=== PATIENT | female | born 1955 | race Caucasian/White ===

== ENCOUNTER → 2017-03-16 | Outpatient (CLI) | payer MEDICARE, OTHER ==
[2017-03-16 16:56] LABS: Blood Urea Nitrogen 8 mg/dL (7-17); Non-African American GFR(MDRD) >60 (>60 ml/min/1.73 sqM)
--- NOTE | 2017-03-16 17:37 | CT ---
EXAMINATION TYPE: CT chest angio for PE DATE OF EXAM: 03/16/2017 COMPARISON: 04/12/2013 HISTORY: Shortness of breath for 2-[address] DLP: 489.4 mGycm Automated exposure control for dose reduction was used. CONTRAST: CT Chest for pulmonary embolism performed with with IV Contrast, patient injected with 72 mL of Omnip aque 350. There are 3-D post processed images. FINDINGS: There is some mild groundglass type interstitial pulmonary infiltrate. There is some mild reticular n odular infiltrate in the right lower lobe and left lower lobe at the lung bases. There is no pleural effusion. There is mild atelectasis at the posterior lung bases. Heart size is normal. There is no pe ricardial effusion. I see no filling defects in the pulmonary arteries. There is no sign of aortic aneurysm or dissection . There is no sign of mediastinal or bronchial adenopathy. There is spurring in the thoracic spine. IMPRESSION: No evidence of pulmonary embolism. Interstitial pulmonary fibrotic changes. Fibrotic changes and atel ectasis at the lung bases similar to old CT scan.
== END | disposition home or self-care (01) ==
LOC: RADCTMAIN 15:53
PROVIDERS: ATTEND Family Medicine
DX: J84.9 Interstitial pulmonary disease, unspecified (principal); J84.10 Pulmonary fibrosis, unspecified; J98.11 Atelectasis
CPT/HCPCS: 82565; 84520; 71275; 36415; Q9967

== ENCOUNTER → 2018-04-14 | Outpatient (CLI) | payer MEDICARE ==
[2018-04-14 13:35] LABS: Blood Urea Nitrogen 8 mg/dL (7-17)
--- NOTE | 2018-04-14 15:29 | CT ---
EXAMINATION TYPE: CT angio neck DATE OF EXAM: 04/14/2018 COMPARISON: None HISTORY: 62-year-old female right internal carotid artery occlusion on ultrasound. Visual changes in the left eye TECHNIQUE: Contiguous axial scanning of the neck performed with IV Contrast, patient injected with 65 mL of Isovue 370. Coronal/sagittal MIP reconstructions performed. 3-D reconstructions generated on a dedicated independent workstation. CT DLP: 335.1 mGycm Automated exposure control for dose reduction was used. FINDINGS: Conventional arch vessel branching anatomy with mild to moderate atherosclerotic calcifications at th e origin of the left common and subclavian arteries. Mildly enlarged caliber to the right main pulmonary artery at 2.7 cm can be seen in the setting of pu lmonary arterial hypertension. There is moderate underlying emphysema in the visualized upper lungs. Mild atherosclerotic calcifications at the origin of the bilateral vertebral arteries. These vessels are codominant and otherwise patent throughout there are coarse. Mild eccentric atherosclerotic plaque and calcification in the distal right common carotid artery and severe atherosclerotic change at the right carotid bifurcation with severe stenosis and subtotal occ lusion at the level of the right carotid bulb with secondary string sign of the right ICA. The right carotid bifurcation occurs 1.1 cm below the angle of the mandible. Moderate atherosclerotic calcifications in the distal left common carotid artery and carotid bifurcat ion with mild, 25% narrowing within the left carotid bulb. There appears to be prior aneurysm clipping near the level of the supraclinoid left ICA. IMPRESSION: 1. SEVERE, GREATER THAN 90% STENOSIS AT THE RIGHT CAROTID BULB WITH SECONDARY STRING SIGN OF THE RIGH T ICA. 2. MILD, LESS THAN 25% ATHEROSCLEROTIC NARROWING WITHIN THE LEFT CAROTID BULB. 3. COPD WITH MODERATE EMPHYSEMA AND POSSIBLE PULMONARY ARTERIAL HYPERTENSION.
== END ==
LOC: RADCTMAIN 12:49
PROVIDERS: ATTEND Family Medicine
DX: I65.23 Occlusion and stenosis of bilateral carotid arteries (principal); J43.9 Emphysema, unspecified
CPT/HCPCS: 82565; 84520; 70498; 36415; Q9967

== ENCOUNTER → 2018-12-14 | Outpatient (CLI) | payer MEDICARE ==
--- NOTE | 2018-12-15 08:01 | CT ---
EXAMINATION TYPE: CT lumbar spine wo con DATE OF EXAM: 12/14/2018 4:24 PM COMPARISON: None. HISTORY: low back pain, no known injury. CT DLP: 1602.8 mGycm Automated exposure control for dose reduction was used. Unenhanced CT of the lumbar spine was performed. Bone and soft tissue window settings are submitted as well as coronal and sagittal reconstructions. There are 5 lumbar type vertebra identified. There is mild height loss with horizontal sclerosis thro ugh the superior L1 endplate consistent with healing or healed fracture, as there is extension to the anterior and posterior endplates with slight posterior retropulsion of the superior L1 vertebra francine uring 1 to 2 mm. No acute fracture or dislocation is seen. Alignment is otherwise satisfactory. No la rge disc herniations are seen on sagittal images. Review of axial images shows mild to moderate facet arthropathy L3-L4 through the L5-S1 levels. Spina l canal is preserved. Bilateral neural foramina are grossly patent. There is moderate to severe calcified plaque of aorta extending to branch vessels. There are suspecte d 2 small right renal calculi coronal images 30 and 31 measuring up to 3 mm on long axis. IMPRESSION: There is subacute or chronic mild fracture through the superior aspect of the L1 vertebra with minimal retropulsion of the superior aspect of the L1 vertebra into the anterior spinal canal.
== END ==
LOC: RADCTMAIN 15:42
PROVIDERS: ATTEND Family Medicine
DX: S32.019A Unspecified fracture of first lumbar vertebra, initial encounter for closed fracture (principal)
CPT/HCPCS: 72131

== ENCOUNTER 2019-05-23 16:29 | Inpatient (IN) | payer MEDICARE ==
[2019-05-23] MEDS ORDERED: methylPREDNISolone SOD SUCCI 125 MG/2 ML VIAL IV STA (16:59)
[2019-05-23] MEDS ORDERED: IPRATROPIUM-ALBUTEROL 3 ML NEB INHALATION STA (16:59)
--- NOTE | 2019-05-23 17:02 | ED ---
SOB HPI - General Chief Complaint: Shortness of Breath Stated Complaint: SOB Time Seen by Provider: 05/23/19 16:34 Source: patient, RN notes reviewed, old records reviewed Mode of arrival: ambulatory Limitations: no limitations - History of Present Illness Initial Comments: This is a 64-year-old female the ER. She was essay for evaluation severe shortn ess of breath presenting from primary care sent in for evaluation regarding shortness of breath. Otherwise no recent travel or sick contacts no recent hospitalizations within the last 3 years. Patient went to primary care doctor's office and noticed oxygen to very low in the low 80s she was then sent to ER for evaluation. Patient does admit to shortness of breath no chest pain no significant lower extremity swelling no fevers. Occasional diaphoresis. No otherwise recent travel history or sick contacts. MD Complaint: shortness of breath, cough, anxiety -: days(s) Severity: severe Severity scale (1-10): 8 Quality: other (no pain) Consistency: constant Improves With: oxygen, rest Worsens With: exertion Known History Of: COPD Context: recent URI Associated Symptoms: pain with inspiration, cough, sputum production Treatments Prior to Arrival: oxygen, bronchodilator - Related Data Home Medications Medication Instructions Recorded Confirmed Albuterol Inhaler [Ventolin Hfa 2 puff INHALATION RT-Q6H PRN 07/25/14 05/23/19 Inhaler] Atenolol [Tenormin] 25 mg PO HS 07/25/14 05/23/19 Montelukast [Singulair] 10 mg PO DAILY 07/25/14 05/23/19 Phenytoin Sodium Extended 200 mg PO BID 07/25/14 05/23/19 [Dilantin] Ranitidine HCl [Zantac] 300 mg PO HS 07/25/14 05/23/19 diphenhydrAMINE [Benadryl] 50 mg PO HS 07/25/14 05/23/19 Sertraline [Zoloft] 200 mg PO DAILY 07/27/14 05/23/19 Losartan Potassium [Cozaar] 50 mg PO DAILY 01/09/15 05/23/19 Albuterol Nebulized [Ventolin 2.5 mg INHALATION RT-QID PRN 12/17/15 05/23/19 Nebulized] Gabapentin 600 mg PO HS 12/17/15 05/23/19 Ipratropium Nebulized [Atrovent 0.5 mg INHALATION RT-Q4H PRN 12/17/15 05/23/19 Nebulized 0.2 MG/ML] Aspirin EC [Ecotrin Low Dose] 81 mg PO DAILY 05/23/19 05/23/19 Atorvastatin [Lipitor] 80 mg PO HS 05/23/19 05/23/19 Budesonide [Pulmicort] 1 mg INHALATION RT-BID 05/23/19 05/23/19 Bumetanide [BUMEX] 2 mg PO DAILY 05/23/19 05/23/19 Clopidogrel Bisulfate [Plavix] 75 mg PO DAILY 05/23/19 05/23/19 Potassium Chloride 20 meq PO DAILY 05/23/19 05/23/19 Spironolactone 25 mg PO DAILY 05/23/19 05/23/19 metFORMIN HCL [Glucophage] 1,000 mg PO BID 05/23/19 05/23/19 predniSONE 40 mg PO DAILY 05/23/19 05/23/19 traZODone HCL 100 - 200 mg PO HS 05/23/19 05/23/19 Allergies Allergy/AdvReac Type Severity Reaction Status Date / Time No Known Allergies Allergy Verified 05/23/19 17:35 Review of Systems ROS Statement: Those systems with pertinent positive or pertinent negative responses have been documented in the HPI. ROS Other: All systems not noted in ROS Statement are negative. Past Medical History Past Medical History: COPD, Diabetes Mellitus, GERD/Reflux, Hyperlipidemia, Hypertension, Osteoarthritis (OA), Pneumonia History of Any Multi-Drug Resistant Organisms: None Reported Past Surgical History: Section Additional Past Surgical History / Comment(s): brain aneurysm repair Past Psychological History: Anxiety Smoking Status: Former smoker Past Alcohol Use History: None Reported Past Drug Use History: None Reported - Past Family History Mother Family Medical History: Congestive Heart Failure (CHF) Father Family Medical History: Congestive Heart Failure (CHF) General Exam Limitations: no limitations General appearance: alert, anxious, lethargic, in distress Head exam: Present: atraumatic, normocephalic, normal inspection Eye exam: Present: normal appearance, PERRL, EOMI. Absent: scleral icterus, conjunctival injection, periorbital swelling ENT exam: Present: normal exam, mucous membranes moist Neck exam: Present: normal inspection. Absent: tenderness, meningismus, lymphadenopathy Respiratory exam: Present: respiratory distress, wheezes, accessory muscle use, decreased breath sounds, prolonged expiratory. Absent: rales, rhonchi, stridor Cardiovascular Exam: Present: normal rhythm, tachycardia, normal heart sounds. Absent: systolic murmur, diastolic murmur, rubs, gallop, clicks GI/Abdominal exam: Present: soft, normal bowel sounds. Absent: distended, tend erness, guarding, rebound, rigid Extremities exam: Present: normal inspection, full ROM, normal capillary refill. Absent: tenderness, pedal edema, joint swelling, calf tenderness Back exam: Present: normal inspection Neurological exam: Present: alert, oriented X3, CN II-XII intact Psychiatric exam: Present: normal affect, normal mood Skin exam: Present: warm, dry, intact, normal color. Absent: rash Course Vital Signs 05/23/19 05/23/19 05/23/19 16:31 16:32 16:40 Temperature 98.3 F Pulse Rate 110 H Respiratory 26 H Rate Blood Pressure 147/79 O2 Sat by Pulse 96 100 99 Oximetry 05/23/19 05/23/19 05/23/19 16:48 16:50 17:00 Temperature Pulse Rate 112 H 113 H Respiratory 26 H 23 17 Rate Blood Pressure 147/79 147/79 O2 Sat by Pulse 100 91 L Oximetry 05/23/19 05/23/19 05/23/19 17:10 17:11 17:20 Temperature Pulse Rate 110 H 112 H 112 H Respiratory 18 18 Rate Blood Pressure 156/71 156/71 O2 Sat by Pulse 90 L 85 L Oximetry 05/23/19 05/23/19 05/23/19 17:30 17:32 17:40 Temperature Pulse Rate 116 H 104 H 110 H Respiratory 42 H 20 Rate Blood Pressure 156/71 127/72 O2 Sat by Pulse 87 L 92 L Oximetry 05/23/19 05/23/19 05/23/19 17:50 18:00 18:10 Temperature Pulse Rate 109 H 110 H 106 H Respiratory 25 H 18 16 Rate Blood Pressure 127/72 127/72 141/86 O2 Sat by Pulse 92 L 94 L 92 L Oximetry 05/23/19 18:16 Temperature Pulse Rate 106 H Respiratory 16 Rate Blood Pressure 141/86 O2 Sat by Pulse 92 L Oximetry - Reevaluation(s) Reevaluation #1: 05/23/19 18:46 Medical records reviewed Reevaluation #2: 05/23/19 18:46 Have breathing treatment here in the ER she is requiring more oxygen than she normally does at home - Consultations Consultation #1: Spoke with Dr. Henry who is okay for admission Medical Decision Making - Medical Decision Making Deformity female the ER with hypoxic respiratory distress severe COPD exacerbation. X-ray shows no acute changes no CHF, patient is needed increased from baseline O2 here in the ER and will be admitted for continued evaluation and monitoring of cardiac troponin status. - Lab Data Result diagrams: 05/23/19 16:47 05/23/19 16:47 Lab Results 05/23/19 05/23/19 05/23/19 Range/Units 16:47 16:47 16:47 WBC 11.9 H (3.8-10.6) k/uL RBC 3.77 L (3.80-5.40) m/uL Hgb 10.4 L (11.4-16.0) gm/dL Hct 32.7 L (34.0-46.0) % MCV 86.7 (80.0-100.0) fL MCH 27.7 (25.0-35.0) pg MCHC 31.9 (31.0-37.0) g/dL RDW 16.0 H (11.5-15.5) % Plt Count 304 (150-450) k/uL Neutrophils % 90 % Lymphocytes % 4 % Monocytes % 4 % Eosinophils % 0 % Basophils % 0 % Neutrophils # 10.7 H (1.3-7.7) k/uL Lymphocytes # 0.5 L (1.0-4.8) k/uL Monocytes # 0.4 (0-1.0) k/uL Eosinophils # 0.0 (0-0.7) k/uL Basophils # 0.1 (0-0.2) k/uL Hypochromasia Slight Anisocytosis Slight PT 9.5 (9.0-12.0) sec INR 0.9 (<1.2) APTT 24.1 (22.0-30.0) sec Sodium 137 (137-145) mmol/L Potassium 4.0 (3.5-5.1) mmol/L Chloride 88 L (98-107) mmol/L Carbon Dioxide 37 H (22-30) mmol/L Anion Gap 12 mmol/L BUN 10 (7-17) mg/dL Creatinine 0.45 L (0.52-1.04) mg/dL Est GFR (CKD-EPI)AfAm >90 (>60 ml/min/1.73 sqM) Est GFR (CKD-EPI)NonAf >90 (>60 ml/min/1.73 sqM) Glucose 130 H (74-99) mg/dL Calcium 9.2 (8.4-10.2) mg/dL Magnesium 1.8 (1.6-2.3) mg/dL Total Bilirubin 0.3 (0.2-1.3) mg/dL AST 28 (14-36) U/L ALT 22 (9-52) U/L Alkaline Phosphatase 157 H (38-126) U/L Troponin I (0.000-0.034) ng/mL NT-Pro-B Natriuret Pep pg/mL Total Protein 7.5 (6.3-8.2) g/dL Albumin 3.9 (3.5-5.0) g/dL 05/23/19 05/23/19 Range/Units 16:47 16:47 WBC (3.8-10.6) k/uL RBC (3.80-5.40) m/uL Hgb (11.4-16.0) gm/dL Hct (34.0-46.0) % MCV (80.0-100.0) fL MCH (25.0-35.0) pg MCHC (31.0-37.0) g/dL RDW (11.5-15.5) % Plt Count (150-450) k/uL Neutrophils % % Lymphocytes % % Monocytes % % Eosinophils % % Basophils % % Neutrophils # (1.3-7.7) k/uL Lymphocytes # (1.0-4.8) k/uL Monocytes # (0-1.0) k/uL Eosinophils # (0-0.7) k/uL Basophils # (0-0.2) k/uL Hypochromasia Anisocytosis PT (9.0-12.0) sec INR (<1.2) APTT (22.0-30.0) sec Sodium (137-145) mmol/L Potassium (3.5-5.1) mmol/L Chloride (98-107) mmol/L Carbon Dioxide (22-30) mmol/L Anion Gap mmol/L BUN (7-17) mg/dL Creatinine (0.52-1.04) mg/dL Est GFR (CKD-EPI)AfAm (>60 ml/min/1.73 sqM) Est GFR (CKD-EPI)NonAf (>60 ml/min/1.73 sqM) Glucose (74-99) mg/dL Calcium (8.4-10.2) mg/dL Magnesium (1.6-2.3) mg/dL Total Bilirubin (0.2-1.3) mg/dL AST (14-36) U/L ALT (9-52) U/L Alkaline Phosphatase (38-126) U/L Troponin I <0.012 (0.000-0.034) ng/mL NT-Pro-B Natriuret Pep 373 pg/mL Total Protein (6.3-8.2) g/dL Albumin (3.5-5.0) g/dL - EKG Data -: EKG Interpreted by Me (EKG shows sinus tachycardia rate of 113, KS 180, QRS 70, QTc 447) - Radiology Data Radiology results: report reviewed (Chest x-rays negative for change from prior), image reviewed Critical Care Time Critical Care Time: Yes Total Critical Care Time: 31 Disposition Clinical Impression: Acute exacerbation of chronic obstructive pulmonary disease, Congestive heart failure, COPD with acute exacerbation, Hypoxia Disposition: ADMITTED IP TO THIS HOSP Condition: Fair Is patient prescribed a controlled substance at d/c from ED?: No Referrals: Asha Pacheco DO [Primary Care Provider] - 1-2 days
[2019-05-23 17:09] LABS: Anisocytosis Slight; Basophils # (A) 0.1 k/uL (0-0.2); Basophils % (A) 0 %; Eosinophils % (A) 0 %; HCT 32.7 % (34.0-46.0); HGB 10.4 gm/dL (11.4-16.0); Hypochromasia Slight; Lymphocytes # (A) 0.5 k/uL (1.0-4.8); Lymphocytes % (A) 4 %; MCH 27.7 pg (25.0-35.0); MCHC 31.9 g/dL (31.0-37.0); MCV 86.7 fL (80.0-100.0); Mean Platelet Volume 5.6; Monocytes # (A) 0.4 k/uL (0-1.0); Monocytes % (A) 4 %; Neutrophils # (A) 10.7 k/uL (1.3-7.7); Neutrophils % (A) 90 %; Platelet Count 304 k/uL (150-450); RBC 3.77 m/uL (3.80-5.40); WBC 11.9 k/uL (3.8-10.6)
[2019-05-23 17:20] LABS: INR 0.9 (<1.2); Partial Thromboplastin Time 24.1 sec (22.0-30.0); Prothrombin Time 9.5 sec (9.0-12.0)
--- NOTE | 2019-05-23 17:52 | XR ---
EXAMINATION TYPE: XR chest 1V portable DATE OF EXAM: 05/23/2019 COMPARISON: 12/17/2015 HISTORY: Short of breath TECHNIQUE: Single frontal view of the chest is obtained. FINDINGS: Heart is normal. There is some coarse density in the lower lobes and more on the left side . There is no heart failure. There are no hilar masses. IMPRESSION: Chronic infiltrates in the lower lobes consistent with scarring and is not significantly different than old exam. No heart failure.
[2019-05-23 17:59] LABS: ALT 22 U/L (9-52); AST 28 U/L (14-36); African American GFR (CKD) >90 (>60 ml/min/1.73 sqM); Albumin 3.9 g/dL (3.5-5.0); Alkaline Phosphatase 157 U/L (38-126); Blood Urea Nitrogen 10 mg/dL (7-17); Calcium 9.2 mg/dL (8.4-10.2); Chloride 88 mmol/L (98-107); Glucose 130 mg/dL (74-99); Magnesium 1.8 mg/dL (1.6-2.3); Non-African American GFR(CKD) >90 (>60 ml/min/1.73 sqM); Sodium 137 mmol/L (137-145); Total Bilirubin 0.3 mg/dL (0.2-1.3); Total Protein 7.5 g/dL (6.3-8.2)
[2019-05-23 18:03] LABS: Anion Gap 12 mmol/L; Carbon Dioxide 37 mmol/L (22-30)
[2019-05-23] MEDS: IPRATROPIUM-ALBUTEROL 3 ML NEB INHALATION SCH (19:31)
[2019-05-23] MEDS: ALBUTEROL NEBULIZED 2.5 MG/3 ML INHALATION PRN (23:21)
[2019-05-23] MEDS: LORazepam 2 MG/ML INJ IV STA (23:52)
[2019-05-23] MEDS: methylPREDNISolone SOD SUCCI 125 MG/2 ML VIAL IV SCH (23:57)
[2019-05-24] MEDS: LORazepam 2 MG/ML INJ IV STA (02:01)
[2019-05-24] MEDS ORDERED: LORazepam 2 MG/ML INJ IV STA (02:58)
[2019-05-24] MEDS: ALBUTEROL NEBULIZED 2.5 MG/3 ML INHALATION PRN (04:38)
[2019-05-24 06:57] LABS: Anisocytosis Slight; Basophils # (A) 0.4 k/uL (0-0.2); Basophils % (A) 3 %; Eosinophils % (A) 0 %; HCT 35.4 % (34.0-46.0); HGB 11.2 gm/dL (11.4-16.0); Hypochromasia Marked; Lymphocytes # (A) 0.5 k/uL (1.0-4.8); Lymphocytes % (A) 4 %; MCH 28.3 pg (25.0-35.0); MCHC 31.7 g/dL (31.0-37.0); MCV 89.2 fL (80.0-100.0); Mean Platelet Volume 5.8; Monocytes # (A) 0.7 k/uL (0-1.0); Monocytes % (A) 5 %; Neutrophils # (A) 11.3 k/uL (1.3-7.7); Neutrophils % (A) 85 %; Platelet Count 317 k/uL (150-450); RBC 3.97 m/uL (3.80-5.40); WBC 13.2 k/uL (3.8-10.6)
[2019-05-24] MEDS: BUDESONIDE 1 MG/2 ML NEBU INHALATION SCH ×2 (07:14→19:18)
[2019-05-24] MEDS: IPRATROPIUM-ALBUTEROL 3 ML NEB INHALATION SCH ×4 (07:14→19:18)
[2019-05-24] MEDS: methylPREDNISolone SOD SUCCI 125 MG/2 ML VIAL IV SCH ×3 (07:22→17:51)
[2019-05-24 08:36] LABS: ABG Base Excess 18.3 mmol/L; ABG PH 7.23 (7.35-7.45); ABG PO2 75 mmHg (83-108); ABG TCO2 49 mmol/L (19-24); Allen Test Performed? Yes
[2019-05-24 08:38] LABS: ABG HCO3 46 mmol/L (21-25); ABG PCO2 111 mmHg (35-45)
[2019-05-24] MEDS: LEVOFLOXACIN 750MG-D5W PMX 750 MG in DEXTROSE/WATER 1 150ML.BAG IVPB SCH (09:05)
--- NOTE | 2019-05-24 12:25 | P.CNPUL ---
History of Present Illness Consult date: 05/24/19 Reason for consult: dyspnea, cough, COPD, hypoxemia, obstructive sleep apnea Chief complaint: Progressive shortness of breath for last 2 days History of present illness: This is a 63-year-old female with obesity hypoventilation also has significant history of end-stage lung disease secondary to his COPD emphysema she has the obstructive sleep apnea and couldn't tolerate CPAP machine, due to progressive respiratory distress came into the hospital she was very diaphoretic as high CO2 due to that she was very somnolent but however she responded well with the BiPAP slightly more awake now currently she is on BiPAP 15/10 and 40% oxygen her tidal volume of 490 and respiratory rate is in mid 20s arousable does able to say a sentence in 2-3 breaths Review of Systems All systems: negative Past Medical History Past Medical History: COPD, Diabetes Mellitus, GERD/Reflux, Hyperlipidemia, Hypertension, Osteoarthritis (OA), Pneumonia History of Any Multi-Drug Resistant Organisms: None Reported Past Surgical History: Section Additional Past Surgical History / Comment(s): brain aneurysm repair Past Psychological History: Anxiety Smoking Status: Former smoker Past Alcohol Use History: None Reported Past Drug Use History: None Reported - Past Family History Mother Family Medical History: Congestive Heart Failure (CHF) Father Family Medical History: Congestive Heart Failure (CHF) Medications and Allergies Home Medications Medication Instructions Recorded Confirmed Type Albuterol Inhaler [Ventolin Hfa 2 puff INHALATION RT-Q6H PRN 07/25/14 05/23/19 History Inhaler] Atenolol [Tenormin] 25 mg PO HS 07/25/14 05/23/19 History Montelukast [Singulair] 10 mg PO DAILY 07/25/14 05/23/19 History Phenytoin Sodium Extended 200 mg PO BID 07/25/14 05/23/19 History [Dilantin] Ranitidine HCl [Zantac] 300 mg PO HS 07/25/14 05/23/19 History diphenhydrAMINE [Benadryl] 50 mg PO HS 07/25/14 05/23/19 History Sertraline [Zoloft] 200 mg PO DAILY 07/27/14 05/23/19 History Losartan Potassium [Cozaar] 50 mg PO DAILY 01/09/15 05/23/19 History Albuterol Nebulized [Ventolin 2.5 mg INHALATION RT-QID PRN 12/17/15 05/23/19 History Nebulized] Gabapentin 600 mg PO HS 12/17/15 05/23/19 History Ipratropium Nebulized [Atrovent 0.5 mg INHALATION RT-Q4H PRN 12/17/15 05/23/19 History Nebulized 0.2 MG/ML] Aspirin EC [Ecotrin Low Dose] 81 mg PO DAILY 05/23/19 05/23/19 History Atorvastatin [Lipitor] 80 mg PO HS 05/23/19 05/23/19 History Budesonide [Pulmicort] 1 mg INHALATION RT-BID 05/23/19 05/23/19 History Bumetanide [BUMEX] 2 mg PO DAILY 05/23/19 05/23/19 History Clopidogrel Bisulfate [Plavix] 75 mg PO DAILY 05/23/19 05/23/19 History Potassium Chloride 20 meq PO DAILY 05/23/19 05/23/19 History Spironolactone 25 mg PO DAILY 05/23/19 05/23/19 History metFORMIN HCL [Glucophage] 1,000 mg PO BID 05/23/19 05/23/19 History predniSONE 40 mg PO DAILY 05/23/19 05/23/19 History traZODone HCL 100 - 200 mg PO HS 05/23/19 05/23/19 History Allergies Allergy/AdvReac Type Severity Reaction Status Date / Time No Known Allergies Allergy Verified 05/23/19 17:35 Physical Exam Vitals: Vital Signs Temp Pulse Pulse Resp BP BP Pulse Ox 05/24/19 11:17 106 H 05/24/19 11:05 106 H 05/24/19 07:23 106 H 05/24/19 07:14 108 H 05/24/19 07:00 97 F L 102 H 20 164/93 96 05/24/19 04:55 100 05/24/19 04:40 100 05/24/19 04:00 106 H 22 159/87 88 L 05/24/19 02:00 107 H 24 160/79 93 L 05/24/19 00:00 115 H 26 H 175/93 76 L 05/23/19 23:35 110 H 05/23/19 23:28 115 H 42 H 64 L 05/23/19 23:21 100 05/23/19 21:00 104 H 16 127/71 95 05/23/19 20:30 106 H 23 143/75 96 05/23/19 20:00 109 H 20 134/78 94 L 05/23/19 19:44 100 05/23/19 19:32 104 H 05/23/19 19:30 105 H 22 146/88 95 05/23/19 19:00 105 H 22 131/109 95 05/23/19 18:30 106 H 26 H 141/86 93 L 05/23/19 18:16 106 H 16 141/86 92 L 05/23/19 18:10 106 H 16 141/86 92 L 05/23/19 18:00 110 H 18 127/72 94 L 05/23/19 17:50 109 H 25 H 127/72 92 L 05/23/19 17:40 110 H 20 127/72 92 L 05/23/19 17:32 104 H 05/23/19 17:30 116 H 42 H 156/71 87 L 05/23/19 17:20 112 H 18 156/71 85 L 05/23/19 17:11 112 H 05/23/19 17:10 110 H 18 156/71 90 L 05/23/19 17:00 113 H 17 147/79 91 L 05/23/19 16:50 112 H 23 147/79 100 05/23/19 16:48 26 H 05/23/19 16:40 99 05/23/19 16:32 100 05/23/19 16:31 98.3 F 110 H 26 H 147/79 96 Intake and Output 05/23/19 05/24/19 05/24/19 22:59 06:59 14:59 Other: Weight 77.111 kg - Constitutional General appearance: disheveled, morbidly obese, severe distress - EENT Eyes: EOMI, PERRLA, poor dentition, normal appearance ENT: normal oropharynx Ears: bilateral: normal - Neck Neck: normal ROM Carotids: bilateral: upstroke normal Thyroid: bilateral: normal size - Respiratory Respiratory: bilateral: diminished, wheezing (Few scattered bilateral), prolonged expiration, negative: CTA, dullness, rales, rhonchi, prolonged inspiration - Cardiovascular Rhythm: regular Heart sounds: normal: S1, S2 - Gastrointestinal General gastrointestinal: normal bowel sounds - Integumentary Integumentary: normal, normal turgor - Neurologic Neurologic: CNII-XII intact - Musculoskeletal Musculoskeletal: gait normal, generalized weakness, strength equal bilaterally - Psychiatric Psychiatric: A&O x's 3, appropriate affect, intact judgment & insight Results - Laboratory Findings CBC and BMP: 05/24/19 06:38 05/23/19 16:47 ABG ABG pH 7.23 (7.35-7.45) L 05/24/19 08:26 ABG pCO2 111 mmHg (35-45) H* 05/24/19 08:26 ABG pO2 75 mmHg (83-108) L 05/24/19 08:26 ABG O2 Saturation 92.0 % (94-97) L 05/24/19 08:26 PT/INR, D-dimer PT 9.5 sec (9.0-12.0) 05/23/19 16:47 INR 0.9 (<1.2) 05/23/19 16:47 Abnormal lab findings: Abnormal Labs 05/23/19 05/23/19 05/24/19 16:47 16:47 06:38 WBC 11.9 H 13.2 H RBC 3.77 L Hgb 10.4 L 11.2 L Hct 32.7 L RDW 16.0 H 16.0 H Neutrophils # 10.7 H 11.3 H Lymphocytes # 0.5 L 0.5 L Basophils # 0.4 H ABG pH ABG pCO2 ABG pO2 ABG HCO3 ABG Total CO2 ABG O2 Saturation Chloride 88 L Carbon Dioxide 37 H Creatinine 0.45 L Glucose 130 H Alkaline Phosphatase 157 H 05/24/19 08:26 WBC RBC Hgb Hct RDW Neutrophils # Lymphocytes # Basophils # ABG pH 7.23 L ABG pCO2 111 H* ABG pO2 75 L ABG HCO3 46 H* ABG Total CO2 49 H ABG O2 Saturation 92.0 L Chloride Carbon Dioxide Creatinine Glucose Alkaline Phosphatase - Diagnostic Findings Chest x-ray: report reviewed, image reviewed (Bilateral basal infiltrate or pneu monia cannot be excluded) Assessment and Plan Assessment: Altered mental status Acute on chronic hypoxic and hypercapnic respiratory failure Acute COPD exacerbation Bilateral pneumonia Sepsis due to pneumonia Obesity hypoventilation Obstructive sleep apnea Peripheral vascular disease Major depression Potential hypertensive cardiovascular disease Generalized anxiety disorder Plan: Continue BiPAP support Supplemental oxygen DVT prophylaxis IV antibiotics Broad-spectrum IV antibiotics Continue home medications Further recommendations pending plan of care as per clinical response of the patient, we'll be admitted in selective on telemetry bed Time with Patient: Greater than 30
[2019-05-24] MEDS: BUMETANIDE 1 MG TAB PO SCH (12:56)
[2019-05-24] MEDS: SPIRONOLACTONE 25 MG TAB PO SCH (12:56)
[2019-05-24] MEDS: MONTELUKAST 10 MG TAB PO SCH (12:56)
[2019-05-24] MEDS: LOSARTAN 50 MG TAB PO SCH (12:57)
[2019-05-24] MEDS: POTASSIUM CHLORIDE ER 20 MEQ TAB.ER PO SCH (12:57)
[2019-05-24] MEDS: CLOPIDOGREL 75 MG TAB PO SCH (12:57)
[2019-05-24] MEDS: ENOXAPARIN 40 MG/0.4 ML SYRINGE SQ SCH (12:57)
[2019-05-24] MEDS: ALPRAZolam 0.5 MG TAB PO PRN (12:57)
[2019-05-24] MEDS ORDERED: INFLUENZA VACCINE (6 MOS+) 60 MCG/0.5 ML SYRINGE IM ONE (14:04)
[2019-05-24] MEDS: SERTRALINE 100 MG TAB PO SCH (15:08)
[2019-05-24] MEDS: PHENYTOIN SODIUM EXTENDED 100 MG CAP PO SCH ×2 (15:09→20:05)
[2019-05-24] MEDS: GABAPENTIN 300 MG CAP PO SCH (20:05)
[2019-05-24] MEDS: traZODone HCL 100 MG TAB PO SCH (20:05)
[2019-05-24] MEDS: ATORVASTATIN 80 MG TAB PO SCH (20:08)
[2019-05-24] MEDS: FAMOTIDINE 20 MG TAB PO SCH (20:08)
[2019-05-24] MEDS: ATENOLOL 25 MG TAB PO SCH (20:08)
[2019-05-24 21:22] LABS: Glucose,Whole Blood 129 mg/dL (75-99)
[2019-05-24] MEDS: INSULIN ASPART (NovoLOG) 100 UNIT/ML VIAL SQ SCH (21:25)
--- NOTE | 2019-05-24 23:43 | P.HPIM ---
History of Present Illness H&P Date: 05/24/19 Chief Complaint: madeleine Jasso is a 63 yo F with PMH of severe COPD, obesity hypoventillation syndrome, T2DM, HTN who presented to the ED after being sent from PCP office w ith SpO2 in the 80s. She complained of cough, shortness of breath and increased home oxygen requirements for the past 5-7 days. She took some prenisone she had at home but no improvement. She feels things have worsened over the past 3 days. No sick contacts or feverr. In the ED WBC 12k, cr 0.5, trop neg, BNP 300. She did develop decreased alertness and ABG showed pH 7.25, CO2 111, O2 75. Pt is currently on BiPAP and tolerating well. Review of Systems All systems: negative Constitutional: Reports malaise, Reports weakness, Denies chills, Denies fever Eyes: denies blurred vision, denies pain Ears, nose, mouth and throat: Denies headache, Denies sore throat Cardiovascular: Denies chest pain, Denies shortness of breath Respiratory: Reports cough, Reports cough with sputum, Reports dyspnea, Reports home oxygen Gastrointestinal: Denies abdominal pain, Denies diarrhea, Denies nausea, Denies vomiting Genitourinary: Denies dysuria, Denies hematuria Musculoskeletal: Denies myalgias Integumentary: Denies pruritus, Denies rash Neurological: Reports change in mentation, Reports weakness, Denies numbness Psychiatric: Denies anxiety, Denies depression Endocrine: Denies fatigue, Denies weight change Past Medical History Past Medical History: Asthma, COPD, Diabetes Mellitus, GERD/Reflux, Hyperlipidemia, Hypertension, Osteoarthritis (OA), Pneumonia, Respiratory Disorder, Sleep Apnea/CPAP/BIPAP Additional Past Medical History / Comment(s): Severe COPD, chronic respiratory failure, home oxygen at 3L/NC ATC, tracheobronchitis, NIDDM type II, neuropathy bilateral lower extremities/feet, lower extremity edema, denies seizure history, ROQUE without device, sinusitis, seasonal allergies, fall with lower back vertebral fracture. History of Any Multi-Drug Resistant Organisms: None Reported Past Surgical History: Section, Tonsillectomy, Tubal Ligation Additional Past Surgical History / Comment(s): Brain aneurysm with clipping, colonoscopy. Past Anesthesia/Blood Transfusion Reactions: No Reported Reaction Smoking Status: Former smoker - Past Family History Mother Family Medical History: Congestive Heart Failure (CHF) Father Family Medical History: Congestive Heart Failure (CHF) Medications and Allergies Home Medications Medication Instructions Recorded Confirmed Type Albuterol Inhaler [Ventolin Hfa 2 puff INHALATION RT-Q6H PRN 07/25/14 05/23/19 History Inhaler] Atenolol [Tenormin] 25 mg PO HS 07/25/14 05/23/19 History Montelukast [Singulair] 10 mg PO DAILY 07/25/14 05/23/19 History Phenytoin Sodium Extended 200 mg PO BID 07/25/14 05/23/19 History [Dilantin] Ranitidine HCl [Zantac] 300 mg PO HS 07/25/14 05/23/19 History diphenhydrAMINE [Benadryl] 50 mg PO HS 07/25/14 05/23/19 History Sertraline [Zoloft] 200 mg PO DAILY 07/27/14 05/23/19 History Losartan Potassium [Cozaar] 50 mg PO DAILY 01/09/15 05/23/19 History Albuterol Nebulized [Ventolin 2.5 mg INHALATION RT-QID PRN 12/17/15 05/23/19 History Nebulized] Gabapentin 600 mg PO HS 12/17/15 05/23/19 History Ipratropium Nebulized [Atrovent 0.5 mg INHALATION RT-Q4H PRN 12/17/15 05/23/19 History Nebulized 0.2 MG/ML] Aspirin EC [Ecotrin Low Dose] 81 mg PO DAILY 05/23/19 05/23/19 History Atorvastatin [Lipitor] 80 mg PO HS 05/23/19 05/23/19 History Budesonide [Pulmicort] 1 mg INHALATION RT-BID 05/23/19 05/23/19 History Bumetanide [BUMEX] 2 mg PO DAILY 05/23/19 05/23/19 History Clopidogrel Bisulfate [Plavix] 75 mg PO DAILY 05/23/19 05/23/19 History Potassium Chloride 20 meq PO DAILY 05/23/19 05/23/19 History Spironolactone 25 mg PO DAILY 05/23/19 05/23/19 History metFORMIN HCL [Glucophage] 1,000 mg PO BID 05/23/19 05/23/19 History predniSONE 40 mg PO DAILY 05/23/19 05/23/19 History traZODone HCL 100 - 200 mg PO HS 05/23/19 05/23/19 History Allergies Allergy/AdvReac Type Severity Reaction Status Date / Time No Known Allergies Allergy Verified 05/23/19 17:35 Physical Exam Vitals: Vital Signs Temp Pulse Pulse Resp BP BP BP 05/24/19 20:00 98 F 105 H 18 135/78 05/24/19 19:32 106 H 05/24/19 19:21 103 H 05/24/19 18:13 100 20 125/64 05/24/19 16:00 98.1 F 105 H 21 117/68 05/24/19 15:26 102 H 05/24/19 15:18 108 H 05/24/19 11:17 106 H 05/24/19 11:05 106 H 05/24/19 07:23 106 H 05/24/19 07:14 108 H 05/24/19 07:00 97 F L 102 H 20 164/93 05/24/19 04:55 100 05/24/19 04:40 100 05/24/19 04:00 106 H 22 159/87 05/24/19 02:00 107 H 24 160/79 05/24/19 00:00 115 H 26 H 175/93 05/23/19 23:35 110 H Pulse Ox 05/24/19 20:00 88 L 05/24/19 19:32 05/24/19 19:21 05/24/19 18:13 90 L 05/24/19 16:00 89 L 05/24/19 15:26 05/24/19 15:18 05/24/19 11:17 05/24/19 11:05 05/24/19 07:23 05/24/19 07:14 05/24/19 07:00 96 05/24/19 04:55 05/24/19 04:40 05/24/19 04:00 88 L 05/24/19 02:00 93 L 05/24/19 00:00 76 L 05/23/19 23:35 Intake and Output 05/24/19 05/24/19 05/25/19 14:59 22:59 06:59 Other: # Voids 1 Weight 59 kg General: well nourished, well developed. on BIPAP. Vitals reviewed Eyes: PERRL, EOMI, conjunctiva normal HENT: normocephalic, mucus membranes moist Neck: supple, no JVD Lungs: poor air entry. wheezing throughout. rhonchi at R base CV: Regular rate and rhythm, no murmur. Peripheral pulses 1+ Abdomen: soft, nondistended, no organomegaly Lymph: no cervical or axillary LAD Skin: warm and dry. Neuro: decreased alertness, no CN deficit, motor tone normal Results CBC & Chem 7: 05/24/19 06:38 05/23/19 16:47 Labs: Abnormal Lab Results - Last 24 Hours (Table) 05/24/19 05/24/19 05/24/19 Range/Units 06:38 08:26 21:20 WBC 13.2 H (3.8-10.6) k/uL Hgb 11.2 L (11.4-16.0) gm/dL RDW 16.0 H (11.5-15.5) % Neutrophils # 11.3 H (1.3-7.7) k/uL Lymphocytes # 0.5 L (1.0-4.8) k/uL Basophils # 0.4 H (0-0.2) k/uL ABG pH 7.23 L (7.35-7.45) ABG pCO2 111 H* (35-45) mmHg ABG pO2 75 L (83-108) mmHg ABG HCO3 46 H* (21-25) mmol/L ABG Total CO2 49 H (19-24) mmol/L ABG O2 Saturation 92.0 L (94-97) % POC Glucose (mg/dL) 129 H (75-99) mg/dL Thrombosis Risk Factor Assmnt - Choose All That Apply Any of the Below Risk Factors Present?: Yes Each Factor Represents 1 point: Abnormal pulmonary function (COPD), Heart failure (<1month), Obesity (BMI >25), Serious lung disease incl. pneumonia (< 1month) Other Risk Factors: Yes Each Risk Factor Represents 2 Points: Age 61-74 years Other congenital or acquired thrombophilia - If yes, enter type in comment: No Thrombosis Risk Factor Assessment Total Risk Factor Score: 6 Thrombosis Risk Factor Assessment Level: High Risk Assessment and Plan (1) Acute respiratory failure with hypoxia and hypercapnia Current Visit: Yes Status: Acute Code(s): J96.01 - ACUTE RESPIRATORY FAILURE WITH HYPOXIA; J96.02 - ACUTE RESPIRATORY FAILURE WITH HYPERCAPNIA SNOMED Code(s): 251790755 (2) Type 2 diabetes mellitus Current Visit: Yes Status: Acute Code(s): E11.9 - TYPE 2 DIABETES MELLITUS WITHOUT COMPLICATIONS SNOMED Code(s): 83211609 (3) Metabolic encephalopathy Current Visit: Yes Status: Acute Code(s): G93.41 - METABOLIC ENCEPHALOPATHY SNOMED Code(s): 07482807 (4) Hypertension Current Visit: Yes Status: Acute Code(s): I10 - ESSENTIAL (PRIMARY) HYPERTENSION SNOMED Code(s): 47815341 (5) COPD with acute exacerbation Current Visit: Yes Status: Acute Code(s): J44.1 - CHRONIC OBSTRUCTIVE PU LMONARY DISEASE W (ACUTE) EXACERBATION SNOMED Code(s): 523657436 Plan: 1. Acute hypoxic/hypercapneic respiratory failure. Pulmonology consulted. IV levaquin and solumedrol. Continue BiPAP. Duonebs, pulmicort nebs. Mucinex prn 2. Acute encephalopathy. Secondary to hypercapnea. Continue BiPAP 3. T2DM. Sliding scale 4. HTN. Continue cozaar DVT prophylaxis lovenox
[2019-05-25] MEDS: ALBUTEROL NEBULIZED 2.5 MG/3 ML INHALATION PRN ×3 (00:36→23:57)
[2019-05-25] MEDS: methylPREDNISolone SOD SUCCI 125 MG/2 ML VIAL IV SCH ×5 (01:04→22:59)
[2019-05-25] MEDS: ALPRAZolam 0.5 MG TAB PO PRN (03:58)
[2019-05-25 06:06] LABS: Glucose,Whole Blood 122 mg/dL (75-99)
[2019-05-25] MEDS: INSULIN ASPART (NovoLOG) 100 UNIT/ML VIAL SQ SCH ×4 (06:06→20:31)
[2019-05-25 06:53] LABS: Anisocytosis Slight; Basophils # (A) 0.1 k/uL (0-0.2); Basophils % (A) 1 %; Eosinophils % (A) 0 %; HCT 30.7 % (34.0-46.0); HGB 9.8 gm/dL (11.4-16.0); Hypochromasia Slight; Lymphocytes # (A) 0.8 k/uL (1.0-4.8); Lymphocytes % (A) 8 %; MCH 27.8 pg (25.0-35.0); MCV 86.7 fL (80.0-100.0); Mean Platelet Volume 6.4; Monocytes # (A) 0.6 k/uL (0-1.0); Monocytes % (A) 6 %; Neutrophils # (A) 8.5 k/uL (1.3-7.7); Neutrophils % (A) 84 %; Platelet Count 270 k/uL (150-450); RBC 3.55 m/uL (3.80-5.40); RDW 16.6 % (11.5-15.5); WBC 10.1 k/uL (3.8-10.6)
[2019-05-25] MEDS: BUDESONIDE 1 MG/2 ML NEBU INHALATION SCH ×2 (07:53→19:43)
[2019-05-25] MEDS: IPRATROPIUM-ALBUTEROL 3 ML NEB INHALATION SCH ×4 (07:53→19:43)
[2019-05-25] MEDS: BUMETANIDE 1 MG TAB PO SCH (09:11)
[2019-05-25] MEDS: SERTRALINE 100 MG TAB PO SCH (09:12)
[2019-05-25] MEDS: PHENYTOIN SODIUM EXTENDED 100 MG CAP PO SCH ×2 (09:12→20:30)
[2019-05-25] MEDS: CLOPIDOGREL 75 MG TAB PO SCH (09:12)
[2019-05-25] MEDS: LOSARTAN 50 MG TAB PO SCH (09:13)
[2019-05-25] MEDS: MONTELUKAST 10 MG TAB PO SCH (09:13)
[2019-05-25] MEDS: SPIRONOLACTONE 25 MG TAB PO SCH (09:13)
[2019-05-25] MEDS: ENOXAPARIN 40 MG/0.4 ML SYRINGE SQ SCH (09:14)
[2019-05-25] MEDS: POTASSIUM CHLORIDE ER 20 MEQ TAB.ER PO SCH (09:28)
[2019-05-25] MEDS: LEVOFLOXACIN 750MG-D5W PMX 750 MG in DEXTROSE/WATER 1 150ML.BAG IVPB SCH (10:50)
[2019-05-25 11:45] LABS: Glucose,Whole Blood 118 mg/dL (75-99)
--- NOTE | 2019-05-25 15:34 | P.PN ---
Subjective Progress Note Date: 05/25/19 Mitchell Jasso is a 63 yo F with PMH of severe COPD, obesity hypoventillation syndrome, T2DM, HTN who presented to the ED after being sent from PCP office with SpO2 in the 80s. She complained of cough, shortness of breath and increased home oxygen requirements for the past 5-7 days. She took some prenisone she had at home but no improvement. She feels things have worsened over the past 3 days. No sick contacts or feverr. In the ED WBC 12k, cr 0.5, trop neg, BNP 300. She did develop decreased alertness and ABG showed pH 7.25, CO2 111, O2 75. Pt is currently on BiPAP and tolerating well. 05/25/2019 maintained on BiPAP, and nebulized bronchodilators, antibiotics, steroids .Significant improvement. Yesterday obtunded with a CO2 of 111. Today alert and oriented 2, conversing appropriately, on BiPAP. States that she was supposed to. wear BiPAP at home but didn't like the way the mask fit. Afebrile, normal WBC .Hemoglobin 9.8, denies chest pain, palpitations or shortness of breath. Afebrile, normal WBC. Objective - Vital Signs Vital signs: Vital Signs Temp 98.3 F 05/25/19 11:53 Pulse 95 05/25/19 11:53 Resp 18 05/25/19 11:53 BP 132/64 05/25/19 11:53 Pulse Ox 91 L 05/25/19 07:58 Intake & Output 05/24/19 05/25/19 05/25/19 18:59 06:59 18:59 Intake Total 540 Balance 540 Weight 59 kg Intake: Oral 540 Other: Voiding Method Bedside Commode # Voids 1 1 - Exam General: Alert, well nourished, well developed. on BIPAP. Vitals reviewed Eyes: PERRL, EOMI, conjunctiva normal HENT: normocephalic, mucus membranes moist Neck: supple, no JVD Lungs: Improved air entry, diminished. No rhonchi, crackles or wheezing. CV: Regular rate and rhythm, no murmur. Peripheral pulses 1+ Abdomen: soft, nondistended, no organomegaly Lymph: no cervical or axillary LAD Skin: warm and dry. Neuro: Cranial as 2 through 12 grossly intact, alert and oriented 2, no CN deficit, motor tone normal - Labs CBC & Chem 7: 05/25/19 06:05 05/23/19 16:47 Labs: Abnormal Lab Results - Last 24 Hours (Table) 05/24/19 05/25/19 05/25/19 Range/Units 21:20 06:05 06:05 RBC 3.55 L (3.80-5.40) m/uL Hgb 9.8 L (11.4-16.0) gm/dL Hct 30.7 L (34.0-46.0) % RDW 16.6 H (11.5-15.5) % Neutrophils # 8.5 H (1.3-7.7) k/uL Lymphocytes # 0.8 L (1.0-4.8) k/uL POC Glucose (mg/dL) 129 H 122 H (75-99) mg/dL 05/25/19 Range/Units 11:43 RBC (3.80-5.40) m/uL Hgb (11.4-16.0) gm/dL Hct (34.0-46.0) % RDW (11.5-15.5) % Neutrophils # (1.3-7.7) k/uL Lymphocytes # (1.0-4.8) k/uL POC Glucose (mg/dL) 118 H (75-99) mg/dL Assessment and Plan Assessment: (1) Acute respiratory failure with hypoxia and hypercapnia Current Visit: Yes Status: Acute Code(s): J96.01 - ACUTE RESPIRATORY FAILURE WITH HYPOXIA; J96.02 - ACUTE RESPIRATORY FAILURE WITH HYPERCAPNIA SNOMED Code(s): 443156443 (2) Type 2 diabetes mellitus Current Visit: Yes Status: Acute Code(s): E11.9 - TYPE 2 DIABETES MELLITUS WITHOUT COMPLICATIONS SNOMED Code(s): 79019444 (3) Metabolic encephalopathy secondary to #1 Current Visit: Yes Status: Acute Code(s): G93.41 - METABOLIC ENCEPHALOPATHY SNOMED Code(s): 55381177 (4) Hypertension Current Visit: Yes Status: Acute Code(s): I10 - ESSENTIAL (PRIMARY) HYPERTENSION SNOMED Code(s): 75223255 (5) COPD with acute exacerbation Current Visit: Yes Status: Acute Code(s): J44.1 - CHRONIC OBSTRUCTIVE PULMONARY DISEASE W (ACUTE) EXACERBATION SNOMED Code(s): 795582949 (6) Sepsis secondary to bilateral pneumonia (7) obesity hypoventilation (8) obstructive sleep apnea on BiPAP (9) Anxiety Plan: Continue on current medication regime ,monitoring and symptomatic treatment. Maintain nebulized bronchodilators, IV steroids, IV antibiotics of Levaquin. Repeat ABG, weaning of BiPAP- possibly only requiring BiPAP at night. Follow closely with pulmonary. Further recommendations to follow The impression and plan of care has been dictated as directed. : I performed a history and examination of this patient, discussed the same with the dictator. I agree with the dictator's note ,documented as a scribe. Any additional findings or plans will be noted.
[2019-05-25 15:58] LABS: ABG Base Excess 23.7 mmol/L; ABG PCO2 69 mmHg (35-45); ABG PH 7.45 (7.35-7.45); ABG PO2 70 mmHg (83-108); ABG TCO2 50 mmol/L (19-24); Allen Test Performed? Yes
[2019-05-25 16:40] LABS: Glucose,Whole Blood 149 mg/dL (75-99)
--- NOTE | 2019-05-25 18:01 | P.PN ---
Subjective Progress Note Date: 05/25/19 Principal diagnosis: Altered mental status Acute on chronic hypoxic and hypercapnic respiratory failure Acute COPD exacerbation Bilateral pneumonia Sepsis due to pneumonia Obesity hypoventilation Obstructive sleep apnea Peripheral vascular disease Major depression Potential hypertensive cardiovascular disease Generalized anxiety disorder 05/25/2019, patient remains on BiPAP severity or shortness of breath significant improvement arterial blood gases reviewed as well patient will be removed off of BiPAP and started on nasal cannula while she will get her lunch at nighttime we'll put the BiPAP on labs reviewed medications reviewed care plan discussed the patient has been at length This is a 63-year-old female with obesity hypoventilation also has significant h istory of end-stage lung disease secondary to his COPD emphysema she has the obstructive sleep apnea and couldn't tolerate CPAP machine, due to progressive respiratory distress came into the hospital she was very diaphoretic as high CO2 due to that she was very somnolent but however she responded well with the BiPAP slightly more awake now currently she is on BiPAP 15/10 and 40% oxygen her tidal volume of 490 and respiratory rate is in mid 20s arousable does able to say a sentence in 2-3 breaths Objective - Vital Signs Vital signs: Vital Signs Temp 98.3 F 05/25/19 11:53 Pulse 88 05/25/19 16:29 Resp 22 05/25/19 15:28 BP 107/65 05/25/19 15:28 Pulse Ox 91 L 05/25/19 07:58 Intake & Output 05/24/19 05/25/19 05/25/19 18:59 06:59 18:59 Intake Total 540 Balance 540 Weight 59 kg Intake: Oral 540 Other: Voiding Method Bedside Commode # Voids 1 1 - Exam Constitutional General appearance: disheveled, morbidly obese, severe distress - EENT Eyes: EOMI, PERRLA, poor dentition, normal appearance ENT: normal oropharynx Ears: bilateral: normal - Neck Neck: normal ROM Carotids: bilateral: upstroke normal Thyroid: bilateral: normal size - Respiratory Respiratory: bilateral: diminished, wheezing (Few scattered bilateral), prolonged expiration, negative: CTA, dullness, rales, rhonchi, prolonged insp iration - Cardiovascular Rhythm: regular Heart sounds: normal: S1, S2 - Gastrointestinal General gastrointestinal: normal bowel sounds - Integumentary Integumentary: normal, normal turgor - Neurologic Neurologic: CNII-XII intact - Musculoskeletal Musculoskeletal: gait normal, generalized weakness, strength equal bilaterally - Psychiatric Psychiatric: A&O x's 3, appropriate affect, intact judgment & insight - Labs CBC & Chem 7: 05/25/19 06:05 05/23/19 16:47 Labs: Abnormal Lab Results - Last 24 Hours (Table) 05/24/19 05/25/19 05/25/19 Range/Units 21:20 06:05 06:05 RBC 3.55 L (3.80-5.40) m/uL Hgb 9.8 L (11.4-16.0) gm/dL Hct 30.7 L (34.0-46.0) % RDW 16.6 H (11.5-15.5) % Neutrophils # 8.5 H (1.3-7.7) k/uL Lymphocytes # 0.8 L (1.0-4.8) k/uL ABG pCO2 (35-45) mmHg ABG pO2 (83-108) mmHg ABG HCO3 (21-25) mmol/L ABG Total CO2 (19-24) mmol/L POC Glucose (mg/dL) 129 H 122 H (75-99) mg/dL 05/25/19 05/25/19 05/25/19 Range/Units 11:43 15:55 16:37 RBC (3.80-5.40) m/uL Hgb (11.4-16.0) gm/dL Hct (34.0-46.0) % RDW (11.5-15.5) % Neutrophils # (1.3-7.7) k/uL Lymphocytes # (1.0-4.8) k/uL ABG pCO2 69 H (35-45) mmHg ABG pO2 70 L (83-108) mmHg ABG HCO3 48 H* (21-25) mmol/L ABG Total CO2 50 H (19-24) mmol/L POC Glucose (mg/dL) 118 H 149 H (75-99) mg/dL Assessment and Plan Assessment: Altered mental status Acute on chronic hypoxic and hypercapnic respiratory failure Acute COPD exacerbation Bilateral pneumonia Sepsis due to pneumonia Obesity hypoventilation Obstructive sleep apnea Peripheral vascular disease Major depression Potential hypertensive cardiovascular disease Generalized anxiety disorder Plan: Continue BiPAP support , will use when necessary during the day in each night Supplemental oxygen DVT prophylaxis IV antibiotics Broad-spectrum IV antibiotics Continue home medications Further recommendations pending plan of care as per clinical response of the patient, we'll be admitted in selective on telemetry bed Time with Patient: Greater than 30
[2019-05-25 20:20] LABS: Glucose,Whole Blood 155 mg/dL (75-99)
[2019-05-25] MEDS: FAMOTIDINE 20 MG TAB PO SCH (20:30)
[2019-05-25] MEDS: ATENOLOL 25 MG TAB PO SCH (20:30)
[2019-05-25] MEDS: traZODone HCL 100 MG TAB PO SCH (20:30)
[2019-05-25] MEDS: GABAPENTIN 300 MG CAP PO SCH (20:30)
[2019-05-25] MEDS: ATORVASTATIN 80 MG TAB PO SCH (20:30)
[2019-05-26] MEDS: ALBUTEROL NEBULIZED 2.5 MG/3 ML INHALATION PRN (03:34)
[2019-05-26] MEDS: methylPREDNISolone SOD SUCCI 125 MG/2 ML VIAL IV SCH ×4 (05:32→22:21)
[2019-05-26] MEDS: INSULIN ASPART (NovoLOG) 100 UNIT/ML VIAL SQ SCH ×4 (05:39→20:31)
[2019-05-26 05:43] LABS: Glucose,Whole Blood 99 mg/dL (75-99)
[2019-05-26 06:40] LABS: ABG HCO3 48 mmol/L (21-25)
[2019-05-26 07:06] LABS: Anisocytosis Slight; Basophils # (A) 0.1 k/uL (0-0.2); Basophils % (A) 1 %; Eosinophils % (A) 1 %; HCT 30.2 % (34.0-46.0); HGB 9.7 gm/dL (11.4-16.0); Hypochromasia Slight; Lymphocytes # (A) 1.4 k/uL (1.0-4.8); Lymphocytes % (A) 17 %; MCH 27.7 pg (25.0-35.0); MCHC 31.9 g/dL (31.0-37.0); MCV 86.8 fL (80.0-100.0); Mean Platelet Volume 5.8; Monocytes # (A) 0.5 k/uL (0-1.0); Monocytes % (A) 5 %; Neutrophils # (A) 6.3 k/uL (1.3-7.7); Neutrophils % (A) 74 %; Platelet Count 289 k/uL (150-450); RBC 3.48 m/uL (3.80-5.40); RDW 16.1 % (11.5-15.5); WBC 8.6 k/uL (3.8-10.6)
[2019-05-26] MEDS: ALPRAZolam 0.5 MG TAB PO PRN (08:15)
[2019-05-26] MEDS: IPRATROPIUM-ALBUTEROL 3 ML NEB INHALATION SCH ×4 (08:22→19:25)
[2019-05-26] MEDS: BUDESONIDE 1 MG/2 ML NEBU INHALATION SCH ×2 (08:22→19:25)
--- NOTE | 2019-05-26 08:59 | XR ---
EXAMINATION TYPE: XR chest 1V portable DATE OF EXAM: 05/26/2019 CLINICAL HISTORY: Hypoxia progress study. TECHNIQUE: Single AP portable upright view of the chest is obtained. COMPARISON: Chest x-ray from 3 days earlier end older studies. FINDINGS: There is background chronic emphysematous change with stable left basilar opacity favoring scarring. No new focal airspace opacity, pleural effusion, or pneumothorax or axis is evident bilate rally. Cardiac silhouette size is within normal limits. Osseous structures are intact. IMPRESSION: Overall stable findings, chronic emphysematous change with left basilar scarring. No ac marry infiltrate is present.
[2019-05-26] MEDS: LOSARTAN 50 MG TAB PO SCH (09:17)
[2019-05-26] MEDS: BUMETANIDE 1 MG TAB PO SCH (09:44)
[2019-05-26] MEDS: SPIRONOLACTONE 25 MG TAB PO SCH (09:44)
[2019-05-26] MEDS: SERTRALINE 100 MG TAB PO SCH (09:56)
[2019-05-26] MEDS: CLOPIDOGREL 75 MG TAB PO SCH (09:56)
[2019-05-26] MEDS: LEVOFLOXACIN 750 MG TAB PO SCH (09:56)
[2019-05-26] MEDS: PHENYTOIN SODIUM EXTENDED 100 MG CAP PO SCH ×2 (09:56→20:31)
[2019-05-26] MEDS: MONTELUKAST 10 MG TAB PO SCH (09:56)
[2019-05-26] MEDS: POTASSIUM CHLORIDE ER 20 MEQ TAB.ER PO SCH (09:57)
[2019-05-26] MEDS: ENOXAPARIN 40 MG/0.4 ML SYRINGE SQ SCH (09:57)
[2019-05-26 10:51] LABS: African American GFR (CKD) >90 (>60 ml/min/1.73 sqM); Blood Urea Nitrogen 15 mg/dL (7-17); Calcium 8.9 mg/dL (8.4-10.2); Chloride 84 mmol/L (98-107); Glucose 100 mg/dL (74-99); Non-African American GFR(CKD) >90 (>60 ml/min/1.73 sqM); Potassium 3.7 mmol/L (3.5-5.1); Sodium 135 mmol/L (137-145)
[2019-05-26 10:58] LABS: Anion Gap 6 mmol/L
[2019-05-26 11:01] LABS: Carbon Dioxide 45 mmol/L (22-30)
[2019-05-26 11:51] LABS: Glucose,Whole Blood 120 mg/dL (75-99)
--- NOTE | 2019-05-26 12:11 | P.PN ---
Subjective Progress Note Date: 05/26/19 Mitchell Jasso is a 63 yo F with PMH of severe COPD, obesity hypoventillation syndrome, T2DM, HTN who presented to the ED after being sent from PCP office with SpO2 in the 80s. She complained of cough, shortness of breath and increased home oxygen requirements for the past 5-7 days. She took some prenisone she had at home but no improvement. She feels things have worsened over the past 3 days. No sick contacts or feverr. In the ED WBC 12k, cr 0.5, trop neg, BNP 300. She did develop decreased alertness and ABG showed pH 7.25, CO2 111, O2 75. Pt is currently on BiPAP and tolerating well. 05/25/2019 maintained on BiPAP, and nebulized bronchodilators, antibiotics, steroids .Significant improvement. Yesterday obtunded with a CO2 of 111. Today alert and oriented 2, conversing appropriately, on BiPAP. States that she was supposed to. wear BiPAP at home but didn't like the way the mask fit. Afebrile, normal WBC .Hemoglobin 9.8, denies chest pain, palpitations or shortness of breath. Afebrile, normal WBC. 05/26/2019 BiPAP weaned to nasal cannula yesterday afternoon, maintained on BiPAP during the night. This morning maintaining O2 sats of 89% on 3 L nasal cannula( patient wears 3 L nasal cannula at home). Follow-up chest x-ray reporting stable chronic emphysematous change with left basilar scarring, no acute infiltrate. Occasional nonproductive cough. Afebrile, labs pending. Borderline hypotension. Denies chest pain, palpitations or shortness of breath. Objective - Vital Signs Vital signs: Vital Signs Temp 97.8 F 05/26/19 11:40 Pulse 75 05/26/19 11:40 Resp 16 05/26/19 11:40 BP 108/61 05/26/19 11:40 Pulse Ox 93 L 05/26/19 11:40 Intake & Output 05/25/19 05/26/19 05/26/19 18:59 06:59 18:59 Intake Total 540 660 Output Total 400 Balance 140 660 Weight 77.8 kg Intake: Oral 540 660 Output: Urine 400 Other: Voiding Method Bedside Commode # Voids 2 1 - Exam General: Alert and oriented 3, no acute distress, currently on 4 L nasal cannula maintaining O2 sats of 90% Eyes: PERRL, EOMI, conjunctiva normal HENT: normocephalic, mucus membranes moist Neck: supple, no JVD Lungs: Fair air entry, diminished. No rhonchi, crackles or wheezing. CV: Regular rate and rhythm, no murmur. Peripheral pulses 1+, no edema Abdomen: soft, nondistended, no organomegaly Lymph: no cervical or axillary LAD Skin: warm and dry. Neuro: Cranial as 2 through 12 grossly intact, alert and oriented 2, no CN deficit, motor tone normal - Labs CBC & Chem 7: 05/26/19 06:15 05/26/19 06:15 Labs: Abnormal Lab Results - Last 24 Hours (Table) 05/25/19 05/25/19 05/25/19 Range/Units 15:55 16:37 20:19 RBC (3.80-5.40) m/uL Hgb (11.4-16.0) gm/dL Hct (34.0-46.0) % RDW (11.5-15.5) % ABG pCO2 69 H (35-45) mmHg ABG pO2 70 L (83-108) mmHg ABG HCO3 48 H* (21-25) mmol/L ABG Total CO2 50 H (19-24) mmol/L Sodium (137-145) mmol/L Chloride (98-107) mmol/L Carbon Dioxide (22-30) mmol/L Glucose (74-99) mg/dL POC Glucose (mg/dL) 149 H 155 H (75-99) mg/dL 05/26/19 05/26/19 05/26/19 Range/Units 06:15 06:15 11:46 RBC 3.48 L (3.80-5.40) m/uL Hgb 9.7 L (11.4-16.0) gm/dL Hct 30.2 L (34.0-46.0) % RDW 16.1 H (11.5-15.5) % ABG pCO2 (35-45) mmHg ABG pO2 (83-108) mmHg ABG HCO3 (21-25) mmol/L ABG Total CO2 (19-24) mmol/L Sodium 135 L (137-145) mmol/L Chloride 84 L (98-107) mmol/L Carbon Dioxide 45 H* (22-30) mmol/L Glucose 100 H (74-99) mg/dL POC Glucose (mg/dL) 120 H (75-99) mg/dL Assessment and Plan Assessment: (1) Acute respiratory failure with hypoxia and hypercapnia Current Visit: Yes Status: Acute Code(s): J96.01 - ACUTE RESPIRATORY FAILURE WITH HYPOXIA; J96.02 - ACUTE RESPIRATORY FAILURE WITH HYPERCAPNIA SNOMED Cod e(s): 763846405 (2) Type 2 diabetes mellitus Current Visit: Yes Status: Acute Code(s): E11.9 - TYPE 2 DIABETES MELLITUS WITHOUT COMPLICATIONS SNOMED Code(s): 88851822 (3) Metabolic encephalopathy secondary to #1 Current Visit: Yes Status: Acute Code(s): G93.41 - METABOLIC ENCEPHALOPATHY SNOMED Code(s): 02362637 (4) Hypertension Current Visit: Yes Status: Acute Code(s): I10 - ESSENTIAL (PRIMARY) HYPERTENSION SNOMED Code(s): 66251081 (5) COPD with acute exacerbation Current Visit: Yes Status: Acute Code(s): J44.1 - CHRONIC OBSTRUCTIVE PULMONARY DISEASE W (ACUTE) EXACERBATION SNOMED Code(s): 286274328 (6) Sepsis secondary to bilateral pneumonia (7) obesity hypoventilation (8) obstructive sleep apnea on BiPAP (9) Anxiety Plan: Continue on current medication regime ,monitoring and symptomatic treatment. Borderline hypotension, Cozaar discontinued, hold Bumex and Aldactone today. Wean O2 to maintain O2 sat of 88-92%. Patient normally wears 3 L nasal cannula O2 at home. Continue on nebulized bronchodilators, IV steroids, IV antibiotics of Levaquin.BiPAP every night. Follow closely with pulmonary. Labs pending. The impression and plan of care has been dictated as directed. : I performed a history and examination of this patient, discussed the same with the dictator. I agree with the dictator's note ,documented as a scribe. Any additional findings or plans will be noted.
--- NOTE | 2019-05-26 15:40 | P.PN ---
Subjective Progress Note Date: 05/26/19 Principal diagnosis: Altered mental status Acute on chronic hypoxic and hypercapnic respiratory failure Acute COPD exacerbation Bilateral pneumonia Sepsis due to pneumonia Obesity hypoventilation Obstructive sleep apnea Peripheral vascular disease Major depression Potential hypertensive cardiovascular disease Generalized anxiety disorder 05/26/2019, patient seen eval examined during rounds she is more awake and alert breathing relatively more comfortably noted her CO2 is high which is to be consistent with her condition, patient is on supplemental oxygen she will get BiPAP at nighttime I've discussed with patient at length, continue breathing treatments IV steroids 05/25/2019, patient remains on BiPAP severity or shortness of breath significant improvement arterial blood gases reviewed as well patient will be removed off of BiPAP and started on nasal cannula while she will get her lunch at nighttime we'll put the BiPAP on labs reviewed medications reviewed care plan discussed the patient has been at length This is a 63-year-old female with obesity hypoventilation also has significant history of end-stage lung disease secondary to his COPD emphysema she has the obstructive sleep apnea and couldn't tolerate CPAP machine, due to progressive respiratory distress came into the hospital she was very diaphoretic as high CO2 due to that she was very somnolent but however she responded well with the BiPAP slightly more awake now currently she is on BiPAP 15/10 and 40% oxygen her tidal volume of 490 and respiratory rate is in mid 20s arousable does able to say a sentence in 2-3 breaths Objective - Vital Signs Vital signs: Vital Signs Temp 97.8 F 05/26/19 11:40 Pulse 73 05/26/19 15:22 Resp 18 05/26/19 15:07 BP 104/59 05/26/19 15:07 Pulse Ox 90 L 05/26/19 15:22 Intake & Output 05/25/19 05/26/19 05/26/19 18:59 06:59 18:59 Intake Total 540 900 Output Total 400 Balance 140 900 Weight 77.8 kg Intake: Oral 540 900 Output: Urine 400 Other: Voiding Method Bedside Commode # Voids 2 1 - Exam Constitutional General appearance: disheveled, morbidly obese, severe distress - EENT Eyes: EOMI, PERRLA, poor dentition, normal appearance ENT: normal oropharynx Ears: bilateral: normal - Neck Neck: normal ROM Carotids: bilateral: upstroke normal Thyroid: bilateral: normal size - Respiratory Respiratory: bilateral: diminished, wheezing (Few scattered bilateral), prolonged expiration, negative: CTA, dullness, rales, rhonchi, prolonged inspiration - Cardiovascular Rhythm: regular Heart sounds: normal: S1, S2 - Gastrointestinal General gastrointestinal: normal bowel sounds - Integumentary Integumentary: normal, normal turgor - Neurologic Neurologic: CNII-XII intact - Musculoskeletal Musculoskeletal: gait normal, generalized weakness, strength equal bilaterally - Psychiatric Psychiatric: A&O x's 3, appropriate affect, intact judgment & insight - Labs CBC & Chem 7: 05/26/19 06:15 05/26/19 06:15 Labs: Abnormal Lab Results - Last 24 Hours (Table) 05/25/19 05/25/19 05/25/19 Range/Units 15:55 16:37 20:19 RBC (3.80-5.40) m/uL Hgb (11.4-16.0) gm/dL Hct (34.0-46.0) % RDW (11.5-15.5) % ABG pCO2 69 H (35-45) mmHg ABG pO2 70 L (83-108) mmHg ABG HCO3 48 H* (21-25) mmol/L ABG Total CO2 50 H (19-24) mmol/L Sodium (137-145) mmol/L Chloride (98-107) mmol/L Carbon Dioxide (22-30) mmol/L Glucose (74-99) mg/dL POC Glucose (mg/dL) 149 H 155 H (75-99) mg/dL 05/26/19 05/26/19 05/26/19 Range/Units 06:15 06:15 11:46 RBC 3.48 L (3.80-5.40) m/uL Hgb 9.7 L (11.4-16.0) gm/dL Hct 30.2 L (34.0-46.0) % RDW 16.1 H (11.5-15.5) % ABG pCO2 (35-45) mmHg ABG pO2 (83-108) mmHg ABG HCO3 (21-25) mmol/L ABG Total CO2 (19-24) mmol/L Sodium 135 L (137-145) mmol/L Chloride 84 L (98-107) mmol/L Carbon Dioxide 45 H* (22-30) mmol/L Glucose 100 H (74-99) mg/dL POC Glucose (mg/dL) 120 H (75-99) mg/dL Assessment and Plan Assessment: Altered mental status Acute on chronic hypoxic and hypercapnic respiratory failure Acute COPD exacerbation Bilateral pneumonia Sepsis due to pneumonia Obesity hypoventilation Obstructive sleep apnea Peripheral vascular disease Major depression Potential hypertensive cardiovascular disease Generalized anxiety disorder Plan: Continue BiPAP support at nighttime with Supplemental oxygen during day with a nasal cannula DVT prophylaxis IV steroids Broad-spectrum IV antibiotics Continue home medications Further recommendations pending plan of care as per clinical response of the patient, we'll be admitted in selective on telemetry bed Time with Patient: Greater than 30
[2019-05-26 17:05] LABS: Glucose,Whole Blood 144 mg/dL (75-99)
[2019-05-26] MEDS: FAMOTIDINE 20 MG TAB PO SCH (20:31)
[2019-05-26] MEDS: GABAPENTIN 300 MG CAP PO SCH (20:31)
[2019-05-26] MEDS: ATORVASTATIN 80 MG TAB PO SCH (20:31)
[2019-05-26 20:32] LABS: Glucose,Whole Blood 118 mg/dL (75-99)
[2019-05-26] MEDS: traZODone HCL 100 MG TAB PO SCH (20:32)
[2019-05-26] MEDS: ATENOLOL 25 MG TAB PO SCH (20:32)
[2019-05-27 06:08] LABS: Glucose,Whole Blood 101 mg/dL (75-99)
[2019-05-27] MEDS: INSULIN ASPART (NovoLOG) 100 UNIT/ML VIAL SQ SCH ×4 (06:09→20:58)
[2019-05-27] MEDS: methylPREDNISolone SOD SUCCI 125 MG/2 ML VIAL IV SCH (06:12)
[2019-05-27 07:09] LABS: Basophils # (A) 0.1 k/uL (0-0.2); Basophils % (A) 1 %; Eosinophils # (A) 0.1 k/uL (0-0.7); Eosinophils % (A) 1 %; HCT 31.8 % (34.0-46.0); Hypochromasia Slight; Lymphocytes # (A) 1.5 k/uL (1.0-4.8); Lymphocytes % (A) 18 %; MCH 27.5 pg (25.0-35.0); MCHC 31.4 g/dL (31.0-37.0); MCV 87.7 fL (80.0-100.0); Mean Platelet Volume 5.6; Monocytes # (A) 0.5 k/uL (0-1.0); Monocytes % (A) 6 %; Neutrophils # (A) 5.9 k/uL (1.3-7.7); Neutrophils % (A) 71 %; Platelet Count 335 k/uL (150-450); RBC 3.63 m/uL (3.80-5.40); RDW 15.9 % (11.5-15.5); WBC 8.4 k/uL (3.8-10.6)
[2019-05-27 07:26] LABS: African American GFR (CKD) >90 (>60 ml/min/1.73 sqM); Blood Urea Nitrogen 11 mg/dL (7-17); Calcium 8.6 mg/dL (8.4-10.2); Chloride 85 mmol/L (98-107); Glucose 95 mg/dL (74-99); Non-African American GFR(CKD) >90 (>60 ml/min/1.73 sqM); Potassium 3.8 mmol/L (3.5-5.1); Sodium 137 mmol/L (137-145)
[2019-05-27 07:32] LABS: Anion Gap 6 mmol/L
[2019-05-27 07:35] LABS: Carbon Dioxide 46 mmol/L (22-30)
[2019-05-27] MEDS: BUDESONIDE 1 MG/2 ML NEBU INHALATION SCH ×2 (08:14→20:24)
[2019-05-27] MEDS: IPRATROPIUM-ALBUTEROL 3 ML NEB INHALATION SCH ×4 (08:14→20:24)
[2019-05-27] MEDS: MONTELUKAST 10 MG TAB PO SCH (08:35)
[2019-05-27] MEDS: CLOPIDOGREL 75 MG TAB PO SCH (08:35)
[2019-05-27] MEDS: BUMETANIDE 1 MG TAB PO SCH (08:35)
[2019-05-27] MEDS: ENOXAPARIN 40 MG/0.4 ML SYRINGE SQ SCH (08:35)
[2019-05-27] MEDS: PHENYTOIN SODIUM EXTENDED 100 MG CAP PO SCH ×2 (08:35→20:59)
[2019-05-27] MEDS: LEVOFLOXACIN 750 MG TAB PO SCH (08:35)
[2019-05-27] MEDS: SPIRONOLACTONE 25 MG TAB PO SCH (08:35)
[2019-05-27] MEDS: POTASSIUM CHLORIDE ER 20 MEQ TAB.ER PO SCH (08:35)
[2019-05-27] MEDS: SERTRALINE 100 MG TAB PO SCH (08:35)
--- NOTE | 2019-05-27 11:53 | P.PN ---
Subjective 63-year-old female with advanced COPD uses BiPAP at night's admitted for COPD exacerbation patient is on every 6 hourly steroids which will cut down to 40 twice a day of IV steroids. Patient does not feel like she is at her baseline. Patient is still having some shortness of breath. There is no wheezing but there is a very limited air entry into bilateral lung gill on exam. Patient also had CO2 narcosis and tmetabolic encephalopathy from hypercapnia which improved at this time patient is alert oriented 3 at this time. Patient is presently on 3 L of oxygen. We'll obtain physical therapy and occupational therapy consultation. Constitutional: Denied any fatigue denied any fever. Cardio vascular: denied any chest pain, palpitations Gastrointestinal denied any nausea vomiting Pulmonary: as mentioned in HPI Neurologic denied any new focal deficits All inpatient medications were reviewed and appropriate changes in these medications as dictated in the interval history and assessment and plan. Objective - Vital Signs Vital signs: Vital Signs Temp 97.9 F 05/27/19 02:56 Pulse 80 05/27/19 11:37 Resp 18 05/27/19 02:56 BP 123/59 05/27/19 02:56 Pulse Ox 95 05/27/19 02:56 Intake & Output 05/26/19 05/27/19 05/27/19 18:59 06:59 18:59 Intake Total 1140 240 Balance 1140 240 Weight 77.8 kg Intake: Oral 1140 240 Other: # Voids 1 1 - Exam PHYSICAL EXAMINATION: GENERAL: The patient is alert and oriented x3, not in any acute distress. Well developed, well nourished. HEENT: Pupils are round and equally reacting to light. EOMI. No scleral icterus. No conjunctival pallor. Normocephalic, atraumatic. No pharyngeal erythema. No thyromegaly. CARDIOVASCULAR: S1 and S2 present. No murmurs, rubs, or gallops. PULMONARY: no wheezing or crackles were appreciated air entry significantly limited in bilateral lung gill. ABDOMEN: Soft, nontender, nondistended, normoactive bowel sounds. No palpable organomegaly. MUSCULOSKELETAL: No joint swelling or deformity. EXTREMITIES: No cyanosis, clubbing, or pedal edema. NEUROLOGICAL: Gross neurological examination did not reveal any focal deficits. SKIN: No rashes. - Labs CBC & Chem 7: 05/27/19 06:27 05/27/19 06:27 Labs: Abnormal Lab Results - Last 24 Hours (Table) 05/26/19 05/26/19 05/26/19 Range/Units 11:46 17:01 20:26 RBC (3.80-5.40) m/uL Hgb (11.4-16.0) gm/dL Hct (34.0-46.0) % RDW (11.5-15.5) % Chloride (98-107) mmol/L Carbon Dioxide (22-30) mmol/L POC Glucose (mg/dL) 120 H 144 H 118 H (75-99) mg/dL 05/27/19 05/27/19 05/27/19 Range/Units 06:06 06:27 06:27 RBC 3.63 L (3.80-5.40) m/uL Hgb 10.0 L (11.4-16.0) gm/dL Hct 31.8 L (34.0-46.0) % RDW 15.9 H (11.5-15.5) % Chloride 85 L (98-107) mmol/L Carbon Dioxide 46 H* (22-30) mmol/L POC Glucose (mg/dL) 101 H (75-99) mg/dL Assessment and Plan Plan: acute on chronic hypercapnic respiratory failure secondary to COPD exacerbation continue systemic steroids will cut down the stomach steroids as mentioned above. -Peripheral edema for which patient is on Bumex which was held yesterday probably because of hypotension which will be continued now. -Metabolic encephalopathy from hypercapnia which resolved patient was on BiPAP last night patient is BiPAP dependent at nighttime and patient appears to have advanced COPD because of problems and -Hypertension -Type 2 diabetes mellitus -there is no clear evidence of pneumonia at this time. -obesity and obstructive sleep apnea Have anxiety disorder
[2019-05-27 12:02] LABS: Glucose,Whole Blood 146 mg/dL (75-99)
[2019-05-27 16:55] LABS: Glucose,Whole Blood 103 mg/dL (75-99)
[2019-05-27] MEDS ORDERED: ACETAMINOPHEN TAB 500 MG TAB PO PRN (17:31)
[2019-05-27 20:15] LABS: Glucose,Whole Blood 169 mg/dL (75-99)
[2019-05-27] MEDS: ATORVASTATIN 80 MG TAB PO SCH (20:58)
[2019-05-27] MEDS: GABAPENTIN 300 MG CAP PO SCH (20:58)
[2019-05-27] MEDS: ATENOLOL 25 MG TAB PO SCH (20:58)
[2019-05-27] MEDS: FAMOTIDINE 20 MG TAB PO SCH (20:58)
[2019-05-27] MEDS: traZODone HCL 100 MG TAB PO SCH (20:59)
[2019-05-27] MEDS: methylPREDNISolone SOD SUCCI 40 MG/ML 1 ML VIAL IV SCH (20:59)
[2019-05-28] MEDS: ALBUTEROL NEBULIZED 2.5 MG/3 ML INHALATION PRN ×3 (00:23→23:52)
[2019-05-28 06:10] LABS: Glucose,Whole Blood 106 mg/dL (75-99)
[2019-05-28] MEDS: INSULIN ASPART (NovoLOG) 100 UNIT/ML VIAL SQ SCH ×4 (06:10→20:51)
[2019-05-28] MEDS: BUDESONIDE 1 MG/2 ML NEBU INHALATION SCH ×2 (08:29→20:06)
[2019-05-28] MEDS: IPRATROPIUM-ALBUTEROL 3 ML NEB INHALATION SCH ×4 (08:29→20:06)
[2019-05-28] MEDS: MONTELUKAST 10 MG TAB PO SCH (08:40)
[2019-05-28] MEDS: PHENYTOIN SODIUM EXTENDED 100 MG CAP PO SCH ×2 (08:40→20:51)
[2019-05-28] MEDS: LEVOFLOXACIN 750 MG TAB PO SCH (08:40)
[2019-05-28] MEDS: ENOXAPARIN 40 MG/0.4 ML SYRINGE SQ SCH (08:40)
[2019-05-28] MEDS: POTASSIUM CHLORIDE ER 20 MEQ TAB.ER PO SCH (08:40)
[2019-05-28] MEDS: methylPREDNISolone SOD SUCCI 40 MG/ML 1 ML VIAL IV SCH (08:40)
[2019-05-28] MEDS: SPIRONOLACTONE 25 MG TAB PO SCH (08:41)
[2019-05-28] MEDS: BUMETANIDE 1 MG TAB PO SCH (08:41)
[2019-05-28] MEDS: CLOPIDOGREL 75 MG TAB PO SCH (08:41)
[2019-05-28] MEDS: SERTRALINE 100 MG TAB PO SCH (08:41)
--- NOTE | 2019-05-28 10:19 | P.PN ---
Subjective Progress Note Date: 05/27/19 Principal diagnosis: Altered mental status Acute on chronic hypoxic and hypercapnic respiratory failure Acute COPD exacerbation Bilateral pneumonia Sepsis due to pneumonia Obesity hypoventilation Obstructive sleep apnea Peripheral vascular disease Major depression Potential hypertensive cardiovascular disease Generalized anxiety disorder 05/27/2019, patient seen jerrod reexamined during the rounds patient back on 3 Gio nasal cannula during the day and when necessary BiPAP support and each night she has been using the BiPAP now and seems to be tolerating very well 05/26/2019, patient seen eval examined during rounds she is more awake and alert breathing relatively more comfortably noted her CO2 is high which is to be consistent with her condition, patient is on supplemental oxygen she will get BiPAP at nighttime I've discussed with patient at length, continue breathing treatments IV steroids 05/25/2019, patient remains on BiPAP severity or shortness of breath significant improvement arterial blood gases reviewed as well patient will be removed off of BiPAP and started on nasal cannula while she will get her lunch at nighttime we'll put the BiPAP on labs reviewed medications reviewed care plan discussed the patient has been at length This is a 63-year-old female with obesity hypoventilation also has significant history of end-stage lung disease secondary to his COPD emphysema she has the obstructive sleep apnea and couldn't tolerate CPAP machine, due to progressive respiratory distress came into the hospital she was very diaphoretic as high CO2 due to that she was very somnolent but however she responded well with the BiPAP slightly more awake now currently she is on BiPAP 15/10 and 40% oxygen her tidal volume of 490 and respiratory rate is in mid 20s arousable does able to say a sentence in 2-3 breaths Objective - Vital Signs Vital signs: Vital Signs Temp 98.8 F 05/27/19 20:00 Pulse 80 05/27/19 20:41 Resp 16 05/27/19 20:41 BP 104/52 05/27/19 20:00 Pulse Ox 90 L 05/27/19 21:00 Intake & Output 05/27/19 05/27/19 05/28/19 06:59 18:59 06:59 Intake Total 1919 Balance 1919 Weight 77.8 kg Intake: Oral 1919 Other: Voiding Method Toilet Toilet Bedside Commode Bedside Commode # Voids 1 2 - Exam Constitutional General appearance: disheveled, morbidly obese, severe distress - EENT Eyes: EOMI, PERRLA, poor dentition, normal appearance ENT: normal oropharynx Ears: bilateral: normal - Neck Neck: normal ROM Carotids: bilateral: upstroke normal Thyroid: bilateral: normal size - Respiratory Respiratory: bilateral: diminished, wheezing (Few scattered bilateral), prolonged expiration, negative: CTA, dullness, rales, rhonchi, prolonged inspiration - Cardiovascular Rhythm: regular Heart sounds: normal: S1, S2 - Gastrointestinal General gastrointestinal: normal bowel sounds - Integumentary Integumentary: normal, normal turgor - Neurologic Neurologic: CNII-XII intact - Musculoskeletal Musculoskeletal: gait normal, generalized weakness, strength equal bilaterally - Psychiatric Psychiatric: A&O x's 3, appropriate affect, intact judgment & insight - Labs CBC & Chem 7: 05/27/19 06:27 05/27/19 06:27 Labs: Abnormal Lab Results - Last 24 Hours (Table) 05/27/19 05/27/19 05/27/19 Range/Units 06:06 06:27 06:27 RBC 3.63 L (3.80-5.40) m/uL Hgb 10.0 L (11.4-16.0) gm/dL Hct 31.8 L (34.0-46.0) % RDW 15.9 H (11.5-15.5) % Chloride 85 L (98-107) mmol/L Carbon Dioxide 46 H* (22-30) mmol/L POC Glucose (mg/dL) 101 H (75-99) mg/dL 05/27/19 05/27/19 05/27/19 Range/Units 11:53 16:50 20:12 RBC (3.80-5.40) m/uL Hgb (11.4-16.0) gm/dL Hct (34.0-46.0) % RDW (11.5-15.5) % Chloride (98-107) mmol/L Carbon Dioxide (22-30) mmol/L POC Glucose (mg/dL) 146 H 103 H 169 H (75-99) mg/dL Assessment and Plan Assessment: Altered mental status Acute on chronic hypoxic and hypercapnic respiratory failure Acute COPD exacerbation Bilateral pneumonia Sepsis due to pneumonia Obesity hypoventilation Obstructive sleep apnea Peripheral vascular disease Major depression Potential hypertensive cardiovascular disease Generalized anxiety disorder Plan: Continue BiPAP support at nighttime with Supplemental oxygen during day with a nasal cannula DVT prophylaxis IV steroids Broad-spectrum IV antibiotics Continue home medications Further recommendations pending plan of care as per clinical response of the patient, we'll be admitted in selective on telemetry bed Time with Patient: Greater than 30
--- NOTE | 2019-05-28 10:37 | P.PN ---
Subjective Progress Note Date: 05/28/19 Principal diagnosis: Altered mental status Acute on chronic hypoxic and hypercapnic respiratory failure Acute COPD exacerbation Bilateral pneumonia Sepsis due to pneumonia Obesity hypoventilation Obstructive sleep apnea Peripheral vascular disease Major depression Potential hypertensive cardiovascular disease Generalized anxiety disorder 05/28/2019, patient seen jerrod examined during the round lab reviewed medications reviewed cough congestion is better she is ambulating in the room with the assistance of the physical therapist 05/27/2019, patient seen jerrod reexamined during the rounds patient back on 3 Gio nasal cannula during the day and when necessary BiPAP support and each night she has been using the BiPAP now and seems to be tolerating very well 05/26/2019, patient seen jerrod examined during rounds she is more awake and alert breathing relatively more comfortably noted her CO2 is high which is to be consistent with her condition, patient is on supplemental oxygen she will get BiPAP at nighttime I've discussed with patient at length, continue breathing treatments IV steroids 05/25/2019, patient remains on BiPAP severity or shortness of breath significant improvement arterial blood gases reviewed as well patient will be removed off of BiPAP and started on nasal cannula while she will get her lunch at nighttime we'll put the BiPAP on labs reviewed medications reviewed care plan discussed the patient has been at length This is a 63-year-old female with obesity hypoventilation also has significant history of end-stage lung disease secondary to his COPD emphysema she has the obstructive sleep apnea and couldn't tolerate CPAP machine, due to progressive respiratory distress came into the hospital she was very diaphoretic as high CO2 due to that she was very somnolent but however she responded well with the BiPAP slightly more awake now currently she is on BiPAP 15/10 and 40% oxygen her tidal volume of 490 and respiratory rate is in mid 20s arousable does able to say a sentence in 2-3 breaths Objective - Vital Signs Vital signs: Vital Signs Temp 98.0 F 05/28/19 08:00 Pulse 78 05/28/19 08:50 Resp 20 05/28/19 08:00 BP 97/55 05/28/19 08:00 Pulse Ox 92 L 05/28/19 08:00 Intake & Output 05/27/19 05/28/19 05/28/19 18:59 06:59 18:59 Intake Total 1920 240 680 Balance 1920 240 680 Weight 79.2 kg Intake: Oral 1920 240 680 Other: Voiding Method Toilet Toilet Toilet Bedside Commode Bedside Commode Bedside Commode # Voids 2 - Exam Constitutional General appearance: disheveled, morbidly obese, severe distress - EENT Eyes: EOMI, PERRLA, poor dentition, normal appearance ENT: normal oropharynx Ears: bilateral: normal - Neck Neck: normal ROM Carotids: bilateral: upstroke normal Thyroid: bilateral: normal size - Respiratory Respiratory: bilateral: diminished, wheezing (Few scattered bilateral), prolonged expiration, negative: CTA, dullness, rales, rhonchi, prolonged inspiration - Cardiovascular Rhythm: regular Heart sounds: normal: S1, S2 - Gastrointestinal General gastrointestinal: normal bowel sounds - Integumentary Integumentary: normal, normal turgor - Neurologic Neurologic: CNII-XII intact - Musculoskeletal Musculoskeletal: gait normal, generalized weakness, strength equal bilaterally - Psychiatric Psychiatric: A&O x's 3, appropriate affect, intact judgment & insight - Labs CBC & Chem 7: 05/27/19 06:27 05/27/19 06:27 Labs: Abnormal Lab Results - Last 24 Hours (Table) 05/27/19 05/27/19 05/27/19 Range/Units 11:53 16:50 20:12 POC Glucose (mg/dL) 146 H 103 H 169 H (75-99) mg/dL 05/28/19 Range/Units 06:08 POC Glucose (mg/dL) 106 H (75-99) mg/dL Assessment and Plan Assessment: Altered mental status Acute on chronic hypoxic and hypercapnic respiratory failure Acute COPD exacerbation Bilateral pneumonia Sepsis due to pneumonia Obesity hypoventilation Obstructive sleep apnea Peripheral vascular disease Major depression Potential hypertensive cardiovascular disease Generalized anxiety disorder Plan: Continue BiPAP support at nighttime with Supplemental oxygen during day with a nasal cannula DVT prophylaxis IV steroids Broad-spectrum IV antibiotics Continue home medications Further recommendations pending plan of care as per clinical response of the patient, we'll be admitted in selective on telemetry bed Time with Patient: Greater than 30
--- NOTE | 2019-05-28 11:25 | XR ---
EXAMINATION TYPE: XR chest 1V DATE OF EXAM: 05/28/2019 HISTORY: chf. REFERENCE: Previous study dated 05/26/2019. FINDINGS: There is scarring or atelectasis at the left lung base. There is minimal airspace disease i n the right lung base. This has improved. There is blunting of the left CP angle. The heart is not en larged. IMPRESSION: IMPROVED AERATION OF BOTH LUNGS.
[2019-05-28 11:42] LABS: Glucose,Whole Blood 91 mg/dL (75-99)
--- NOTE | 2019-05-28 12:34 | P.PN ---
Subjective 63-year-old female with advanced COPD uses BiPAP at night's admitted for COPD exacerbation patient is on every 6 hourly steroids which will cut down to 40 twice a day of IV steroids. Patient does not feel like she is at her baseline. Patient is still having some shortness of breath. There is no wheezing but there is a very limited air entry into bilateral lung gill on exam. Patient also had CO2 narcosis and tmetabolic encephalopathy from hypercapnia which improved at this time patient is alert oriented 3 at this time. Patient is presently on 3 L of oxygen. We'll obtain physical therapy and occupational therapy consultation. 05/28/2019 Patient is still short of breath today she is wheezing which is better than yesterday where there is any biliary entry into bilateral lung gill. Patient is on Bumex appears to be hypovolemic with the low blood pressure. And a chest x-ray if that doesn't show any pulmonary edema he can hold off on Bumex8 patient is on diuretic therapy for her chronic bilateral leg edema Constitutional: Denied any fatigue denied any fever. Cardio vascular: denied any chest pain, palpitations Gastrointestinal denied any nausea vomiting Pulmonary: as mentioned in HPI Neurologic denied any new focal deficits All inpatient medications were reviewed and appropriate changes in these medications as dictated in the interval history and assessment and plan. Objective - Vital Signs Vital signs: Vital Signs Temp 97.2 F L 05/28/19 11:59 Pulse 80 05/28/19 12:02 Resp 20 05/28/19 11:59 BP 113/57 05/28/19 11:59 Pulse Ox 88 L 05/28/19 11:59 Intake & Output 05/27/19 05/28/19 05/28/19 18:59 06:59 18:59 Intake Total 1920 240 680 Balance 1920 240 680 Weight 79.2 kg Intake: Oral 1920 240 680 Other: Voiding Method Toilet Toilet Toilet Bedside Commode Bedside Commode Bedside Commode # Voids 2 2 - Exam PHYSICAL EXAMINATION: GENERAL: The patient is alert and oriented x3, not in any acute distress. Well developed, well nourished. HEENT: Pupils are round and equally reacting to light. EOMI. No scleral icterus. No conjunctival pallor. Normocephalic, atraumatic. No pharyngeal erythema. No thyromegaly. CARDIOVASCULAR: S1 and S2 present. No murmurs, rubs, or gallops. PULMONARY: patient has a decreased air entry into bilateral lung gill with mild expiratory wheezing ABDOMEN: Soft, nontender, nondistended, normoactive bowel sounds. No palpable organomegaly. MUSCULOSKELETAL: No joint swelling or deformity. EXTREMITIES: No cyanosis, clubbing, or pedal edema. NEUROLOGICAL: Gross neurological examination did not reveal any focal deficits. SKIN: No rashes. - Labs CBC & Chem 7: 05/27/19 06:27 05/27/19 06:27 Labs: Abnormal Lab Results - Last 24 Hours (Table) 05/27/19 05/27/19 05/28/19 Range/Units 16:50 20:12 06:08 POC Glucose (mg/dL) 103 H 169 H 106 H (75-99) mg/dL Assessment and Plan Plan: acute on chronic hypercapnic respiratory failure secondary to COPD exacerbation continue systemic steroids will cut down the systemic steroids . -Peripheral edema for which patient is on Bumex which will be held because of hypotension where she continues to be hypotensive atenolol need to be switched to metoprolol -Metabolic encephalopathy from hypercapnia which resolved patient was on BiPAP last night patient is BiPAP dependent at nighttime and patient appears to have advanced COPD because of problems and -Hypertension -Type 2 diabetes mellitus -there is no clear evidence of pneumonia at this time. -obesity and obstructive sleep apnea Have anxiety disorder
[2019-05-28 17:16] LABS: Glucose,Whole Blood 123 mg/dL (75-99)
[2019-05-28 20:26] LABS: Glucose,Whole Blood 138 mg/dL (75-99)
[2019-05-28] MEDS: ATORVASTATIN 80 MG TAB PO SCH (20:50)
[2019-05-28] MEDS: GABAPENTIN 300 MG CAP PO SCH (20:50)
[2019-05-28] MEDS: ATENOLOL 25 MG TAB PO SCH (20:50)
[2019-05-28] MEDS: FAMOTIDINE 20 MG TAB PO SCH (20:50)
[2019-05-28] MEDS: traZODone HCL 100 MG TAB PO SCH (20:58)
[2019-05-29] MEDS: ALBUTEROL NEBULIZED 2.5 MG/3 ML INHALATION PRN ×2 (03:57→23:18)
[2019-05-29 06:22] LABS: Glucose,Whole Blood 109 mg/dL (75-99)
[2019-05-29] MEDS: INSULIN ASPART (NovoLOG) 100 UNIT/ML VIAL SQ SCH ×4 (06:24→20:59)
[2019-05-29] MEDS: IPRATROPIUM-ALBUTEROL 3 ML NEB INHALATION SCH ×4 (07:56→19:24)
[2019-05-29] MEDS: BUDESONIDE 1 MG/2 ML NEBU INHALATION SCH ×2 (07:56→19:24)
[2019-05-29] MEDS: SERTRALINE 100 MG TAB PO SCH (08:42)
[2019-05-29] MEDS: PHENYTOIN SODIUM EXTENDED 100 MG CAP PO SCH ×2 (08:42→20:22)
[2019-05-29] MEDS: CLOPIDOGREL 75 MG TAB PO SCH (08:42)
[2019-05-29] MEDS: predniSONE 20 MG TAB PO SCH (08:42)
[2019-05-29] MEDS: LEVOFLOXACIN 750 MG TAB PO SCH (08:42)
[2019-05-29] MEDS: SPIRONOLACTONE 25 MG TAB PO SCH (08:42)
[2019-05-29] MEDS: ENOXAPARIN 40 MG/0.4 ML SYRINGE SQ SCH (08:43)
[2019-05-29] MEDS: MONTELUKAST 10 MG TAB PO SCH (08:43)
[2019-05-29] MEDS: POTASSIUM CHLORIDE ER 20 MEQ TAB.ER PO SCH (08:43)
--- NOTE | 2019-05-29 15:06 | P.PN ---
Subjective Progress Note Date: 05/29/19 Mitchell Jasso is a 63 yo F with PMH of severe COPD, obesity hypoventillation syndrome, T2DM, HTN who presented to the ED after being sent from PCP office with SpO2 in the 80s. She complained of cough, shortness of breath and increased home oxygen requirements for the past 5-7 days. She took some prenisone she had at home but no improvement. She feels things have worsened over the past 3 days. No sick contacts or feverr. In the ED WBC 12k, cr 0.5, trop neg, BNP 300. She did develop decreased alertness and ABG showed pH 7.25, CO2 111, O2 75. Pt is currently on BiPAP and tolerating well. 05/25/2019 maintained on BiPAP, and nebulized bronchodilators, antibiotics, steroids .Significant improvement. Yesterday obtunded with a CO2 of 111. Today alert and oriented 2, conversing appropriately, on BiPAP. States that she was supposed to. wear BiPAP at home but didn't like the way the mask fit. Afebrile, normal WBC .Hemoglobin 9.8, denies chest pain, palpitations or shortness of breath. Afebrile, normal WBC. 05/26/2019 BiPAP weaned to nasal cannula yesterday afternoon, maintained on BiPAP during the night. This morning maintaining O2 sats of 89% on 3 L nasal cannula( patient wears 3 L nasal cannula at home). Follow-up chest x-ray reporting stable chronic emphysematous change with left basilar scarring, no acute infiltrate. Occasional nonproductive cough. Afebrile, labs pending. Borderline hypotension. Denies chest pain, palpitations or shortness of breath. 05/29/2019 steroids converted to oral yesterday, maintaining O2 sats in the high 80s to 90s on 2 L nasal cannula. Wearing BiPAP every night. Denies chest pain, palpitations or shortness of breath. Objective - Vital Signs Vital signs: Vital Signs Temp 98.5 F 05/29/19 08:00 Pulse 72 05/29/19 11:51 Resp 20 05/29/19 08:00 BP 114/58 05/29/19 08:00 Pulse Ox 90 L 05/29/19 08:00 Intake & Output 05/28/19 05/29/19 05/29/19 18:59 06:59 18:59 Intake Total 2023 1020 480 Balance 2023 1020 480 Weight 72.3 kg Intake: Oral 2023 1020 480 Other: Voiding Method Toilet Toilet Toilet Bedside Commode Bedside Commode Bedside Commode # Voids 2 1 - Exam General: Sitting up in chair, Alert and oriented 3, no acute distress Eyes: PERRL, EOMI, conjunctiva normal HENT: normocephalic, mucus membranes moist Neck: supple, no JVD Lungs: Improved air entry, diminished bilateral bases. No rhonchi, crackles. Mild expiratory wheezing. CV: Regular rate and rhythm, no murmur. Peripheral pulses 1+, no edema Abdomen: soft, nondistended, no organomegaly Lymph: no cervical or axillary LAD Skin: warm and dry. Neuro: Cranial as 2 through 12 grossly intact, no focal deficits - Labs CBC & Chem 7: 05/27/19 06:27 05/27/19 06:27 Labs: Abnormal Lab Results - Last 24 Hours (Table) 05/28/19 05/28/19 05/29/19 Range/Units 16:44 20:24 06:20 POC Glucose (mg/dL) 123 H 138 H 109 H (75-99) mg/dL Assessment and Plan Assessment: (1) Acute on chronic respiratory failure with hypoxia and hypercapnia secondary to COPD exacerbation Current Visit: Yes Status: Acute Code(s): J96.01 - ACUTE RESPIRATORY FAILURE WITH HYPOXIA; J96.02 - ACUTE RESPIRATORY FAILURE WITH HYPERCAPNIA SNOMED Code(s): 283527421 (2) Type 2 diabetes mellitus Current Visit: Yes Status: Acute Code(s): E11.9 - TYPE 2 DIABETES MELLITUS WITHOUT COMPLICATIONS SNOMED Code(s): 99203685 (3) Metabolic encephalopathy secondary to #1 Current Visit: Yes Status: Acute Code(s): G93.41 - METABOLIC ENCEPHALOPATHY SNOMED Code(s): 23763176 (4) Hypertension Current Visit: Yes Status: Acute Code(s): I10 - ESSENTIAL (PRIMARY) HYPERTENSION SNOMED Code(s): 58284823 (5) COPD with acute exacerbation Current Visit: Yes Status: Acute Code(s): J44.1 - CHRONIC OBSTRUCTIVE PULMONARY DISEASE W (ACUTE) EXACERBATION SNOMED Code(s): 637205287 (6) Sepsis secondary to bilateral pneumonia (7) obesity hypoventilation (8) obstructive sleep apnea on BiPAP (9) Anxiety Plan: Continue on current medication regime ,monitoring and symptomatic treatment. Wean O2 to maintain O2 sat of 88-92%. Patient normally wears 3 L nasal cannula O2 at home. Continue on nebulized bronchodilators, po steroids, antibiotics. Patient complains of ill fitting mask for her BiPAP/CPAP at home therefore does not wear it at night-case management to assist with obtaining mask. Discharge planning in progress for tomorrow with home care. The impression and plan of care has been dictated as directed. : I performed a history and examination of this patient, discussed the same with the dictator. I agree with the dictator's note ,documented as a scribe. Any additional findings or plans will be noted.
--- NOTE | 2019-05-29 15:26 | P.PN ---
Subjective Progress Note Date: 05/29/19 Principal diagnosis: Altered mental status Acute on chronic hypoxic and hypercapnic respiratory failure Acute COPD exacerbation Bilateral pneumonia Sepsis due to pneumonia Obesity hypoventilation Obstructive sleep apnea Peripheral vascular disease Major depression Potential hypertensive cardiovascular disease Generalized anxiety disorder 05/29/2019, patient seen eval examined during the round level reviewed medications reviewed care plan discussed with the patient and at bedside as well as the patient she remains on 3 L oxygen hemodynamics is stable satura tion is stable 88-90%, hemodynamic stable x-ray reviewed performed on May 2017 shows improved infiltrates in both lower lobes 05/28/2019, patient seen eval examined during the round lab reviewed medications reviewed cough congestion is better she is ambulating in the room with the assistance of the physical therapist 05/27/2019, patient seen eval reexamined during the rounds patient back on 3 Gio nasal cannula during the day and when necessary BiPAP support and each night she has been using the BiPAP now and seems to be tolerating very well 05/26/2019, patient seen eval examined during rounds she is more awake and alert breathing relatively more comfortably noted her CO2 is high which is to be consistent with her condition, patient is on supplemental oxygen she will get BiPAP at nighttime I've discussed with patient at length, continue breathing treatments IV steroids 05/25/2019, patient remains on BiPAP severity or shortness of breath significant improvement arterial blood gases reviewed as well patient will be removed off of BiPAP and started on nasal cannula while she will get her lunch at nighttime we'll put the BiPAP on labs reviewed medications reviewed care plan discussed the patient has been at length This is a 63-year-old female with obesity hypoventilation also has significant history of end-stage lung disease secondary to his COPD emphysema she has the ob structive sleep apnea and couldn't tolerate CPAP machine, due to progressive respiratory distress came into the hospital she was very diaphoretic as high CO2 due to that she was very somnolent but however she responded well with the BiPAP slightly more awake now currently she is on BiPAP 15/10 and 40% oxygen her tidal volume of 490 and respiratory rate is in mid 20s arousable does able to say a se ntence in 2-3 breaths Objective - Vital Signs Vital signs: Vital Signs Temp 98.3 F 05/29/19 12:00 Pulse 77 05/29/19 12:00 Resp 14 05/29/19 12:00 BP 119/71 05/29/19 12:00 Pulse Ox 88 L 05/29/19 12:00 Intake & Output 05/28/19 05/29/19 05/29/19 18:59 06:59 18:59 Intake Total 2023 1020 1680 Balance 2023 1020 1680 Weight 72.3 kg Intake: Oral 2023 1020 1680 Other: Voiding Method Toilet Toilet Toilet Bedside Commode Bedside Commode Bedside Commode # Voids 2 1 3 - Exam Constitutional General appearance: disheveled, morbidly obese, severe distress - EENT Eyes: EOMI, PERRLA, poor dentition, normal appearance ENT: normal oropharynx Ears: bilateral: normal - Neck Neck: normal ROM Carotids: bilateral: upstroke normal Thyroid: bilateral: normal size - Respiratory Respiratory: bilateral: diminished, wheezing (Few scattered bilateral), prolonged expiration, negative: CTA, dullness, rales, rhonchi, prolonged inspiration - Cardiovascular Rhythm: regular Heart sounds: normal: S1, S2 - Gastrointestinal General gastrointestinal: normal bowel sounds - Integumentary Integumentary: normal, normal turgor - Neurologic Neurologic: CNII-XII intact - Musculoskeletal Musculoskeletal: gait normal, generalized weakness, strength equal bilaterally - Psychiatric Psychiatric: A&O x's 3, appropriate affect, intact judgment & insight - Labs CBC & Chem 7: 05/27/19 06:27 05/27/19 06:27 Labs: Abnormal Lab Results - Last 24 Hours (Table) 05/28/19 05/28/19 05/29/19 Range/Units 16:44 20:24 06:20 POC Glucose (mg/dL) 123 H 138 H 109 H (75-99) mg/dL Assessment and Plan Assessment: Altered mental status Acute on chronic hypoxic and hypercapnic respiratory failure Acute COPD exacerbation Bilateral pneumonia Sepsis due to pneumonia Obesity hypoventilation Obstructive sleep apnea Peripheral vascular disease Major depression Potential hypertensive cardiovascular disease Generalized anxiety disorder Plan: Continue BiPAP support at nighttime with Supplemental oxygen during day with a nasal cannula DVT prophylaxis IV steroids switched to oral steroids Broad-spectrum IV antibiotics switched to oral antibiotics Continue home medications Further recommendations pending plan of care as per clinical response of the patient, we'll be admitted in selective on telemetry bed Time with Patient: Greater than 30
[2019-05-29 16:45] LABS: Glucose,Whole Blood 134 mg/dL (75-99)
[2019-05-29] MEDS: ATORVASTATIN 80 MG TAB PO SCH (20:22)
[2019-05-29] MEDS: ATENOLOL 25 MG TAB PO SCH ×2 (20:22→20:24)
[2019-05-29] MEDS: traZODone HCL 100 MG TAB PO SCH ×2 (20:22→20:26)
[2019-05-29] MEDS: FAMOTIDINE 20 MG TAB PO SCH (20:22)
[2019-05-29] MEDS: GABAPENTIN 300 MG CAP PO SCH (20:22)
[2019-05-29 20:53] LABS: Glucose,Whole Blood 111 mg/dL (75-99)
[2019-05-29 21:14] VITALS: RESP 18
[2019-05-30] MEDS: ALBUTEROL NEBULIZED 2.5 MG/3 ML INHALATION PRN (03:54)
[2019-05-30 06:25] LABS: Anisocytosis Slight; Basophils % (A) 1 %; Eosinophils # (A) 0.1 k/uL (0-0.7); Eosinophils % (A) 1 %; HCT 31.8 % (34.0-46.0); Hypochromasia Moderate; Lymphocytes # (A) 1.6 k/uL (1.0-4.8); Lymphocytes % (A) 20 %; MCH 27.5 pg (25.0-35.0); MCHC 31.3 g/dL (31.0-37.0); Mean Platelet Volume 5.3; Monocytes # (A) 0.4 k/uL (0-1.0); Monocytes % (A) 5 %; Neutrophils # (A) 5.5 k/uL (1.3-7.7); Neutrophils % (A) 71 %; Platelet Count 310 k/uL (150-450); RBC 3.62 m/uL (3.80-5.40); RDW 16.1 % (11.5-15.5); WBC 7.7 k/uL (3.8-10.6)
[2019-05-30 06:32] LABS: Glucose,Whole Blood 146 mg/dL (75-99)
[2019-05-30 06:40] LABS: African American GFR (CKD) >90 (>60 ml/min/1.73 sqM); Blood Urea Nitrogen 10 mg/dL (7-17); Calcium 8.3 mg/dL (8.4-10.2); Chloride 90 mmol/L (98-107); Glucose 117 mg/dL (74-99); Non-African American GFR(CKD) >90 (>60 ml/min/1.73 sqM); Sodium 137 mmol/L (137-145)
[2019-05-30] MEDS: INSULIN ASPART (NovoLOG) 100 UNIT/ML VIAL SQ SCH ×2 (06:40→12:05)
[2019-05-30 06:47] LABS: Anion Gap 5 mmol/L; Carbon Dioxide 42 mmol/L (22-30)
[2019-05-30] MEDS: BUDESONIDE 1 MG/2 ML NEBU INHALATION SCH (08:34)
[2019-05-30] MEDS: IPRATROPIUM-ALBUTEROL 3 ML NEB INHALATION SCH ×2 (08:34→11:10)
[2019-05-30] MEDS: POTASSIUM CHLORIDE ER 20 MEQ TAB.ER PO SCH (09:18)
[2019-05-30] MEDS: SERTRALINE 100 MG TAB PO SCH (09:18)
[2019-05-30] MEDS: LEVOFLOXACIN 750 MG TAB PO SCH (09:18)
[2019-05-30] MEDS: SPIRONOLACTONE 25 MG TAB PO SCH (09:18)
[2019-05-30] MEDS: CLOPIDOGREL 75 MG TAB PO SCH (09:19)
[2019-05-30] MEDS: MONTELUKAST 10 MG TAB PO SCH (09:19)
[2019-05-30] MEDS: predniSONE 20 MG TAB PO SCH (09:19)
[2019-05-30] MEDS: PHENYTOIN SODIUM EXTENDED 100 MG CAP PO SCH (09:19)
[2019-05-30] MEDS: ENOXAPARIN 40 MG/0.4 ML SYRINGE SQ SCH (09:19)
[2019-05-30 10:20] VITALS: BMI 31.2
[2019-05-30 10:28] VITALS: BP 102/54; TEMP 98.4
--- NOTE | 2019-05-30 11:24 | P.DS ---
Providers Date of admission: 05/23/19 18:24 Expected date of discharge: 05/30/19 Attending physician: Gio Long MD Consults: 05/23/19 18:22 Consult Physician Routine Consulting Provider: Tani Chamberlain Consult Reason/Comments: copd Do you want consulting provider notified?: Yes Primary care physician: Asha Pacheco [facility] Course: Final Diagnoses: (1) Acute on chronic respiratory failure with hypoxia and hypercapnia secondary to COPD exacerbation Current Visit: Yes Status: Acute Code(s): J96.01 - ACUTE RESPIRATORY FAILURE WITH HYPOXIA; J96.02 - ACUTE RESPIRATORY FAILURE WITH HYPERCAPNIA SNOMED Code(s): 149226400 (2) Type 2 diabetes mellitus Current Visit: Yes Status: Acute Code(s): E11.9 - TYPE 2 DIABETES MELLITUS WITHOUT COMPLICATIONS SNOMED Code(s): 62133470 (3) Metabolic encephalopathy secondary to #1 Current Visit: Yes Status: Acute Code(s): G93.41 - METABOLIC ENCEPHALOPATHY SNOMED Code(s): 59562967 (4) Hypertension Current Visit: Yes Status: Acute Code(s): I10 - ESSENTIAL (PRIMARY) HYPERTENSION SNOMED Code(s): 08903462 (5) COPD with acute exacerbation Current Visit: Yes Status: Acute Code(s): J44.1 - CHRONIC OBSTRUCTIVE PULMONARY DISEASE W (ACUTE) EXACERBATION SNOMED Code(s): 999622214 (6) Sepsis secondary to bilateral pneumonia, possibly gram-negative (7) obesity hypoventilation (8) obstructive sleep apnea on BiPAP (9) Anxiety (10) anemia, possibly secondary to sepsis Hospital course:Mitchell Jasso is a 63 yo F with PMH of severe COPD, obesity hypoventillation syndrome, T2DM, HTN who presented to the ED after being sent f rom PCP office with SpO2 in the 80s. She complained of cough, shortness of breath and increased home oxygen requirements for the past 5-7 days. She took some prenisone she had at home but no improvement. She feels things have worsened over the past 3 days. No sick contacts or feverr. In the ED WBC 12k, cr 0.5, trop neg, BNP 300. She did develop decreased alertness and ABG showed pH 7.25, CO2 111, O2 75. Pt is currently on BiPAP and tolerating well. 05/25/2019 maintained on BiPAP, and nebulized bronchodilators, antibiotics, steroids .Significant improvement. Yesterday obtunded with a CO2 of 111. Today alert and oriented 2, conversing appropriately, on BiPAP. States that she was supposed to. wear BiPAP at home but didn't like the way the mask fit. Afebrile, normal WBC .Hemoglobin 9.8, denies chest pain, palpitations or shortness of breath. Afebrile, normal WBC. 05/26/2019 BiPAP weaned to nasal cannula yesterday afternoon, maintained on BiPAP during the night. This morning maintaining O2 sats of 89% on 3 L nasal cannula( patient wears 3 L nasal cannula at home). Follow-up chest x-ray reporting stable chronic emphysematous change with left basilar scarring, no acute infiltrate. Occasional nonproductive cough. Afebrile, labs pending. Borderline hypotension. Denies chest pain, palpitations or shortness of breath. 05/29/2019 steroids converted to oral yesterday, maintaining O2 sats in the high 80s to 90s on 2 L nasal cannula. Wearing BiPAP every night. Denies chest pain, palpitations or shortness of breath. Significant clinical improvement. Patient has completed antibiotic therapy with no further antibiotics recommended at discharge. Patient is being discharged home in a stable condition with guarded prognosis. Patient will need a new sleep study to obtain new CPAP machine/mask-currently being arranged. Exam General: Sitting up in chair, Alert and oriented 3, no acute distress Lungs: Improved air entry, diminished bilateral bases. No rhonchi, crackles. Mild expiratory wheezing. CV: Regular rate and rhythm, no murmur. Peripheral pulses 1+, no edema Abdomen: soft, nondistended, no organomegaly Neuro:no focal deficits The impression and plan of care has been dictated as directed. : I performed a history and examination of this patient, discussed the same with the dictator. I agree with the dictator's note ,documented as a scribe. Any additional findings or plans will be noted. Patient Condition at Discharge: Stable Plan - Discharge Summary Discharge Rx Participant: No New Discharge Prescriptions: Continue Atenolol [Tenormin] 25 mg PO HS diphenhydrAMINE [Benadryl] 50 mg PO HS Ranitidine HCl [Zantac] 300 mg PO HS Phenytoin Sodium Extended [Dilantin] 200 mg PO BID Montelukast [Singulair] 10 mg PO DAILY Albuterol Inhaler [Ventolin Hfa Inhaler] 2 puff INHALATION RT-Q6H PRN PRN Reason: Bronchodilation Sertraline [Zoloft] 200 mg PO DAILY Losartan Potassium [Cozaar] 50 mg PO DAILY Albuterol Nebulized [Ventolin Nebulized] 2.5 mg INHALATION RT-QID PRN PRN Reason: Shortness Of Breath Gabapentin 600 mg PO HS Ipratropium Nebulized [Atrovent Nebulized 0.2 MG/ML] 0.5 mg INHALATION RT-Q4H PRN PRN Reason: Shortness Of Breath Bumetanide [BUMEX] 2 mg PO DAILY Atorvastatin [Lipitor] 80 mg PO HS traZODone HCL 100 - 200 mg PO HS metFORMIN HCL [Glucophage] 1,000 mg PO BID Budesonide [Pulmicort] 1 mg INHALATION RT-BID Clopidogrel Bisulfate [Plavix] 75 mg PO DAILY Spironolactone 25 mg PO DAILY Potassium Chloride 20 meq PO DAILY predniSONE 40 mg PO DAILY Aspirin EC [Ecotrin Low Dose] 81 mg PO DAILY Discharge Medication List Albuterol Inhaler [Ventolin Hfa Inhaler] 2 puff INHALATION RT-Q6H PRN 07/25/14 [History] Atenolol [Tenormin] 25 mg PO HS 07/25/14 [History] Montelukast [Singulair] 10 mg PO DAILY 07/25/14 [History] Phenytoin Sodium Extended [Dilantin] 200 mg PO BID 07/25/14 [History] Ranitidine HCl [Zantac] 300 mg PO HS 07/25/14 [History] diphenhydrAMINE [Benadryl] 50 mg PO HS 07/25/14 [History] Sertraline [Zoloft] 200 mg PO DAILY 07/27/14 [History] Losartan Potassium [Cozaar] 50 mg PO DAILY 01/09/15 [History] Albuterol Nebulized [Ventolin Nebulized] 2.5 mg INHALATION RT-QID PRN 12/17/15 [History] Gabapentin 600 mg PO HS 12/17/15 [History] Ipratropium Nebulized [Atrovent Nebulized 0.2 MG/ML] 0.5 mg INHALATION RT-Q4H PRN 12/17/15 [History] Aspirin EC [Ecotrin Low Dose] 81 mg PO DAILY 05/23/19 [History] Atorvastatin [Lipitor] 80 mg PO HS 05/23/19 [History] Budesonide [Pulmicort] 1 mg INHALATION RT-BID 05/23/19 [History] Bumetanide [BUMEX] 2 mg PO DAILY 05/23/19 [History] Clopidogrel Bisulfate [Plavix] 75 mg PO DAILY 05/23/19 [History] Potassium Chloride 20 meq PO DAILY 05/23/19 [History] Spironolactone 25 mg PO DAILY 05/23/19 [History] metFORMIN HCL [Glucophage] 1,000 mg PO BID 05/23/19 [History] predniSONE 40 mg PO DAILY 05/23/19 [History] traZODone HCL 100 - 200 mg PO HS 05/23/19 [History] Follow up Appointment(s)/Referral(s): Tani Chamberlain MD [STAFF PHYSICIAN] - 06/09/19 9:30 am (Wednesday) Asha Pacheco DO [Primary Care Provider] - 06/08/19 10:30 am ( -earliest available appointment) [facility] Visiting Nurse, [NON-STAFF] - Ambulatory/Diagnostic Orders: Complete Blood Count w/diff [LAB.AMB] Time Frame: 3 Days, Location: None Selected Patient Instructions/Handouts: COPD (Chronic Obstructive Pulmonary Disease) (DC) Activity/Diet/Wound Care/Special Instructions: Follow up with Dr. Chamberlain re: new sleep study for new CPAP . Completed antibiotic therapy. Patient wears 3 L nasal cannula O2 at home
[2019-05-30 11:25] VITALS: PULSE 80
[2019-05-30 11:38] LABS: Glucose,Whole Blood 104 mg/dL (75-99)
== END 2019-05-30 13:31 | disposition home health service (06) | DRG 871 ==
LOC: EC 16:29 → 3NMEDONC 18:24 → 3SCARD 05-24 09:11
PROVIDERS: ADMIT Family Medicine; ATTEND Family Medicine
PROC: 5A09557 Assistance with Respiratory Ventilation, Greater than 96 Consecutive Hours, Continuous Positive Airway Pressure (ICD-10-PCS; principal; 2019-05-24)
DX: A41.50 Gram-negative sepsis, unspecified (principal); J96.21 Acute and chronic respiratory failure with hypoxia; G93.41 Metabolic encephalopathy; J15.6 Pneumonia due to other Gram-negative bacteria; J96.22 Acute and chronic respiratory failure with hypercapnia; E66.2 Morbid (severe) obesity with alveolar hypoventilation; K21.9 Gastro-esophageal reflux disease without esophagitis; M19.90 Unspecified osteoarthritis, unspecified site; E78.5 Hyperlipidemia, unspecified; F32.9 Major depressive disorder, single episode, unspecified; F41.1 Generalized anxiety disorder; E11.41 Type 2 diabetes mellitus with diabetic mononeuropathy; E11.51 Type 2 diabetes mellitus with diabetic peripheral angiopathy without gangrene; D64.9 Anemia, unspecified; I11.0 Hypertensive heart disease with heart failure; J43.9 Emphysema, unspecified; I50.9 Heart failure, unspecified; Z87.01 Personal history of pneumonia (recurrent); Z98.891 History of uterine scar from previous surgery; Z98.890 Other specified postprocedural states; Z87.891 Personal history of nicotine dependence; Z82.49 Family history of ischemic heart disease and other diseases of the circulatory system; Z79.52 Long term (current) use of systemic steroids; Z99.89 Dependence on other enabling machines and devices; Z90.89 Acquired absence of other organs; Z98.51 Tubal ligation status; Z99.81 Dependence on supplemental oxygen; Z68.31 Body mass index [BMI] 31.0-31.9, adult; Z79.899 Other long term (current) drug therapy; Z79.82 Long term (current) use of aspirin; Z79.02 Long term (current) use of antithrombotics/antiplatelets; Z79.84 Long term (current) use of oral hypoglycemic drugs; Z91.19 Patient's noncompliance with other medical treatment and regimen
CPT/HCPCS: 36415; 36600; 71045; 80048; 80053; 82805; 83735; 83880; 84484; 85025; 85610; 85730; 90686; 93005; 94640; 94660; 94760; 96365; 96366; 96372; 96375; 96376; 99291

== ENCOUNTER → 2019-08-10 | Outpatient (CLI) | payer MEDICARE ==
[2019-08-10 13:24] LABS: ABG HCO3 38 mmol/L (21-25); ABG Oxygen Saturation 91.4 % (94-97); ABG PCO2 66 mmHg (35-45); ABG PH 7.37 (7.35-7.45); ABG PO2 64 mmHg (83-108); ABG TCO2 40 mmol/L (19-24); Allen Test Performed? Yes
== END | disposition home or self-care (01) ==
LOC: LABWHC1 13:07
PROVIDERS: ATTEND Internal Medicine Sleep Medicine
DX: J96.02 Acute respiratory failure with hypercapnia (principal)
CPT/HCPCS: 36600; 82805

== ENCOUNTER 2020-04-24 11:44 | Inpatient (IN) | payer MEDICARE ==
[2020-04-24] MEDS ORDERED: FUROSEMIDE 10 MG/ML 10 ML VIAL IV STA (12:15)
[2020-04-24] MEDS ORDERED: IPRATROPIUM-ALBUTEROL 3 ML NEB INHALATION STA (12:15)
--- NOTE | 2020-04-24 12:34 | ED ---
General Adult HPI - General Chief complaint: Shortness of Breath Stated complaint: wt gain Time Seen by Provider: 04/24/20 11:45 Source: patient, RN notes reviewed, old records reviewed Mode of arrival: wheelchair Limitations: no limitations - History of Present Illness Initial comments: This is a 64-year-old female who presents emergency Department complaining of difficulty breathing and leg swelling. Patient states started over the last week. It is getting progressively worse. Patient states there is some redness on the distal left leg and this is new since the swelling began. Patient also states she has COPD history as well as congestive heart failure history. Patient denies any fever or chills. Patient denies any palpitations chest pain. Patient denies headache patient denies numbness weakness. Patient denies lightheadedness or dizziness. - Related Data Home Medications Medication Instructions Recorded Confirmed Albuterol Inhaler (Mhu) [Ventolin 2 puff INHALATION RT-Q6H PRN 07/25/14 05/23/19 Hfa Inhaler (Mhu)] Atenolol [Tenormin] 25 mg PO HS 07/25/14 05/23/19 Montelukast [Singulair] 10 mg PO DAILY 07/25/14 05/23/19 Phenytoin Sodium Extended 200 mg PO BID 07/25/14 05/23/19 [Dilantin] Ranitidine HCl [Zantac] 300 mg PO HS 07/25/14 05/23/19 diphenhydrAMINE [Benadryl] 50 mg PO HS 07/25/14 05/23/19 Sertraline [Zoloft] 200 mg PO DAILY 07/27/14 05/23/19 Losartan Potassium [Cozaar] 50 mg PO DAILY 01/09/15 05/23/19 Albuterol Nebulized [Ventolin 2.5 mg INHALATION RT-QID PRN 12/17/15 05/23/19 Nebulized] Gabapentin 600 mg PO HS 12/17/15 05/23/19 Ipratropium Nebulized [Atrovent 0.5 mg INHALATION RT-Q4H PRN 12/17/15 05/23/19 Nebulized 0.2 MG/ML] Aspirin EC [Ecotrin Low Dose] 81 mg PO DAILY 05/23/19 05/23/19 Atorvastatin [Lipitor] 80 mg PO HS 05/23/19 05/23/19 Budesonide [Pulmicort] 1 mg INHALATION RT-BID 05/23/19 05/23/19 Bumetanide [BUMEX] 2 mg PO DAILY 05/23/19 05/23/19 Clopidogrel Bisulfate [Plavix] 75 mg PO DAILY 05/23/19 05/23/19 Potassium Chloride 20 meq PO DAILY 05/23/19 05/23/19 Spironolactone 25 mg PO DAILY 05/23/19 05/23/19 metFORMIN HCL [Glucophage] 1,000 mg PO BID 05/23/19 05/23/19 traZODone HCL 100 - 200 mg PO HS 05/23/19 05/23/19 Previous Rx's Medication Instructions Recorded predniSONE 10 mg PO DIRECTED #30 tab 05/30/19 Allergies Allergy/AdvReac Type Severity Reaction Status Date / Time No Known Allergies Allergy Verified 04/24/20 11:50 Review of Systems ROS Statement: Those systems with pertinent positive or pertinent negative responses have been documented in the HPI. ROS Other: All systems not noted in ROS Statement are negative. Past Medical History Past Medical History: Asthma, COPD, Diabetes Mellitus, GERD/Reflux, Hyperlipidemia, Hypertension, Osteoarthritis (OA), Pneumonia, Respiratory Disorder, Sleep Apnea/CPAP/BIPAP Additional Past Medical History / Comment(s): Severe COPD, chronic respiratory failure, home oxygen at 3L/NC ATC, tracheobronchitis, NIDDM type II, neuropathy bilateral lower extremities/feet, lower extremity edema, denies seizure history, ROQUE without device, sinusitis, seasonal allergies, fall with lower back vertebral fracture. History of Any Multi-Drug Resistant Organisms: None Reported Past Surgical History: Section, Tonsillectomy, Tubal Ligation Additional Past Surgical History / Comment(s): Brain aneurysm with clipping, colonoscopy. Past Anesthesia/Blood Transfusion Reactions: No Reported Reaction Past Psychological History: Anxiety Past Alcohol Use History: None Reported Past Drug Use History: None Reported - Past Family History Mother Family Medical History: Congestive Heart Failure (CHF) Father Family Medical History: Congestive Heart Failure (CHF) General Exam - General Exam Comments Initial Comments: GENERAL: Patient is well-developed and well-nourished. Patient is nontoxic and well- hydrated and is in mild distress. ENT: Neck is soft and supple. No significant lymphadenopathy is noted. Oropharynx is clear. Moist mucous membranes. Neck has full range of motion without eliciting any pain. There is no thyroid enlargement and no masses were felt. EYES: The sclera were anicteric and conjunctiva were pink and moist. Extraocular movements were intact and pupils were equal round and reactive to light. Eyelids were unremarkable. PULMONARY: Diminished breath sounds. Patient has crackles in both bases. CARDIOVASCULAR: There is a regular rate and rhythm without any murmurs gallops or rubs. ABDOMEN: Soft and nontender with normal bowel sounds. 6640 SKIN: Skin is clear with no lesions or rashes and otherwise unremarkable. NEUROLOGIC: Patient is alert and oriented x3. Cranial nerves II through XII are grossly intact. Motor and sensory are also intact. Normal speech, volume and content. Symmetrical smile. MUSCULOSKELETAL: Normal extremities with adequate strength and full range of motion. 2+ edema bilaterally. Distal left leg shows an area of redness and warmth. LYMPHATICS: No significant lymphadenopathy is noted PSYCHIATRIC: Normal psychiatric evaluation. Limitations: no limitations Course Vital Signs 04/24/20 04/24/20 04/24/20 11:45 11:59 13:10 Temperature 98.0 F Pulse Rate 83 80 77 Respiratory 18 20 Rate Blood Pressure 136/68 O2 Sat by Pulse 85 L 97 Oximetry 04/24/20 04/24/20 04/24/20 13:22 14:00 14:01 Temperature Pulse Rate 78 78 125 H Respiratory 18 18 Rate Blood Pressure 127/63 130/95 O2 Sat by Pulse 97 96 Oximetry Medical Decision Making - Medical Decision Making EKG shows sinus rhythm at 79 bpm with multifocal P waves CT interval is 160 QRS is 90 QT interval 392 QTC is 449. Patient's EKG shows no ST segment elevation or depression. This EKG was compared to an old EKG and there are no significant changes. Chest x-ray shows COPD. I went back into the room the patient was not comfortable going home and she still was diminished with wheezing bilaterally. I spoke with Dr. Mcgarry agreed to admit the patient admitted the patient returning orders. - Lab Data Result diagrams: 04/24/20 12:31 04/24/20 12:31 Lab Results 04/24/20 04/24/20 04/24/20 Range/Units 12:31 12:31 12:31 WBC 5.9 (3.8-10.6) k/uL RBC 3.75 L (3.80-5.40) m/uL Hgb 10.8 L (11.4-16.0) gm/dL Hct 34.3 (34.0-46.0) % MCV 91.5 (80.0-100.0) fL MCH 28.8 (25.0-35.0) pg MCHC 31.5 (31.0-37.0) g/dL RDW 17.1 H (11.5-15.5) % Plt Count 209 (150-450) k/uL Neutrophils % 72 % Lymphocytes % 16 % Monocytes % 7 % Eosinophils % 2 % Basophils % 0 % Neutrophils # 4.3 (1.3-7.7) k/uL Lymphocytes # 0.9 L (1.0-4.8) k/uL Monocytes # 0.4 (0-1.0) k/uL Eosinophils # 0.1 (0-0.7) k/uL Basophils # 0.0 (0-0.2) k/uL Hypochromasia Slight Anisocytosis Slight PT 9.4 (9.0-12.0) sec INR 0.9 (<1.2) APTT 23.3 (22.0-30.0) sec Sodium 129 L (137-145) mmol/L Potassium 4.3 (3.5-5.1) mmol/L Chloride 85 L (98-107) mmol/L Carbon Dioxide 39 H (22-30) mmol/L Anion Gap 5 mmol/L BUN 7 (7-17) mg/dL Creatinine 0.46 L (0.52-1.04) mg/dL Est GFR (CKD-EPI)AfAm >90 (>60 ml/min/1.73 sqM) Est GFR (CKD-EPI)NonAf >90 (>60 ml/min/1.73 sqM) Glucose 92 (74-99) mg/dL Plasma Lactic Acid Robbin (0.7-2.0) mmol/L Calcium 8.3 L (8.4-10.2) mg/dL Total Bilirubin 0.4 (0.2-1.3) mg/dL AST 30 (14-36) U/L ALT 15 (4-34) U/L Alkaline Phosphatase 170 H (38-126) U/L Troponin I (0.000-0.034) ng/mL NT-Pro-B Natriuret Pep pg/mL Total Protein 7.0 (6.3-8.2) g/dL Albumin 3.7 (3.5-5.0) g/dL 04/24/20 04/24/20 04/24/20 Range/Units 12:31 12:31 12:31 WBC (3.8-10.6) k/uL RBC (3.80-5.40) m/uL Hgb (11.4-16.0) gm/dL Hct (34.0-46.0) % MCV (80.0-100.0) fL MCH (25.0-35.0) pg MCHC (31.0-37.0) g/dL RDW (11.5-15.5) % Plt Count (150-450) k/uL Neutrophils % % Lymphocytes % % Monocytes % % Eosinophils % % Basophils % % Neutrophils # (1.3-7.7) k/uL Lymphocytes # (1.0-4.8) k/uL Monocytes # (0-1.0) k/uL Eosinophils # (0-0.7) k/uL Basophils # (0-0.2) k/uL Hypochromasia Anisocytosis PT (9.0-12.0) sec INR (<1.2) APTT (22.0-30.0) sec Sodium (137-145) mmol/L Potassium (3.5-5.1) mmol/L Chloride (98-107) mmol/L Carbon Dioxide (22-30) mmol/L Anion Gap mmol/L BUN (7-17) mg/dL Creatinine (0.52-1.04) mg/dL Est GFR (CKD-EPI)AfAm (>60 ml/min/1.73 sqM) Est GFR (CKD-EPI)NonAf (>60 ml/min/1.73 sqM) Glucose (74-99) mg/dL Plasma Lactic Acid Robbin 1.3 (0.7-2.0) mmol/L Calcium (8.4-10.2) mg/dL Total Bilirubin (0.2-1.3) mg/dL AST (14-36) U/L ALT (4-34) U/L Alkaline Phosphatase (38-126) U/L Troponin I <0.012 (0.000-0.034) ng/mL NT-Pro-B Natriuret Pep 333 pg/mL Total Protein (6.3-8.2) g/dL Albumin (3.5-5.0) g/dL Disposition Clinical Impression: Acute exacerbation of chronic obstructive pulmonary disease Disposition: ADMITTED IP TO THIS HOSP Referrals: Asha Pacheco DO [Primary Care Provider] - 1-2 days Time of Disposition: 15:25
[2020-04-24 12:53] LABS: Anisocytosis Slight; Basophils % (A) 0 %; Eosinophils # (A) 0.1 k/uL (0-0.7); Eosinophils % (A) 2 %; HCT 34.3 % (34.0-46.0); HGB 10.8 gm/dL (11.4-16.0); Hypochromasia Slight; Lymphocytes # (A) 0.9 k/uL (1.0-4.8); Lymphocytes % (A) 16 %; MCH 28.8 pg (25.0-35.0); MCHC 31.5 g/dL (31.0-37.0); MCV 91.5 fL (80.0-100.0); Mean Platelet Volume 6.6; Monocytes # (A) 0.4 k/uL (0-1.0); Monocytes % (A) 7 %; Neutrophils # (A) 4.3 k/uL (1.3-7.7); Neutrophils % (A) 72 %; Platelet Count 209 k/uL (150-450); RBC 3.75 m/uL (3.80-5.40); RDW 17.1 % (11.5-15.5); WBC 5.9 k/uL (3.8-10.6)
[2020-04-24 13:07] LABS: INR 0.9 (<1.2); Partial Thromboplastin Time 23.3 sec (22.0-30.0); Prothrombin Time 9.4 sec (9.0-12.0)
[2020-04-24 13:25] LABS: ALT 15 U/L (4-34); AST 30 U/L (14-36); African American GFR (CKD) >90 (>60 ml/min/1.73 sqM); Albumin 3.7 g/dL (3.5-5.0); Alkaline Phosphatase 170 U/L (38-126); Anion Gap 5 mmol/L; Blood Urea Nitrogen 7 mg/dL (7-17); Calcium 8.3 mg/dL (8.4-10.2); Carbon Dioxide 39 mmol/L (22-30); Chloride 85 mmol/L (98-107); Glucose 92 mg/dL (74-99); Non-African American GFR(CKD) >90 (>60 ml/min/1.73 sqM); Potassium 4.3 mmol/L (3.5-5.1); Sodium 129 mmol/L (137-145); Total Bilirubin 0.4 mg/dL (0.2-1.3)
--- NOTE | 2020-04-24 13:41 | US ---
EXAMINATION TYPE: US venous doppler duplex LE LT DATE OF EXAM: 04/24/2020 1:32 PM COMPARISON: NONE CLINICAL HISTORY: Swollen red hot leg . Redness SIDE PERFORMED: Left TECHNIQUE: The lower extremity deep venous system is examined utilizing real time linear array sonog marek with graded compression, doppler sonography and color-flow sonography. VESSELS IMAGED: External Iliac Vein (EIV) Common Femoral Vein Deep Femoral Vein Greater Saphenous Vein * Femoral Vein Popliteal Vein Small Saphenous Vein * Left Leg: Negative for DVT IMPRESSION: No evidence for DVT at this time.
--- NOTE | 2020-04-24 14:28 | XR ---
EXAMINATION TYPE: XR chest 2V DATE OF EXAM: 04/24/2020 COMPARISON: 05/28/2019 TECHNIQUE: PA and lateral views submitted. HISTORY: Difficulty breathing FINDINGS: Hyperinflation with mild diffuse increased interstitial pattern. Very mild blunting of the costophren ic angles. Hypertrophic and degenerative change of the spine. No pneumothorax. Subsegmental changes s een at both lung bases which are similar to the prior exam and most typical of chronic atelectasis or scar. IMPRESSION: 1. COPD with basilar atelectasis favored over pneumonia. There is a diffuse interstitial pattern whic h is not present in 2016 therefore this suggests an acute interstitial process such as pneumonitis or early venous congestion. Chronic underlying interstitial lung disease less likely given the absence of these findings on the exam of 2016.
[2020-04-24] MEDS ORDERED: methylPREDNISolone SOD SUCCI 125 MG/2 ML VIAL IV STA (15:23)
[2020-04-24 16:33] LABS: Glucose,Whole Blood 88 mg/dL (75-99)
[2020-04-24] MEDS: IPRATROPIUM-ALBUTEROL 3 ML NEB INHALATION PRN ×2 (18:06→21:11)
[2020-04-24 20:09] LABS: Glucose,Whole Blood 169 mg/dL (75-99)
[2020-04-24] MEDS: ATORVASTATIN 80 MG TAB PO SCH (20:13)
[2020-04-24] MEDS: GABAPENTIN 400 MG CAP PO SCH (20:13)
[2020-04-24] MEDS: FUROSEMIDE 10 MG/ML 10 ML VIAL IV SCH (20:14)
[2020-04-24] MEDS: ENOXAPARIN 40 MG/0.4 ML SYRINGE SQ SCH (20:14)
[2020-04-24] MEDS: BUDESONIDE 1 MG/2 ML NEBU INHALATION SCH (21:12)
[2020-04-24] MEDS: metFORMIN 500 MG TAB PO SCH (21:16)
[2020-04-24] MEDS: PHENYTOIN SODIUM EXTENDED 100 MG CAP PO SCH (21:16)
[2020-04-24] MEDS: methylPREDNISolone SOD SUCCI 125 MG/2 ML VIAL IV SCH (21:17)
[2020-04-25] MEDS: IPRATROPIUM-ALBUTEROL 3 ML NEB INHALATION PRN ×3 (00:39→08:04)
[2020-04-25] MEDS: FUROSEMIDE 10 MG/ML 10 ML VIAL IV SCH ×3 (06:10→21:22)
[2020-04-25] MEDS: methylPREDNISolone SOD SUCCI 125 MG/2 ML VIAL IV SCH ×3 (06:11→17:14)
[2020-04-25 07:23] LABS: Glucose,Whole Blood 113 mg/dL (75-99)
[2020-04-25] MEDS: PANTOPRAZOLE 40 MG TABLET PO SCH (07:53)
[2020-04-25] MEDS: BUDESONIDE 1 MG/2 ML NEBU INHALATION SCH ×3 (08:04→20:59)
[2020-04-25] MEDS: atenoloL 25 MG TAB PO SCH (09:09)
[2020-04-25] MEDS: ASPIRIN 81 MG PO SCH (09:09)
[2020-04-25] MEDS: metFORMIN 500 MG TAB PO SCH ×2 (09:10→21:23)
[2020-04-25] MEDS: CLOPIDOGREL 75 MG TAB PO SCH (09:11)
[2020-04-25] MEDS: PHENYTOIN SODIUM EXTENDED 100 MG CAP PO SCH ×2 (09:11→21:23)
[2020-04-25] MEDS: LOSARTAN 50 MG TAB PO SCH (09:12)
[2020-04-25 09:37] LABS: Anisocytosis Slight; HCT 38.2 % (34.0-46.0); HGB 11.7 gm/dL (11.4-16.0); Hypochromasia Slight; MCHC 30.5 g/dL (31.0-37.0); MCV 91.7 fL (80.0-100.0); Mean Platelet Volume 6.5; Platelet Count 243 k/uL (150-450); RBC 4.17 m/uL (3.80-5.40); RDW 17.2 % (11.5-15.5); WBC 5.7 k/uL (3.8-10.6)
[2020-04-25] MEDS: MONTELUKAST 10 MG TAB PO SCH (09:38)
[2020-04-25 09:49] LABS: African American GFR (CKD) >90 (>60 ml/min/1.73 sqM); Blood Urea Nitrogen 17 mg/dL (7-17); Calcium 8.5 mg/dL (8.4-10.2); Chloride 82 mmol/L (98-107); Glucose 154 mg/dL (74-99); Non-African American GFR(CKD) >90 (>60 ml/min/1.73 sqM); Potassium 3.4 mmol/L (3.5-5.1); Sodium 135 mmol/L (137-145)
[2020-04-25 09:55] LABS: Anion Gap 12 mmol/L
[2020-04-25 10:17] LABS: Carbon Dioxide 41 mmol/L (22-30)
[2020-04-25] MEDS: IPRATROPIUM-ALBUTEROL 3 ML NEB INHALATION SCH ×3 (11:19→20:59)
[2020-04-25 11:43] LABS: Glucose,Whole Blood 99 mg/dL (75-99)
[2020-04-25] MEDS: INSULIN ASPART (NovoLOG) 100 UNIT/ML VIAL SQ SCH ×3 (12:51→21:23)
--- NOTE | 2020-04-25 15:33 | P.CNPUL ---
History of Present Illness Consult date: 04/25/20 Reason for consult: dyspnea, COPD, hypoxemia, pulmonary hypertension, ob structive sleep apnea Chief complaint: Increased swelling of the lower extremity along with shortness of breath History of present illness: This is a 64-year-old with end-stage lung disease secondary severe COPD emphysema, patient has a history of cor pulmonale, patient is on 24 7 home oxygen 3 L nasal cannula also on the Trilogy vent at nighttime and when necessary during the day, with prior history of the hypercapnic hypoxic respiratory failure on multiple occasions came into the hospital with increased swelling of the lower extremity which was asymmetric associated with slight redness more so on the left side compared to right side patient was having some shortness of breath and dry cough however respiratory status appears to be stable now, patient see Dr. Asha Pacheco for primary care activity, she had characteristics stenosis and consider poor surgical candidate and high risk for surgery, left lower extremity Doppler is negative for DVT, chest x-ray consistent with COPD-like changes bilateral basal diffuse interstitial Petrin were seen cystoscopy pneumonia versus congestive heart failure, white cell count has been normal, electrolytes are significant for elevated CO2 consistent with chronic CO2 retention, stable renal function and normal WBC count, currently patient is being treated with bronchodilator continuation home medicine she is also on IV Rocephinm and being diuresed with the Lasix currently 80 mg every 8 hourly, she is also on IV steroids, blood cultures have been negative, BNP is 333, troponin normal Review of Systems All systems: negative Past Medical History Past Medical History: Asthma, COPD, Diabetes Mellitus, GERD/Reflux, Hyperlipidemia, Hypertension, Osteoarthritis (OA), Pneumonia, Respiratory Disorder, Sleep Apnea/CPAP/BIPAP Additional Past Medical History / Comment(s): Severe COPD, chronic respiratory failure, home oxygen at 3L/NC ATC, tracheobronchitis, NIDDM type II, neuropathy bilateral lower extremities/feet, lower extremity edema, denies seizure history, ROQUE without device, sinusitis, seasonal allergies, fall with lower back vertebral fracture. History of Any Multi-Drug Resistant Organisms: None Reported Past Surgical History: Section, Tonsillectomy, Tubal Ligation Additional Past Surgical History / Comment(s): Brain aneurysm with clipping, colonoscopy. Past Anesthesia/Blood Transfusion Reactions: No Reported Reaction Past Psychological History: Anxiety Additional Psychological History / Comment(s): Pt resides with her spouse. She ambulates with a walker. She has home oxygen ATC at 3L/NC. She has a nebulizer. Smoking Status: Former smoker Past Alcohol Use History: None Reported Additional Past Alcohol Use History / Comment(s): Pt started smoking in 1968 and quit in 2008. Past Drug Use History: None Reported - Past Family History Mother Family Medical History: Congestive Heart Failure (CHF) Father Family Medical History: Congestive Heart Failure (CHF) Medications and Allergies Home Medications Medication Instructions Recorded Confirmed Type Atenolol [Tenormin] 25 mg PO DAILY 07/25/14 04/24/20 History Montelukast [Singulair] 10 mg PO DAILY 07/25/14 04/24/20 History Phenytoin Sodium Extended 200 mg PO BID 07/25/14 04/24/20 History [Dilantin] Sertraline [Zoloft] 200 mg PO DAILY 07/27/14 04/24/20 History Ipratropium Nebulized [Atrovent 0.5 mg INHALATION RT-Q4H PRN 12/17/15 04/24/20 History Nebulized 0.2 MG/ML] Aspirin EC [Ecotrin Low Dose] 81 mg PO DAILY 05/23/19 04/24/20 History Atorvastatin [Lipitor] 80 mg PO DAILY 05/23/19 04/24/20 History Budesonide [Pulmicort] 1 mg INHALATION RT-QID 05/23/19 04/24/20 History Bumetanide [BUMEX] 2 mg PO DAILY 05/23/19 04/24/20 History Clopidogrel Bisulfate [Plavix] 75 mg PO DAILY 05/23/19 04/24/20 History Potassium Chloride 20 meq PO DAILY 05/23/19 04/24/20 History traZODone HCL 100 - 200 mg PO HS 05/23/19 04/24/20 History Albuterol Nebulized [Ventolin 2.5 mg INHALATION RT-Q4H PRN 04/24/20 04/24/20 History Nebulized] Famotidine 40 mg PO DAILY 04/24/20 04/24/20 History Furosemide [Lasix] 40 mg PO DAILY 04/24/20 04/24/20 History Gabapentin [Neurontin] 400 mg PO HS 04/24/20 04/24/20 History Ibandronate Sodium [Boniva] 150 mg PO Q30D 04/24/20 04/24/20 History Losartan Potassium 100 mg PO DAILY 04/24/20 04/24/20 History Spironolactone 100 mg PO DAILY 04/24/20 04/24/20 History Vitamin D3 50,000iu 50,000 unit PO Q7D 04/24/20 04/24/20 History diphenhydrAMINE HCL [Benadryl] 50 mg PO HS 04/24/20 04/24/20 History metFORMIN HCL [Glucophage] 500 mg PO BID 04/24/20 04/24/20 History metOLazone 2.5 mg PO MOWE 04/24/20 04/24/20 History Allergies Allergy/AdvReac Type Severity Reaction Status Date / Time No Known Allergies Allergy Verified 04/24/20 17:17 Physical Exam Vitals: Vital Signs Temp Pulse Pulse Resp BP BP BP 04/25/20 14:42 98.3 F 75 16 106/64 04/25/20 13:29 84 18 117/61 04/25/20 12:55 97.5 F L 84 18 100/51 04/25/20 11:30 72 04/25/20 11:19 72 04/25/20 10:55 04/25/20 08:25 76 04/25/20 08:04 76 04/25/20 07:35 16 04/25/20 07:27 97.3 F L 65 20 112/63 04/25/20 07:00 16 04/25/20 04:45 75 04/25/20 04:35 74 04/25/20 04:10 19 04/25/20 02:14 83 19 119/73 04/25/20 01:45 04/25/20 00:51 92 04/25/20 00:40 84 04/25/20 00:00 19 04/24/20 21:29 92 04/24/20 21:12 92 04/24/20 19:04 98.3 F 91 18 107/66 04/24/20 19:00 19 04/24/20 18:14 94 04/24/20 18:06 92 04/24/20 17:22 18 04/24/20 16:04 97.9 F 80 18 127/62 Pulse Ox 04/25/20 14:42 90 L 04/25/20 13:29 94 L 04/25/20 12:55 91 L 04/25/20 11:30 04/25/20 11:19 04/25/20 10:55 92 L 04/25/20 08:25 04/25/20 08:04 04/25/20 07:35 92 L 04/25/20 07:27 96 04/25/20 07:00 04/25/20 04:45 04/25/20 04:35 04/25/20 04:10 04/25/20 02:14 92 L 04/25/20 01:45 63 L 04/25/20 00:51 04/25/20 00:40 04/25/20 00:00 04/24/20 21:29 04/24/20 21:12 04/24/20 19:04 91 L 04/24/20 19:00 04/24/20 18:14 04/24/20 18:06 04/24/20 17:22 04/24/20 16:04 96 Intake and Output 04/25/20 04/25/20 04/25/20 06:59 14:59 22:59 Intake Total 400 Output Total 875 2000 Balance -875 -1600 Intake: Oral 400 Output: Urine 875 1999 - Constitutional General appearance: average body habitus, disheveled, obese - EENT Eyes: EOMI, PERRLA Ears: bilateral: normal - Neck Neck: normal ROM Carotids: bilateral: upstroke normal Thyroid: bilateral: normal size - Respiratory Respiratory: bilateral: diminished, rales - Cardiovascular Rhythm: regular Heart sounds: normal: S1, S2 - Gastrointestinal General gastrointestinal: decreased bowel sounds, normal bowel sounds, soft - Integumentary Bilateral lower extremity swelling slightly more on the left side compared right side along with diffuse superficial right erythema and skin is intact suggestive of ongoing cellulitis Integumentary: normal, normal turgor - Neurologic Neurologic: CNII-XII intact - Musculoskeletal Musculoskeletal: generalized weakness, strength equal bilaterally - Psychiatric Psychiatric: A&O x's 3, appropriate affect, intact judgment & insight Results - Laboratory Findings CBC and BMP: 04/25/20 09:12 04/25/20 09:12 PT/INR, D-dimer PT 9.4 sec (9.0-12.0) 04/24/20 12:31 INR 0.9 (<1.2) 04/24/20 12:31 D-Dimer 0.57 mg/L FEU (<0.60) 04/24/20 19:14 Abnormal lab findings: Abnormal Labs 04/24/20 04/24/20 04/24/20 12:31 12:31 20:07 RBC 3.75 L Hgb 10.8 L MCHC RDW 17.1 H Lymphocytes # 0.9 L Sodium 129 L Potassium Chloride 85 L Carbon Dioxide 39 H Creatinine 0.46 L Glucose POC Glucose (mg/dL) 169 H Calcium 8.3 L Alkaline Phosphatase 170 H 04/25/20 04/25/20 04/25/20 07:20 09:12 09:12 RBC Hgb MCHC 30.5 L RDW 17.2 H Lymphocytes # Sodium 135 L Potassium 3.4 L Chloride 82 L Carbon Dioxide 41 H* Creatinine Glucose 154 H POC Glucose (mg/dL) 113 H Calcium Alkaline Phosphatase Assessment and Plan Assessment: Bilateral basal pneumonia Acute on chronic hypoxic and hypercapnic respiratory failure End-stage COPD ventilator dependent and oxygen dependent Left lower extremity cellulitis Cor pulmonale Hypertension hypertensive cardiovascular disease Bilateral carotid artery stenosis Extensive smoking history in the past Plan: Continue bronchodilator along with IV antibiotics and steroids next 24-48 hours steroids can be tapered down to oral, continue gentle diuresis monitor renal functions closely continueTrilogy ventilator each night and when necessary during the day, will follow clinical course closely further recommendations pending plan of care as per clinical response of the patient Time with Patient: Greater than 30
[2020-04-25 16:28] LABS: Glucose,Whole Blood 119 mg/dL (75-99)
[2020-04-25] MEDS: ENOXAPARIN 40 MG/0.4 ML SYRINGE SQ SCH (17:14)
[2020-04-25 20:26] LABS: Glucose,Whole Blood 144 mg/dL (75-99)
--- NOTE | 2020-04-25 21:18 | P.HPIM ---
History of Present Illness H&P Date: 04/25/20 Chief Complaint: shortness of breath Mitchell Jasso is a 64 yo F with PMH of severe COPD on home O2, obesity hypoventilation syndrome, cor pulmonale, T2DM who presented to the ED complaining of worsening shortness of breath. She states that over the past 1-2 weeks she has noticed first L leg swelling and now dyspnea with exertion. She did follow up with her PCP and was recommended to increase her diuretics but no improvement. She does note cough productive for clear sputum. Denies sore throat, fever, chills, chest tightness, palpitations. On presentation SpO2 83% on 3 L O2, WBC normal, CXR with possible basilar pneumonia. Review of Systems All systems: negative Constitutional: Reports malaise, Denies chills, Denies fever Eyes: denies blurred vision, denies pain Ears, nose, mouth and throat: Denies headache, Denies sore throat Cardiovascular: Denies chest pain, Denies shortness of breath Respiratory: Reports cough, Reports dyspnea, Reports home oxygen, Reports sleep apnea Gastrointestinal: Denies abdominal pain, Denies diarrhea, Denies nausea, Denies vomiting Genitourinary: Denies dysuria, Denies hematuria Musculoskeletal: Denies myalgias Integumentary: Denies pruritus, Denies rash Neurological: Denies numbness, Denies weakness Psychiatric: Denies anxiety, Denies depression Endocrine: Denies fatigue, Denies weight change Past Medical History Past Medical History: Asthma, COPD, Diabetes Mellitus, GERD/Reflux, Hyperlipidemia, Hypertension, Osteoarthritis (OA), Pneumonia, Respiratory Disorder, Sleep Apnea/CPAP/BIPAP Additional Past Medical History / Comment(s): Severe COPD, chronic respiratory failure, home oxygen at 3L/NC ATC, tracheobronchitis, NIDDM type II, neuropathy bilateral lower extremities/feet, lower extremity edema, denies seizure history, ROQUE without device, sinusitis, seasonal allergies, fall with lower back vertebral fracture. History of Any Multi-Drug Resistant Organisms: None Reported Past Surgical History: Section, Tonsillectomy, Tubal Ligation Additional Past Surgical History / Comment(s): Brain aneurysm with clipping, colonoscopy. Past Anesthesia/Blood Transfusion Reactions: No Reported Reaction Past Psychological History: Anxiety Additional Psychological History / Comment(s): Pt resides with her spouse. She ambulates with a walker. She has home oxygen ATC at 3L/NC. She has a nebulizer. Smoking Status: Former smoker Past Alcohol Use History: None Reported Additional Past Alcohol Use History / Comment(s): Pt started smoking in 1968 and quit in 2008. Past Drug Use History: None Reported - Past Family History Mother Family Medical History: Congestive Heart Failure (CHF) Father Family Medical History: Congestive Heart Failure (CHF) Medications and Allergies Home Medications Medication Instructions Recorded Confirmed Type Atenolol [Tenormin] 25 mg PO DAILY 07/25/14 04/24/20 History Montelukast [Singulair] 10 mg PO DAILY 07/25/14 04/24/20 History Phenytoin Sodium Extended 200 mg PO BID 07/25/14 04/24/20 History [Dilantin] Sertraline [Zoloft] 200 mg PO DAILY 07/27/14 04/24/20 History Ipratropium Nebulized [Atrovent 0.5 mg INHALATION RT-Q4H PRN 12/17/15 04/24/20 History Nebulized 0.2 MG/ML] Aspirin EC [Ecotrin Low Dose] 81 mg PO DAILY 05/23/19 04/24/20 History Atorvastatin [Lipitor] 80 mg PO DAILY 05/23/19 04/24/20 History Budesonide [Pulmicort] 1 mg INHALATION RT-QID 05/23/19 04/24/20 History Bumetanide [BUMEX] 2 mg PO DAILY 05/23/19 04/24/20 History Clopidogrel Bisulfate [Plavix] 75 mg PO DAILY 05/23/19 04/24/20 History Potassium Chloride 20 meq PO DAILY 05/23/19 04/24/20 History traZODone HCL 100 - 200 mg PO HS 05/23/19 04/24/20 History Albuterol Nebulized [Ventolin 2.5 mg INHALATION RT-Q4H PRN 04/24/20 04/24/20 History Nebulized] Famotidine 40 mg PO DAILY 04/24/20 04/24/20 History Furosemide [Lasix] 40 mg PO DAILY 04/24/20 04/24/20 History Gabapentin [Neurontin] 400 mg PO HS 04/24/20 04/24/20 History Ibandronate Sodium [Boniva] 150 mg PO Q30D 04/24/20 04/24/20 History Losartan Potassium 100 mg PO DAILY 04/24/20 04/24/20 History Spironolactone 100 mg PO DAILY 04/24/20 04/24/20 History Vitamin D3 50,000iu 50,000 unit PO Q7D 04/24/20 04/24/20 History diphenhydrAMINE HCL [Benadryl] 50 mg PO HS 04/24/20 04/24/20 History metFORMIN HCL [Glucophage] 500 mg PO BID 04/24/20 04/24/20 History metOLazone 2.5 mg PO MOWE 04/24/20 04/24/20 History Allergies Allergy/AdvReac Type Severity Reaction Status Date / Time No Known Allergies Allergy Verified 04/24/20 17:17 Physical Exam Vitals: Vital Signs Temp Pulse Pulse Resp BP BP Pulse Ox 04/25/20 20:59 72 86 L 04/25/20 15:59 72 04/25/20 14:42 98.3 F 75 16 106/64 90 L 04/25/20 13:29 84 18 117/61 94 L 04/25/20 12:55 97.5 F L 84 18 100/51 91 L 04/25/20 11:30 72 04/25/20 11:19 72 04/25/20 10:55 92 L 04/25/20 08:25 76 04/25/20 08:04 76 04/25/20 07:35 16 92 L 04/25/20 07:27 97.3 F L 65 20 112/63 96 04/25/20 07:00 16 04/25/20 04:45 75 04/25/20 04:35 74 04/25/20 04:10 19 04/25/20 02:14 83 19 119/73 92 L 04/25/20 01:45 63 L 04/25/20 00:51 92 04/25/20 00:40 84 04/25/20 00:00 19 04/24/20 21:29 92 04/24/20 21:12 92 Intake and Output 04/25/20 04/25/20 04/25/20 06:59 14:59 22:59 Intake Total 400 Output Total 875 1999 1100 Balance -875 -1600 1100 Intake: Oral 400 Output: Urine [id number] General: well nourished, well developed, NAD. Vitals reviewed Eyes: PERRL, EOMI, conjunctiva normal HENT: normocephalic, mucus membranes moist Neck: supple, no JVD Lungs: Diminished air entry throughout. Rhonchi at bases CV: Regular rate and rhythm, no murmur. Peripheral pulses 2+ Abdomen: soft, nondistended, no organomegaly Lymph: no cervical or axillary LAD Skin: warm and dry. Neuro: A&Ox3, normal mood and affect Results CBC & Chem 7: 04/25/20 09:12 04/25/20 09:12 Labs: Abnormal Lab Results - Last 24 Hours (Table) 04/25/20 04/25/20 04/25/20 Range/Units 07:20 09:12 09:12 MCHC 30.5 L (31.0-37.0) g/dL RDW 17.2 H (11.5-15.5) % Sodium 135 L (137-145) mmol/L Potassium 3.4 L (3.5-5.1) mmol/L Chloride 82 L (98-107) mmol/L Carbon Dioxide 41 H* (22-30) mmol/L Glucose 154 H (74-99) mg/dL POC Glucose (mg/dL) 113 H (75-99) mg/dL 04/25/20 04/25/20 Range/Units 16:27 20:22 MCHC (31.0-37.0) g/dL RDW (11.5-15.5) % Sodium (137-145) mmol/L Potassium (3.5-5.1) mmol/L Chloride (98-107) mmol/L Carbon Dioxide (22-30) mmol/L Glucose (74-99) mg/dL POC Glucose (mg/dL) 119 H 144 H (75-99) mg/dL Microbiology - Last 24 Hours (Table) 04/24/20 12:31 Blood Culture - Preliminary Blood No Growth after 24 hours Thrombosis Risk Factor Assmnt - Choose All That Apply Each Factor Represents 1 point: Abnormal pulmonary function (COPD) Each Risk Factor Represents 2 Points: Age 61-74 years Thrombosis Risk Factor Assessment Total Risk Factor Score: 3 Thrombosis Risk Factor Assessment Level: Moderate Risk Assessment and Plan (1) Acute exacerbation of chronic obstructive pulmonary disease Current Visit: Yes Status: Acute Code(s): J44.1 - CHRONIC OBSTRUCTIVE PULMONARY DISEASE W (ACUTE) EXACERBATION SNOMED Code(s): 261947745 (2) Acute respiratory failure with hypoxia and hypercapnia Current Visit: No Status: Acute Code(s): J96.01 - ACUTE RESPIRATORY FAILURE WITH HYPOXIA; J96.02 - ACUTE RESPIRATORY FAILURE WITH HYPERCAPNIA SNOMED Code(s): 681890417 (3) Congestive heart failure Current Visit: No Status: Acute Code(s): I50.9 - HEART FAILURE, UNSPECIFIED SNOMED Code(s): 24137074 (4) Type 2 diabetes mellitus Current Visit: No Status: Acute Code(s): E11.9 - TYPE 2 DIABETES MELLITUS WITHOUT COMPLICATIONS SNOMED Code(s): 59848991 Plan: 1. Acute hypoxic respiratory failure due to basilar pneumonia. Start IV rocephin . Pulmonary consult. IV and inhaled steroids. Duonebs 2. Acute on chronic CHF. IV lasix 80 mg tid, hold metolazone 3. T2DM. Continue metformin, accuchecks, sliding scale. Contineu gabapentin 4. Seizure disorder. Continue dilantin DVT prophylaxis lovenox
[2020-04-25] MEDS: GABAPENTIN 400 MG CAP PO SCH (21:23)
[2020-04-25] MEDS: ATORVASTATIN 80 MG TAB PO SCH (21:23)
[2020-04-26] MEDS: methylPREDNISolone SOD SUCCI 125 MG/2 ML VIAL IV SCH ×4 (00:30→17:49)
[2020-04-26] MEDS: IPRATROPIUM-ALBUTEROL 3 ML NEB INHALATION PRN ×3 (00:42→23:16)
[2020-04-26] MEDS: FUROSEMIDE 10 MG/ML 10 ML VIAL IV SCH ×3 (05:59→21:53)
[2020-04-26 07:15] LABS: Glucose,Whole Blood 138 mg/dL (75-99)
[2020-04-26 07:29] LABS: Anisocytosis Slight; Basophils % (A) 0 %; Eosinophils % (A) 0 %; HCT 37.4 % (34.0-46.0); HGB 11.3 gm/dL (11.4-16.0); Lymphocytes # (A) 0.6 k/uL (1.0-4.8); Lymphocytes % (A) 10 %; MCH 27.7 pg (25.0-35.0); MCHC 30.3 g/dL (31.0-37.0); MCV 91.4 fL (80.0-100.0); Mean Platelet Volume 6.6; Monocytes # (A) 0.3 k/uL (0-1.0); Monocytes % (A) 5 %; Neutrophils # (A) 5.1 k/uL (1.3-7.7); Neutrophils % (A) 83 %; Platelet Count 252 k/uL (150-450); RBC 4.09 m/uL (3.80-5.40); RDW 17.5 % (11.5-15.5); WBC 6.1 k/uL (3.8-10.6)
[2020-04-26] MEDS: INSULIN ASPART (NovoLOG) 100 UNIT/ML VIAL SQ SCH ×4 (07:51→21:54)
[2020-04-26] MEDS: LOSARTAN 50 MG TAB PO SCH (07:52)
[2020-04-26] MEDS: ASPIRIN 81 MG PO SCH (07:52)
[2020-04-26] MEDS: PHENYTOIN SODIUM EXTENDED 100 MG CAP PO SCH ×2 (07:52→22:00)
[2020-04-26] MEDS: PANTOPRAZOLE 40 MG TABLET PO SCH (07:53)
[2020-04-26] MEDS: MONTELUKAST 10 MG TAB PO SCH (07:53)
[2020-04-26] MEDS: metFORMIN 500 MG TAB PO SCH ×2 (07:54→21:53)
[2020-04-26] MEDS: atenoloL 25 MG TAB PO SCH (07:54)
[2020-04-26] MEDS: CLOPIDOGREL 75 MG TAB PO SCH (07:54)
[2020-04-26] MEDS: IPRATROPIUM-ALBUTEROL 3 ML NEB INHALATION SCH ×4 (08:11→18:59)
[2020-04-26] MEDS: BUDESONIDE 1 MG/2 ML NEBU INHALATION SCH ×3 (08:11→18:58)
[2020-04-26 11:49] LABS: Glucose,Whole Blood 124 mg/dL (75-99)
[2020-04-26 12:07] LABS: African American GFR (CKD) 105.4 (60.0-200.0); BUN/Creat Ratio 35.71 Ratio (12.00-20.00); Calcium 8.4 mg/dL (8.7-10.3); Non-African American GFR(CKD) 90.9 (60.0-200.0); Potassium 3.6 mmol/L (3.5-5.5)
--- NOTE | 2020-04-26 12:36 | P.PN ---
Subjective Progress Note Date: 04/26/20 Mitchell Jasso is a 64 yo F with PMH of severe COPD on home O2, obesity hypoventilation syndrome, cor pulmonale, T2DM who presented to the ED complaining of worsening shortness of breath. She states that over the past 1-2 weeks she has noticed first L leg swelling and now dyspnea with exertion. She did follow up with her PCP and was recommended to increase her diuretics but no improvement. She does note cough productive for clear sputum. Denies sore throat, fever, chills, chest tightness, palpitations. On presentation SpO2 83% on 3 L O2, WBC normal, CXR with possible basilar pneumonia. 04/26/2020 maintained on nebulized bronchodilators, Rocephin, IV push Lasix, steroids with better air entry today. Patient reports persistent shortness of breath at rest and with exertion.afebrile, normal WBC .blood sugars controlled. BUN 25, creatinine 0.7. Objective - Vital Signs Vital signs: Vital Signs Temp 97.5 F L 04/26/20 07:00 Pulse 76 04/26/20 11:06 Resp 17 04/26/20 07:00 BP 125/80 04/26/20 07:00 Pulse Ox 92 L 04/26/20 07:00 Intake & Output 04/25/20 04/26/20 04/26/20 18:59 06:59 18:59 Intake Total 400 Output Total 3100 800 Balance -2700 -800 Intake: Oral 400 Output: Urine 3100 800 Other: # Bowel Movements 1 - Exam General: Sitting up in bed, NAD. Vitals reviewed Eyes: PERRL, EOMI, conjunctiva normal HENT: normocephalic, oral mucosa moist Neck: supple, no JVD Lungs: Better air entry throughout. Rhonchi, fine crackles at bases CV: Regular rate and rhythm, no murmur. Peripheral pulses 2+ Abdomen: soft, nondistended, no organomegaly. Positive bowel sounds Skin: warm and dry. Decreased redness and edema of LLL. Neuro: A&Ox3, normal mood and affect - Labs CBC & Chem 7: 04/26/20 06:55 04/26/20 07:03 Labs: Abnormal Lab Results - Last 24 Hours (Table) 04/25/20 04/25/20 04/26/20 Range/Units 16:27 20:22 06:55 Hgb 11.3 L (11.4-16.0) gm/dL MCHC 30.3 L (31.0-37.0) g/dL RDW 17.5 H (11.5-15.5) % Lymphocytes # 0.6 L (1.0-4.8) k/uL POC Glucose (mg/dL) 119 H 144 H (75-99) mg/dL 04/26/20 Range/Units 07:14 Hgb (11.4-16.0) gm/dL MCHC (31.0-37.0) g/dL RDW (11.5-15.5) % Lymphocytes # (1.0-4.8) k/uL POC Glucose (mg/dL) 138 H (75-99) mg/dL Microbiology - Last 24 Hours (Table) 04/24/20 12:31 Blood Culture - Preliminary Blood No Growth after 24 hours Assessment and Plan Assessment: (1) Acute exacerbation of chronic obstructive pulmonary disease Current Visit: Yes Status: Acute Code(s): J44.1 - CHRONIC OBSTRUCTIVE PULMONARY DISEASE W (ACUTE) EXACERBATION SNOMED Code(s): 481883173 (2) Acute respiratory failure with hypoxia and hypercapnia Current Visit: No Status: Acute Code(s): J96.01 - ACUTE RESPIRATORY FAILURE WITH HYPOXIA; J96.02 - ACUTE RESPIRATORY FAILURE WITH HYPERCAPNIA SNOMED Code(s): 519983220 (3) Congestive heart failure Current Visit: No Status: Acute Code(s): I50.9 - HEART FAILURE, UNSPECIFIED SNOMED Code(s): 54698928 (4) Type 2 diabetes mellitus Current Visit: No Status: Acute Code(s): E11.9 - TYPE 2 DIABETES MELLITUS WITHOUT COMPLICATIONS SNOMED Code(s): 77590917 (5) left lower extremity cellulitis Plan: Continue on current medication regime ,monitoring and symptomatic treatment. Maintain nebulized bronchodilators, steroids, antibiotics and diuretics. Close monitoring of renal function and electrolytes with repeat labs ordered for a.m. Increase ambulation as tolerated. Maintain supportive care. The impression and plan of care has been dictated as directed. : I performed a history and examination of this patient, discussed the same with the dictator. I agree with the dictator's note ,documented as a scribe. Any additional findings or plans will be noted.
--- NOTE | 2020-04-26 13:59 | P.PN ---
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 Left lower extremity cellulitis Cor pulmonale Hypertension hypertensive cardiovascular disease Bilateral carotid artery stenosis Extensive smoking history in the past 04/26/2020, patient seen eval examined during the rounds labs reviewed medications reviewed, white cell count continue to be stable, CO2 is down to 30 for now, still short of breath congested complaining congestion in the chest, This is a 64-year-old with end-stage lung disease secondary severe COPD emphysema, patient has a history of cor pulmonale, patient is on 24 7 home oxygen 3 L nasal cannula also on the Trilogy vent at nighttime and when necessary during the day, with prior history of the hypercapnic hypoxic respiratory failure on multiple occasions came into the hospital with increased swelling of the lower extremity which was asymmetric associated with slight redness more so on the left side compared to right side patient was having some shortness of breath and dry cough however respiratory status appears to be stable now, patient see Dr. Asha Pacheco for primary care activity, she had characteristics stenosis and consider poor surgical candidate and high risk for surgery, left lower extremity Doppler is negative for DVT, chest x-ray consistent with COPD-like changes bilateral basal diffuse interstitial Petrin were seen cystoscopy pneumonia versus congestive heart failure, white cell count has been normal, electrolytes are significant for elevated CO2 consistent with chronic CO2 retention, stable renal function and normal WBC count, currently patient is being treated with bronchodilator continuation home medicine she is also on IV Rocephinm and being diuresed with the Lasix currently 80 mg every 8 hourly, she is also on IV steroids, blood cultures have been negative, BNP is 333, troponin normal Objective - Vital Signs Vital signs: Vital Signs Temp 97.5 F L 04/26/20 07:00 Pulse 76 04/26/20 11:17 Resp 17 04/26/20 07:25 BP 125/80 04/26/20 07:00 Pulse Ox 92 L 04/26/20 07:00 Intake & Output 04/25/20 04/26/20 04/26/20 18:59 06:59 18:59 Intake Total 400 Output Total 3100 800 Balance -2700 -800 Intake: Oral 400 Output: Urine 3100 800 Other: # Bowel Movements 1 - Exam - Constitutional General appearance: average body habitus, disheveled, obese - EENT Eyes: EOMI, PERRLA Ears: bilateral: normal - Neck Neck: normal ROM Carotids: bilateral: upstroke normal Thyroid: bilateral: normal size - Respiratory Respiratory: bilateral: diminished, rales - Cardiovascular Rhythm: regular Heart sounds: normal: S1, S2 - Gastrointestinal General gastrointestinal: decreased bowel sounds, normal bowel sounds, soft - Integumentary Bilateral lower extremity swelling slightly more on the left side compared right side along with diffuse superficial right erythema and skin is intact suggestive of ongoing cellulitis Integumentary: normal, normal turgor - Neurologic Neurologic: CNII-XII intact - Musculoskeletal Musculoskeletal: generalized weakness, strength equal bilaterally - Psychiatric Psychiatric: A&O x's 3, appropriate affect, intact judgment & insight - Labs CBC & Chem 7: 04/26/20 06:55 04/26/20 07:03 Labs: Abnormal Lab Results - Last 24 Hours (Table) 04/25/20 04/25/20 04/26/20 Range/Units 16:27 20:22 06:55 Hgb 11.3 L (11.4-16.0) gm/dL MCHC 30.3 L (31.0-37.0) g/dL RDW 17.5 H (11.5-15.5) % Lymphocytes # 0.6 L (1.0-4.8) k/uL Chloride (96-109) mmol/L Carbon Dioxide (21.6-31.8) mmol/L Anion Gap (4.00-12.00) mmol/L BUN/Creatinine Ratio (12.00-20.00) Ratio Glucose (70-110) mg/dL POC Glucose (mg/dL) 119 H 144 H (75-99) mg/dL Calcium (8.7-10.3) mg/dL 04/26/20 04/26/20 04/26/20 Range/Units 07:03 07:14 11:46 Hgb (11.4-16.0) gm/dL MCHC (31.0-37.0) g/dL RDW (11.5-15.5) % Lymphocytes # (1.0-4.8) k/uL Chloride 85 L (96-109) mmol/L Carbon Dioxide 34.0 H (21.6-31.8) mmol/L Anion Gap 18.00 H (4.00-12.00) mmol/L BUN/Creatinine Ratio 35.71 H (12.00-20.00) Ratio Glucose 145 H (70-110) mg/dL POC Glucose (mg/dL) 138 H 124 H (75-99) mg/dL Calcium 8.4 L (8.7-10.3) mg/dL Microbiology - Last 24 Hours (Table) 04/24/20 12:31 Blood Culture - Preliminary Blood No Growth after 24 hours Assessment and Plan Assessment: Bilateral basal pneumonia Acute on chronic hypoxic and hypercapnic respiratory failure End-stage COPD ventilator dependent and oxygen dependent Left lower extremity cellulitis Cor pulmonale Hypertension hypertensive cardiovascular disease Bilateral carotid artery stenosis Extensive smoking history in the past Plan: Continue bronchodilator along with IV antibiotics and steroids next 24-48 hours steroids can be tapered down to oral, continue gentle diuresis monitor renal functions closely continueTrilogy ventilator each night and when necessary during the day, will follow clinical course closely further recommendations pending plan of care as per clinical response of the patient Time with Patient: Greater than 30
[2020-04-26 16:49] LABS: Glucose,Whole Blood 122 mg/dL (75-99)
[2020-04-26 20:44] LABS: Glucose,Whole Blood 163 mg/dL (75-99)
[2020-04-26] MEDS: GABAPENTIN 400 MG CAP PO SCH (21:53)
[2020-04-26] MEDS: ATORVASTATIN 80 MG TAB PO SCH (21:53)
[2020-04-26] MEDS: ENOXAPARIN 40 MG/0.4 ML SYRINGE SQ SCH (22:01)
[2020-04-27] MEDS: methylPREDNISolone SOD SUCCI 125 MG/2 ML VIAL IV SCH ×5 (01:14→23:35)
[2020-04-27] MEDS: IPRATROPIUM-ALBUTEROL 3 ML NEB INHALATION PRN ×2 (02:54→23:29)
[2020-04-27] MEDS: FUROSEMIDE 10 MG/ML 10 ML VIAL IV SCH ×3 (05:49→21:08)
[2020-04-27 06:54] LABS: Glucose,Whole Blood 127 mg/dL (75-99)
[2020-04-27] MEDS: BUDESONIDE 1 MG/2 ML NEBU INHALATION SCH ×3 (07:20→20:11)
[2020-04-27] MEDS: IPRATROPIUM-ALBUTEROL 3 ML NEB INHALATION SCH ×4 (07:20→20:11)
[2020-04-27] MEDS: INSULIN ASPART (NovoLOG) 100 UNIT/ML VIAL SQ SCH ×4 (08:20→20:35)
[2020-04-27] MEDS: ASPIRIN 81 MG PO SCH (08:22)
[2020-04-27] MEDS: MONTELUKAST 10 MG TAB PO SCH (08:23)
[2020-04-27] MEDS: LOSARTAN 50 MG TAB PO SCH (08:23)
[2020-04-27] MEDS: atenoloL 25 MG TAB PO SCH (08:23)
[2020-04-27] MEDS: PANTOPRAZOLE 40 MG TABLET PO SCH (08:23)
[2020-04-27] MEDS: metFORMIN 500 MG TAB PO SCH ×2 (08:23→21:08)
[2020-04-27] MEDS: PHENYTOIN SODIUM EXTENDED 100 MG CAP PO SCH ×2 (08:24→21:08)
[2020-04-27] MEDS: CLOPIDOGREL 75 MG TAB PO SCH (08:24)
[2020-04-27 11:36] LABS: Glucose,Whole Blood 121 mg/dL (75-99)
--- NOTE | 2020-04-27 16:17 | PN ---
PROGRESS NOTE DATE OF SERVICE: 04/27/2020 I am covering for Dr. Long. This 64-year-old woman was admitted with COPD, is being closely monitored. Dr. Chamberlain is also following the patient closely. The patient is still complaining of shortness of breath. The patient is currently on IV steroids 60 mg IV q.6. Blood sugars have been monitored. PHYSICAL EXAMINATION: Alert and oriented x3. Pulse is 88, blood pressure 103/64. Respirations 18. Temperature 98.2, pulse ox 93% on 3 L. HEENT is conjunctivae normal. NECK: No JVD. CARDIOVASCULAR: S1, S2 muffled. RESPIRATIONS: Breath sounds diminished in the bases. A few scattered rhonchi and crackles. ABDOMEN: Soft, nontender. LEGS are no edema. No swelling. NERVOUS SYSTEM: No focal deficits. LABORATORY DATA: Accu-Cheks 127, 121. WBC 6.9, hemoglobin 11.3, CO2 is 34. ASSESSMENT: 1. Chronic obstructive pulmonary disease, acute exacerbation with acute purulent tracheobronchitis with acute hypoxic hypercarbic respiratory failure. 2. Hyponatremia, present on admission. 3. Anemia, normocytic, present on admission. 4. History of asthma. 5. History of chronic obstructive pulmonary disease. 6. Diabetes mellitus type 2. 7. Gastroesophageal reflux disease. 8. Hypertension. 9. Hyperlipidemia. 10.Degenerative joint disease. 11.History of pneumonia. 12.History of sleep apnea. 13.Chronic hypoxic respiratory failure on 3 L nasal cannula. 14.Sinusitis. 15.History of anxiety. 16.Remote history of nicotine dependence. RECOMMENDATIONS AND DISCUSSION: This 64-year-old woman who presented with multiple complex medical issues, we will monitor the patient closely, continue the current medications, continue symptomatic treatment. Continue the antibiotics. Continue with the bronchodilators. Continue with IV steroids. Monitor closely. Follow with Pulmonary. Otherwise, resume some of the home medications. Further recommendations to follow. MMODL / IJN: [id number] /
[2020-04-27 16:44] LABS: Glucose,Whole Blood 124 mg/dL (75-99)
[2020-04-27 20:26] LABS: Glucose,Whole Blood 124 mg/dL (75-99)
[2020-04-27] MEDS: ENOXAPARIN 40 MG/0.4 ML SYRINGE SQ SCH (21:08)
[2020-04-27] MEDS: GABAPENTIN 400 MG CAP PO SCH (21:08)
[2020-04-27] MEDS: ATORVASTATIN 80 MG TAB PO SCH (21:08)
[2020-04-28] MEDS: IPRATROPIUM-ALBUTEROL 3 ML NEB INHALATION PRN ×2 (03:47→23:59)
[2020-04-28] MEDS: FUROSEMIDE 10 MG/ML 10 ML VIAL IV SCH (05:14)
[2020-04-28] MEDS: methylPREDNISolone SOD SUCCI 125 MG/2 ML VIAL IV SCH ×4 (05:15→23:19)
[2020-04-28 06:49] LABS: Glucose,Whole Blood 118 mg/dL (75-99)
[2020-04-28] MEDS: INSULIN ASPART (NovoLOG) 100 UNIT/ML VIAL SQ SCH ×4 (07:15→21:01)
[2020-04-28] MEDS: IPRATROPIUM-ALBUTEROL 3 ML NEB INHALATION SCH ×4 (07:42→19:41)
[2020-04-28] MEDS: BUDESONIDE 1 MG/2 ML NEBU INHALATION SCH ×3 (07:42→19:41)
[2020-04-28 07:43] LABS: Anisocytosis Slight; Basophils % (A) 0 %; Eosinophils # (A) 0.1 k/uL (0-0.7); Eosinophils % (A) 1 %; HCT 38.4 % (34.0-46.0); HGB 12.3 gm/dL (11.4-16.0); Lymphocytes # (A) 0.8 k/uL (1.0-4.8); Lymphocytes % (A) 8 %; MCH 29.2 pg (25.0-35.0); MCHC 32.1 g/dL (31.0-37.0); MCV 90.9 fL (80.0-100.0); Mean Platelet Volume 6.6; Monocytes # (A) 0.6 k/uL (0-1.0); Monocytes % (A) 6 %; Neutrophils # (A) 8.3 k/uL (1.3-7.7); Neutrophils % (A) 84 %; Platelet Count 289 k/uL (150-450); RBC 4.23 m/uL (3.80-5.40); RDW 17.2 % (11.5-15.5); WBC 9.9 k/uL (3.8-10.6)
[2020-04-28] MEDS: PHENYTOIN SODIUM EXTENDED 100 MG CAP PO SCH ×2 (08:16→21:24)
[2020-04-28] MEDS: MONTELUKAST 10 MG TAB PO SCH (08:16)
[2020-04-28] MEDS: ASPIRIN 81 MG PO SCH (08:16)
[2020-04-28] MEDS: PANTOPRAZOLE 40 MG TABLET PO SCH (08:16)
[2020-04-28] MEDS: LOSARTAN 50 MG TAB PO SCH (08:16)
[2020-04-28 08:17] LABS: African American GFR (CKD) >90 (>60 ml/min/1.73 sqM); Blood Urea Nitrogen 31 mg/dL (7-17); Calcium 7.9 mg/dL (8.4-10.2); Chloride 83 mmol/L (98-107); Glucose 108 mg/dL (74-99); Non-African American GFR(CKD) >90 (>60 ml/min/1.73 sqM); Potassium 3.4 mmol/L (3.5-5.1); Sodium 135 mmol/L (137-145)
[2020-04-28] MEDS: SERTRALINE 100 MG TAB PO SCH (08:17)
[2020-04-28] MEDS: atenoloL 25 MG TAB PO SCH (08:17)
[2020-04-28] MEDS: metFORMIN 500 MG TAB PO SCH ×2 (08:17→21:24)
[2020-04-28] MEDS: BUMETANIDE 1 MG TAB PO SCH (08:17)
[2020-04-28] MEDS: CLOPIDOGREL 75 MG TAB PO SCH (08:17)
[2020-04-28 08:23] LABS: Anion Gap 7 mmol/L
[2020-04-28 08:47] LABS: Carbon Dioxide 45 mmol/L (22-30)
[2020-04-28 11:42] LABS: Glucose,Whole Blood 116 mg/dL (75-99)
[2020-04-28 16:47] LABS: Glucose,Whole Blood 103 mg/dL (75-99)
[2020-04-28] MEDS: ENOXAPARIN 40 MG/0.4 ML SYRINGE SQ SCH (17:48)
--- NOTE | 2020-04-28 18:23 | PN ---
PROGRESS NOTE DATE OF SERVICE: 04/28/2020 HISTORY: This 64-year-old woman who was admitted with COPD acute exacerbation with acute purulent tracheobronchitis and acute hypoxic respiratory failure with persistent wheezing also. CO2 was also increased at this time. The patient is on IV steroids. Monitor blood pressure. Blood sugars being monitored at this time. The patient also hypokalemia 3.4. Past medical history reviewed. REVIEW OF SYSTEMS: Cardiovascular system: No angina or palpitations. RESPIRATORY: As mentioned earlier. GI: As mentioned earlier. : No dysuria. NERVOUS SYSTEM: No numbness or weakness. CURRENT MEDICATIONS: Reviewed and include: 1. DuoNeb. 2. Aspirin. 3. Tenormin. 4. Lipitor. 5. Pulmicort. 6. Bumex. 7. Rocephin. 8. Plavix. 9. Lovenox. 10.Perforomist. 11.Neurontin. 12.NovoLog. 13.Cozaar. 14.Glucophage. 15.Solu-Medrol. 16.Singulair. 17.Protonix. 18.Dilantin. 19.Zoloft. PHYSICAL EXAM: Patient is alert, oriented x3. Pulse 72. Blood pressure 114/69. Respirations 18. Temperature 98.2, pulse ox 92% on 3 L. HEENT: Conjunctivae normal. NECK is no jugular venous distention. CARDIOVASCULAR: S1, S2 muffled. RESPIRATORY: Breath sounds diminished in the bases. Bilateral scattered rhonchi and crackles. Expiratory wheezing. ABDOMEN: Soft. Nontender. LEGS are no edema. No swelling. NERVOUS SYSTEM: No focal deficits. LABS: Reviewed. Sodium 130. Potassium 3.4, CO2 is 45. ASSESSMENT: 1. Chronic obstructive pulmonary disease acute exacerbation with acute purulent tracheobronchitis with acute hypoxic hypercarbic respiratory failure. 2. Hyponatremia, present on admission. 3. Anemia, normocytic, present on admission. 4. History of asthma. 5. History of chronic obstructive pulmonary disease. 6. Diabetes type 2. 7. Gastroesophageal reflux disease. 8. Hypertension. 9. Hyperlipidemia. 10.History of degenerative joint disease. 11.History of pneumonia. 12.History of sleep apnea. 13.Chronic hypoxic respiratory failure on 3 L nasal cannula. 14.History of sinusitis. 15.History of anxiety. 16.Remote history of nicotine dependence. RECOMMENDATIONS AND DISCUSSION: This 64-year-old woman who presented with multiple complex medical issues, we will monitor the patient closely, continue the current medications, management and symptomatic treatment treatment. Otherwise at this time I recommend potassium supplementation. Repeat electrolytes. Continue with IV steroids. Monitor blood sugars closely. Add Perforomist to the current regimen and Dr. Long will follow tomorrow. MMODL / IJN: [id number] /
[2020-04-28] MEDS: FORMOTEROL FUMARATE 20 MCG/2 ML NEBU INHALATION SCH (19:41)
[2020-04-28 20:00] LABS: Hemoglobin A1C 5.7 % (4.0-6.0)
[2020-04-28 20:36] LABS: Glucose,Whole Blood 107 mg/dL (75-99)
[2020-04-28] MEDS: GABAPENTIN 400 MG CAP PO SCH (21:24)
[2020-04-28] MEDS: ATORVASTATIN 80 MG TAB PO SCH (21:24)
[2020-04-29] MEDS: IPRATROPIUM-ALBUTEROL 3 ML NEB INHALATION PRN ×2 (04:29→23:20)
[2020-04-29] MEDS: methylPREDNISolone SOD SUCCI 125 MG/2 ML VIAL IV SCH ×2 (05:34→13:20)
[2020-04-29 06:51] LABS: Glucose,Whole Blood 122 mg/dL (75-99)
[2020-04-29] MEDS: INSULIN ASPART (NovoLOG) 100 UNIT/ML VIAL SQ SCH ×4 (06:59→20:47)
[2020-04-29 07:17] LABS: Anisocytosis Slight; Basophils % (A) 0 %; Eosinophils # (A) 0.1 k/uL (0-0.7); Eosinophils % (A) 1 %; HCT 35.9 % (34.0-46.0); HGB 11.3 gm/dL (11.4-16.0); Lymphocytes # (A) 0.9 k/uL (1.0-4.8); Lymphocytes % (A) 10 %; MCH 28.2 pg (25.0-35.0); MCHC 31.4 g/dL (31.0-37.0); MCV 89.8 fL (80.0-100.0); Mean Platelet Volume 6.3; Monocytes # (A) 0.4 k/uL (0-1.0); Monocytes % (A) 5 %; Neutrophils # (A) 7.5 k/uL (1.3-7.7); Neutrophils % (A) 82 %; Platelet Count 229 k/uL (150-450); RDW 16.8 % (11.5-15.5); WBC 9.1 k/uL (3.8-10.6)
[2020-04-29] MEDS: MONTELUKAST 10 MG TAB PO SCH (08:17)
[2020-04-29] MEDS: ASPIRIN 81 MG PO SCH (08:17)
[2020-04-29] MEDS: LOSARTAN 50 MG TAB PO SCH (08:17)
[2020-04-29] MEDS: CLOPIDOGREL 75 MG TAB PO SCH (08:18)
[2020-04-29] MEDS: PANTOPRAZOLE 40 MG TABLET PO SCH (08:18)
[2020-04-29] MEDS: metFORMIN 500 MG TAB PO SCH ×2 (08:18→21:02)
[2020-04-29] MEDS: atenoloL 25 MG TAB PO SCH (08:19)
[2020-04-29] MEDS: BUMETANIDE 1 MG TAB PO SCH (08:19)
[2020-04-29] MEDS: PHENYTOIN SODIUM EXTENDED 100 MG CAP PO SCH ×2 (08:20→21:02)
[2020-04-29] MEDS: IPRATROPIUM-ALBUTEROL 3 ML NEB INHALATION SCH ×4 (08:33→20:00)
[2020-04-29] MEDS: FORMOTEROL FUMARATE 20 MCG/2 ML NEBU INHALATION SCH ×2 (08:33→20:17)
[2020-04-29] MEDS: BUDESONIDE 1 MG/2 ML NEBU INHALATION SCH ×3 (08:33→20:00)
[2020-04-29] MEDS: SERTRALINE 100 MG TAB PO SCH (08:35)
--- NOTE | 2020-04-29 10:13 | P.PN ---
Subjective Progress Note Date: 04/29/20 Mitchell Jasso is a 64 yo F with PMH of severe COPD on home O2, obesity hypoventilation syndrome, cor pulmonale, T2DM who presented to the ED complaining of worsening shortness of breath. She states that over the past 1-2 weeks she has noticed first L leg swelling and now dyspnea with exertion. She did follow up with her PCP and was recommended to increase her diuretics but no improvement. She does note cough productive for clear sputum. Denies sore throat, fever, chills, chest tightness, palpitations. On presentation SpO2 83% on 3 L O2, WBC normal, CXR with possible basilar pneumonia. 04/26/2020 maintained on nebulized bronchodilators, Rocephin, IV push Lasix, steroids with better air entry today. Patient reports persistent shortness of breath at rest and with exertion.afebrile, normal WBC .blood sugars controlled. BUN 25, creatinine 0.7. 04/29/2020 continues on nebulized bronchodilators, IV steroids, antibiotics, Pulmicort, Performist. Reports persistent weakness in addition to significant exertional shortness of breath. Reports minimal reserve going to and from bathroom. Received potassium supplementation yesterday, labs pending. Afebrile, maintaining O2 sats in the 90s on 3 L nasal cannula. Denies chest pain, palpitations. Objective - Vital Signs Vital signs: Vital Signs Temp 98.3 F 04/29/20 07:00 Pulse 84 04/29/20 08:59 Resp 18 04/29/20 07:00 BP 105/64 04/29/20 07:00 Pulse Ox 94 L 04/29/20 07:00 Intake & Output 04/28/20 04/29/20 04/29/20 18:59 06:59 18:59 Output Total 1000 600 Balance -1000 -600 Output: Urine 1000 600 Other: # Voids 1 - Exam General: Sitting up in bed, NAD. Vitals reviewed Eyes: PERRL, EOMI, conjunctiva normal HENT: normocephalic, oral mucosa moist Neck: supple, no JVD Lungs: Air entry tight. Scattered expiratory wheezing. CV: Regular rate and rhythm, no murmur. Peripheral pulses 2+ Abdomen: soft, nondistended, no organomegaly. Positive bowel sounds Skin: warm and dry. No edema. Neuro: A&Ox3, normal mood and affect - Labs CBC & Chem 7: 04/29/20 06:51 04/28/20 07:22 Labs: Abnormal Lab Results - Last 24 Hours (Table) 04/28/20 04/28/20 04/28/20 Range/Units 11:41 16:46 20:35 Hgb (11.4-16.0) gm/dL RDW (11.5-15.5) % Lymphocytes # (1.0-4.8) k/uL POC Glucose (mg/dL) 116 H 103 H 107 H (75-99) mg/dL 04/29/20 04/29/20 Range/Units 06:49 06:51 Hgb 11.3 L (11.4-16.0) gm/dL RDW 16.8 H (11.5-15.5) % Lymphocytes # 0.9 L (1.0-4.8) k/uL POC Glucose (mg/dL) 122 H (75-99) mg/dL Microbiology - Last 24 Hours (Table) 04/24/20 12:31 Blood Culture - Preliminary Blood No Growth after 96 hours Assessment and Plan Assessment: (1) Acute exacerbation of chronic obstructive pulmonary disease with acute purulent tracheobronchitis Current Visit: Yes Status: Acute Code(s): J44.1 - CHRONIC OBSTRUCTIVE PULMONARY DISEASE W (ACUTE) EXACERBATION SNOMED Code(s): 868438997 (2) Acute respiratory failure with hypoxia and hypercapnia Current Visit: No Status: Acute Code(s): J96.01 - ACUTE RESPIRATORY FAILURE WITH HYPOXIA; J96.02 - ACUTE RESPIRATORY FAILURE WITH HYPERCAPNIA SNOMED Code(s): 126684189 (3) Congestive heart failure Current Visit: No Status: Acute Code(s): I50.9 - HEART FAILURE, UNSPECIFIED SNOMED Code(s): 32707412 (4) Type 2 diabetes mellitus Current Visit: No Status: Acute Code(s): E11.9 - TYPE 2 DIABETES MELLITUS WITHOUT COMPLICATIONS SNOMED Code(s): 38875533 (5) left lower extremity cellulitis Plan: Continue on current medication regime ,monitoring and symptomatic treat ment. Continue on nebulized bronchodilators, steroids, antibiotics and diuretics. Follow-up chest x-ray ordered. PT/OT consulted. Slow improvement, discussed subacute rehab. with patient. Social work consulted to assist with discharge planning. Coronavirus testing ordered. BMP/potassium level pending . Follow closely with pulmonary. The impression and plan of care has been dictated as directed. : I performed a history and examination of this patient, discussed the same with the dictator. I agree with the dictator's note ,documented as a scribe. Any additional findings or plans will be noted.
[2020-04-29 11:39] LABS: African American GFR (CKD) 117.7 (60.0-200.0); Anion Gap 11.4 mmol/L (4.00-12.00); Calcium 8.4 mg/dL (8.7-10.3); Carbon Dioxide 36.6 mmol/L (21.6-31.8); Non-African American GFR(CKD) 101.6 (60.0-200.0); Potassium 4.2 mmol/L (3.5-5.5)
[2020-04-29 11:41] LABS: Glucose,Whole Blood 121 mg/dL (75-99)
--- NOTE | 2020-04-29 12:27 | XR ---
EXAMINATION TYPE: XR chest 2V DATE OF EXAM: 04/29/2020 COMPARISON: 04/24/2020 INDICATION: Follow-up previous abnormal TECHNIQUE: Frontal and lateral views of the chest are obtained. FINDINGS: The heart size is normal. The pulmonary vasculature is normal. Mild infiltrate is at the right base. This is slightly improved over the interval. Left base infiltra te is largely resolved. IMPRESSION: 1. Mild right lower lobe infiltrate. Correlate for atelectasis and pneumonia. Findings are improved.
--- NOTE | 2020-04-29 15:49 | P.PN ---
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 Left lower extremity cellulitis Cor pulmonale Hypertension hypertensive cardiovascular disease Bilateral carotid artery stenosis Extensive smoking history in the past 04/29/2020, patient seen eval examined during the rounds labs reviewed medications reviewed, remains on supplemental oxygen, cough congestion slightly better, patient on antibiotics breathing treatments and steroids, can start titrating down the Solu-Medrol, last chest x-ray performed earlier this morning shows right lower lobe infiltrate overall finding appears to have improved compared to admitted chest x-ray, Blood cultures have been negative 04/26/2020, patient seen eval examined during the rounds labs reviewed medications reviewed, white cell count continue to be stable, CO2 is down to 30 for now, still short of breath congested complaining congestion in the chest, This is a 64-year-old with end-stage lung disease secondary severe COPD emphysema, patient has a history of cor pulmonale, patient is on 24 7 home oxygen 3 L nasal cannula also on the Trilogy vent at nighttime and when necessary during the day, with prior history of the hypercapnic hypoxic respiratory failure on multiple occasions came into the hospital with increased swelling of the lower extremity which was asymmetric associated with slight redness more so on the left side compared to right side patient was having some shortness of breath and dry cough however respiratory status appears to be stable now, patient see Dr. Asha Pacheco for primary care activity, she had characteristics stenosis and consider poor surgical candidate and high risk for surgery, left lower extremity Doppler is negative for DVT, chest x-ray consistent with COPD-like changes bilateral basal diffuse interstitial Petrin were seen cystoscopy pneumonia versus congestive heart failure, white cell count has been normal, electrolytes are significant for elevated CO2 consistent with chronic CO2 retention, stable renal function and normal WBC count, currently patient is being treated with bronchodilator continuation home medicine she is also on IV Rocephinm and being diuresed with the Lasix currently 80 mg every 8 hourly, she is also on IV steroids, blood cultures have been negative, BNP is 333, troponin normal Objective - Vital Signs Vital signs: Vital Signs Temp 97.6 F 04/29/20 14:54 Pulse 73 04/29/20 14:54 Resp 18 04/29/20 14:54 BP 104/57 09/28/20 14:54 Pulse Ox 92 L 04/29/20 14:54 Intake & Output 04/28/20 04/29/20 04/29/20 18:59 06:59 18:59 Output Total 1000 600 Balance -1000 -600 Output: Urine 1000 600 Other: # Voids 1 - Exam - Constitutional General appearance: average body habitus, disheveled, obese - EENT Eyes: EOMI, PERRLA Ears: bilateral: normal - Neck Neck: normal ROM Carotids: bilateral: upstroke normal Thyroid: bilateral: normal size - Respiratory Respiratory: bilateral: diminished, rales - Cardiovascular Rhythm: regular Heart sounds: normal: S1, S2 - Gastrointestinal General gastrointestinal: decreased bowel sounds, normal bowel sounds, soft - Integumentary Bilateral lower extremity swelling slightly more on the left side compared right side along with diffuse superficial right erythema and skin is intact suggestive of ongoing cellulitis Integumentary: normal, normal turgor - Neurologic Neurologic: CNII-XII intact - Musculoskeletal Musculoskeletal: generalized weakness, strength equal bilaterally - Psychiatric Psychiatric: A&O x's 3, appropriate affect, intact judgment & insight - Labs CBC & Chem 7: 04/29/20 06:51 04/29/20 06:51 Labs: Abnormal Lab Results - Last 24 Hours (Table) 04/28/20 04/28/20 04/29/20 Range/Units 16:46 20:35 06:49 Hgb (11.4-16.0) gm/dL RDW (11.5-15.5) % Lymphocytes # (1.0-4.8) k/uL Sodium (135-145) mmol/L Chloride (96-109) mmol/L Carbon Dioxide (21.6-31.8) mmol/L Creatinine (0.6-1.5) mg/dL BUN/Creatinine Ratio (12.00-20.00) Ratio Glucose (70-110) mg/dL POC Glucose (mg/dL) 103 H 107 H 122 H (75-99) mg/dL Calcium (8.7-10.3) mg/dL 04/29/20 04/29/20 04/29/20 Range/Units 06:51 06:51 11:39 Hgb 11.3 L (11.4-16.0) gm/dL RDW 16.8 H (11.5-15.5) % Lymphocytes # 0.9 L (1.0-4.8) k/uL Sodium 134 L (135-145) mmol/L Chloride 86 L (96-109) mmol/L Carbon Dioxide 36.6 H (21.6-31.8) mmol/L Creatinine 0.5 L (0.6-1.5) mg/dL BUN/Creatinine Ratio 48.00 H (12.00-20.00) Ratio Glucose 111 H (70-110) mg/dL POC Glucose (mg/dL) 121 H (75-99) mg/dL Calcium 8.4 L (8.7-10.3) mg/dL Microbiology - Last 24 Hours (Table) 04/24/20 12:31 Blood Culture - Preliminary Blood No Growth after 120 hours Assessment and Plan Assessment: Bilateral basal pneumonia, slowly improving Acute on chronic hypoxic and hypercapnic respiratory failure 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
[2020-04-29 17:13] LABS: Glucose,Whole Blood 112 mg/dL (75-99)
[2020-04-29] MEDS: ENOXAPARIN 40 MG/0.4 ML SYRINGE SQ SCH (19:54)
[2020-04-29 20:32] LABS: Glucose,Whole Blood 95 mg/dL (75-99)
[2020-04-29] MEDS: GABAPENTIN 400 MG CAP PO SCH (21:02)
[2020-04-29] MEDS: ATORVASTATIN 80 MG TAB PO SCH (21:02)
[2020-04-29] MEDS: methylPREDNISolone SOD SUCCI 40 MG/ML 1 ML VIAL IV SCH (21:03)
[2020-04-29] MEDS ORDERED: CALCIUM CARBONATE 500 MG CHEWABLE PO PRN (22:12)
[2020-04-30] MEDS: IPRATROPIUM-ALBUTEROL 3 ML NEB INHALATION PRN (03:47)
[2020-04-30 06:46] LABS: Glucose,Whole Blood 92 mg/dL (75-99)
[2020-04-30 07:28] VITALS: BP 116/68; RESP 16; TEMP 98.3
[2020-04-30] MEDS: BUDESONIDE 1 MG/2 ML NEBU INHALATION SCH ×2 (07:29)
[2020-04-30] MEDS: FORMOTEROL FUMARATE 20 MCG/2 ML NEBU INHALATION SCH (07:29)
[2020-04-30] MEDS: IPRATROPIUM-ALBUTEROL 3 ML NEB INHALATION SCH ×2 (07:29→10:56)
[2020-04-30 08:43] LABS: Anisocytosis Slight; Basophils % (A) 0 %; Eosinophils # (A) 0.1 k/uL (0-0.7); Eosinophils % (A) 1 %; HCT 36.7 % (34.0-46.0); HGB 11.6 gm/dL (11.4-16.0); Hypochromasia Slight; Lymphocytes % (A) 17 %; MCH 28.7 pg (25.0-35.0); MCHC 31.7 g/dL (31.0-37.0); MCV 90.6 fL (80.0-100.0); Mean Platelet Volume 6.9; Monocytes # (A) 0.8 k/uL (0-1.0); Monocytes % (A) 6 %; Neutrophils # (A) 8.8 k/uL (1.3-7.7); Neutrophils % (A) 74 %; Platelet Count 181 k/uL (150-450); RBC 4.05 m/uL (3.80-5.40); RDW 16.8 % (11.5-15.5); WBC 11.8 k/uL (3.8-10.6)
[2020-04-30] MEDS: INSULIN ASPART (NovoLOG) 100 UNIT/ML VIAL SQ SCH ×2 (09:31→12:45)
[2020-04-30] MEDS: SERTRALINE 100 MG TAB PO SCH (09:34)
[2020-04-30] MEDS: ASPIRIN 81 MG PO SCH (09:35)
[2020-04-30] MEDS: PHENYTOIN SODIUM EXTENDED 100 MG CAP PO SCH (09:35)
[2020-04-30] MEDS: methylPREDNISolone SOD SUCCI 40 MG/ML 1 ML VIAL IV SCH (09:36)
[2020-04-30] MEDS: MONTELUKAST 10 MG TAB PO SCH (09:36)
[2020-04-30] MEDS: LOSARTAN 50 MG TAB PO SCH (09:36)
[2020-04-30] MEDS: metFORMIN 500 MG TAB PO SCH (09:37)
[2020-04-30] MEDS: PANTOPRAZOLE 40 MG TABLET PO SCH (09:37)
[2020-04-30] MEDS: CLOPIDOGREL 75 MG TAB PO SCH (09:37)
[2020-04-30] MEDS: atenoloL 25 MG TAB PO SCH (09:37)
[2020-04-30] MEDS: BUMETANIDE 1 MG TAB PO SCH (09:37)
[2020-04-30 10:59] VITALS: PULSE 68
--- NOTE | 2020-04-30 11:18 | P.DS ---
Providers Date of admission: 04/24/20 15:25 Expected date of discharge: 04/30/20 Attending physician: Gio Long MD Consults: 04/25/20 08:31 Consult Physician Urgent Consulting Provider: Tani Chamberlain Consult Reason/Comments: COPD, SOB Do you want consulting provider notified?: Yes Primary care physician: Asha Pacheco [facility] Course: Final Diagnoses: (1) Acute exacerbation of chronic obstructive pulmonary disease with acute purulent tracheobronchitis, atelectasis, possible bibasilar pneumonia, community-acquired Current Visit: Yes Status: Acute Code(s): J44.1 - CHRONIC OBSTRUCTIVE PULMONARY DISEASE W (ACUTE) EXACERBATION SNOMED Code(s): 659036438 (2) Acute respiratory failure with hypoxia and hypercapnia Current Visit: No Status: Acute Code(s): J96.01 - ACUTE RESPIRATORY FAILURE WITH HYPOXIA; J96.02 - ACUTE RESPIRATORY FAILURE WITH HYPERCAPNIA SNOMED Code(s): 077370035 (3) Congestive heart failure Current Visit: No Status: Acute Code(s): I50.9 - HEART FAILURE, UNSPECIFIED SNOMED Code(s): 12944760 (4) Type 2 diabetes mellitus Current Visit: No Status: Acute Code(s): E11.9 - TYPE 2 DIABETES MELLITUS WITHOUT COMPLICATIONS SNOMED Code(s): 08692910 (5) left lower extremity cellulitis Hospital course:Mitchell Jasso is a 64 yo F with PMH of severe COPD on home O2, o besity hypoventilation syndrome, cor pulmonale, T2DM who presented to the ED complaining of worsening shortness of breath. She states that over the past 1-2 weeks she has noticed first L leg swelling and now dyspnea with exertion. She did follow up with her PCP and was recommended to increase her diuretics but no improvement. She does note cough productive for clear sputum. Denies sore throat, fever, chills, chest tightness, palpitations. On presentation SpO2 83% on 3 L O2, WBC normal, CXR with possible basilar pneumonia. 04/26/2020 maintained on nebulized bronchodilators, Rocephin, IV push Lasix, steroids with better air entry today. Patient reports persistent shortness of breath at rest and with exertion.afebrile, normal WBC .blood sugars controlled. BUN 25, creatinine 0.7. 04/29/2020 continues on nebulized bronchodilators, IV steroids, antibiotics, Pulmicort, Performist. Reports persistent weakness in addition to significant exertional shortness of breath. Reports minimal reserve going to and from bathroom. Received potassium supplementation yesterday, labs pending. Afebrile, maintaining O2 sats in the 90s on 3 L nasal cannula. Denies chest pain, palpitations. Follow-up chest x-ray completed yesterday reporting mild right lower lobe infiltrate , improved over the interval , left basilar infiltrate largely resolved .Evaluated by PT and home with home care recommended at discharge. Significant clinical improvement. Patient will be discharged home today in a stable condition with fair prognosis, pending final DC recommendations and clearance from pulmonary. The impression and plan of care has been dictated as directed. : I performed a history and examination of this patient, discussed the same with the dictator. I agree with the dictator's note ,documented as a scribe. Any additional findings or plans will be noted. Patient Condition at Discharge: Stable Plan - Discharge Summary Discharge Rx Participant: Yes New Discharge Prescriptions: New Formoterol Fumarate [Perforomist] 20 mcg INHALATION RT-BID #60 nebu predniSONE 10 mg PO DIRECTED #30 tab Continue Atenolol [Tenormin] 25 mg PO DAILY Phenytoin Sodium Extended [Dilantin] 200 mg PO BID Montelukast [Singulair] 10 mg PO DAILY Sertraline [Zoloft] 200 mg PO DAILY Bumetanide [BUMEX] 2 mg PO DAILY Atorvastatin [Lipitor] 80 mg PO DAILY traZODone HCL 100 - 200 mg PO HS Budesonide [Pulmicort] 1 mg INHALATION RT-QID Clopidogrel Bisulfate [Plavix] 75 mg PO DAILY Potassium Chloride 20 meq PO DAILY Aspirin EC [Ecotrin Low Dose] 81 mg PO DAILY Spironolactone 100 mg PO DAILY diphenhydrAMINE HCL [Benadryl] 50 mg PO HS metOLazone 2.5 mg PO MOWE metFORMIN HCL [Glucophage] 500 mg PO BID Losartan Potassium 100 mg PO DAILY Ibandronate Sodium [Boniva] 150 mg PO Q30D Gabapentin [Neurontin] 400 mg PO HS Furosemide [Lasix] 40 mg PO DAILY Famotidine 40 mg PO DAILY Vitamin D3 50,000iu 50,000 unit PO Q7D Changed Ipratropium Nebulized [Atrovent Nebulized 0.2 MG/ML] 0.5 mg INHALATION QID #0 Albuterol Nebulized [Ventolin Nebulized] 2.5 mg INHALATION QID #0 Discharge Medication List Atenolol [Tenormin] 25 mg PO DAILY 07/25/14 [History] Montelukast [Singulair] 10 mg PO DAILY 07/25/14 [History] Phenytoin Sodium Extended [Dilantin] 200 mg PO BID 07/25/14 [History] Sertraline [Zoloft] 200 mg PO DAILY 07/27/14 [History] Aspirin EC [Ecotrin Low Dose] 81 mg PO DAILY 05/23/19 [History] Atorvastatin [Lipitor] 80 mg PO DAILY 05/23/19 [History] Budesonide [Pulmicort] 1 mg INHALATION RT-QID 05/23/19 [History] Bumetanide [BUMEX] 2 mg PO DAILY 05/23/19 [History] Clopidogrel Bisulfate [Plavix] 75 mg PO DAILY 05/23/19 [History] Potassium Chloride 20 meq PO DAILY 05/23/19 [History] traZODone HCL 100 - 200 mg PO HS 05/23/19 [History] Famotidine 40 mg PO DAILY 04/24/20 [History] Furosemide [Lasix] 40 mg PO DAILY 04/24/20 [History] Gabapentin [Neurontin] 400 mg PO HS 04/24/20 [History] Ibandronate Sodium [Boniva] 150 mg PO Q30D 04/24/20 [History] Losartan Potassium 100 mg PO DAILY 04/24/20 [History] Spironolactone 100 mg PO DAILY 04/24/20 [History] Vitamin D3 50,000iu 50,000 unit PO Q7D 04/24/20 [History] diphenhydrAMINE HCL [Benadryl] 50 mg PO HS 04/24/20 [History] metFORMIN HCL [Glucophage] 500 mg PO BID 04/24/20 [History] metOLazone 2.5 mg PO MOWE 04/24/20 [History] Albuterol Nebulized [Ventolin Nebulized] 2.5 mg INHALATION QID #0 04/30/20 [Rx] Formoterol Fumarate [Perforomist] 20 mcg INHALATION RT-BID #60 nebu 09/29/20 [Rx] Ipratropium Nebulized [Atrovent Nebulized 0.2 MG/ML] 0.5 mg INHALATION QID #0 04/30/20 [Rx] predniSONE 10 mg PO DIRECTED #30 tab 04/30/20 [Rx] Follow up Appointment(s)/Referral(s): Gio Long MD [STAFF PHYSICIAN] - 05/07/20 11:30 am Tani Chamberlain MD [STAFF PHYSICIAN] - 05/14/20 1:15 pm [facility] Visiting Nurse, [NON-STAFF] - As Needed Activity/Diet/Wound Care/Special Instructions: Pending final DC recommendations, clearance from pulmonary. Discharge Disposition: HOME WITH HOME HEALTH SERVICES
[2020-04-30 11:46] LABS: Glucose,Whole Blood 106 mg/dL (75-99)
[2020-04-30 12:34] LABS: African American GFR (CKD) 110.9 (60.0-200.0); Anion Gap 16.7 mmol/L (4.00-12.00); Carbon Dioxide 29.3 mmol/L (21.6-31.8); Non-African American GFR(CKD) 95.7 (60.0-200.0); Potassium 4.2 mmol/L (3.5-5.5)
--- NOTE | 2020-04-30 17:41 | P.PN ---
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 Left lower extremity cellulitis Cor pulmonale Hypertension hypertensive cardiovascular disease Bilateral carotid artery stenosis Extensive smoking history in the past 04/30/2020, patient seen eval examined this morning, cough congestion shortness was true improved patient is back to baseline, respiratory status is improved, patient is being planned for discharge with follow-up in outpatient basis 04/29/2020, patient seen eval examined during the rounds labs reviewed medications reviewed, remains on supplemental oxygen, cough congestion slightly better, patient on antibiotics breathing treatments and steroids, can start titrating down the Solu-Medrol, last chest x-ray performed earlier this morning shows right lower lobe infiltrate overall finding appears to have improved compared to admitted chest x-ray, Blood cultures have been negative 04/26/2020, patient seen eval examined during the rounds labs reviewed medications reviewed, white cell count continue to be stable, CO2 is down to 30 for now, still short of breath congested complaining congestion in the chest, This is a 64-year-old with end-stage lung disease secondary severe COPD emphysema, patient has a history of cor pulmonale, patient is on 24 7 home oxygen 3 L nasal cannula also on the Trilogy vent at nighttime and when necess gm during the day, with prior history of the hypercapnic hypoxic respiratory failure on multiple occasions came into the hospital with increased swelling of the lower extremity which was asymmetric associated with slight redness more so on the left side compared to right side patient was having some shortness of breath and dry cough however respiratory status appears to be stable now, patient see Dr. Asha Pacheco for primary care activity, she had characteristics stenosis and consider poor surgical candidate and high risk for surgery, left lower extremity Doppler is negative for DVT, chest x-ray consistent with COPD-like changes bilateral basal diffuse interstitial Petrin were seen cystoscopy pneumonia versus congestive heart failure, white cell count has been normal, electrolytes are significant for elevated CO2 consistent with chronic CO2 retention, stable renal function and normal WBC count, currently patient is being treated with bronchodilator continuation home medicine she is also on IV Rocephinm and being diuresed with the Lasix currently 80 mg every 8 hourly, she is also on IV steroids, blood cultures have been negative, BNP is 333, troponin normal Objective - Vital Signs Vital signs: Vital Signs Temp 98.3 F 04/30/20 07:00 Pulse 68 04/30/20 11:09 Resp 16 04/30/20 07:00 BP 116/68 04/30/20 07:00 Pulse Ox 97 04/30/20 07:00 Intake & Output 04/29/20 04/30/20 04/30/20 18:59 06:59 18:59 Other: Voiding Method Toilet # Voids 1 1 - Exam - Constitutional General appearance: average body habitus, disheveled, obese - EENT Eyes: EOMI, PERRLA Ears: bilateral: normal - Neck Neck: normal ROM Carotids: bilateral: upstroke normal Thyroid: bilateral: normal size - Respiratory Respiratory: bilateral: diminished, rales - Cardiovascular Rhythm: regular Heart sounds: normal: S1, S2 - Gastrointestinal General gastrointestinal: decreased bowel sounds, normal bowel sounds, soft - Integumentary Bilateral lower extremity swelling slightly more on the left side compared right side along with diffuse superficial right erythema and skin is intact suggestive of ongoing cellulitis Integumentary: normal, normal turgor - Neurologic Neurologic: CNII-XII intact - Musculoskeletal Musculoskeletal: generalized weakness, strength equal bilaterally - Psychiatric Psychiatric: A&O x's 3, appropriate affect, intact judgment & insight - Labs CBC & Chem 7: 04/30/20 07:40 04/30/20 07:40 Labs: Abnormal Lab Results - Last 24 Hours (Table) 04/30/20 04/30/20 04/30/20 Range/Units 07:40 07:40 11:44 WBC 11.8 H (3.8-10.6) k/uL RDW 16.8 H (11.5-15.5) % Neutrophils # 8.8 H (1.3-7.7) k/uL Sodium 132 L (135-145) mmol/L Chloride 86 L (96-109) mmol/L Anion Gap 16.70 H (4.00-12.00) mmol/L BUN/Creatinine Ratio 45.00 H (12.00-20.00) Ratio POC Glucose (mg/dL) 106 H (75-99) mg/dL Calcium 8.0 L (8.7-10.3) mg/dL Microbiology - Last 24 Hours (Table) 04/24/20 12:31 Blood Culture - Final Blood No Growth after 144 hours Assessment and Plan Assessment: Bilateral basal pneumonia, slowly improving Acute on chronic hypoxic and hypercapnic respiratory failure 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
--- NOTE | 2020-05-02 02:40 | CDI ---
Documentation Clarification Form Date: 05/02/2020 From: Herminio Espinosa Phone: If you have a question about this query, please contact Angela Dickens, Software Installer at [phone] between 8am and 5pm. Admit Date: 04/24/2020 Discharge Date: 04/30/2020 Patient Name: Mitchell Jasso Visit Number: [id number] ATTENTION: The Clinical Documentation Specialists (CDI) and [facility] Coding Staff appreciate your assistance in clarifying documentation. Please respond to the clarification below the line at the bottom and electronically sign. The CDI & [facility] Coding staff will review the response and follow-up if needed. Please note: Queries are made part of the Legal Health Record. If you have any questions, please contact the author of this message via ITS. Dear Mercedes Serrano MD., CHF is documented in DS as "Congestive heart failure". History/Risk Factors: COPD, Pneumonia, HTN, cellulitis Clinical Indicators: SOB VS/Pulse OX: 04/25/20 14:42 98.3 F 75 16 106/64 90 L BNP: 333 Chest X Ray:COPD with basilar atelectasis favored over pneumonia.There is a diffuse interstitial pattern which is not present in 2016 therefore this suggests anacute interstitial process such as pneumonitis or early venous congestion.Chronic underlying interstitial lung disease less likely given the absence ofthese findings on the exam of 2016. Treatment: IV lasix Per H&P Acute on chronic CHF.IV lasix 80 mg tid, hold metolazone In your professional opinion, can you please clarify the acuity and type of CHF if known? Systolic Heart Failure: Acute Chronic Acute on Chronic Diastolic Heart Failure: Acute Chronic Acute on Chronic Unable to Determine Other, please specify acute on chronic diastolic CHF MTDD
== END 2020-04-30 13:56 | disposition home health service (06) | DRG 190 ==
LOC: EC 11:44 → 4SSUR 15:25
PROVIDERS: ADMIT Family Medicine; ATTEND Family Medicine
PROC: 5A09557 Assistance with Respiratory Ventilation, Greater than 96 Consecutive Hours, Continuous Positive Airway Pressure (ICD-10-PCS; principal; 2020-04-24)
DX: J43.9 Emphysema, unspecified (principal); J96.21 Acute and chronic respiratory failure with hypoxia; J18.9 Pneumonia, unspecified organism; J96.22 Acute and chronic respiratory failure with hypercapnia; I50.33 Acute on chronic diastolic (congestive) heart failure; J44.0 Chronic obstructive pulmonary disease with (acute) lower respiratory infection; L03.116 Cellulitis of left lower limb; E87.1 Hypo-osmolality and hyponatremia; J98.11 Atelectasis; K21.9 Gastro-esophageal reflux disease without esophagitis; Z20.828 Contact with and (suspected) exposure to other viral communicable diseases; M19.90 Unspecified osteoarthritis, unspecified site; G47.33 Obstructive sleep apnea (adult) (pediatric); F41.9 Anxiety disorder, unspecified; E78.5 Hyperlipidemia, unspecified; I27.81 Cor pulmonale (chronic); I27.29 Other secondary pulmonary hypertension; I11.0 Hypertensive heart disease with heart failure; I65.23 Occlusion and stenosis of bilateral carotid arteries; E11.41 Type 2 diabetes mellitus with diabetic mononeuropathy; D64.9 Anemia, unspecified; E87.6 Hypokalemia; G40.909 Epilepsy, unspecified, not intractable, without status epilepticus; Z79.52 Long term (current) use of systemic steroids; Z79.02 Long term (current) use of antithrombotics/antiplatelets; Z79.82 Long term (current) use of aspirin; Z79.84 Long term (current) use of oral hypoglycemic drugs; Z79.899 Other long term (current) drug therapy; Z87.01 Personal history of pneumonia (recurrent); Z99.81 Dependence on supplemental oxygen; Z90.89 Acquired absence of other organs; Z98.890 Other specified postprocedural states; Z98.891 History of uterine scar from previous surgery; Z98.51 Tubal ligation status; Z82.49 Family history of ischemic heart disease and other diseases of the circulatory system; Z87.891 Personal history of nicotine dependence
CPT/HCPCS: 36415; 71046; 80048; 80053; 83036; 83605; 83880; 84145; 84484; 85025; 85027; 85379; 85610; 85730; 87040; 93005; 94640; 94660; 94760; 96374; 96375; 99285

== ENCOUNTER 2020-05-13 14:20 | Emergency (ER) | payer MEDICARE ==
[2020-05-13 14:28] VITALS: TEMP 98
[2020-05-13] MEDS ORDERED: KETOROLAC 15 MG/ML 1 ML VIAL IM STA (14:50)
[2020-05-13] MEDS ORDERED: LIDOCAINE 1% INJ 10MG/ML (20 ML MDV) SQ ONE (14:50)
[2020-05-13] MEDS ORDERED: BACITRACIN OINT 1 EACH PACKET TOPICAL ONE (14:50)
--- NOTE | 2020-05-13 14:58 | ED ---
Fall HPI - General Chief Complaint: Fall Stated Complaint: Fall this morning,Head Lac Time Seen by Provider: 05/13/20 14:44 Source: patient Mode of arrival: wheelchair - History of Present Illness Initial Comments: Patient is a 64-year-old female, history of COPD, currently on 3 L, diabetes, presenting to the emergency department after she fell at 5 AM this morning, about 10 hours prior to arrival. Patient states she went to get out of bed to start her coffee when she got tangled in her oxygen cord and fell forward hitting her forehead on a metal box that she was going through the night before. Patient denies any loss of consciousness. She states she is on Plavix. Patient states she did not come in before now because she "didn't feel like it." Patient is having a significant headache, rates 05/11. She states the laceration on her forehead keeps opening up and bleeding periodically. She denies feeling lightheaded, dizzy, nauseous or vomiting. She denies any other injuries from falling, she states she has a bruise on her right elbow however this is not her and she has full range of motion. She states her tetanus vaccine is up-to-date. She has no further complaints at this time. - Related Data Home Medications Medication Instructions Recorded Confirmed Atenolol [Tenormin] 25 mg PO DAILY 07/25/14 04/24/20 Montelukast [Singulair] 10 mg PO DAILY 07/25/14 04/24/20 Phenytoin Sodium Extended 200 mg PO BID 07/25/14 04/24/20 [Dilantin] Sertraline [Zoloft] 200 mg PO DAILY 07/27/14 04/24/20 Aspirin EC [Ecotrin Low Dose] 81 mg PO DAILY 05/23/19 04/24/20 Atorvastatin [Lipitor] 80 mg PO DAILY 05/23/19 04/24/20 Budesonide [Pulmicort] 1 mg INHALATION RT-QID 05/23/19 04/24/20 Bumetanide [BUMEX] 2 mg PO DAILY 05/23/19 04/24/20 Clopidogrel Bisulfate [Plavix] 75 mg PO DAILY 05/23/19 04/24/20 Potassium Chloride 20 meq PO DAILY 05/23/19 04/24/20 traZODone HCL 100 - 200 mg PO HS 05/23/19 04/24/20 Famotidine 40 mg PO DAILY 04/24/20 04/24/20 Furosemide [Lasix] 40 mg PO DAILY 04/24/20 04/24/20 Gabapentin [Neurontin] 400 mg PO HS 04/24/20 04/24/20 Ibandronate Sodium [Boniva] 150 mg PO Q30D 04/24/20 04/24/20 Losartan Potassium 100 mg PO DAILY 04/24/20 04/24/20 Spironolactone 100 mg PO DAILY 04/24/20 04/24/20 Vitamin D3 50,000iu 50,000 unit PO Q7D 04/24/20 04/24/20 diphenhydrAMINE HCL [Benadryl] 50 mg PO HS 04/24/20 04/24/20 metFORMIN HCL [Glucophage] 500 mg PO BID 04/24/20 04/24/20 metOLazone 2.5 mg PO MOWE 04/24/20 04/24/20 Previous Rx's Medication Instructions Recorded Albuterol Nebulized [Ventolin 2.5 mg INHALATION QID #0 04/30/20 Nebulized] Formoterol Fumarate [Perforomist] 20 mcg INHALATION RT-BID #60 nebu 04/30/20 Ipratropium Nebulized [Atrovent 0.5 mg INHALATION QID #0 04/30/20 Nebulized 0.2 MG/ML] predniSONE 10 mg PO DIRECTED #30 tab 04/30/20 Allergies Allergy/AdvReac Type Severity Reaction Status Date / Time No Known Allergies Allergy Verified 05/13/20 14:28 Review of Systems ROS Statement: Those systems with pertinent positive or pertinent negative responses have been documented in the HPI. ROS Other: All systems not noted in ROS Statement are negative. Past Medical History Past Medical History: Asthma, COPD, Diabetes Mellitus, GERD/Reflux, Hyperlipidemia, Hypertension, Osteoarthritis (OA), Pneumonia, Respiratory Disorder, Sleep Apnea/CPAP/BIPAP Additional Past Medical History / Comment(s): Severe COPD, chronic respiratory failure, home oxygen at 3L/NC ATC, tracheobronchitis, NIDDM type II, neuropathy bilateral lower extremities/feet, lower extremity edema, denies seizure history, ROQUE without device, sinusitis, seasonal allergies, fall with lower back vertebral fracture. History of Any Multi-Drug Resistant Organisms: None Reported Past Surgical History: Section, Tonsillectomy, Tubal Ligation Additional Past Surgical History / Comment(s): Brain aneurysm with clipping, colonoscopy. Past Anesthesia/Blood Transfusion Reactions: No Reported Reaction Past Psychological History: Anxiety Smoking Status: Former smoker Past Alcohol Use History: None Reported Past Drug Use History: None Reported - Past Family History Mother Family Medical History: Congestive Heart Failure (CHF) Father Family Medical History: Congestive Heart Failure (CHF) General Exam - General Exam Comments Initial Comments: GENERAL: Patient is well-developed and well-nourished. Patient is nontoxic and in no acute distress. HEAD: Patient has a laceration to the right side of her forehead, mild hematoma present as well. EYES: Pupils equal round and reactive to light, extraocular movements intact, sclera anicteric, conjunctiva are normal. Eyelids were unremarkable. ENT: TMs normal, nares patent, oropharynx clear without exudates. Moist mucous membranes. Patient has mild pain with palpation of the nasal bone as well as some bruising around the right eye extending into the nasal area NECK: Normal range of motion, supple without lymphadenopathy or JVD. Mild right sided cervical paraspinal discomfort. LUNGS: Unlabored respirations. Breath sounds clear to auscultation bilaterally and equal. No wheezes rales or rhonchi. HEART: Regular rate and rhythm without murmurs, rubs or gallops. ABDOMEN: Soft, nontender, normoactive bowel sounds. No guarding, no rebound. No masses appreciated. : Deferred MUSCULOSKELETAL: Normal extremities with adequate strength and normal range of motion, no pitting or edema. No clubbing or cyanosis. NEUROLOGICAL: Patient is alert and oriented x 3. Motor and sensory are also intact. Cranial nerves II through XII grossly intact. Symmetrical smile. Normal speech, normal gait. PSYCH: Normal mood, normal affect. SKIN: Warm, Dry, normal turgor, no rashes. Patient has a 2 cm laceration to the right side of her forehead, no active bleeding. Limitations: no limitations Course Vital Signs 05/13/20 05/13/20 14:26 17:35 Temperature 98 F Pulse Rate 78 62 Respiratory 18 19 Rate Blood Pressure 140/54 106/65 O2 Sat by Pulse 100 98 Oximetry Procedures - Laceration Laceration #1 Consent Obtained: verbal consent Indication: laceration Site: face (right forehead) Size (cm): 2 Description: linear Depth: simple, single layer Anesthetic Used: lidocaine 1% Anesthesia Technique: local infiltration Amount (mls): 5 Pre-repair: irrigated extensively Type of Sutures: nylon Size of Sutures: 5-0 Number of Sutures: 7 Technique: simple, interrupted Patient Tolerated Procedure: well Medical Decision Making - Medical Decision Making Patient is a 64-year-old female here after falling about 10 hours prior to arrival. She is currently on Plavix. There was no LOC. She has a 2 cm laceration right side of her forehead, 10/10 headache. Her neuro exam is normal, no deficits. CT of brain, C-spine, facial bones revealed no acute fractures, bleeding, abnormality. There are some chronic changes present. I discussed this with the patient. Patient did receive Toradol for her headache which has improved. I did clean, suture patient's 2 cm wound with 7, 5-0 sutures. Her tetanus vaccine is up-to-date. Patient tolerated procedure well. She is stable for discharge. Return parameters were discussed with the patient she verbalized understanding. Case discussed with Dr. Mendez. Disposition Clinical Impression: Fall, Laceration of forehead, right, complicated Disposition: HOME SELF-CARE Condition: Stable Instructions (If sedation given, give patient instructions): Care For Your Stitches (ED) Additional Instructions: Please return to the Emergency Department if symptoms worsen or any other concerns. Your workup today was normal. Stitches need to be removed in 7-10 days as discussed. Keep wound clean and dry. Follow-up with PCP. Is patient prescribed a controlled substance at d/c from ED?: No Referrals: Asha Pacheco DO [Primary Care Provider] - 1-2 days
--- NOTE | 2020-05-13 15:42 | CT ---
EXAMINATION TYPE: CT facial bones wo con DATE OF EXAM: 05/13/2020 COMPARISON: 05/13/2020, 06/16/2010 HISTORY: fall, forehead laceration CT DLP: 718.2 mGycm Automated exposure control for dose reduction was used. TECHNIQUE: CT scan of the sinuses is performed without contrast, axial images are obtained, coronal r eformatted images are also reviewed. FINDINGS: Subcutaneous edema overlying the frontal bone with a tiny single air bubble correlate for s oft tissue hematoma with laceration. Visualized calvarium intact. Mucous retention cyst within the ri ght maxillary sinus. Nasal septal deviation noted. Correlate for previous surgery involving the cydney rium. Atherosclerotic change aorta. Degenerative change of the cervical spine. The globes appear intact. IMPRESSION: 1. No acute fracture. Soft tissue edema overlying the right frontal bone with an area of subcutaneous emphysema correlate for hematoma with laceration.
--- NOTE | 2020-05-13 15:54 | CT ---
EXAMINATION TYPE: CT brain virginiaine wo con DATE OF EXAM: 05/13/2020 COMPARISON: Pain HISTORY: fall, forehead laceration CT DLP: 1109.1 mGycm Automated exposure control for dose reduction was used. TECHNIQUE: CT scan of the head and cervical spine are performed without contrast. FINDINGS: Soft tissue edema overlying the frontal bone is seen with subcutaneous emphysema correlat e for splenic hematoma with laceration. Calvarium intact. There is evidence of previous surgery with metallic aneurysm clipping noted. Mild to moderate degenerative change. No acute hemorrhage or mass e ffect or midline shift. Surgical clip is also artifact limiting assessment of the temporal lobe for h emorrhage. Assessment spinal canal is limited due to noncontrast technique and artifact. Multilevel facet arthro tan and degenerative disc disease. Multilevel foraminal encroachment. No acute fracture. Prevertebr al soft tissue structures within normal limits. Posterior spur formation seen at the thoracolumbar ju nction indenting the thecal sac. Resolution of the spinal canal is nondiagnostic. Atherosclerotic jessica nge of the carotid arteries bilaterally. Correlate clinically. There is a slight anterolisthesis of C 2 on 3. There is degenerative disc disease at all levels with spurring. Slight anterolisthesis of C3 on C4. There is fusion of the facet joint on the left at C2-C3. Emphysematous changes involving the l ruth apices are incidentally noted. At C7-T1 there is a spur or ossification of a previous disc protru julissa. IMPRESSION: 1. Degenerative change with postsurgical changes. Clip distorts portions of the left upper lobe. Ellen ining visualized areas demonstrate no acute hemorrhage or mass effect. 2. Soft tissue hematoma with subcutaneous emphysema along the frontal bone correlate for soft tissue laceration. 3. Degenerative change of the spine with multilevel facet arthropathy as discussed above. Posterior o ssification of the longitudinal ligament or calcified disc at C7-T1.
[2020-05-13 17:36] VITALS: BP 106/65; PULSE 62; RESP 19
== END 2020-05-13 17:40 | disposition home or self-care (01) ==
LOC: EC 14:20
DX: S01.81XA Laceration without foreign body of other part of head, initial encounter (principal); F41.9 Anxiety disorder, unspecified; J44.9 Chronic obstructive pulmonary disease, unspecified; K21.9 Gastro-esophageal reflux disease without esophagitis; E78.5 Hyperlipidemia, unspecified; I10 Essential (primary) hypertension; M19.90 Unspecified osteoarthritis, unspecified site; G47.33 Obstructive sleep apnea (adult) (pediatric); E11.40 Type 2 diabetes mellitus with diabetic neuropathy, unspecified; Z79.84 Long term (current) use of oral hypoglycemic drugs; Z79.51 Long term (current) use of inhaled steroids; Z87.891 Personal history of nicotine dependence; Z79.899 Other long term (current) drug therapy; W01.198A Fall on same level from slipping, tripping and stumbling with subsequent striking against other object, initial encounter; Y92.009 Unspecified place in unspecified non-institutional (private) residence as the place of occurrence of the external cause; Z79.02 Long term (current) use of antithrombotics/antiplatelets; R51.9 Headache, unspecified
CPT/HCPCS: 99283 ×2; 96372 ×2; 12011 ×2; 72125; 70486; 70450; J2001; J1885

== ENCOUNTER 2020-06-04 12:30 | Inpatient (IN) | payer MEDICARE ==
[2020-06-04] MEDS ORDERED: FUROSEMIDE 10 MG/ML 4 ML VIAL IV STA (13:15)
[2020-06-04] MEDS ORDERED: IPRATROPIUM-ALBUTEROL 3 ML NEB INHALATION STA (13:15)
--- NOTE | 2020-06-04 13:22 | ED ---
SOB HPI - General Chief Complaint: Shortness of Breath Stated Complaint: Fall Time Seen by Provider: 06/04/20 12:48 Source: patient, RN notes reviewed Mode of arrival: wheelchair Limitations: no limitations - History of Present Illness Initial Comments: This is a 64-year-old female history of COPD CHF who is on home oxygen who states she's had several days of worsening shortness of breath exertional dyspnea even with talking. She also some peripheral edema she denies any overt fevers chills nausea vomiting sweats no chest pain. MD Complaint: shortness of breath - Related Data Home Medications Medication Instructions Recorded Confirmed Atenolol [Tenormin] 25 mg PO DAILY 07/25/14 04/24/20 Montelukast [Singulair] 10 mg PO DAILY 07/25/14 04/24/20 Phenytoin Sodium Extended 200 mg PO BID 07/25/14 04/24/20 [Dilantin] Sertraline [Zoloft] 200 mg PO DAILY 07/27/14 04/24/20 Aspirin EC [Ecotrin Low Dose] 81 mg PO DAILY 05/23/19 04/24/20 Atorvastatin [Lipitor] 80 mg PO DAILY 05/23/19 04/24/20 Budesonide [Pulmicort] 1 mg INHALATION RT-QID 05/23/19 04/24/20 Bumetanide [BUMEX] 2 mg PO DAILY 05/23/19 04/24/20 Clopidogrel Bisulfate [Plavix] 75 mg PO DAILY 05/23/19 04/24/20 Potassium Chloride 20 meq PO DAILY 05/23/19 04/24/20 traZODone HCL 100 - 200 mg PO HS 05/23/19 04/24/20 Famotidine 40 mg PO DAILY 04/24/20 04/24/20 Furosemide [Lasix] 40 mg PO DAILY 04/24/20 04/24/20 Gabapentin [Neurontin] 400 mg PO HS 04/24/20 04/24/20 Ibandronate Sodium [Boniva] 150 mg PO Q30D 04/24/20 04/24/20 Losartan Potassium 100 mg PO DAILY 04/24/20 04/24/20 Spironolactone 100 mg PO DAILY 04/24/20 04/24/20 Vitamin D3 50,000iu 50,000 unit PO Q7D 04/24/20 04/24/20 diphenhydrAMINE HCL [Benadryl] 50 mg PO HS 04/24/20 04/24/20 metFORMIN HCL [Glucophage] 500 mg PO BID 04/24/20 04/24/20 metOLazone 2.5 mg PO MOWE 04/24/20 04/24/20 Previous Rx's Medication Instructions Recorded Albuterol Nebulized [Ventolin 2.5 mg INHALATION QID #0 04/30/20 Nebulized] Formoterol Fumarate [Perforomist] 20 mcg INHALATION RT-BID #60 nebu 04/30/20 Ipratropium Nebulized [Atrovent 0.5 mg INHALATION QID #0 04/30/20 Nebulized 0.2 MG/ML] predniSONE 10 mg PO DIRECTED #30 tab 04/30/20 Allergies Allergy/AdvReac Type Severity Reaction Status Date / Time No Known Allergies Allergy Verified 06/04/20 12:37 Review of Systems ROS Statement: Those systems with pertinent positive or pertinent negative responses have been documented in the HPI. ROS Other: All systems not noted in ROS Statement are negative. Past Medical History Past Medical History: Asthma, COPD, Diabetes Mellitus, GERD/Reflux, Hyperlipidemia, Hypertension, Osteoarthritis (OA), Pneumonia, Respiratory Disorder, Sleep Apnea/CPAP/BIPAP Additional Past Medical History / Comment(s): Severe COPD, chronic respiratory failure, home oxygen at 3L/NC ATC, tracheobronchitis, NIDDM type II, neuropathy bilateral lower extremities/feet, lower extremity edema, denies seizure history, ROQUE without device, sinusitis, seasonal allergies, fall with lower back vertebral fracture. History of Any Multi-Drug Resistant Organisms: None Reported Past Surgical History: Section, Tonsillectomy, Tubal Ligation Additional Past Surgical History / Comment(s): Brain aneurysm with clipping, colonoscopy. Past Anesthesia/Blood Transfusion Reactions: No Reported Reaction Past Psychological History: Anxiety Smoking Status: Former smoker Past Alcohol Use History: None Reported Past Drug Use History: None Reported - Past Family History Mother Family Medical History: Congestive Heart Failure (CHF) Father Family Medical History: Congestive Heart Failure (CHF) General Exam - General Exam Comments Initial Comments: this a well-developed well-nourished awake alert oriented times female Limitations: no limitations General appearance: alert, in no apparent distress, other (Healing laceration of the forehead sutures had been removed abrasions to the frontal scalp appears be in a state of) Head exam: Present: atraumatic, normocephalic, normal inspection Eye exam: Present: normal appearance, PERRL, EOMI. Absent: scleral icterus, conjunctival injection, periorbital swelling ENT exam: Present: normal exam, mucous membranes moist Neck exam: Present: normal inspection. Absent: tenderness, meningismus, lymphadenopathy Respiratory exam: Present: respiratory distress, rales, decreased breath sounds. Absent: wheezes, rhonchi, stridor Cardiovascular Exam: Present: regular rate, normal rhythm, normal heart sounds. Absent: systolic murmur, diastolic murmur, rubs, gallop, clicks GI/Abdominal exam: Present: soft, normal bowel sounds. Absent: distended, tenderness, guarding, rebound, rigid Extremities exam: Present: full ROM, normal capillary refill, pedal edema. Absent: tenderness, joint swelling, calf tenderness Back exam: Present: normal inspection Neurological exam: Present: alert, oriented X3, CN II-XII intact Psychiatric exam: Present: normal affect, normal mood Skin exam: Present: warm, dry, intact, normal color. Absent: rash Course Vital Signs 06/04/20 06/04/20 06/04/20 12:31 12:52 14:37 Temperature 97.3 F L Pulse Rate 68 79 Respiratory 20 18 18 Rate Blood Pressure 128/75 115/65 O2 Sat by Pulse 88 L 95 Oximetry 06/04/20 06/04/20 06/04/20 15:00 15:05 15:12 Temperature Pulse Rate 85 68 72 Respiratory 18 Rate Blood Pressure 103/54 O2 Sat by Pulse 95 Oximetry Medical Decision Making - Medical Decision Making patient is breathing somewhat better the presentation appears be consistent with a COPD exacerbation also patient is hyponatremic hypochloremicshe does maintain her mentation however with the current sodium level he sits discussed with Dr. Long. Patient will be admitted - Lab Data Result diagrams: 06/04/20 14:57 06/04/20 14:57 Lab Results 06/04/20 06/04/20 06/04/20 Range/Units 14:57 14:57 14:57 WBC 7.8 (3.8-10.6) k/uL RBC 3.50 L (3.80-5.40) m/uL Hgb 10.9 L (11.4-16.0) gm/dL Hct 32.1 L (34.0-46.0) % MCV 91.8 (80.0-100.0) fL MCH 31.1 (25.0-35.0) pg MCHC 33.8 (31.0-37.0) g/dL RDW 14.6 (11.5-15.5) % Plt Count 246 (150-450) k/uL Neutrophils % 78 % Lymphocytes % 12 % Monocytes % 6 % Eosinophils % 1 % Basophils % 1 % Neutrophils # 6.1 (1.3-7.7) k/uL Lymphocytes # 0.9 L (1.0-4.8) k/uL Monocytes # 0.5 (0-1.0) k/uL Eosinophils # 0.0 (0-0.7) k/uL Basophils # 0.1 (0-0.2) k/uL PT 9.7 (9.0-12.0) sec INR 0.9 (<1.2) Sodium 113 L* (137-145) mmol/L Potassium 2.6 L* (3.5-5.1) mmol/L Chloride 54 L* (98-107) mmol/L Carbon Dioxide 53 H* (22-30) mmol/L Anion Gap 6 mmol/L BUN 26 H (7-17) mg/dL Creatinine 0.55 (0.52-1.04) mg/dL Est GFR (CKD-EPI)AfAm >90 (>60 ml/min/1.73 sqM) Est GFR (CKD-EPI)NonAf >90 (>60 ml/min/1.73 sqM) Glucose 100 H (74-99) mg/dL Plasma Lactic Acid Robbin (0.7-2.0) mmol/L Calcium 8.3 L (8.4-10.2) mg/dL Magnesium 1.9 (1.6-2.3) mg/dL Total Bilirubin 0.5 (0.2-1.3) mg/dL AST 44 H (14-36) U/L ALT 20 (4-34) U/L Alkaline Phosphatase 180 H (38-126) U/L Creatine Kinase 65 (30-135) U/L Troponin I (0.000-0.034) ng/mL NT-Pro-B Natriuret Pep pg/mL Total Protein 7.0 (6.3-8.2) g/dL Albumin 3.7 (3.5-5.0) g/dL 06/04/20 06/04/20 06/04/20 Range/Units 14:57 14:57 14:59 WBC (3.8-10.6) k/uL RBC (3.80-5.40) m/uL Hgb (11.4-16.0) gm/dL Hct (34.0-46.0) % MCV (80.0-100.0) fL MCH (25.0-35.0) pg MCHC (31.0-37.0) g/dL RDW (11.5-15.5) % Plt Count (150-450) k/uL Neutrophils % % Lymphocytes % % Monocytes % % Eosinophils % % Basophils % % Neutrophils # (1.3-7.7) k/uL Lymphocytes # (1.0-4.8) k/uL Monocytes # (0-1.0) k/uL Eosinophils # (0-0.7) k/uL Basophils # (0-0.2) k/uL PT (9.0-12.0) sec INR (<1.2) Sodium (137-145) mmol/L Potassium (3.5-5.1) mmol/L Chloride (98-107) mmol/L Carbon Dioxide (22-30) mmol/L Anion Gap mmol/L BUN (7-17) mg/dL Creatinine (0.52-1.04) mg/dL Est GFR (CKD-EPI)AfAm (>60 ml/min/1.73 sqM) Est GFR (CKD-EPI)NonAf (>60 ml/min/1.73 sqM) Glucose (74-99) mg/dL Plasma Lactic Acid Robbin 1.3 (0.7-2.0) mmol/L Calcium (8.4-10.2) mg/dL Magnesium (1.6-2.3) mg/dL Total Bilirubin (0.2-1.3) mg/dL AST (14-36) U/L ALT (4-34) U/L Alkaline Phosphatase (38-126) U/L Creatine Kinase (30-135) U/L Troponin I <0.012 (0.000-0.034) ng/mL NT-Pro-B Natriuret Pep 302 pg/mL Total Protein (6.3-8.2) g/dL Albumin (3.5-5.0) g/dL - EKG Data -: EKG Interpreted by Me EKG shows normal: sinus rhythm EKG Comments: sinus rhythm with marked sinus arrhythmia occasional PVCs rate 81 appear interval 184 QRS is 12 QT since QTC 444/5:[address]-T wave configuration also prolonged QT noted - Radiology Data Radiology results: report reviewed (imaging reviewed no acute findings), image reviewed Critical Care Time Critical Care Time: Yes Total Critical Care Time: 31 Critical Care Time: 31 minutes of critical care which includes initial presentation with history physical labs x-rays multiple reevaluation patient response to therapy review of old charting discussed with the admitting physician admission orders neck mentation the above this also included discussion with the patient's family was present Disposition Clinical Impression: COPD with acute exacerbation, Hyponatremia syndrome, Hypokalemia Disposition: ADMITTED IP TO THIS [facility] Condition: Fair Referrals: Asha Pacheco DO [Primary Care Provider] - 1-2 days
--- NOTE | 2020-06-04 13:57 | XR ---
EXAMINATION TYPE: XR chest 2V DATE OF EXAM: 06/04/2020 COMPARISON: Prior chest x-ray 04/29/2020 HISTORY: Difficulty breathing. TECHNIQUE: Frontal and lateral views of the chest are obtained. FINDINGS: Prominent lung volumes suggest underlying COPD. There is no focal air space opacity, pleura l effusion, or pneumothorax seen. Some linear areas of scarring suspected, there are overlying cardia c leads. The aorta is dense. The cardiac silhouette size is within normal limits, heart size likely a ccentuated by rotation.. The osseous structures are intact, there is thoracic spondylosis.. IMPRESSION: No acute cardiopulmonary process.
--- NOTE | 2020-06-04 14:41 | CT ---
EXAMINATION TYPE: CT brain wo con DATE OF EXAM: 06/04/2020 HISTORY: Weakness, fall. CT DLP: 1090.4 mGycm. Automated Exposure Control for Dose Reduction was Utilized. TECHNIQUE: CT scan of the head is performed without contrast. COMPARISON: 05/13/2020 CT brain FINDINGS: There is no acute intracranial hemorrhage, midline shift, or mass effect identified. Redemonstrated l eft-sided aneurysm clip with metallic streak artifact of the adjacent frontal and temporal lobes on t he left. Redemonstrated postsurgical change and encephalomalacia of the left temporal and frontal lob es. The ventricles, sulci, and cisterns are normal in size and configuration. No extra-axial fluid collection. Left-sided craniotomy postsurgical changes redemonstrated. No eviden ce of depressed calvarial fracture Extracranial soft tissues are intact. The globes are grossly symme tric. Visualized sinuses and mastoid air cells are clear. IMPRESSION: No acute intracranial hemorrhage, midline shift, or mass effect.
[2020-06-04 15:20] LABS: Basophils # (A) 0.1 k/uL (0-0.2); Basophils % (A) 1 %; Eosinophils % (A) 1 %; HCT 32.1 % (34.0-46.0); HGB 10.9 gm/dL (11.4-16.0); Lymphocytes # (A) 0.9 k/uL (1.0-4.8); Lymphocytes % (A) 12 %; MCH 31.1 pg (25.0-35.0); MCHC 33.8 g/dL (31.0-37.0); MCV 91.8 fL (80.0-100.0); Mean Platelet Volume 6.3; Monocytes # (A) 0.5 k/uL (0-1.0); Monocytes % (A) 6 %; Neutrophils # (A) 6.1 k/uL (1.3-7.7); Neutrophils % (A) 78 %; Platelet Count 246 k/uL (150-450); RDW 14.6 % (11.5-15.5); WBC 7.8 k/uL (3.8-10.6)
[2020-06-04 15:31] LABS: ALT 20 U/L (4-34); AST 44 U/L (14-36); African American GFR (CKD) >90 (>60 ml/min/1.73 sqM); Albumin 3.7 g/dL (3.5-5.0); Alkaline Phosphatase 180 U/L (38-126); Blood Urea Nitrogen 26 mg/dL (7-17); Calcium 8.3 mg/dL (8.4-10.2); Creatine Kinase 65 U/L (30-135); Glucose 100 mg/dL (74-99); Magnesium 1.9 mg/dL (1.6-2.3); Non-African American GFR(CKD) >90 (>60 ml/min/1.73 sqM); Total Bilirubin 0.5 mg/dL (0.2-1.3)
[2020-06-04 15:33] LABS: INR 0.9 (<1.2); Prothrombin Time 9.7 sec (9.0-12.0)
[2020-06-04 15:38] LABS: Anion Gap 6 mmol/L
[2020-06-04 15:45] LABS: Chloride 54 mmol/L (98-107); Potassium 2.6 mmol/L (3.5-5.1)
[2020-06-04 15:46] LABS: Carbon Dioxide 53 mmol/L (22-30); Sodium 113 mmol/L (137-145)
[2020-06-04] MEDS ORDERED: POTASSIUM CHLORIDE ER 20 MEQ TAB.ER PO STA (16:25)
[2020-06-04] MEDS ORDERED: SODIUM CHLORIDE 0.9% 1,000 ML IV STA (17:04)
[2020-06-04] MEDS: methylPREDNISolone SOD SUCCI 125 MG/2 ML VIAL IV SCH (18:17)
--- NOTE | 2020-06-04 18:20 | CT ---
EXAMINATION TYPE: CT chest wo con DATE OF EXAM: 06/04/2020 COMPARISON: HISTORY: Hyponatremia, COPD history. CT DLP: 399.4 mGycm Automated exposure control for dose reduction was used. Images were obtained from the thoracic inlet to the diaphragm without contrast. There is minimal subsegmental atelectasis at the lung bases. There is no evidence of a pulmonary mass . There is no pleural effusion. There is no pericardial effusion. Heart size is normal. There is brandon nary artery calcification. There is no mediastinal adenopathy. There are no hilar masses. There is ascending aorta measuring 3.2 cm. There is degenerative spurring in the thoracic spine. There is no compression fracture. Sternum is in tact. Thoracic aorta is atheromatous. IMPRESSION: There is mild subsegmental atelectasis and scarring at the lung bases that appears improved compared to old exam. No suspicious pulmonary mass. Atherosclerotic vascular disease.
[2020-06-04] MEDS: BUDESONIDE 1 MG/2 ML NEBU INHALATION SCH (19:23)
[2020-06-04] MEDS: FORMOTEROL FUMARATE 20 MCG/2 ML NEBU INHALATION SCH (19:23)
[2020-06-04] MEDS: IPRATROPIUM-ALBUTEROL 3 ML NEB INHALATION PRN (19:23)
[2020-06-04] MEDS: diphenhydrAMINE 25 MG CAP PO SCH (21:40)
[2020-06-04] MEDS: GABAPENTIN 400 MG CAP PO SCH (21:41)
[2020-06-04] MEDS: metFORMIN 500 MG TAB PO SCH (21:41)
[2020-06-04] MEDS: POTASSIUM CHLORIDE ER 20 MEQ TAB.ER PO SCH (21:42)
[2020-06-04] MEDS: traZODone HCL 100 MG TAB PO SCH (21:42)
[2020-06-04 22:11] LABS: ALT 19 U/L (4-34); AST 39 U/L (14-36); African American GFR (CKD) >90 (>60 ml/min/1.73 sqM); Albumin 3.5 g/dL (3.5-5.0); Alkaline Phosphatase 163 U/L (38-126); Blood Urea Nitrogen 23 mg/dL (7-17); Calcium 8.1 mg/dL (8.4-10.2); Glucose 121 mg/dL (74-99); Magnesium 1.9 mg/dL (1.6-2.3); Non-African American GFR(CKD) >90 (>60 ml/min/1.73 sqM); Total Bilirubin 0.4 mg/dL (0.2-1.3); Total Protein 6.7 g/dL (6.3-8.2)
[2020-06-04 22:17] LABS: Anion Gap 5 mmol/L
[2020-06-04 22:22] LABS: Carbon Dioxide 54 mmol/L (22-30); Chloride 56 mmol/L (98-107); Potassium 2.5 mmol/L (3.5-5.1); Sodium 115 mmol/L (137-145)
[2020-06-05 03:14] LABS: ALT 18 U/L (4-34); AST 36 U/L (14-36); African American GFR (CKD) >90 (>60 ml/min/1.73 sqM); Albumin 3.2 g/dL (3.5-5.0); Alkaline Phosphatase 141 U/L (38-126); Blood Urea Nitrogen 23 mg/dL (7-17); Calcium 7.8 mg/dL (8.4-10.2); Glucose 123 mg/dL (74-99); Non-African American GFR(CKD) >90 (>60 ml/min/1.73 sqM); Total Bilirubin 0.3 mg/dL (0.2-1.3); Total Protein 6.2 g/dL (6.3-8.2)
[2020-06-05 03:20] LABS: Anion Gap 4 mmol/L
[2020-06-05 03:24] LABS: Basophils % (A) 0 %; Eosinophils % (A) 0 %; HGB 9.9 gm/dL (11.4-16.0); Lymphocytes # (A) 0.6 k/uL (1.0-4.8); Lymphocytes % (A) 11 %; MCHC 31.9 g/dL (31.0-37.0); MCV 94.2 fL (80.0-100.0); Mean Platelet Volume 6.3; Monocytes # (A) 0.4 k/uL (0-1.0); Monocytes % (A) 6 %; Neutrophils # (A) 4.8 k/uL (1.3-7.7); Neutrophils % (A) 81 %; Platelet Count 267 k/uL (150-450); RBC 3.29 m/uL (3.80-5.40); RDW 15.7 % (11.5-15.5)
[2020-06-05 03:32] LABS: Chloride 60 mmol/L (98-107); Sodium 116 mmol/L (137-145)
[2020-06-05 03:33] LABS: Carbon Dioxide 52 mmol/L (22-30)
[2020-06-05] MEDS: methylPREDNISolone SOD SUCCI 125 MG/2 ML VIAL IV SCH ×5 (04:14→23:37)
[2020-06-05] MEDS: PHENYTOIN SODIUM EXTENDED 100 MG CAP PO SCH ×3 (04:14→20:52)
[2020-06-05] MEDS ORDERED: POTASSIUM CHLORIDE ER 20 MEQ TAB.ER PO STA (04:39)
[2020-06-05 04:42] LABS: T4, Free (Free Thyroxine) 1.34 ng/dL (0.78-2.19)
[2020-06-05 04:50] LABS: Glucose,Whole Blood 144 mg/dL (75-99)
[2020-06-05] MEDS ORDERED: IBANDRONATE SODIUM 150 MG PO SCH (07:00)
[2020-06-05] MEDS: IPRATROPIUM-ALBUTEROL 3 ML NEB INHALATION PRN ×5 (07:28→23:35)
[2020-06-05] MEDS: BUDESONIDE 1 MG/2 ML NEBU INHALATION SCH ×4 (07:28→19:39)
[2020-06-05] MEDS: FORMOTEROL FUMARATE 20 MCG/2 ML NEBU INHALATION SCH ×2 (07:28→19:46)
[2020-06-05] MEDS ORDERED: POTASSIUM CHLORIDE 10 MEQ PO SCH (09:00)
[2020-06-05] MEDS ORDERED: BUMETANIDE 1 MG TAB PO SCH (09:00)
[2020-06-05] MEDS ORDERED: SPIRONOLACTONE 25 MG TAB PO SCH (09:00)
[2020-06-05] MEDS ORDERED: metOLazone 2.5 MG TAB PO SCH (09:00)
[2020-06-05] MEDS: MONTELUKAST 10 MG TAB PO SCH (09:11)
[2020-06-05] MEDS: ASPIRIN 81 MG PO SCH (09:11)
[2020-06-05] MEDS: ATORVASTATIN 80 MG TAB PO SCH (09:12)
[2020-06-05] MEDS: metFORMIN 500 MG TAB PO SCH ×2 (09:12→20:52)
[2020-06-05] MEDS: CLOPIDOGREL 75 MG TAB PO SCH (09:12)
[2020-06-05] MEDS: FAMOTIDINE 20 MG TAB PO SCH (09:12)
[2020-06-05] MEDS: LOSARTAN 50 MG TAB PO SCH ×2 (09:12→11:40)
[2020-06-05] MEDS: POTASSIUM CHLORIDE ER 20 MEQ TAB.ER PO SCH ×2 (09:12→20:52)
[2020-06-05] MEDS: atenoloL 25 MG TAB PO SCH ×2 (09:12→11:40)
--- NOTE | 2020-06-05 10:47 | P.CNPUL ---
History of Present Illness Consult date: 06/05/20 Reason for consult: dyspnea, cough, COPD, hypoxemia Chief complaint: Generalized weakness shortness of breath History of present illness: This is a 64-year-old female with end-stage lung disease secondary due to severe COPD emphysema has been oxygen dependent 3 L prednisone-dependent and home vent dependent, patient had a fall about 3 weeks ago developed bilateral facial ecchymosis periorbitally via an laceration on the Foradil require repair and visit to the ER, CT had at that time was negative, and subsequently A patient was seen in the hospital his respiratory status remains stable mild shortness of breath is present over the last 2 or 3 years patient has been feeling very weak and exhausted and has been more short of breath than usual, patient noted to have a normal CBC with chronic anemia however sodium was 113, potassium 2.6, CO2 53, BUN/creatinine is 26 and 0.55, calcium is slightly low with normal lactic acid serum osmolality is 253, patient also went a computed tomography scan of the brain no acute changes identified also computed tomography scan of the chest with IV contrast , negative for pulmonary embolism consistent with COPD-like changes with bilateral subsegmental atelectasis, Review of Systems All systems: negative Past Medical History Past Medical History: Asthma, COPD, Diabetes Mellitus, GERD/Reflux, Hyperlipidemia, Hypertension, Osteoarthritis (OA), Pneumonia, Respiratory Disorder, Sleep Apnea/CPAP/BIPAP Additional Past Medical History / Comment(s): Severe COPD, chronic respiratory failure, home oxygen at 3L/NC ATC, tracheobronchitis, NIDDM type II, neuropathy bilateral lower extremities/feet, lower extremity edema, denies seizure history, ROQUE without device, sinusitis, seasonal allergies, fall with lower back vertebral fracture. History of Any Multi-Drug Resistant Organisms: None Reported Past Surgical History: Section, Tonsillectomy, Tubal Ligation Additional Past Surgical History / Comment(s): Brain aneurysm with clipping, colonoscopy. Past Anesthesia/Blood Transfusion Reactions: No Reported Reaction Past Psychological History: Anxiety Smoking Status: Former smoker Past Alcohol Use History: None Reported Past Drug Use History: None Reported - Past Family History Mother Family Medical History: Congestive Heart Failure (CHF) Father Family Medical History: Congestive Heart Failure (CHF) Medications and Allergies Home Medications Medication Instructions Recorded Confirmed Type Atenolol [Tenormin] 25 mg PO DAILY 07/25/14 06/04/20 History Montelukast [Singulair] 10 mg PO DAILY 07/25/14 06/04/20 History Phenytoin Sodium Extended 200 mg PO BID 07/25/14 06/04/20 History [Dilantin] Sertraline [Zoloft] 200 mg PO DAILY 07/27/14 06/04/20 History Aspirin EC [Ecotrin Low Dose] 81 mg PO DAILY 05/23/19 06/04/20 History Atorvastatin [Lipitor] 80 mg PO HS 05/23/19 06/04/20 History Budesonide [Pulmicort] 1 mg INHALATION RT-QID 05/23/19 06/04/20 History Bumetanide [BUMEX] 2 mg PO DAILY 05/23/19 06/04/20 History Clopidogrel Bisulfate [Plavix] 75 mg PO DAILY 05/23/19 06/04/20 History Potassium Chloride 20 meq PO DAILY 05/23/19 06/04/20 History traZODone HCL 100 - 200 mg PO HS 05/23/19 06/04/20 History Famotidine 40 mg PO DAILY 04/24/20 06/04/20 History Furosemide [Lasix] 80 mg PO BID@0900,1200 04/24/20 06/04/20 History Gabapentin [Neurontin] 400 mg PO HS 04/24/20 06/04/20 History Ibandronate Sodium [Boniva] 150 mg PO Q30D 04/24/20 06/04/20 History Losartan Potassium 100 mg PO DAILY 04/24/20 06/04/20 History Spironolactone 100 mg PO DAILY 04/24/20 06/04/20 History metFORMIN HCL [Glucophage] 500 mg PO BID 04/24/20 06/04/20 History metOLazone 2.5 mg PO DAILY 04/24/20 06/04/20 History Formoterol Fumarate [Perforomist] 20 mcg INHALATION RT-BID #60 nebu 04/30/20 1 08/04/19 Rx Albuterol Nebulized [Ventolin 2.5 mg INHALATION RT-QID PRN 06/04/20 06/04/20 History Nebulized] Ergocalciferol (Vitamin D2) 50,000 unit PO THOMPSON 06/04/20 06/04/20 History [Drisdol] Ferrous Sulfate [Iron] 325 mg PO DAILY 06/04/20 06/04/20 History Ipratropium Nebulized [Atrovent 0.5 mg INHALATION RT-QID PRN 06/04/20 06/04/20 History Nebulized 0.2 MG/ML] Nitroglycerin 0.1MG/Hr Patch 1 patch TRANSDERM DAILY 06/04/20 06/04/20 History [Nitro-Dur 0.1MG/Hr Patch] diphenhydrAMINE [Benadryl] 50 mg PO HS 06/04/20 06/04/20 History Allergies Allergy/AdvReac Type Severity Reaction Status Date / Time No Known Allergies Allergy Verified 06/04/20 17:56 Physical Exam Vitals: Vital Signs Temp Pulse Resp BP Pulse Ox 06/04/20 21:02 82 16 96/48 98 06/04/20 19:44 80 18 06/04/20 19:35 72 18 06/04/20 19:23 74 18 06/04/20 18:00 78 18 105/65 95 06/04/20 17:00 72 18 97/57 95 06/04/20 16:00 72 06/04/20 15:12 72 06/04/20 15:05 68 06/04/20 15:00 85 18 103/54 95 06/04/20 14:37 79 18 115/65 95 06/04/20 12:52 18 06/04/20 12:31 97.3 F L 68 20 128/75 88 L Intake and Output 06/04/20 06/04/20 06/05/20 14:59 22:59 06:59 Output Total 1900 Balance -1900 Output: Urine 1900 Uretheral (Chand) 1000 Other: Weight 83.461 kg - Constitutional General appearance: average body habitus, cooperative, disheveled - EENT Eyes: PERRLA ENT: normal oropharynx Ears: bilateral: normal - Neck Neck: normal ROM Carotids: bilateral: upstroke normal - Respiratory Respiratory: bilateral: diminished - Cardiovascular Rhythm: regular Heart sounds: normal: S1, S2 - Gastrointestinal General gastrointestinal: normal bowel sounds - Neurologic Neurologic: CNII-XII intact - Musculoskeletal Musculoskeletal: gait normal, generalized weakness, strength equal bilaterally - Psychiatric Psychiatric: A&O x's 3, appropriate affect, intact judgment & insight Results - Laboratory Findings CBC and BMP: 06/05/20 02:53 06/05/20 02:53 PT/INR, D-dimer PT 9.7 sec (9.0-12.0) 06/04/20 14:57 INR 0.9 (<1.2) 06/04/20 14:57 Abnormal lab findings: Abnormal Labs 06/04/20 06/04/20 06/04/20 14:57 14:57 20:49 RBC 3.50 L Hgb 10.9 L Hct 32.1 L Lymphocytes # 0.9 L Sodium 113 L* 115 L* Potassium 2.6 L* 2.5 L* Chloride 54 L* 56 L* Carbon Dioxide 53 H* 54 H* BUN 26 H 23 H Glucose 100 H 121 H Osmolality 253 L Calcium 8.3 L 8.1 L AST 44 H 39 H Alkaline Phosphatase 180 H 163 H - Diagnostic Findings Chest x-ray: report reviewed, image reviewed CT scan - chest: report reviewed, image reviewed (Finding as noted above) Assessment and Plan Assessment: Generalized weakness tiredness likely related to severe hyponatremia and hypokalemia Hypoosmolar state Severe hyponatremia Severe hypokalemia Chronic hypoxic and hypercapnic respiratory failure 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 COPD Bilateral carotid stenosis Hypertension hypertensive cardiovascular disease Dyslipidemia Mood disorder History of aneurysm Hypertension hypertensive cardiovascular disease Chronic diastolic heart failure Plan: Gentle rehydration with the aim to increase sodium not more than 12 milliequivalents in next 24 hours Agree with nephrology consultation Fall precautions Continue bronchodilator IV steroids Noninvasive ventilation support each night and when necessary during the day Supplemental oxygen Replace potassium Time with Patient: Greater than 30
--- NOTE | 2020-06-05 10:50 | P.PN ---
Subjective Progress Note Date: 06/05/20 Principal diagnosis: Generalized weakness tiredness likely related to severe hyponatremia and hypokalemia Hypoosmolar state Severe hyponatremia Severe hypokalemia Chronic hypoxic and hypercapnic respiratory failure 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 COPD Bilateral carotid stenosis Hypertension hypertensive cardiovascular disease Dyslipidemia Mood disorder History of aneurysm Hypertension hypertensive cardiovascular disease Chronic diastolic heart failure 06/05/2020, patient seen eval examined during the rounds in the emergency department, labs reviewed medications reviewed radiographic studies reviewed as well care plan discussed with the staff as well as the patient at length, respiratory status remains stable patient however has been more oxygen than usual baseline at home she uses 3-4 L oxygen currently she is on 6 L, patient is awake and well oriented, gently being hydrated, sodium level slightly up today she was being replaced as well, we'll make arrangements for a noninvasive ventilation as well he should night and when necessary during the day, This is a 64-year-old female with end-stage lung disease secondary due to severe COPD emphysema has been oxygen dependent 3 L prednisone-dependent and home vent dependent, patient had a fall about 3 weeks ago developed bilateral facial ecchymosis periorbitally via an laceration on the Foradil require repair and visit to the ER, CT had at that time was negative, and subsequently A patient was seen in the hospital his respiratory status remains stable mild shortness of breath is present over the last 2 or 3 years patient has been feeling very weak and exhausted and has been more short of breath than usual, patient noted to have a normal CBC with chronic anemia however sodium was 113, potassium 2.6, CO2 53, BUN/creatinine is 26 and 0.55, calcium is slightly low with normal lactic acid serum osmolality is 253, patient also went a computed tomography scan of the brain no acute changes identified also computed tomography scan of the chest with IV contrast , negative for pulmonary embolism consistent with COPD-like changes with bilateral subsegmental atelectasis, Objective - Vital Signs Vital signs: Vital Signs Temp 97.3 F L 06/04/20 12:31 Pulse 73 06/05/20 08:00 Resp 16 06/05/20 08:00 BP 106/73 06/05/20 08:00 Pulse Ox 94 L 06/05/20 08:00 Intake & Output 06/04/20 06/05/20 06/05/20 18:59 06:59 18:59 Output Total 1000 900 900 Balance -1000 -900 -900 Weight 83.461 kg Output: Urine 1000 900 900 Uretheral (Chand) 1000 Other: Voiding Method Indwelling Catheter - Exam - Constitutional General appearance: average body habitus, cooperative, disheveled - EENT Eyes: PERRLA ENT: normal oropharynx Ears: bilateral: normal - Neck Neck: normal ROM Carotids: bilateral: upstroke normal - Respiratory Respiratory: bilateral: diminished - Cardiovascular Rhythm: regular Heart sounds: normal: S1, S2 - Gastrointestinal General gastrointestinal: normal bowel sounds - Neurologic Neurologic: CNII-XII intact - Musculoskeletal Musculoskeletal: gait normal, generalized weakness, strength equal bilaterally - Psychiatric Psychiatric: A&O x's 3, appropriate affect, intact judgment & insight - Labs CBC & Chem 7: 06/05/20 02:53 06/05/20 02:53 Labs: Abnormal Lab Results - Last 24 Hours (Table) 06/04/20 06/04/20 06/04/20 Range/Units 14:57 14:57 20:49 RBC 3.50 L (3.80-5.40) m/uL Hgb 10.9 L (11.4-16.0) gm/dL Hct 32.1 L (34.0-46.0) % RDW (11.5-15.5) % Lymphocytes # 0.9 L (1.0-4.8) k/uL Sodium 113 L* 115 L* (137-145) mmol/L Potassium 2.6 L* 2.5 L* (3.5-5.1) mmol/L Chloride 54 L* 56 L* (98-107) mmol/L Carbon Dioxide 53 H* 54 H* (22-30) mmol/L BUN 26 H 23 H (7-17) mg/dL Glucose 100 H 121 H (74-99) mg/dL POC Glucose (mg/dL) (75-99) mg/dL Osmolality 253 L (280-301) mosm/kg Calcium 8.3 L 8.1 L (8.4-10.2) mg/dL AST 44 H 39 H (14-36) U/L Alkaline Phosphatase 180 H 163 H (38-126) U/L Total Protein (6.3-8.2) g/dL Albumin (3.5-5.0) g/dL TSH (0.465-4.680) mIU/L 06/05/20 06/05/20 06/05/20 Range/Units 02:53 02:53 04:48 RBC 3.29 L (3.80-5.40) m/uL Hgb 9.9 L (11.4-16.0) gm/dL Hct 31.0 L (34.0-46.0) % RDW 15.7 H (11.5-15.5) % Lymphocytes # 0.6 L (1.0-4.8) k/uL Sodium 116 L* (137-145) mmol/L Potassium 3.0 L (3.5-5.1) mmol/L Chloride 60 L* (98-107) mmol/L Carbon Dioxide 52 H* (22-30) mmol/L BUN 23 H (7-17) mg/dL Glucose 123 H (74-99) mg/dL POC Glucose (mg/dL) 144 H (75-99) mg/dL Osmolality (280-301) mosm/kg Calcium 7.8 L (8.4-10.2) mg/dL AST (14-36) U/L Alkaline Phosphatase 141 H (38-126) U/L Total Protein 6.2 L (6.3-8.2) g/dL Albumin 3.2 L (3.5-5.0) g/dL TSH 0.377 L (0.465-4.680) mIU/L Assessment and Plan Assessment: Generalized weakness tiredness likely related to severe hyponatremia and hypokalemia Hypoosmolar state Severe hyponatremia Severe hypokalemia Chronic hypoxic and hypercapnic respiratory failure 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 COPD Bilateral carotid stenosis Hypertension hypertensive cardiovascular disease Dyslipidemia Mood disorder History of aneurysm Hypertension hypertensive cardiovascular disease Chronic diastolic heart failure Plan: Gentle rehydration with the aim to increase sodium not more than 12 milliequivalents in next 24 hours Agree with nephrology consultation Fall precautions Continue bronchodilator IV steroids Noninvasive ventilation support each night and when necessary during the day Supplemental oxygen Replace potassium Time with Patient: Greater than 30
[2020-06-05 12:20] LABS: Glucose,Whole Blood 177 mg/dL (75-99)
--- NOTE | 2020-06-05 13:02 | CONS ---
CONSULTATION REASON FOR CONSULT: Hyponatremia HISTORY OF PRESENT ILLNESS: Patient is a 64-year-old female who has a history of COPD, CHF, who was admitted to the hospital with complaints of shortness of breath. Patient denies any prior history of hyponatremia. She was found to have a serum sodium of 113 on admission and potassium of 2.6. She is maintained on normal saline and her sodium has improved to 116. Patient has not been confused. Random urine sodium was 29. At home, patient was maintained on Bumex and it looks like she was also on Lasix, I am not sure if she was taking the two together. I do see zaroxolyn on her home med list. Patient did admit to decreased oral intake and some nausea and vomiting prior to admission. She denies any chest pains or shortness of breath. REVIEW OF LABS: Shows previous serum sodium of 132 on 04/30/2020. PAST MEDICAL HISTORY: Significant for hypertension, type 2 diabetes, COPD, asthma, hyperlipidemia, gastroesophageal reflux disease, obstructive sleep apnea, osteoarthritis, chronic respiratory failure, tracheobronchitis, history of neuropathy both feet, sinusitis, chronic back pain with history of vertebral fracture. PAST SURGICAL HISTORY: , tonsillectomy, tubal ligation, brain aneurysm with clipping, colonoscopy. MEDICATIONS: Prior to admission included Tenormin, Singulair, Dilantin, Zoloft, aspirin, Lipitor, Bumex, Pulmicort, Plavix, potassium, Lasix, Neurontin, Boniva, losartan, spironolactone, Glucophage, metolazone, Drisdol, iron, and Benadryl. ALLERGIES: None. REVIEW OF SYSTEMS: As per HPI. Other systems negative. PHYSICAL EXAMINATION: Patient is comfortable, awake, she is not in any acute distress. Blood pressure is 106/73, heart rate 73 per minute, she is afebrile. Examination of the heart S1, S2. Examination of the lungs, bilateral breath sounds are heard. Abdomen is soft, nontender. Examination of the lower extremities shows trace edema bilaterally. CHIROPRACTIC ASSISTANT exam grossly intact. Chronic skin changes noted. LABS: Show sodium of 116, potassium 3.0, chloride 60, CO2 is 52, BUN 23, creatinine 0.6, hemoglobin 9.9 g/dL. UA is not available. Urine osmolality 184, serum urine sodium was 29. ASSESSMENT: 1. Hypovolemic hyponatremia associated with diuresis. Patient was also on metolazone along with the Bumex which are currently on hold. She is improving with normal saline. I will continue with the saline for now. 2. Hypokalemia secondary to diuretics. 3. Metabolic alkalosis secondary to diuresis. Add Diamox. 4. Hypertension. Blood pressure is currently on the lower side. 5. Chronic obstructive pulmonary disease. 6. Type 2 diabetes, maintained on Glucophage. PLAN: Continue with saline, repeat sodium in 3-4 hours. Add Diamox low-dose p.o. Continue to hold off on Bumex and Zaroxolyn for now. Hold the Cozaar as blood pressure is actually low. Thank you for this consultation. Will continue to follow the patient with you during her hospitalization. MMODL / IJN: [id number] / RAMILA
[2020-06-05] MEDS: SODIUM CHLORIDE 0.9% 1,000 ML IV SCH (13:43)
[2020-06-05] MEDS ORDERED: FUROSEMIDE 40 MG TAB PO SCH (16:00)
[2020-06-05] MEDS: SERTRALINE 100 MG TAB PO SCH (18:22)
[2020-06-05 20:01] LABS: Glucose,Whole Blood 164 mg/dL (75-99)
[2020-06-05] MEDS: GABAPENTIN 400 MG CAP PO SCH (20:52)
[2020-06-05] MEDS: acetaZOLAMIDE 250 MG TAB PO SCH (20:52)
[2020-06-05] MEDS: diphenhydrAMINE 25 MG CAP PO SCH (20:52)
[2020-06-05] MEDS: traZODone HCL 100 MG TAB PO SCH (20:52)
[2020-06-05 22:05] LABS: African American GFR (CKD) >90 (>60 ml/min/1.73 sqM); Blood Urea Nitrogen 16 mg/dL (7-17); Calcium 8.1 mg/dL (8.4-10.2); Glucose 130 mg/dL (74-99); Non-African American GFR(CKD) >90 (>60 ml/min/1.73 sqM); Potassium 3.6 mmol/L (3.5-5.1); Sodium 121 mmol/L (137-145)
[2020-06-05 22:12] LABS: Anion Gap 5 mmol/L
[2020-06-05 22:14] LABS: Chloride 70 mmol/L (98-107)
[2020-06-05 22:15] LABS: Carbon Dioxide 46 mmol/L (22-30)
[2020-06-05] MEDS ORDERED: SODIUM CHLORIDE 0.9% 1,000 ML IV SCH (22:30)
--- NOTE | 2020-06-05 22:36 | P.HPIM ---
History of Present Illness H&P Date: 06/05/20 Chief Complaint: shortness of breath Mitchell Jasso is a 64 yo F with PMH of severe COPD on home O2, prednisone dependent, diastolic CHF, morbid obesity, HTN who presented to the ED complaining of worsening shortness of breath. Pt did sustain a fall and forehead laceration a few weeks ago and states that since then she has not been moving nealry as much and spending a lot of time in bed. In the past week or so she became increasingly short of breath. Pt also reports poor appetite over this time. She denies any fever, chills or cough. On presentation BP stable, SpO2 86% on 3L O2, WBC 7.8, Hgb stable. Sodium 113, potassium 2.6 and chloride 56. Procalcitonin negative. CT chest performed and no acute process. Review of Systems All systems: negative Constitutional: Reports fatigue, Reports weakness, Denies chills, Denies fever Eyes: denies blurred vision, denies pain Ears, nose, mouth and throat: Denies headache, Denies sore throat Cardiovascular: Denies chest pain, Denies shortness of breath Respiratory: Reports dyspnea, Reports wheezing, Denies cough Gastrointestinal: Denies abdominal pain, Denies diarrhea, Denies nausea, Denies vomiting Genitourinary: Denies dysuria, Denies hematuria Musculoskeletal: Denies myalgias Integumentary: Denies pruritus, Denies rash Neurological: Denies numbness, Denies weakness Psychiatric: Denies anxiety, Denies depression Endocrine: Denies fatigue, Denies weight change Past Medical History Past Medical History: Asthma, Heart Failure, COPD, Diabetes Mellitus, GERD/Reflux, Hyperlipidemia, Hypertension, Osteoarthritis (OA), Pneumonia, Respiratory Disorder, Sleep Apnea/CPAP/BIPAP, Vascular Disorder Additional Past Medical History / Comment(s): Severe COPD, chronic respiratory failure, home oxygen at 3L/NC ATC, tracheobronchitis, pt thinks she had heart failure once, NIDDM type II, neuropathy bilateral lower feet, lower extremity edema, denies seizure history-states on dilantin since brain aneurysm clipping as a precaution, ROQUE without device, sinusitis, seasonal allergies, falls, fall with lower back vertebral fracture. History of Any Multi-Drug Resistant Organisms: None Reported Past Surgical History: Section, Tonsillectomy, Tubal Ligation Additional Past Surgical History / Comment(s): Brain aneurysm with clipping, colonoscopy. Past Anesthesia/Blood Transfusion Reactions: No Reported Reaction Smoking Status: Former smoker - Past Family History Mother Family Medical History: Congestive Heart Failure (CHF) Father Family Medical History: Congestive Heart Failure (CHF) Medications and Allergies Home Medications Medication Instructions Recorded Confirmed Type Atenolol [Tenormin] 25 mg PO DAILY 07/25/14 06/04/20 History Montelukast [Singulair] 10 mg PO DAILY 07/25/14 06/04/20 History Phenytoin Sodium Extended 200 mg PO BID 07/25/14 06/04/20 History [Dilantin] Sertraline [Zoloft] 200 mg PO DAILY 07/27/14 06/04/20 History Aspirin EC [Ecotrin Low Dose] 81 mg PO DAILY 05/23/19 06/04/20 History Atorvastatin [Lipitor] 80 mg PO HS 05/23/19 06/04/20 History Budesonide [Pulmicort] 1 mg INHALATION RT-QID 05/23/19 06/04/20 History Bumetanide [BUMEX] 2 mg PO DAILY 05/23/19 06/04/20 History Clopidogrel Bisulfate [Plavix] 75 mg PO DAILY 05/23/19 06/04/20 History Potassium Chloride 20 meq PO DAILY 05/23/19 06/04/20 History traZODone HCL 100 - 200 mg PO HS 05/23/19 06/04/20 History Famotidine 40 mg PO DAILY 04/24/20 06/04/20 History Furosemide [Lasix] 80 mg PO BID@0900,1200 04/24/20 06/04/20 History Gabapentin [Neurontin] 400 mg PO HS 04/24/20 06/04/20 History Ibandronate Sodium [Boniva] 150 mg PO Q30D 04/24/20 06/04/20 History Losartan Potassium 100 mg PO DAILY 04/24/20 06/04/20 History Spironolactone 100 mg PO DAILY 04/24/20 06/04/20 History metFORMIN HCL [Glucophage] 500 mg PO BID 04/24/20 06/04/20 History metOLazone 2.5 mg PO DAILY 04/24/20 06/04/20 History Formoterol Fumarate [Perforomist] 20 mcg INHALATION RT-BID #60 nebu 04/30/20 06/04/20 Rx Albuterol Nebulized [Ventolin 2.5 mg INHALATION RT-QID PRN 06/04/20 06/04/20 History Nebulized] Ergocalciferol (Vitamin D2) 50,000 unit PO THOMPSON 06/04/20 06/04/20 History [Drisdol] Ferrous Sulfate [Iron] 325 mg PO DAILY 06/04/20 06/04/20 History Ipratropium Nebulized [Atrovent 0.5 mg INHALATION RT-QID PRN 06/04/20 06/04/20 History Nebulized 0.2 MG/ML] Nitroglycerin 0.1MG/Hr Patch 1 patch TRANSDERM DAILY 06/04/20 06/04/20 History [Nitro-Dur 0.1MG/Hr Patch] diphenhydrAMINE [Benadryl] 50 mg PO HS 06/04/20 06/04/20 History Allergies Allergy/AdvReac Type Severity Reaction Status Date / Time No Known Allergies Allergy Verified 06/04/20 17:56 Physical Exam Vitals: Vital Signs Temp Pulse Pulse Resp BP BP Pulse Ox 06/05/20 21:00 97.9 F 71 18 76/39 96 06/05/20 19:53 76 06/05/20 19:47 76 06/05/20 19:41 75 06/05/20 16:57 75 06/05/20 16:49 75 06/05/20 16:00 97.5 F L 73 16 99/51 98 06/05/20 13:30 74 06/05/20 13:06 70 06/05/20 12:00 97.5 F L 69 16 90/52 97 06/05/20 08:00 73 16 106/73 94 L 06/05/20 07:53 75 06/05/20 07:44 70 06/05/20 07:31 73 06/05/20 04:55 80 16 127/62 99 06/05/20 01:03 76 20 102/43 97 Intake and Output 06/05/20 06/05/20 06/05/20 06:59 14:59 22:59 Intake Total 1600 Output Total 900 1200 Balance -900 400 Intake: Intake, IV Titration 800 Amount Sodium Chloride 0.9% 1, 800 000 ml @ 100 mls/hr IV . Q10H [facility] Rx#:[id number] Oral 800 Output: Urine 900 1200 Other: Voiding Method Indwelling Catheter Indwelling Catheter Weight 83.461 kg General: well nourished, well developed, NAD. Obese. Vitals reviewed Eyes: PERRL, EOMI, conjunctiva normal HENT: normocephalic, mucus membranes moist Neck: supple, no JVD Lungs: Diminished air entry throughout. No rales or wheezing CV: Regular rate and rhythm, no murmur. Peripheral pulses 2+ Abdomen: soft, nondistended, no organomegaly Lymph: no cervical or axillary LAD Skin: warm and dry. Neuro: A&Ox3, normal mood and affect Results CBC & Chem 7: 06/05/20 02:53 06/05/20 21:33 Labs: Abnormal Lab Results - Last 24 Hours (Table) 06/04/20 06/05/20 06/05/20 Range/Units 20:49 02:53 02:53 RBC 3.29 L (3.80-5.40) m/uL Hgb 9.9 L (11.4-16.0) gm/dL Hct 31.0 L (34.0-46.0) % RDW 15.7 H (11.5-15.5) % Lymphocytes # 0.6 L (1.0-4.8) k/uL Sodium 115 L* 116 L* (137-145) mmol/L Potassium 2.5 L* 3.0 L (3.5-5.1) mmol/L Chloride 56 L* 60 L* (98-107) mmol/L Carbon Dioxide 54 H* 52 H* (22-30) mmol/L BUN 23 H 23 H (7-17) mg/dL Glucose 121 H 123 H (74-99) mg/dL POC Glucose (mg/dL) (75-99) mg/dL Osmolality 253 L (280-301) mosm/kg Calcium 8.1 L 7.8 L (8.4-10.2) mg/dL AST 39 H (14-36) U/L Alkaline Phosphatase 163 H 141 H (38-126) U/L Total Protein 6.2 L (6.3-8.2) g/dL Albumin 3.2 L (3.5-5.0) g/dL TSH 0.377 L (0.465-4.680) mIU/L 06/05/20 06/05/20 06/05/20 Range/Units 04:48 12:18 13:44 RBC (3.80-5.40) m/uL Hgb (11.4-16.0) gm/dL Hct (34.0-46.0) % RDW (11.5-15.5) % Lymphocytes # (1.0-4.8) k/uL Sodium 118 L* (137-145) mmol/L Potassium (3.5-5.1) mmol/L Chloride (98-107) mmol/L Carbon Dioxide (22-30) mmol/L BUN (7-17) mg/dL Glucose (74-99) mg/dL POC Glucose (mg/dL) 144 H 177 H (75-99) mg/dL Osmolality (280-301) mosm/kg Calcium (8.4-10.2) mg/dL AST (14-36) U/L Alkaline Phosphatase (38-126) U/L Total Protein (6.3-8.2) g/dL Albumin (3.5-5.0) g/dL TSH (0.465-4.680) mIU/L 06/05/20 06/05/20 Range/Units 19:59 21:33 RBC (3.80-5.40) m/uL Hgb (11.4-16.0) gm/dL Hct (34.0-46.0) % RDW (11.5-15.5) % Lymphocytes # (1.0-4.8) k/uL Sodium 121 L (137-145) mmol/L Potassium (3.5-5.1) mmol/L Chloride 70 L* (98-107) mmol/L Carbon Dioxide 46 H* (22-30) mmol/L BUN (7-17) mg/dL Glucose 130 H (74-99) mg/dL POC Glucose (mg/dL) 164 H (75-99) mg/dL Osmolality (280-301) mosm/kg Calcium 8.1 L (8.4-10.2) mg/dL AST (14-36) U/L Alkaline Phosphatase (38-126) U/L Total Protein (6.3-8.2) g/dL Albumin (3.5-5.0) g/dL TSH (0.465-4.680) mIU/L Microbiology - Last 24 Hours (Table) 06/04/20 13:38 Blood Culture - Preliminary Blood No Growth after 24 hours Thrombosis Risk Factor Assmnt - Choose All That Apply Any of the Below Risk Factors Present?: Yes Each Factor Represents 1 point: Abnormal pulmonary function (COPD), Obesity (BMI >25), Swollen legs (current) Other Risk Factors: Yes Each Risk Factor Represents 2 Points: Age 61-74 years Other congenital or acquired thrombophilia - If yes, enter type in comment: No Thrombosis Risk Factor Assessment Total Risk Factor Score: 5 Thrombosis Risk Factor Assessment Level: High Risk Assessment and Plan (1) COPD with acute exacerbation Current Visit: Yes Status: Acute Code(s): J44.1 - CHRONIC OBSTRUCTIVE PULMONARY DISEASE W (ACUTE) EXACERBATION SNOMED Code(s): 305973599 (2) Hyponatremia syndrome Current Visit: Yes Status: Acute Code(s): E87.1 - HYPO-OSMOLALITY AND HYPONATREMIA SNOMED Code(s): 9612846 (3) Congestive heart failure Current Visit: No Status: Acute Code(s): I50.9 - HEART FAILURE, UNSPECIFIED SNOMED Code(s): 37624473 (4) Type 2 diabetes mellitus Current Visit: No Status: Acute Code(s): E11.9 - TYPE 2 DIABETES MELLITUS WITHOUT COMPLICATIONS SNOMED Code(s): 62890358 Plan: 1. Acute and chronic hypoxic respiratory failure due to COPD exacerbation. Pulmonary consulted. Start IV and inhaled steroids. Duonebs prn. Continue singulair 2. Hyponatremia. Likely secondary to diuretic use. Hold diuretics. Start gentle IV fluids. Nephrology consult 3. Chronic diastolic CHF. no evidence of acute heart failure. Continue to monitor 4. Hypertension. Pt currently hypotensive, hold losartan 5. SUHA. Continue zoloft
[2020-06-06 05:32] LABS: ALT 16 U/L (4-34); AST 31 U/L (14-36); African American GFR (CKD) >90 (>60 ml/min/1.73 sqM); Albumin 2.9 g/dL (3.5-5.0); Alkaline Phosphatase 116 U/L (38-126); Blood Urea Nitrogen 13 mg/dL (7-17); Calcium 7.9 mg/dL (8.4-10.2); Chloride 76 mmol/L (98-107); Glucose 127 mg/dL (74-99); Non-African American GFR(CKD) >90 (>60 ml/min/1.73 sqM); Sodium 123 mmol/L (137-145); Total Bilirubin 0.3 mg/dL (0.2-1.3); Total Protein 5.7 g/dL (6.3-8.2)
[2020-06-06 05:39] LABS: Anion Gap 5 mmol/L
[2020-06-06 05:50] LABS: Carbon Dioxide 42 mmol/L (22-30)
[2020-06-06 06:11] LABS: Glucose,Whole Blood 126 mg/dL (75-99)
[2020-06-06] MEDS: methylPREDNISolone SOD SUCCI 125 MG/2 ML VIAL IV SCH ×3 (06:30→18:58)
[2020-06-06] MEDS: SODIUM CHLORIDE 0.9% 1,000 ML IV SCH ×4 (06:31→16:07)
[2020-06-06] MEDS: BUDESONIDE 1 MG/2 ML NEBU INHALATION SCH ×4 (08:57→19:43)
[2020-06-06] MEDS: FORMOTEROL FUMARATE 20 MCG/2 ML NEBU INHALATION SCH ×2 (08:57→19:43)
[2020-06-06] MEDS: IPRATROPIUM-ALBUTEROL 3 ML NEB INHALATION PRN ×5 (08:57→23:03)
[2020-06-06] MEDS: ASPIRIN 81 MG PO SCH (09:09)
[2020-06-06] MEDS: PHENYTOIN SODIUM EXTENDED 100 MG CAP PO SCH ×2 (09:09→20:42)
[2020-06-06] MEDS: MONTELUKAST 10 MG TAB PO SCH (09:09)
[2020-06-06] MEDS: FAMOTIDINE 20 MG TAB PO SCH (09:09)
[2020-06-06] MEDS: atenoloL 25 MG TAB PO SCH (09:09)
[2020-06-06] MEDS: metFORMIN 500 MG TAB PO SCH ×2 (09:10→20:42)
[2020-06-06] MEDS: SERTRALINE 100 MG TAB PO SCH (09:10)
[2020-06-06] MEDS: ATORVASTATIN 80 MG TAB PO SCH (09:10)
[2020-06-06] MEDS: acetaZOLAMIDE 250 MG TAB PO SCH ×2 (09:10→20:42)
[2020-06-06] MEDS: CLOPIDOGREL 75 MG TAB PO SCH (09:10)
[2020-06-06] MEDS: POTASSIUM CHLORIDE ER 20 MEQ TAB.ER PO SCH (09:12)
[2020-06-06 11:10] LABS: ALT 18 U/L (4-34); AST 35 U/L (14-36); African American GFR (CKD) >90 (>60 ml/min/1.73 sqM); Albumin 3.1 g/dL (3.5-5.0); Alkaline Phosphatase 113 U/L (38-126); Blood Urea Nitrogen 14 mg/dL (7-17); Calcium 8.2 mg/dL (8.4-10.2); Chloride 80 mmol/L (98-107); Glucose 123 mg/dL (74-99); Non-African American GFR(CKD) >90 (>60 ml/min/1.73 sqM); Potassium 3.9 mmol/L (3.5-5.1); Sodium 124 mmol/L (137-145); Total Bilirubin 0.3 mg/dL (0.2-1.3)
[2020-06-06 11:15] LABS: Basophils % (A) 0 %; Eosinophils % (A) 0 %; HCT 29.2 % (34.0-46.0); Lymphocytes # (A) 0.6 k/uL (1.0-4.8); Lymphocytes % (A) 9 %; MCH 29.7 pg (25.0-35.0); MCHC 30.6 g/dL (31.0-37.0); MCV 96.9 fL (80.0-100.0); Mean Platelet Volume 6.6; Monocytes # (A) 0.3 k/uL (0-1.0); Monocytes % (A) 4 %; Neutrophils # (A) 5.3 k/uL (1.3-7.7); Neutrophils % (A) 85 %; Platelet Count 234 k/uL (150-450); RBC 3.02 m/uL (3.80-5.40); RDW 15.2 % (11.5-15.5); WBC 6.2 k/uL (3.8-10.6)
[2020-06-06 11:17] LABS: Anion Gap 5 mmol/L; Carbon Dioxide 39 mmol/L (22-30)
[2020-06-06 12:04] LABS: Glucose,Whole Blood 136 mg/dL (75-99)
[2020-06-06] MEDS: INSULIN ASPART (NovoLOG) 100 UNIT/ML VIAL SQ SCH ×3 (12:15→20:42)
--- NOTE | 2020-06-06 14:32 | P.PN ---
Subjective Patient is seen in follow for electrolyte imbalance. Sodium level up to 124 this morning. Potassium level 3.9. Bicarb 39. She denies chest pain or shortness of breath. Nonoliguric. Maintain on normal saline. Appetite fair. No vomiting or diarrhea. Vital signs are stable. General: The patient appeared well nourished and normally developed. HEENT: Head exam is unremarkable. Neck is without jugular venous distension. LUNGS: Breath sounds decreased. HEART: Rate and Rhythm are regular. ABDOMEN: Soft, nontender. EXTREMITITES: No edema. Objective - Vital Signs Vital signs: Vital Signs Temp 98.0 F 06/06/20 11:40 Pulse 80 06/06/20 12:54 Resp 18 06/06/20 11:40 BP 97/56 06/06/20 11:40 Pulse Ox 95 06/06/20 11:40 Intake & Output 06/05/20 06/06/20 06/06/20 18:59 06:59 18:59 Intake Total 1600 1000 360 Output Total 2099 2024 550 Balance -500 -1025 -190 Weight 83.461 kg 81.5 kg Intake: Intake, IV Titration 800 1000 Amount Sodium Chloride 0.9% 1, 800 000 ml @ 100 mls/hr IV . Q10H [facility] Rx#:[id number] Sodium Chloride 0.9% 1, 1000 000 ml @ 150 mls/hr IV . Q6H40M [facility] Rx#:[id number] Oral 800 0 360 Output: Urine 2099 2024 550 Other: Voiding Method Indwelling Catheter Indwelling Catheter - Labs CBC & Chem 7: 06/06/20 10:34 06/06/20 10:31 Labs: Abnormal Lab Results - Last 24 Hours (Table) 06/05/20 06/05/20 06/05/20 Range/Units 13:44 19:59 21:33 RBC (3.80-5.40) m/uL Hgb (11.4-16.0) gm/dL Hct (34.0-46.0) % MCHC (31.0-37.0) g/dL Lymphocytes # (1.0-4.8) k/uL Sodium 118 L* 121 L (137-145) mmol/L Chloride 70 L* (98-107) mmol/L Carbon Dioxide 46 H* (22-30) mmol/L Glucose 130 H (74-99) mg/dL POC Glucose (mg/dL) 164 H (75-99) mg/dL Calcium 8.1 L (8.4-10.2) mg/dL Total Protein (6.3-8.2) g/dL Albumin (3.5-5.0) g/dL 06/06/20 06/06/20 06/06/20 Range/Units 04:37 06:09 10:31 RBC (3.80-5.40) m/uL Hgb (11.4-16.0) gm/dL Hct (34.0-46.0) % MCHC (31.0-37.0) g/dL Lymphocytes # (1.0-4.8) k/uL Sodium 123 L 124 L (137-145) mmol/L Chloride 76 L 80 L (98-107) mmol/L Carbon Dioxide 42 H* 39 H (22-30) mmol/L Glucose 127 H 123 H (74-99) mg/dL POC Glucose (mg/dL) 126 H (75-99) mg/dL Calcium 7.9 L 8.2 L (8.4-10.2) mg/dL Total Protein 5.7 L 6.0 L (6.3-8.2) g/dL Albumin 2.9 L 3.1 L (3.5-5.0) g/dL 06/06/20 06/06/20 Range/Units 10:34 11:46 RBC 3.02 L (3.80-5.40) m/uL Hgb 9.0 L (11.4-16.0) gm/dL Hct 29.2 L (34.0-46.0) % MCHC 30.6 L (31.0-37.0) g/dL Lymphocytes # 0.6 L (1.0-4.8) k/uL Sodium (137-145) mmol/L Chloride (98-107) mmol/L Carbon Dioxide (22-30) mmol/L Glucose (74-99) mg/dL POC Glucose (mg/dL) 136 H (75-99) mg/dL Calcium (8.4-10.2) mg/dL Total Protein (6.3-8.2) g/dL Albumin (3.5-5.0) g/dL Microbiology - Last 24 Hours (Table) 06/04/20 13:38 Blood Culture - Preliminary Blood No Growth after 24 hours Assessment and Plan Plan: Assessment: 1. Hypovolemic hyponatremia secondary to overdiuresis. She was on metolazone as well as Bumex which are currently held. Improving with normal saline. Urine sodium 29 and urine osmolality 184. TSH slightly low. 2. Hypokalemia secondary to diuretics. Better post placement. 3. Metabolic alkalosis secondary to volume contraction from diuresis. Improving with Diamox. 4. Benign hypertension. 5. Diabetes mellitus. Plan: Decrease rate of normal saline to 75 mL an hour. Potassium being replaced. Maintain Diamox for now. Check a.m. cortisol level. Continue to hold diuretics. Repeat electrolytes in the morning.
[2020-06-06 16:41] LABS: Glucose,Whole Blood 116 mg/dL (75-99)
[2020-06-06 19:46] LABS: Glucose,Whole Blood 149 mg/dL (75-99)
--- NOTE | 2020-06-06 19:48 | P.PN ---
Subjective Progress Note Date: 06/06/20 Principal diagnosis: hyponatremia She is feeling better today, sodium up to 126, 13 meq in last 24 hours. Her breathing is improved today. Good urine output. She was quite sleepy this morning although roused to voice Objective - Vital Signs Vital signs: Vital Signs Temp 97.9 F 06/06/20 17:10 Pulse 81 06/06/20 17:10 Resp 12 06/06/20 17:10 BP 89/49 06/06/20 17:10 Pulse Ox 98 06/06/20 17:10 Intake & Output 06/06/20 06/06/20 06/07/20 06:59 18:59 06:59 Intake Total 1000 720 Output Total 2024 550 Balance -1025 170 Weight 81.5 kg Intake: Intake, IV Titration 1000 Amount Sodium Chloride 0.9% 1, 1000 000 ml @ 75 mls/hr IV . [id number] [facility] Rx#:[id number] Oral 0 720 Output: Urine 2024 Other: Voiding Method Indwelling Catheter # Bowel Movements 1 - Exam General: well nourished, well developed, NAD. Vitals reviewed Lungs: normal respiratory effort, no wheezes or rales CV: Regular rate and rhythm, no murmur. Peripheral pulses 2+. No edema Abdomen: soft, nondistended, no organomegaly Skin: warm and dry. - Labs CBC & Chem 7: 06/06/20 10:34 06/06/20 10:31 Labs: Abnormal Lab Results - Last 24 Hours (Table) 06/05/20 06/05/20 06/06/20 Range/Units 19:59 21:33 04:37 RBC (3.80-5.40) m/uL Hgb (11.4-16.0) gm/dL Hct (34.0-46.0) % MCHC (31.0-37.0) g/dL Lymphocytes # (1.0-4.8) k/uL Sodium 121 L 123 L (137-145) mmol/L Chloride 70 L* 76 L (98-107) mmol/L Carbon Dioxide 46 H* 42 H* (22-30) mmol/L Glucose 130 H 127 H (74-99) mg/dL POC Glucose (mg/dL) 164 H (75-99) mg/dL Calcium 8.1 L 7.9 L (8.4-10.2) mg/dL Total Protein 5.7 L (6.3-8.2) g/dL Albumin 2.9 L (3.5-5.0) g/dL 06/06/20 06/06/20 06/06/20 Range/Units 06:09 10:31 10:34 RBC 3.02 L (3.80-5.40) m/uL Hgb 9.0 L (11.4-16.0) gm/dL Hct 29.2 L (34.0-46.0) % MCHC 30.6 L (31.0-37.0) g/dL Lymphocytes # 0.6 L (1.0-4.8) k/uL Sodium 124 L (137-145) mmol/L Chloride 80 L (98-107) mmol/L Carbon Dioxide 39 H (22-30) mmol/L Glucose 123 H (74-99) mg/dL POC Glucose (mg/dL) 126 H (75-99) mg/dL Calcium 8.2 L (8.4-10.2) mg/dL Total Protein 6.0 L (6.3-8.2) g/dL Albumin 3.1 L (3.5-5.0) g/dL 06/06/20 06/06/20 Range/Units 11:46 16:38 RBC (3.80-5.40) m/uL Hgb (11.4-16.0) gm/dL Hct (34.0-46.0) % MCHC (31.0-37.0) g/dL Lymphocytes # (1.0-4.8) k/uL Sodium (137-145) mmol/L Chloride (98-107) mmol/L Carbon Dioxide (22-30) mmol/L Glucose (74-99) mg/dL POC Glucose (mg/dL) 136 H 116 H (75-99) mg/dL Calcium (8.4-10.2) mg/dL Total Protein (6.3-8.2) g/dL Albumin (3.5-5.0) g/dL Microbiology - Last 24 Hours (Table) 06/04/20 13:38 Blood Culture - Preliminary Blood No Growth after 48 hours Assessment and Plan (1) COPD with acute exacerbation Current Visit: Yes Status: Acute Code(s): J44.1 - CHRONIC OBSTRUCTIVE PULMONARY DISEASE W (ACUTE) EXACERBATION SNOMED Code(s): 733535931 (2) Hyponatremia syndrome Current Visit: Yes Status: Acute Code(s): E87.1 - HYPO-OSMOLALITY AND HYPONATREMIA SNOMED Code(s): 7032684 (3) Congestive heart failure Current Visit: No Status: Acute Code(s): I50.9 - HEART FAILURE, UNSPECIFIED SNOMED Code(s): 86917081 (4) Type 2 diabetes mellitus Current Visit: No Status: Acute Code(s): E11.9 - TYPE 2 DIABETES MELLITUS WITHOUT COMPLICATIONS SNOMED Code(s): 88581425 Plan: COPD exacerbation improving, stop IV steroids and switch to PO prednisone. Decrease rate on normal saline. Stop benadryl qhs. Continue remainder of medications and treatments
[2020-06-06] MEDS: traZODone HCL 100 MG TAB PO SCH (20:42)
[2020-06-06] MEDS: GABAPENTIN 400 MG CAP PO SCH (20:42)
--- NOTE | 2020-06-06 22:33 | P.PN ---
Subjective Progress Note Date: 06/06/20 Principal diagnosis: Generalized weakness tiredness likely related to severe hyponatremia and hypokalemia Hypoosmolar state Severe hyponatremia Severe hypokalemia Chronic hypoxic and hypercapnic respiratory failure 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 COPD Bilateral carotid stenosis Hypertension hypertensive cardiovascular disease Dyslipidemia Mood disorder History of aneurysm Hypertension hypertensive cardiovascular disease Chronic diastolic heart failure 06/06/2020, patient seen and evaluated examined, respiratory status remains stable, sodium continued to improve up to 120 for now, respiratory status remai ns stable on supplemental oxygen patient has been using BiPAP machine, she is remains afebrile last saturation is 95% on supplemental oxygen, labs from today reviewed, 06/05/2020, patient seen eval examined during the rounds in the emergency department, labs reviewed medications reviewed radiographic studies reviewed as well care plan discussed with the staff as well as the patient at length, res piratory status remains stable patient however has been more oxygen than usual baseline at home she uses 3-4 L oxygen currently she is on 6 L, patient is awake and well oriented, gently being hydrated, sodium level slightly up today she was being replaced as well, we'll make arrangements for a noninvasive ventilation as well he should night and when necessary during the day, This is a 64-year-old female with end-stage lung disease secondary due to severe COPD emphysema has been oxygen dependent 3 L prednisone-dependent and home vent dependent, patient had a fall about 3 weeks ago developed bilateral facial ecchymosis periorbitally via an laceration on the Foradil require repair and visit to the ER, CT had at that time was negative, and subsequently A patient was seen in the hospital his respiratory status remains stable mild shortness of breath is present over the last 2 or 3 years patient has been feeling very weak and exhausted and has been more short of breath than usual, patient noted to have a normal CBC with chronic anemia however sodium was 113, potassium 2.6, CO2 53, BUN/creatinine is 26 and 0.55, calcium is slightly low with normal lactic acid serum osmolality is 253, patient also went a computed tomography scan of the brain no acute changes identified also computed tomography scan of the chest with IV contrast , negative for pulmonary embolism consistent with COPD-like changes with bilateral subsegmental atelectasis, Objective - Vital Signs Vital signs: Vital Signs Temp 99.4 F 11/05/20 19:45 Pulse 100 06/06/20 20:04 Resp 16 06/06/20 19:45 BP 91/55 06/06/20 19:45 Pulse Ox 98 06/06/20 19:45 Intake & Output 06/06/20 06/06/20 06/07/20 06:59 18:59 06:59 Intake Total 1000 720 Output Total 2024 550 625 Balance -1025 170 -625 Weight 81.5 kg Intake: Intake, IV Titration 1000 Amount Sodium Chloride 0.9% 1, 1000 000 ml @ 75 mls/hr IV . [id number] [facility] Rx#:[id number] Oral 0 720 Output: Urine 2024 550 625 Other: Voiding Method Indwelling Catheter # Bowel Movements 1 - Exam - Constitutional General appearance: average body habitus, cooperative, disheveled - EENT Eyes: PERRLA, ecchymosis periorbital improving ENT: normal oropharynx Ears: bilateral: normal - Neck Neck: normal ROM Carotids: bilateral: upstroke normal - Respiratory Respiratory: bilateral: diminished - Cardiovascular Rhythm: regular Heart sounds: normal: S1, S2 - Gastrointestinal General gastrointestinal: normal bowel sounds - Neurologic Neurologic: CNII-XII intact - Musculoskeletal Musculoskeletal: gait normal, generalized weakness, strength equal bilaterally - Psychiatric Psychiatric: A&O x's 3, appropriate affect, intact judgment & insight - Labs CBC & Chem 7: 06/06/20 10:34 06/06/20 10:31 Labs: Abnormal Lab Results - Last 24 Hours (Table) 06/06/20 06/06/20 06/06/20 Range/Units 04:37 06:09 10:31 RBC (3.80-5.40) m/uL Hgb (11.4-16.0) gm/dL Hct (34.0-46.0) % MCHC (31.0-37.0) g/dL Lymphocytes # (1.0-4.8) k/uL Sodium 123 L 124 L (137-145) mmol/L Chloride 76 L 80 L (98-107) mmol/L Carbon Dioxide 42 H* 39 H (22-30) mmol/L Glucose 127 H 123 H (74-99) mg/dL POC Glucose (mg/dL) 126 H (75-99) mg/dL Calcium 7.9 L 8.2 L (8.4-10.2) mg/dL Total Protein 5.7 L 6.0 L (6.3-8.2) g/dL Albumin 2.9 L 3.1 L (3.5-5.0) g/dL 06/06/20 06/06/20 06/06/20 Range/Units 10:34 11:46 16:38 RBC 3.02 L (3.80-5.40) m/uL Hgb 9.0 L (11.4-16.0) gm/dL Hct 29.2 L (34.0-46.0) % MCHC 30.6 L (31.0-37.0) g/dL Lymphocytes # 0.6 L (1.0-4.8) k/uL Sodium (137-145) mmol/L Chloride (98-107) mmol/L Carbon Dioxide (22-30) mmol/L Glucose (74-99) mg/dL POC Glucose (mg/dL) 136 H 116 H (75-99) mg/dL Calcium (8.4-10.2) mg/dL Total Protein (6.3-8.2) g/dL Albumin (3.5-5.0) g/dL 06/06/20 Range/Units 19:41 RBC (3.80-5.40) m/uL Hgb (11.4-16.0) gm/dL Hct (34.0-46.0) % MCHC (31.0-37.0) g/dL Lymphocytes # (1.0-4.8) k/uL Sodium (137-145) mmol/L Chloride (98-107) mmol/L Carbon Dioxide (22-30) mmol/L Glucose (74-99) mg/dL POC Glucose (mg/dL) 149 H (75-99) mg/dL Calcium (8.4-10.2) mg/dL Total Protein (6.3-8.2) g/dL Albumin (3.5-5.0) g/dL Microbiology - Last 24 Hours (Table) 06/04/20 13:38 Blood Culture - Preliminary Blood No Growth after 48 hours Assessment and Plan Assessment: Generalized weakness tiredness likely related to severe hyponatremia and hypokalemia Hypoosmolar state Severe hyponatremia Severe hypokalemia Chronic hypoxic and hypercapnic respiratory failure 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 COPD Bilateral carotid stenosis Hypertension hypertensive cardiovascular disease Dyslipidemia Mood disorder History of aneurysm Hypertension hypertensive cardiovascular disease Chronic diastolic heart failure Plan: Gentle rehydration with the aim to increase sodium not more than 12 milliequivalents in next 24 hours Agree with nephrology consultation Fall precautions Continue bronchodilator IV steroids Noninvasive ventilation support each night and when necessary during the day Supplemental oxygen Replace potassium Time with Patient: Greater than 30
[2020-06-07] MEDS: IPRATROPIUM-ALBUTEROL 3 ML NEB INHALATION PRN ×6 (03:09→23:59)
[2020-06-07] MEDS: SODIUM CHLORIDE 0.9% 1,000 ML IV SCH ×2 (06:04→21:10)
[2020-06-07 06:10] LABS: Glucose,Whole Blood 112 mg/dL (75-99)
[2020-06-07] MEDS: INSULIN ASPART (NovoLOG) 100 UNIT/ML VIAL SQ SCH ×4 (06:11→20:36)
[2020-06-07] MEDS: BUDESONIDE 1 MG/2 ML NEBU INHALATION SCH ×4 (08:40→20:28)
[2020-06-07] MEDS: FORMOTEROL FUMARATE 20 MCG/2 ML NEBU INHALATION SCH ×2 (08:40→20:28)
[2020-06-07 08:49] LABS: Basophils % (A) 0 %; Eosinophils # (A) 0.1 k/uL (0-0.7); Eosinophils % (A) 1 %; HGB 8.9 gm/dL (11.4-16.0); Hypochromasia Slight; Lymphocytes # (A) 1.6 k/uL (1.0-4.8); Lymphocytes % (A) 25 %; MCH 31.2 pg (25.0-35.0); MCHC 31.8 g/dL (31.0-37.0); MCV 98.2 fL (80.0-100.0); Mean Platelet Volume 6.9; Monocytes # (A) 0.5 k/uL (0-1.0); Monocytes % (A) 7 %; Neutrophils # (A) 4.2 k/uL (1.3-7.7); Neutrophils % (A) 64 %; Platelet Count 232 k/uL (150-450); RBC 2.85 m/uL (3.80-5.40); RDW 15.3 % (11.5-15.5); WBC 6.5 k/uL (3.8-10.6)
[2020-06-07 08:58] LABS: ALT 20 U/L (4-34); AST 34 U/L (14-36); African American GFR (CKD) >90 (>60 ml/min/1.73 sqM); Albumin 2.9 g/dL (3.5-5.0); Alkaline Phosphatase 108 U/L (38-126); Anion Gap 1 mmol/L; Blood Urea Nitrogen 13 mg/dL (7-17); Carbon Dioxide 39 mmol/L (22-30); Chloride 87 mmol/L (98-107); Glucose 79 mg/dL (74-99); Magnesium 1.8 mg/dL (1.6-2.3); Non-African American GFR(CKD) >90 (>60 ml/min/1.73 sqM); Potassium 3.7 mmol/L (3.5-5.1); Sodium 127 mmol/L (137-145); Total Bilirubin 0.3 mg/dL (0.2-1.3); Total Protein 5.6 g/dL (6.3-8.2)
[2020-06-07] MEDS: FAMOTIDINE 20 MG TAB PO SCH (09:09)
[2020-06-07] MEDS: CLOPIDOGREL 75 MG TAB PO SCH (09:09)
[2020-06-07] MEDS: metFORMIN 500 MG TAB PO SCH ×2 (09:09→20:55)
[2020-06-07] MEDS: MONTELUKAST 10 MG TAB PO SCH (09:09)
[2020-06-07] MEDS: ATORVASTATIN 80 MG TAB PO SCH (09:09)
[2020-06-07] MEDS: ASPIRIN 81 MG PO SCH (09:09)
[2020-06-07] MEDS: acetaZOLAMIDE 250 MG TAB PO SCH (09:10)
[2020-06-07] MEDS: SERTRALINE 100 MG TAB PO SCH (09:10)
[2020-06-07] MEDS: predniSONE 20 MG TAB PO SCH (09:10)
[2020-06-07] MEDS: PHENYTOIN SODIUM EXTENDED 100 MG CAP PO SCH ×2 (09:10→20:54)
[2020-06-07] MEDS: atenoloL 25 MG TAB PO SCH (09:10)
--- NOTE | 2020-06-07 09:29 | P.PN ---
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 COPD Bilateral carotid stenosis Hypertension hypertensive cardiovascular disease Dyslipidemia Mood disorder History of aneurysm Hypertension hypertensive cardiovascular disease Chronic diastolic heart failure 06/07/2020, patient seen eval examined during the rounds labs reviewed medications reviewed care plan discussed, denies any chest pain breathing is stable on supplemental oxygen is still feeling very weak though, labs from this morning reviewed hemoglobin remained stable 8.9, sodium up to 127 now, computed tomography scan of the chest reviewed bilateral basilar scarring along with COPD changes identified no evidence of masses noted, patient didn't use the CPAP machine last night 06/06/2020, patient seen and evaluated examined, respiratory status remains stable, sodium continued to improve up to 120 for now, respiratory status remains stable on supplemental oxygen patient has been using BiPAP machine, she is remains afebrile last saturation is 95% on supplemental oxygen, labs from today reviewed, 06/05/2020, patient seen eval examined during the rounds in the emergency department, labs reviewed medications reviewed radiographic studies reviewed as well care plan discussed with the staff as well as the patient at length, respiratory status remains stable patient however has been more oxygen than usual baseline at home she uses 3-4 L oxygen currently she is on 6 L, patient is awake and well oriented, gently being hydrated, sodium level slightly up today she was being replaced as well, we'll make arrangements for a noninvasive ventilation as well he should night and when necessary during the day, This is a 64-year-old female with end-stage lung disease secondary due to severe COPD emphysema has been oxygen dependent 3 L prednisone-dependent and home vent dependent, patient had a fall about 3 weeks ago developed bilateral facial ecchymosis periorbitally via an laceration on the Foradil require repair and visit to the ER, CT had at that time was negative, and subsequently A patient was seen in the hospital his respiratory status remains stable mild shortness of breath is present over the last 2 or 3 years patient has been feeling very weak and exhausted and has been more short of breath than usual, patient noted to have a normal CBC with chronic anemia however sodium was 113, potassium 2.6, CO2 53, BUN/creatinine is 26 and 0.55, calcium is slightly low with normal lactic acid serum osmolality is 253, patient also went a computed tomography scan of the brain no acute changes identified also computed tomography scan of the chest with IV contrast , negative for pulmonary embolism consistent with COPD-like changes with bilateral subsegmental atelectasis, Objective - Vital Signs Vital signs: Vital Signs Temp 97.9 F 06/07/20 04:00 Pulse 76 06/07/20 09:06 Resp 20 06/07/20 04:00 BP 92/51 06/07/20 04:00 Pulse Ox 96 06/07/20 04:00 Intake & Output 06/06/20 06/07/20 06/07/20 18:59 06:59 18:59 Intake Total 720 222 Output Total 550 1775 Balance 170 -1553 Weight 81.5 kg Intake: Oral 720 222 Output: Urine 550 1775 Other: Voiding Method Indwelling Catheter # Bowel Movements 1 - Exam - Constitutional General appearance: average body habitus, cooperative, disheveled - EENT Eyes: PERRLA, ecchymosis periorbital improving ENT: normal oropharynx Ears: bilateral: normal - Neck Neck: normal ROM Carotids: bilateral: upstroke normal - Respiratory Respiratory: bilateral: diminished - Cardiovascular Rhythm: regular Heart sounds: normal: S1, S2 - Gastrointestinal General gastrointestinal: normal bowel sounds - Neurologic Neurologic: CNII-XII intact - Musculoskeletal Musculoskeletal: gait normal, generalized weakness, strength equal bilaterally - Psychiatric Psychiatric: A&O x's 3, appropriate affect, intact judgment & insight - Labs CBC & Chem 7: 06/07/20 07:28 06/07/20 07:28 Labs: Abnormal Lab Results - Last 24 Hours (Table) 06/06/20 06/06/20 06/06/20 Range/Units 10:31 10:34 11:46 RBC 3.02 L (3.80-5.40) m/uL Hgb 9.0 L (11.4-16.0) gm/dL Hct 29.2 L (34.0-46.0) % MCHC 30.6 L (31.0-37.0) g/dL Lymphocytes # 0.6 L (1.0-4.8) k/uL Sodium 124 L (137-145) mmol/L Chloride 80 L (98-107) mmol/L Carbon Dioxide 39 H (22-30) mmol/L Glucose 123 H (74-99) mg/dL POC Glucose (mg/dL) 136 H (75-99) mg/dL Calcium 8.2 L (8.4-10.2) mg/dL Total Protein 6.0 L (6.3-8.2) g/dL Albumin 3.1 L (3.5-5.0) g/dL 06/06/20 06/06/20 06/07/20 Range/Units 16:38 19:41 06:07 RBC (3.80-5.40) m/uL Hgb (11.4-16.0) gm/dL Hct (34.0-46.0) % MCHC (31.0-37.0) g/dL Lymphocytes # (1.0-4.8) k/uL Sodium (137-145) mmol/L Chloride (98-107) mmol/L Carbon Dioxide (22-30) mmol/L Glucose (74-99) mg/dL POC Glucose (mg/dL) 116 H 149 H 112 H (75-99) mg/dL Calcium (8.4-10.2) mg/dL Total Protein (6.3-8.2) g/dL Albumin (3.5-5.0) g/dL 06/07/20 06/07/20 Range/Units 07:28 07:28 RBC 2.85 L (3.80-5.40) m/uL Hgb 8.9 L (11.4-16.0) gm/dL Hct 28.0 L (34.0-46.0) % MCHC (31.0-37.0) g/dL Lymphocytes # (1.0-4.8) k/uL Sodium 127 L (137-145) mmol/L Chloride 87 L (98-107) mmol/L Carbon Dioxide 39 H (22-30) mmol/L Glucose (74-99) mg/dL POC Glucose (mg/dL) (75-99) mg/dL Calcium 8.0 L (8.4-10.2) mg/dL Total Protein 5.6 L (6.3-8.2) g/dL Albumin 2.9 L (3.5-5.0) g/dL Microbiology - Last 24 Hours (Table) 06/04/20 13:38 Blood Culture - Preliminary Blood No Growth after 48 hours Assessment and Plan Assessment: Generalized weakness tiredness likely related to severe hyponatremia and hypokalemia Hypoosmolar state Severe hyponatremia Severe hypokalemia Chronic hypoxic and hypercapnic respiratory failure 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
[2020-06-07 09:40] LABS: ALT 21 U/L (4-34); AST 35 U/L (14-36); African American GFR (CKD) >90 (>60 ml/min/1.73 sqM); Albumin 2.9 g/dL (3.5-5.0); Alkaline Phosphatase 110 U/L (38-126); Anion Gap 2 mmol/L; Blood Urea Nitrogen 12 mg/dL (7-17); Calcium 8.1 mg/dL (8.4-10.2); Carbon Dioxide 35 mmol/L (22-30); Chloride 89 mmol/L (98-107); Glucose 81 mg/dL (74-99); Non-African American GFR(CKD) >90 (>60 ml/min/1.73 sqM); Potassium 3.5 mmol/L (3.5-5.1); Sodium 126 mmol/L (137-145); Total Bilirubin 0.3 mg/dL (0.2-1.3); Total Protein 5.8 g/dL (6.3-8.2)
[2020-06-07 12:05] LABS: Glucose,Whole Blood 107 mg/dL (75-99)
--- NOTE | 2020-06-07 12:10 | P.PN ---
Subjective Progress Note Date: 06/07/20 This is a 64-year-old admitted with multiple medical issues including COPD exacerbation, hypokalemia, hyponatremia. Maintain IV fluid hydration. Sodium improving, 127. Significant generalized weakness, requires 2 person assist bedside commode. PT evaluation pending. Reports fatigue. Maintaining O2 sats on 3 L nasal cannula ( baseline). Hemoglobin 8.9. Objective - Vital Signs Vital signs: Vital Signs Temp 97.6 F 06/07/20 08:00 Pulse 76 06/07/20 09:06 Resp 20 06/07/20 08:00 BP 82/47 06/07/20 08:00 Pulse Ox 100 06/07/20 08:00 Intake & Output 06/06/20 06/07/20 06/07/20 18:59 06:59 18:59 Intake Total 720 222 240 Output Total 550 1775 Balance 170 -1553 240 Weight 81.5 kg Intake: Oral 720 222 240 Output: Urine 550 1775 Other: Voiding Method Indwelling Catheter Indwelling Catheter # Bowel Movements 1 - Exam - Exam General: Sitting up in bed, NAD. Vitals reviewed Lungs: normal respiratory effort, no wheezes or rales CV: Regular rate and rhythm, no murmur. Peripheral pulses 2+. No edema Abdomen: soft, nondistended, nontender no organomegaly. Positive bowel sounds Skin: warm and dry. Forehead bruising, scratch, small abrasion, right-sided torso bruising secondary to reported fall 2 weeks ago. - Labs CBC & Chem 7: 06/07/20 07:28 06/07/20 08:55 Labs: Abnormal Lab Results - Last 24 Hours (Table) 06/06/20 06/06/20 06/06/20 Range/Units 10:31 10:34 11:46 RBC 3.02 L (3.80-5.40) m/uL Hgb 9.0 L (11.4-16.0) gm/dL Hct 29.2 L (34.0-46.0) % MCHC 30.6 L (31.0-37.0) g/dL Lymphocytes # 0.6 L (1.0-4.8) k/uL Sodium 124 L (137-145) mmol/L Chloride 80 L (98-107) mmol/L Carbon Dioxide 39 H (22-30) mmol/L Glucose 123 H (74-99) mg/dL POC Glucose (mg/dL) 136 H (75-99) mg/dL Calcium 8.2 L (8.4-10.2) mg/dL Total Protein 6.0 L (6.3-8.2) g/dL Albumin 3.1 L (3.5-5.0) g/dL 06/06/20 06/06/20 06/07/20 Range/Units 16:38 19:41 06:07 RBC (3.80-5.40) m/uL Hgb (11.4-16.0) gm/dL Hct (34.0-46.0) % MCHC (31.0-37.0) g/dL Lymphocytes # (1.0-4.8) k/uL Sodium (137-145) mmol/L Chloride (98-107) mmol/L Carbon Dioxide (22-30) mmol/L Glucose (74-99) mg/dL POC Glucose (mg/dL) 116 H 149 H 112 H (75-99) mg/dL Calcium (8.4-10.2) mg/dL Total Protein (6.3-8.2) g/dL Albumin (3.5-5.0) g/dL 06/07/20 06/07/20 06/07/20 Range/Units 07:28 07:28 08:55 RBC 2.85 L (3.80-5.40) m/uL Hgb 8.9 L (11.4-16.0) gm/dL Hct 28.0 L (34.0-46.0) % MCHC (31.0-37.0) g/dL Lymphocytes # (1.0-4.8) k/uL Sodium 127 L 126 L (137-145) mmol/L Chloride 87 L 89 L (98-107) mmol/L Carbon Dioxide 39 H 35 H (22-30) mmol/L Glucose (74-99) mg/dL POC Glucose (mg/dL) (75-99) mg/dL Calcium 8.0 L 8.1 L (8.4-10.2) mg/dL Total Protein 5.6 L 5.8 L (6.3-8.2) g/dL Albumin 2.9 L 2.9 L (3.5-5.0) g/dL Microbiology - Last 24 Hours (Table) 06/04/20 13:38 Blood Culture - Preliminary Blood No Growth after 48 hours Assessment and Plan Assessment: 1) COPD with acute exacerbation. Current Visit: Yes Status: Acute Code(s): J44.1 - CHRONIC OBSTRUCTIVE PULMONARY DISEASE W (ACUTE) EXACERBATION SNOMED Code(s): 012590287 -Acute on chronic hypoxic and hypercapnic respiratory failure (2) Hyponatremia syndrome Current Visit: Yes Status: Acute Code(s): E87.1 - HYPO-OSMOLALITY AND HYPONATREMIA SNOMED Code(s): 5691356 (3) Congestive heart failure, chronic diastolic Current Visit: No Status: Acute Code(s): I50.9 - HEART FAILURE, UNSPECIFIED SNOMED Code(s): 26445819 (4) Type 2 diabetes mellitus Current Visit: No Status: Acute Code(s): E11.9 - TYPE 2 DIABETES MELLITUS WITHOUT COMPLICATIONS SNOMED Code(s): 03449179 Plan: Continue on current medication regime ,monitoring and symptomatic treatment. Aggressive pulmonary toileting, maintaining nebulized bronchodilators, oral steroids. PT/OT consult in place, recommendations pe nding. Social work consulted for potential subacute rehab. The impression and plan of care has been dictated as directed. : I performed a history and examination of this patient, discussed the same with the dictator. I agree with the dictator's note ,documented as a scribe. Any additional findings or plans will be noted.
[2020-06-07] MEDS ORDERED: POTASSIUM CHLORIDE ER 20 MEQ TAB.ER PO STA (12:23)
--- NOTE | 2020-06-07 12:25 | P.PN ---
Subjective Patient is seen in follow for electrolyte imbalance. Sodium level up to 126 this morning. Potassium level 3.5. Bicarb 35. She denies chest pain or shortness of breath. Nonoliguric. Maintained on normal saline. Appetite fair. No vomiting or diarrhea. Blood pressure on the lower side. Vital signs are stable. General: The patient appeared well nourished and normally developed. HEENT: Head exam is unremarkable. Neck is without jugular venous distension. LUNGS: Breath sounds decreased. HEART: Rate and Rhythm are regular. ABDOMEN: Soft, nontender. EXTREMITITES: No edema. Objective - Vital Signs Vital signs: Vital Signs Temp 97.8 F 06/07/20 11:50 Pulse 70 06/07/20 11:54 Resp 20 06/07/20 11:54 BP 102/65 06/07/20 11:50 Pulse Ox 94 L 06/07/20 11:50 Intake & Output 06/06/20 06/07/20 06/07/20 18:59 06:59 18:59 Intake Total 720 222 240 Output Total 550 1775 Balance 170 -1553 240 Weight 81.5 kg Intake: Oral 720 222 240 Output: Urine 550 1775 Other: Voiding Method Indwelling Catheter Indwelling Catheter # Bowel Movements 1 - Labs CBC & Chem 7: 06/07/20 07:28 06/07/20 08:55 Labs: Abnormal Lab Results - Last 24 Hours (Table) 06/06/20 06/06/20 06/07/20 Range/Units 16:38 19:41 06:07 RBC (3.80-5.40) m/uL Hgb (11.4-16.0) gm/dL Hct (34.0-46.0) % Sodium (137-145) mmol/L Chloride (98-107) mmol/L Carbon Dioxide (22-30) mmol/L POC Glucose (mg/dL) 116 H 149 H 112 H (75-99) mg/dL Calcium (8.4-10.2) mg/dL Total Protein (6.3-8.2) g/dL Albumin (3.5-5.0) g/dL 06/07/20 06/07/20 06/07/20 Range/Units 07:28 07:28 08:55 RBC 2.85 L (3.80-5.40) m/uL Hgb 8.9 L (11.4-16.0) gm/dL Hct 28.0 L (34.0-46.0) % Sodium 127 L 126 L (137-145) mmol/L Chloride 87 L 89 L (98-107) mmol/L Carbon Dioxide 39 H 35 H (22-30) mmol/L POC Glucose (mg/dL) (75-99) mg/dL Calcium 8.0 L 8.1 L (8.4-10.2) mg/dL Total Protein 5.6 L 5.8 L (6.3-8.2) g/dL Albumin 2.9 L 2.9 L (3.5-5.0) g/dL 06/07/20 Range/Units 11:47 RBC (3.80-5.40) m/uL Hgb (11.4-16.0) gm/dL Hct (34.0-46.0) % Sodium (137-145) mmol/L Chloride (98-107) mmol/L Carbon Dioxide (22-30) mmol/L POC Glucose (mg/dL) 107 H (75-99) mg/dL Calcium (8.4-10.2) mg/dL Total Protein (6.3-8.2) g/dL Albumin (3.5-5.0) g/dL Microbiology - Last 24 Hours (Table) 06/04/20 13:38 Blood Culture - Preliminary Blood No Growth after 48 hours Assessment and Plan Plan: Assessment: 1. Hypovolemic hyponatremia secondary to overdiuresis. She was on metolazone as well as Bumex which are currently held. Improved initially with normal saline. Urine sodium 29 and urine osmolality 184. TSH slightly low. Cortisol level low at 1. 2. Hypokalemia secondary to diuretics. 3. Metabolic alkalosis secondary to volume contraction from diuresis. Improving with Diamox. 4. Benign hypertension. Blood pressure currently low. 5. Diabetes mellitus. Plan: Decrease rate of normal saline to 50 mL an hour. Replace potassium. 40 mEq today. Discontinue Diamox. Perform cosyntropin stimulation test. If positive, will start Cortef. Add midodrine for now. Encouraged oral intake, particularly protein. 1200 mL fluid restriction
[2020-06-07] MEDS: MIDODRINE 5 MG TAB PO SCH ×2 (13:02→17:23)
[2020-06-07] MEDS ORDERED: COSYNTROPIN 0.25 MG VIAL IVP ONE (13:30)
[2020-06-07] MEDS: busPIRone HCl 10 MG TAB PO SCH ×2 (13:37→20:55)
[2020-06-07 13:55] LABS: Hemoglobin A1C 5.5 % (4.0-6.0)
[2020-06-07 17:05] LABS: Glucose,Whole Blood 133 mg/dL (75-99)
[2020-06-07 20:37] LABS: Glucose,Whole Blood 125 mg/dL (75-99)
[2020-06-07] MEDS: GABAPENTIN 400 MG CAP PO SCH (20:54)
[2020-06-07] MEDS: traZODone HCL 100 MG TAB PO SCH (20:55)
[2020-06-08] MEDS: IPRATROPIUM-ALBUTEROL 3 ML NEB INHALATION PRN ×5 (04:05→20:10)
[2020-06-08 04:36] LABS: Basophils % (A) 0 %; Eosinophils # (A) 0.1 k/uL (0-0.7); Eosinophils % (A) 1 %; HCT 29.1 % (34.0-46.0); HGB 9.2 gm/dL (11.4-16.0); Hypochromasia Slight; Lymphocytes # (A) 1.3 k/uL (1.0-4.8); Lymphocytes % (A) 18 %; MCH 31.1 pg (25.0-35.0); MCHC 31.4 g/dL (31.0-37.0); Macrocytosis Slight; Monocytes # (A) 0.4 k/uL (0-1.0); Monocytes % (A) 6 %; Neutrophils # (A) 5.3 k/uL (1.3-7.7); Neutrophils % (A) 72 %; Platelet Count 238 k/uL (150-450); RBC 2.94 m/uL (3.80-5.40); RDW 15.3 % (11.5-15.5); WBC 7.4 k/uL (3.8-10.6)
[2020-06-08 04:45] LABS: African American GFR (CKD) >90 (>60 ml/min/1.73 sqM); Anion Gap 1 mmol/L; Blood Urea Nitrogen 12 mg/dL (7-17); Calcium 8.3 mg/dL (8.4-10.2); Carbon Dioxide 38 mmol/L (22-30); Chloride 88 mmol/L (98-107); Glucose 95 mg/dL (74-99); Magnesium 1.9 mg/dL (1.6-2.3); Non-African American GFR(CKD) >90 (>60 ml/min/1.73 sqM); Potassium 4.1 mmol/L (3.5-5.1); Sodium 127 mmol/L (137-145)
[2020-06-08] MEDS: FORMOTEROL FUMARATE 20 MCG/2 ML NEBU INHALATION SCH ×2 (07:18→20:10)
[2020-06-08] MEDS: BUDESONIDE 1 MG/2 ML NEBU INHALATION SCH ×2 (07:18→20:10)
[2020-06-08 07:20] LABS: Glucose,Whole Blood 91 mg/dL (75-99)
[2020-06-08] MEDS: INSULIN ASPART (NovoLOG) 100 UNIT/ML VIAL SQ SCH ×4 (07:38→21:42)
[2020-06-08] MEDS: CLOPIDOGREL 75 MG TAB PO SCH (07:54)
[2020-06-08] MEDS: MIDODRINE 5 MG TAB PO SCH ×3 (07:54→17:19)
[2020-06-08] MEDS: ASPIRIN 81 MG PO SCH (07:54)
[2020-06-08] MEDS: ATORVASTATIN 80 MG TAB PO SCH (07:55)
[2020-06-08] MEDS: SERTRALINE 100 MG TAB PO SCH (07:55)
[2020-06-08] MEDS: busPIRone HCl 10 MG TAB PO SCH ×2 (07:55→21:45)
[2020-06-08] MEDS: FAMOTIDINE 20 MG TAB PO SCH (07:55)
[2020-06-08] MEDS: MONTELUKAST 10 MG TAB PO SCH (07:55)
[2020-06-08] MEDS: atenoloL 25 MG TAB PO SCH (09:37)
[2020-06-08] MEDS: predniSONE 20 MG TAB PO SCH (09:37)
[2020-06-08] MEDS: metFORMIN 500 MG TAB PO SCH ×2 (09:37→21:45)
[2020-06-08] MEDS: PHENYTOIN SODIUM EXTENDED 100 MG CAP PO SCH ×2 (10:18→21:58)
--- NOTE | 2020-06-08 11:04 | P.PN ---
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 COPD Bilateral carotid stenosis Hypertension hypertensive cardiovascular disease Dyslipidemia Mood disorder History of aneurysm Hypertension hypertensive cardiovascular disease Chronic diastolic heart failure June 08 2020, patient seen eval examined care plan discussed and reviewed medications reviewed, continue to have generalized weakness is slightly better respiratory status remains stable, does have ongoing shortness of breath, patient has been on positive pressure ventilation at night and when necessary during the day otherwise on supplemental oxygen, has improved significantly, labs from this morning has been reviewed hemoglobin remained stable, sodium is up to 127, renal functions stable, calcium is 8.3, random cortisol level is 29, CO2 is improved now 38 continue to go down, patient remains afebrile with stable hemodynamics except slight low blood pressure has been noted, on 3 L nasal cannula oxygen saturation is 96-99% 06/07/2020, patient seen eval examined during the rounds labs reviewed medications reviewed care plan discussed, denies any chest pain breathing is stable on supplemental oxygen is still feeling very weak though, labs from this morning reviewed hemoglobin remained stable 8.9, sodium up to 127 now, computed tomography scan of the chest reviewed bilateral basilar scarring along with COPD changes identified no evidence of masses noted, patient didn't use the CPAP machine last night 06/06/2020, patient seen and evaluated examined, respiratory status remains stable, sodium continued to improve up to 120 for now, respiratory status remains stable on supplemental oxygen patient has been using BiPAP machine, she is remains afebrile last saturation is 95% on supplemental oxygen, labs from today reviewed, 06/05/2020, patient seen eval examined during the rounds in the emergency department, labs reviewed medications reviewed radiographic studies reviewed as well care plan discussed with the staff as well as the patient at length, respiratory status remains stable patient however has been more oxygen than usua l baseline at home she uses 3-4 L oxygen currently she is on 6 L, patient is awake and well oriented, gently being hydrated, sodium level slightly up today she was being replaced as well, we'll make arrangements for a noninvasive ventilation as well he should night and when necessary during the day, This is a 64-year-old female with end-stage lung disease secondary due to severe COPD emphysema has been oxygen dependent 3 L prednisone-dependent and home vent dependent, patient had a fall about 3 weeks ago developed bilateral facial ecchymosis periorbitally via an laceration on the Foradil require repair and visit to the ER, CT had at that time was negative, and subsequently A patient was seen in the hospital his respiratory status remains stable mild shortness of breath is present over the last 2 or 3 years patient has been feeling very weak and exhausted and has been more short of breath than usual, patient noted to have a normal CBC with chronic anemia however sodium was 113, potassium 2.6, CO2 53, BUN/creatinine is 26 and 0.55, calcium is slightly low with normal lactic acid serum osmolality is 253, patient also went a computed tomography scan of the brain no acute changes identified also computed tomography scan of the chest with IV contrast , negative for pulmonary embolism consistent with COPD-like changes with bilateral subsegmental atelectasis, Objective - Vital Signs Vital signs: Vital Signs Temp 97.5 F L 06/08/20 08:56 Pulse 85 06/08/20 08:56 Resp 17 06/08/20 08:56 BP 95/62 06/08/20 08:56 Pulse Ox 97 06/08/20 08:56 Intake & Output 06/07/20 06/08/20 06/08/20 18:59 06:59 18:59 Intake Total 720 450 Output Total 600 1200 Balance 120 -750 Intake: Oral 720 450 Output: Urine 600 1200 Uretheral (Chand) 600 Other: Voiding Method Indwelling Catheter Indwelling Catheter Indwelling Catheter - Exam - Constitutional General appearance: average body habitus, cooperative, disheveled - EENT Eyes: PERRLA, ecchymosis periorbital improving ENT: normal oropharynx Ears: bilateral: normal - Neck Neck: normal ROM Carotids: bilateral: upstroke normal - Respiratory Respiratory: bilateral: diminished - Cardiovascular Rhythm: regular Heart sounds: normal: S1, S2 - Gastrointestinal General gastrointestinal: normal bowel sounds - Neurologic Neurologic: CNII-XII intact - Musculoskeletal Musculoskeletal: gait normal, generalized weakness, strength equal bilaterally - Psychiatric Psychiatric: A&O x's 3, appropriate affect, intact judgment & insight - Labs CBC & Chem 7: 06/08/20 03:33 06/08/20 03:33 Labs: Abnormal Lab Results - Last 24 Hours (Table) 06/07/20 06/07/20 06/07/20 Range/Units 11:47 16:45 20:35 RBC (3.80-5.40) m/uL Hgb (11.4-16.0) gm/dL Hct (34.0-46.0) % Sodium (137-145) mmol/L Chloride (98-107) mmol/L Carbon Dioxide (22-30) mmol/L POC Glucose (mg/dL) 107 H 133 H 125 H (75-99) mg/dL Calcium (8.4-10.2) mg/dL 06/08/20 06/08/20 Range/Units 03:33 03:33 RBC 2.94 L (3.80-5.40) m/uL Hgb 9.2 L (11.4-16.0) gm/dL Hct 29.1 L (34.0-46.0) % Sodium 127 L (137-145) mmol/L Chloride 88 L (98-107) mmol/L Carbon Dioxide 38 H (22-30) mmol/L POC Glucose (mg/dL) (75-99) mg/dL Calcium 8.3 L (8.4-10.2) mg/dL Microbiology - Last 24 Hours (Table) 06/04/20 13:38 Blood Culture - Preliminary Blood No Growth after 72 hours Assessment and Plan Assessment: Generalized weakness tiredness likely related to severe hyponatremia and hypokalemia Hypoosmolar state Severe hyponatremia Severe hypokalemia Chronic hypoxic and hypercapnic respiratory failure 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
[2020-06-08 11:14] LABS: Glucose,Whole Blood 114 mg/dL (75-99)
--- NOTE | 2020-06-08 15:32 | PN ---
PROGRESS NOTE Patient is seen for followup for hyponatremia. Serum sodium has improved, however, staying at about 126-127 mEq/ L. The patient currently denies any significant complaints. She was sleeping but easily arousable. Blood pressure has been on the lower side with systolic around 95-106 mmHg. This morning blood pressure 106/56, heart rate 82 per minute, she is afebrile. Examination of the heart S1, S2. Examination of the lungs, bilateral breath sounds are heard. Abdomen is soft, nontender. Examination of lower extremities shows no edema. POSTDOCTORAL SCIENTIST exam grossly intact. LABS: Show sodium 127, potassium 4.1, chloride 88, CO2 is 38, BUN 12, creatinine 0.6, hemoglobin 9.2 g/dL. ASSESSMENT: 1. Hyponatremia, initially hypovolemic, currently improved. Diuretics are on hold. Blood pressure remains on the lower side. Serum sodium staying at about 127 mEq/L. I will add a couple of doses of sodium chloride tablets. 2. Hypokalemia secondary to diuretics, status post replacement. 3. Benign hypertension. 4. Type 2 diabetes. 5. Adrenal insufficiency, maintained on Cortef. PLAN: Continue with the Cortef. Add a couple of doses of sodium chloride tabs today and repeat sodium in a.m. Continue to encourage increased oral intake. MMODL / IJN: [id number] /
[2020-06-08 17:05] LABS: Glucose,Whole Blood 128 mg/dL (75-99)
[2020-06-08] MEDS: SODIUM CHLORIDE 0.9% 1,000 ML IV SCH (17:19)
[2020-06-08] MEDS: SODIUM CHLORIDE TAB 1 GM TAB PO SCH (17:20)
[2020-06-08 20:23] LABS: Glucose,Whole Blood 114 mg/dL (75-99)
--- NOTE | 2020-06-08 20:28 | PN ---
PROGRESS NOTE DATE OF SERVICE: 06/08/2020 I am covering for Dr. Long. This 64-year-old woman who was admitted with COPD acute exacerbation also has hyponatremia. The patient being closely monitored at this time. Nephrology following the patient closely. Sodium is 127 at this time. Hemoglobin 9.2. Dr. Chamberlain is following the patient closely also. Past medical history reviewed. REVIEW OF SYSTEMS: Cardiovascular as mentioned earlier. Respiratory as mentioned earlier. GI: As mentioned earlier. : No dysuria. NERVOUS SYSTEM: No numbness or weakness. CURRENT MEDICATIONS: Reviewed and include: DuoNeb, aspirin, Tenormin, Lipitor, Pulmicort, Plavix, Pepcid. NovoLog. Glucophage. ProAmatine, Singulair, Dilantin, prednisone, Restoril. PHYSICAL EXAM: Patient is alert, oriented x3. Pulse is 82. Blood pressure 106/53, respiration 17, temperature 97.9, pulse ox 96% on 3 L. HEENT: Conjunctivae normal. NECK: No JVD. CARDIOVASCULAR: S1, S2 muffled. RESPIRATORY: Breath sounds diminished in the bases. Bilateral scattered rhonchi and crackles. ABDOMEN: Soft, nontender. LEGS: No edema. No swelling. NERVOUS SYSTEM: No focal deficits. LABS: WBC 7.3, hemoglobin 9.2, sodium 127, and chloride is 88. ASSESSMENT: 1. Chronic obstructive pulmonary disease acute exacerbation with acute purulent tracheobronchitis. 2. Hyponatremia. Possibly hypovolemic and also secondary to diuretics. 3. Congestive heart failure with chronic diastolic dysfunction. 4. Diabetes mellitus type 2. 5. Anemia, normocytic anemia of chronic disease. 6. Hypertension. 7. Chronic obstructive pulmonary disease. 8. History of pneumonia. 9. History of sleep apnea. 10.History of chronic hypoxic respiratory failure. 11.History of anxiety. RECOMMENDATIONS AND DISCUSSION: This 64-year-old woman who presented with multiple complex medical issues, we will monitor the patient closely. Continue the current medications, management and symptomatic treatment. Otherwise, at this time, I recommend repeat labs. Monitor closely. PT/OT evaluation. Guarded prognosis. Further recommendations to follow. MMODL / IJN: [id number] / MTDD
[2020-06-08] MEDS: traZODone HCL 100 MG TAB PO SCH (21:45)
[2020-06-08] MEDS: GABAPENTIN 400 MG CAP PO SCH (21:45)
[2020-06-09] MEDS: SODIUM CHLORIDE TAB 1 GM TAB PO SCH ×2 (00:46→08:07)
[2020-06-09] MEDS: IPRATROPIUM-ALBUTEROL 3 ML NEB INHALATION PRN ×7 (00:51→23:45)
[2020-06-09 02:16] LABS: Appearance,Urine Clear (Clear); Bilirubin,Urine Negative (Negative); Blood,Urine Moderate (Negative); Color,Urine Yellow; Glucose,Urine (UA) Negative (Negative); Ketones,Urine Negative (Negative); Leukocyte Esterase,Urine Negative (Negative); Mucus,Urine Occasional /hpf; Nitrite,Urine Negative (Negative); PH, Urine 5.5 (5.0-8.0); Protein,Urine Trace (Negative); RBC,Urine 57 /hpf (0-5); Specific Gravity,Urine 1.013 (1.001-1.035); Squamous Epithelial Cell,Urine <1 /hpf (0-4); Urobilinogen,Urine <2.0 mg/dL (<2.0); WBC,Urine 1 /hpf (0-5)
[2020-06-09 07:09] LABS: Basophils % (A) 0 %; Eosinophils # (A) 0.1 k/uL (0-0.7); Eosinophils % (A) 1 %; HCT 28.5 % (34.0-46.0); HGB 8.9 gm/dL (11.4-16.0); Hypochromasia Slight; Lymphocytes # (A) 0.8 k/uL (1.0-4.8); Lymphocytes % (A) 10 %; MCH 30.8 pg (25.0-35.0); MCHC 31.2 g/dL (31.0-37.0); MCV 98.9 fL (80.0-100.0); Mean Platelet Volume 6.6; Monocytes # (A) 0.5 k/uL (0-1.0); Monocytes % (A) 6 %; Neutrophils # (A) 6.7 k/uL (1.3-7.7); Neutrophils % (A) 81 %; Platelet Count 235 k/uL (150-450); RBC 2.88 m/uL (3.80-5.40); RDW 15.3 % (11.5-15.5); WBC 8.2 k/uL (3.8-10.6)
[2020-06-09 07:11] LABS: Glucose,Whole Blood 100 mg/dL (75-99)
[2020-06-09] MEDS: INSULIN ASPART (NovoLOG) 100 UNIT/ML VIAL SQ SCH ×4 (07:13→21:07)
[2020-06-09] MEDS: BUDESONIDE 1 MG/2 ML NEBU INHALATION SCH ×2 (07:33→20:11)
[2020-06-09] MEDS: FORMOTEROL FUMARATE 20 MCG/2 ML NEBU INHALATION SCH ×2 (07:33→20:11)
[2020-06-09] MEDS: CLOPIDOGREL 75 MG TAB PO SCH (08:04)
[2020-06-09] MEDS: ASPIRIN 81 MG PO SCH (08:04)
[2020-06-09] MEDS: busPIRone HCl 10 MG TAB PO SCH ×2 (08:04→21:11)
[2020-06-09] MEDS: atenoloL 25 MG TAB PO SCH (08:04)
[2020-06-09] MEDS: MIDODRINE 5 MG TAB PO SCH ×3 (08:04→17:35)
[2020-06-09] MEDS: ATORVASTATIN 80 MG TAB PO SCH (08:04)
[2020-06-09] MEDS: metFORMIN 500 MG TAB PO SCH ×2 (08:05→21:11)
[2020-06-09] MEDS: FAMOTIDINE 20 MG TAB PO SCH (08:05)
[2020-06-09] MEDS: FERROUS SULFATE 325 MG TAB PO SCH (08:05)
[2020-06-09] MEDS: MONTELUKAST 10 MG TAB PO SCH (08:05)
[2020-06-09] MEDS: SERTRALINE 100 MG TAB PO SCH (08:06)
[2020-06-09] MEDS: PHENYTOIN SODIUM EXTENDED 100 MG CAP PO SCH ×2 (08:06→21:11)
[2020-06-09] MEDS: predniSONE 20 MG TAB PO SCH (08:06)
[2020-06-09] MEDS ORDERED: ERGOCALCIFEROL 50,000 UNIT CAP PO SCH (09:00)
[2020-06-09 09:27] LABS: African American GFR (CKD) 126.7 (60.0-200.0); Anion Gap 2.9 mmol/L (4.00-12.00); Calcium 8.2 mg/dL (8.7-10.3); Carbon Dioxide 37.1 mmol/L (21.6-31.8); Non-African American GFR(CKD) 109.3 (60.0-200.0); Potassium 4.2 mmol/L (3.5-5.5)
[2020-06-09 11:21] LABS: Glucose,Whole Blood 109 mg/dL (75-99)
--- NOTE | 2020-06-09 13:31 | PN ---
PROGRESS NOTE Patient is seen for followup for hyponatremia her serum sodium has improved to 136 today. The patient is maintained on sodium chloride tabs. She has some lower extremity edema noted. The patient is maintained on normal saline at 50 mL an hour as well. She denies any significant complaints today. PHYSICAL EXAMINATION: Blood pressure was 107/58, heart rate 90 per minute, she is afebrile. Examination of the heart S1, S2. Examination of the lungs, bilateral breath sounds are heard. Abdomen is soft, nontender. Examination of lower extremities shows edema 1+ bilaterally. SUMATRA OPENER exam grossly intact. LAB: Show sodium of 136, potassium 4.2, chloride 96, serum creatinine 0.4. ASSESSMENT: 1. Hyponatremia, initially euvolemic, currently mildly hypervolemic. The patient received a couple of doses of sodium chloride tabs. Her sodium is up to 136. I will discontinue the sodium chloride tabs, DC the normal saline and check labs again. We will likely give her a dose of Lasix depending on her volume status tomorrow. 2. Hypokalemia secondary to diuretics status post replacement. 3. Hypertension, benign, currently stable. 4. Adrenal insufficiency maintained on Cortef. PLAN: Discontinue normal saline, DC sodium chloride tabs and check labs in a.m. Continue to maintain adequate oral intake particularly protein. MMODL / IJN: [id number] /
[2020-06-09 16:59] LABS: Glucose,Whole Blood 115 mg/dL (75-99)
[2020-06-09] MEDS: SODIUM CHLORIDE 0.9% 1,000 ML IV SCH (17:33)
--- NOTE | 2020-06-09 18:40 | P.PN ---
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 COPD Bilateral carotid stenosis Hypertension hypertensive cardiovascular disease Dyslipidemia Mood disorder History of aneurysm Hypertension hypertensive cardiovascular disease Chronic diastolic heart failure June 09 2020, patient seen eval examined during the rounds labs reviewed medications reviewed, respiratory status remains stable still have significant generalized weakness, denies any chest pain, patient remains afebrile with stable hemodynamics, CO2 continued to come down, saturation is 97% on 3 L, sugars stable 115, blood cultures no growth, June 08 2020, patient seen eval examined care plan discussed and reviewed medications reviewed, continue to have generalized weakness is slightly better respiratory status remains stable, does have ongoing shortness of breath, patient has been on positive pressure ventilation at night and when necessary during the day otherwise on supplemental oxygen, has improved significantly, labs from this morning has been reviewed hemoglobin remained stable, sodium is up to 127, renal functions stable, calcium is 8.3, random cortisol level is 29, CO2 is improved now 38 continue to go down, patient remains afebrile with stable hemodynamics except slight low blood pressure has been noted, on 3 L nasal can nula oxygen saturation is 96-99% 06/07/2020, patient seen eval examined during the rounds labs reviewed medications reviewed care plan discussed, denies any chest pain breathing is stable on supplemental oxygen is still feeling very weak though, labs from this morning reviewed hemoglobin remained stable 8.9, sodium up to 127 now, computed tomography scan of the chest reviewed bilateral basilar scarring along with COPD changes identified no evidence of masses noted, patient didn't use the CPAP machine last night 06/06/2020, patient seen and evaluated examined, respiratory status remains stab le, sodium continued to improve up to 120 for now, respiratory status remains stable on supplemental oxygen patient has been using BiPAP machine, she is remains afebrile last saturation is 95% on supplemental oxygen, labs from today reviewed, 06/05/2020, patient seen eval examined during the rounds in the emergency department, labs reviewed medications reviewed radiographic studies reviewed as well care plan discussed with the staff as well as the patient at length, respiratory status remains stable patient however has been more oxygen than usual baseline at home she uses 3-4 L oxygen currently she is on 6 L, patient is awake and well oriented, gently being hydrated, sodium level slightly up today she was being replaced as well, we'll make arrangements for a noninvasive ventilation as well he should night and when necessary during the day, This is a 64-year-old female with end-stage lung disease secondary due to severe COPD emphysema has been oxygen dependent 3 L prednisone-dependent and home vent dependent, patient had a fall about 3 weeks ago developed bilateral facial ecchymosis periorbitally via an laceration on the Foradil require repair and visit to the ER, CT had at that time was negative, and subsequently A patient was seen in the hospital his respiratory status remains stable mild shortness of breath is present over the last 2 or 3 years patient has been feeling very weak and exhausted and has been more short of breath than usual, patient noted to have a normal CBC with chronic anemia however sodium was 113, potassium 2.6, CO2 53, BUN/creatinine is 26 and 0.55, calcium is slightly low with normal lactic acid serum osmolality is 253, patient also went a computed tomography scan of the brain no acute changes identified also computed tomography scan of the chest with IV contrast , negative for pulmonary embolism consistent with COPD-like changes with bilateral subsegmental atelectasis, Objective - Vital Signs Vital signs: Vital Signs Temp 98 F 06/09/20 11:51 Pulse 76 06/09/20 16:22 Resp 17 06/09/20 11:51 BP 107/58 06/09/20 11:51 Pulse Ox 97 06/09/20 11:51 Intake & Output 06/08/20 06/09/20 06/09/20 18:59 06:59 18:59 Intake Total 844 687 Output Total 179 459 0111 Balance 294 -767 -984 Intake: Intake, IV Titration 400 Amount Sodium Chloride 0.9% 1, 400 000 ml @ 50 mls/hr IV . Q20H [facility] Rx#:[id number] Oral [id number] [id number] Output: Urine 015 [id number] Other: Voiding Method Indwelling Catheter Indwelling Catheter Indwelling Catheter - Exam - Constitutional General appearance: average body habitus, cooperative, disheveled - EENT Eyes: PERRLA, ecchymosis periorbital improving ENT: normal oropharynx Ears: bilateral: normal - Neck Neck: normal ROM Carotids: bilateral: upstroke normal - Respiratory Respiratory: bilateral: diminished - Cardiovascular Rhythm: regular Heart sounds: normal: S1, S2 - Gastrointestinal General gastrointestinal: normal bowel sounds - Neurologic Neurologic: CNII-XII intact - Musculoskeletal Musculoskeletal: gait normal, generalized weakness, strength equal bilaterally - Psychiatric Psychiatric: A&O x's 3, appropriate affect, intact judgment & insight - Labs CBC & Chem 7: 06/09/20 06:33 06/09/20 06:33 Labs: Abnormal Lab Results - Last 24 Hours (Table) 06/08/20 06/09/20 06/09/20 Range/Units 20:22 02:05 06:33 RBC 2.88 L (3.80-5.40) m/uL Hgb 8.9 L (11.4-16.0) gm/dL Hct 28.5 L (34.0-46.0) % Lymphocytes # 0.8 L (1.0-4.8) k/uL Carbon Dioxide (21.6-31.8) mmol/L Anion Gap (4.00-12.00) mmol/L Creatinine (0.6-1.5) mg/dL BUN/Creatinine Ratio (12.00-20.00) Ratio POC Glucose (mg/dL) 114 H (75-99) mg/dL Calcium (8.7-10.3) mg/dL Urine Protein Trace H (Negative) Urine Blood Moderate H (Negative) Urine RBC 57 H (0-5) /hpf Urine Mucus Occasional H (None) /hpf 06/09/20 06/09/20 06/09/20 Range/Units 06:33 07:09 11:20 RBC (3.80-5.40) m/uL Hgb (11.4-16.0) gm/dL Hct (34.0-46.0) % Lymphocytes # (1.0-4.8) k/uL Carbon Dioxide 37.1 H (21.6-31.8) mmol/L Anion Gap 2.90 L (4.00-12.00) mmol/L Creatinine 0.4 L (0.6-1.5) mg/dL BUN/Creatinine Ratio 25.00 H (12.00-20.00) Ratio POC Glucose (mg/dL) 100 H 109 H (75-99) mg/dL Calcium 8.2 L (8.7-10.3) mg/dL Urine Protein (Negative) Urine Blood (Negative) Urine RBC (0-5) /hpf Urine Mucus (None) /hpf 06/09/20 Range/Units 16:59 RBC (3.80-5.40) m/uL Hgb (11.4-16.0) gm/dL Hct (34.0-46.0) % Lymphocytes # (1.0-4.8) k/uL Carbon Dioxide (21.6-31.8) mmol/L Anion Gap (4.00-12.00) mmol/L Creatinine (0.6-1.5) mg/dL BUN/Creatinine Ratio (12.00-20.00) Ratio POC Glucose (mg/dL) 115 H (75-99) mg/dL Calcium (8.7-10.3) mg/dL Urine Protein (Negative) Urine Blood (Negative) Urine RBC (0-5) /hpf Urine Mucus (None) /hpf Microbiology - Last 24 Hours (Table) 06/04/20 13:38 Blood Culture - Preliminary Blood No Growth after 120 hours Assessment and Plan Assessment: Generalized weakness tiredness likely related to severe hyponatremia and hypokalemia Hypoosmolar state Severe hyponatremia, almost normalized Severe hypokalemia, improved significantly Chronic hypoxic and hypercapnic respiratory failure 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 COPD Bilateral carotid stenosis Hypertension hypertensive cardiovascular disease Dyslipidemia Mood disorder History of aneurysm Hypertension hypertensive cardiovascular disease Chronic diastolic heart failure Plan: Gentle rehydration, encouraged patient to take by mouth Continue bronchodilator along with nebulizer and positive pressure ventilation as needed each night and when necessary during the day Fall precautions Oral steroids, continue to taper slowly Noninvasive ventilation support each night and when necessary during the day Supplemental oxygen PT OT evaluation/rehab evaluation Time with Patient: Greater than 30
[2020-06-09 20:45] LABS: Glucose,Whole Blood 115 mg/dL (75-99)
[2020-06-09] MEDS: GABAPENTIN 400 MG CAP PO SCH (21:10)
[2020-06-09] MEDS: traZODone HCL 100 MG TAB PO SCH (21:11)
--- NOTE | 2020-06-10 02:26 | PN ---
PROGRESS NOTE DATE OF SERVICE: 06/09/2020. I am covering for Dr. Long. This 64-year-old woman who was admitted with COPD acute exacerbation also had some hyponatremia. Patient complains of weakness. No chest pain. No palpitations. PT, OT is evaluating the patient. PAST MEDICAL HISTORY: Reviewed. REVIEW OF SYSTEMS: CARDIOVASCULAR SYSTEM: No angina. RESPIRATORY SYSTEM: As mentioned earlier. GI: No nausea. : No dysuria. NERVOUS SYSTEM: No numbness or weakness. MEDICATIONS: Current medications are reviewed and include: DuoNeb, aspirin, Tenormin, Lipitor, Pulmicort, BuSpar, Plavix, Vitamin D2, Pepcid, iron sulfate, Neurontin, NovoLog, Glucophage, Singulair, Dilantin, prednisone, Zoloft, Desyrel. Doses are reviewed. PHYSICAL EXAMINATION: Patient is alert, oriented x3. Pulse is 90. Blood pressure 107/58, respiration 17, temperature 98 degrees, pulse ox 97% on 3L. HEENT: Conjunctivae normal. NECK: No jugular venous distention. CARDIOVASCULAR: S1, S2 muffled. RESPIRATORY: Breath sounds diminished at the bases. A few scattered rhonchi and crackles. ABDOMEN: Soft, nontender. LEGS: No edema. NERVOUS SYSTEM: Diffusely weak. LABS: WBC 8.2, hemoglobin is 8.9, and creatinine is 2.90. ASSESSMENT: 1. Chronic obstructive pulmonary disease acute exacerbation with acute purulent tracheobronchitis. 2. Hyponatremia, possibly hypovolemic, also secondary to diuretics. 3. Gait dysfunction. 4. Congestive heart failure with chronic diastolic dysfunction. 5. Diabetes mellitus type 2. 6. Anemia, normocytic anemia of chronic disease. 7. Hypertension. 8. History of chronic obstructive pulmonary disease. 9. History of pneumonia. 10.History of sleep apnea. 11.History of chronic hypoxic respiratory failure. 12.History of anxiety. RECOMMENDATIONS AND DISCUSSION: This 64-year-old woman who presented with multiple complex medical issues, we will monitor the patient closely, continue the current medications, continue symptomatic treatment. Continue the bronchodilators, continue steroids. Continue the rest of medications. Otherwise, closely follow with Dr. Chamberlain and Dr. Long will follow tomorrow. MMODL / IJN: [id number] /
[2020-06-10] MEDS: IPRATROPIUM-ALBUTEROL 3 ML NEB INHALATION PRN ×4 (04:29→15:54)
[2020-06-10 05:36] VITALS: TEMP 97.9
[2020-06-10 06:45] LABS: Basophils % (A) 0 %; Eosinophils # (A) 0.1 k/uL (0-0.7); Eosinophils % (A) 1 %; HCT 28.8 % (34.0-46.0); HGB 9.2 gm/dL (11.4-16.0); Hypochromasia Slight; Lymphocytes # (A) 0.8 k/uL (1.0-4.8); Lymphocytes % (A) 10 %; MCH 30.8 pg (25.0-35.0); MCV 96.2 fL (80.0-100.0); Mean Platelet Volume 7.3; Monocytes # (A) 0.5 k/uL (0-1.0); Monocytes % (A) 6 %; Neutrophils # (A) 6.7 k/uL (1.3-7.7); Neutrophils % (A) 82 %; Platelet Count 229 k/uL (150-450); RBC 2.99 m/uL (3.80-5.40); RDW 15.4 % (11.5-15.5); WBC 8.1 k/uL (3.8-10.6)
[2020-06-10 07:20] LABS: Glucose,Whole Blood 116 mg/dL (75-99)
[2020-06-10] MEDS: INSULIN ASPART (NovoLOG) 100 UNIT/ML VIAL SQ SCH ×2 (07:49→12:29)
[2020-06-10] MEDS: ASPIRIN 81 MG PO SCH (08:08)
[2020-06-10] MEDS: atenoloL 25 MG TAB PO SCH (08:08)
[2020-06-10] MEDS: busPIRone HCl 10 MG TAB PO SCH (08:08)
[2020-06-10] MEDS: MIDODRINE 5 MG TAB PO SCH ×2 (08:08→12:10)
[2020-06-10] MEDS: ATORVASTATIN 80 MG TAB PO SCH (08:08)
[2020-06-10] MEDS: CLOPIDOGREL 75 MG TAB PO SCH (08:16)
[2020-06-10] MEDS: FAMOTIDINE 20 MG TAB PO SCH (08:16)
[2020-06-10] MEDS: FERROUS SULFATE 325 MG TAB PO SCH (08:17)
[2020-06-10] MEDS: MONTELUKAST 10 MG TAB PO SCH (08:17)
[2020-06-10] MEDS: predniSONE 20 MG TAB PO SCH (08:17)
[2020-06-10] MEDS: PHENYTOIN SODIUM EXTENDED 100 MG CAP PO SCH (08:17)
[2020-06-10] MEDS: metFORMIN 500 MG TAB PO SCH (08:17)
[2020-06-10] MEDS: SERTRALINE 100 MG TAB PO SCH (08:18)
[2020-06-10 11:01] LABS: African American GFR (CKD) 117.7 (60.0-200.0); Anion Gap 4.7 mmol/L (4.00-12.00); Calcium 8.4 mg/dL (8.7-10.3); Carbon Dioxide 38.3 mmol/L (21.6-31.8); Non-African American GFR(CKD) 101.6 (60.0-200.0); Potassium 3.8 mmol/L (3.5-5.5)
[2020-06-10] MEDS: FORMOTEROL FUMARATE 20 MCG/2 ML NEBU INHALATION SCH (11:15)
[2020-06-10] MEDS: BUDESONIDE 1 MG/2 ML NEBU INHALATION SCH (11:15)
--- NOTE | 2020-06-10 11:16 | P.DS ---
Providers Date of admission: 06/04/20 16:54 Expected date of discharge: 06/10/20 Attending physician: Gio Long MD Consults: 06/04/20 16:54 Consult Physician Routine Consulting Provider: Tani Chamberlain Consult Reason/Comments: COPD exacerbation, hyponatremia Do you want consulting provider notified?: Already Contacted 06/04/20 18:24 Consult Physician Routine Consulting Provider: Gustabo Stiles Consult Reason/Comments: hyponatremia Do you want consulting provider notified?: Yes Primary care physician: Asha Pacheco [facility] Course: Final Diagnoses: 1) COPD with acute exacerbation. Current Visit: Yes Status: Acute Code(s): J44.1 - CHRONIC OBSTRUCTIVE PULMONARY DISEASE W (ACUTE) EXACERBATION SNOMED Code(s): 894956130 -Acute on chronic hypoxic and hypercapnic respiratory failure, improved (2) Hyponatremia syndrome secondary to hypovolemic with accompanying generalized weakness. Bumex and metolazone discontinued. Current Visit: Yes Status: Acute Code(s): E87.1 - HYPO-OSMOLALITY AND HYPONATREMIA SNOMED Code(s): 9637534 (3) Congestive heart failure, chronic diastolic Current Visit: No Status: Acute Code(s): I50.9 - HEART FAILURE, UNSPECIFIED SNOMED Code(s): 16447843 (4) Type 2 diabetes mellitus Current Visit: No Status: Acute Code(s): E11.9 - TYPE 2 DIABETES MELLITUS WITHOUT COMPLICATIONS SNOMED Code(s): 59853925 Hospital course:This is a 64-year-old admitted with multiple medical issues including COPD exacerbation, hypokalemia, hyponatremia. Maintain IV fluid hydration. Sodium improving, 127. Significant generalized weakness, requires 2 person assist bedside commode. PT evaluation pending. Reports fatigue. Maintaining O2 sats on 3 L nasal cannula ( baseline). Hemoglobin 8.9. Evaluated by pulmonary and nephrology. Maintained on fluid restrictions. Cortisol level low,3.1. Denies shortness of breath at rest, positive exertional shortness of breath -Respiratory status at baseline, on 3 L nasal cannula. Significant clinical improvement. Patient will be discharged to subacute rehab. Today in a stable condition with guarded prognosis. - Exam: General: Sitting up in chair, NAD. Vitals reviewed Lungs: normal respiratory effort, essentially clear. CV: Regular rate and rhythm, no murmur. Peripheral pulses 2+. Decreasing edema Abdomen: soft, nondistended, nontender no organomegaly. Positive bowel sounds NEURO: Cranial nerves II through XII grossly intact, no focal deficits. The impression and plan of care has been dictated as directed. : I performed a history and examination of this patient, discussed the same with the dictator. I agree with the dictator's note ,documented as a scribe. Any additional findings or plans will be noted. Patient Condition at Discharge: Stable Plan - Discharge Summary Discharge Rx Participant: No New Discharge Prescriptions: New busPIRone HCl [Buspar] 10 mg PO BID tab predniSONE 10 mg PO DIRECTED #30 tab Midodrine [ProAmatine] 5 mg PO AC-TID #30 tab Continue Atenolol [Tenormin] 25 mg PO DAILY Phenytoin Sodium Extended [Dilantin] 200 mg PO BID Montelukast [Singulair] 10 mg PO DAILY Sertraline [Zoloft] 200 mg PO DAILY Atorvastatin [Lipitor] 80 mg PO HS traZODone HCL 100 - 200 mg PO HS Budesonide [Pulmicort] 1 mg INHALATION RT-QID Clopidogrel Bisulfate [Plavix] 75 mg PO DAILY Aspirin EC [Ecotrin Low Dose] 81 mg PO DAILY metFORMIN HCL [Glucophage] 500 mg PO BID Ibandronate Sodium [Boniva] 150 mg PO Q30D Famotidine 40 mg PO DAILY Formoterol Fumarate [Perforomist] 20 mcg INHALATION RT-BID #60 nebu Ferrous Sulfate [Iron] 325 mg PO DAILY Ergocalciferol (Vitamin D2) [Drisdol] 50,000 unit PO THOMPSON Ipratropium Nebulized [Atrovent Nebulized 0.2 MG/ML] 0.5 mg INHALATION RT-QID PRN PRN Reason: Shortness Of Breath Albuterol Nebulized [Ventolin Nebulized] 2.5 mg INHALATION RT-QID PRN PRN Reason: Shortness Of Breath diphenhydrAMINE [Benadryl] 50 mg PO HS Gabapentin [Neurontin] 400 mg PO HS #3 cap Changed Furosemide [Lasix] 20 mg PO DAILY #1 tab Discontinued Bumetanide [BUMEX] 2 mg PO DAILY Potassium Chloride 20 meq PO DAILY Spironolactone 100 mg PO DAILY metOLazone 2.5 mg PO DAILY Losartan Potassium 100 mg PO DAILY Discharge Medication List Atenolol [Tenormin] 25 mg PO DAILY 07/25/14 [History] Montelukast [Singulair] 10 mg PO DAILY 07/25/14 [History] Phenytoin Sodium Extended [Dilantin] 200 mg PO BID 07/25/14 [History] Sertraline [Zoloft] 200 mg PO DAILY 07/27/14 [History] Aspirin EC [Ecotrin Low Dose] 81 mg PO DAILY 05/23/19 [History] Atorvastatin [Lipitor] 80 mg PO HS 05/23/19 [History] Budesonide [Pulmicort] 1 mg INHALATION RT-QID 05/23/19 [History] Clopidogrel Bisulfate [Plavix] 75 mg PO DAILY 05/23/19 [History] traZODone HCL 100 - 200 mg PO HS 05/23/19 [History] Famotidine 40 mg PO DAILY 04/24/20 [History] Ibandronate Sodium [Boniva] 150 mg PO Q30D 04/24/20 [History] metFORMIN HCL [Glucophage] 500 mg PO BID 04/24/20 [History] Formoterol Fumarate [Perforomist] 20 mcg INHALATION RT-BID #60 nebu 04/30/20 [Rx] Albuterol Nebulized [Ventolin Nebulized] 2.5 mg INHALATION RT-QID PRN 06/04/20 [History] Ergocalciferol (Vitamin D2) [Drisdol] 50,000 unit PO THOMPSON 06/04/20 [History] Ferrous Sulfate [Iron] 325 mg PO DAILY 06/04/20 [History] Ipratropium Nebulized [Atrovent Nebulized 0.2 MG/ML] 0.5 mg INHALATION RT-QID PRN 06/04/20 [History] diphenhydrAMINE [Benadryl] 50 mg PO HS 06/04/20 [History] Furosemide [Lasix] 20 mg PO DAILY #1 tab 06/10/20 [Rx] Gabapentin [Neurontin] 400 mg PO HS #3 cap 06/10/20 [Rx] Midodrine [ProAmatine] 5 mg PO AC-TID #30 tab 06/10/20 [Rx] busPIRone HCl [Buspar] 10 mg PO BID tab 06/10/20 [Rx] predniSONE 10 mg PO DIRECTED #30 tab 06/10/20 [Rx] Follow up Appointment(s)/Referral(s): Tani Chamberlain MD [STAFF PHYSICIAN] - 1 Week Asha Pacheco DO [Primary Care Provider] - 3 Days (After DC from subacute rehab) [facility] Visiting Nurse, [NON-STAFF] - Activity/Diet/Wound Care/Special Instructions: Medical Kila Javi Reed CBC, BMP in 3 days Discharge Disposition: TRANSFER TO SNF/ECF
--- NOTE | 2020-06-10 11:20 | P.PN ---
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 COPD Bilateral carotid stenosis Hypertension hypertensive cardiovascular disease Dyslipidemia Mood disorder History of aneurysm Hypertension hypertensive cardiovascular disease Chronic diastolic heart failure No lumbar 9 2019, patient seen eval examined during the rounds labs reviewed medications reviewed care plan discussed, patient is still feeling very weak s till short of breath, however cuff congestion is stable, sodium is normalized almost, urine output is good patient continued to have weakness problem, likely being placed in ECF for short-term rehab, would recommend to continue noninvasive ventilation over there as well June 09 2020, patient seen eval examined during the rounds labs reviewed medications reviewed, respiratory status remains stable still have significant generalized weakness, denies any chest pain, patient remains afebrile with stable hemodynamics, CO2 continued to come down, saturation is 97% on 3 L, sugars stable 115, blood cultures no growth, June 08 2020, patient seen eval examined care plan discussed and reviewed medications reviewed, continue to have generalized weakness is slightly better respiratory status remains stable, does have ongoing shortness of breath, patient has been on positive pressure ventilation at night and when necessary during the day otherwise on supplemental oxygen, has improved significantly, labs from this morning has been reviewed hemoglobin remained stable, sodium is up to 127, renal functions stable, calcium is 8.3, random cortisol level is 29, CO2 is improved now 38 continue to go down, patient remains afebrile with stable hemodynamics except slight low blood pressure has been noted, on 3 L nasal cannula oxygen saturation is 96-99% 06/07/2020, patient seen eval examined during the rounds labs reviewed medications reviewed care plan discussed, denies any chest pain breathing is stable on supplemental oxygen is still feeling very weak though, labs from this morning reviewed hemoglobin remained stable 8.9, sodium up to 127 now, computed tomography scan of the chest reviewed bilateral basilar scarring along with COPD changes identified no evidence of masses noted, patient didn't use the CPAP machine last night 06/06/2020, patient seen and evaluated examined, respiratory status remains stable, sodium continued to improve up to 120 for now, respiratory status ayesha ins stable on supplemental oxygen patient has been using BiPAP machine, she is remains afebrile last saturation is 95% on supplemental oxygen, labs from today reviewed, 06/05/2020, patient seen eval examined during the rounds in the emergency department, labs reviewed medications reviewed radiographic studies reviewed as well care plan discussed with the staff as well as the patient at length, re spiratory status remains stable patient however has been more oxygen than usual baseline at home she uses 3-4 L oxygen currently she is on 6 L, patient is awake and well oriented, gently being hydrated, sodium level slightly up today she was being replaced as well, we'll make arrangements for a noninvasive ventilation as well he should night and when necessary during the day, This is a 64-year-old female with end-stage lung disease secondary due to severe COPD emphysema has been oxygen dependent 3 L prednisone-dependent and home vent dependent, patient had a fall about 3 weeks ago developed bilateral facial ecchymosis periorbitally via an laceration on the Foradil require repair and visit to the ER, CT had at that time was negative, and subsequently A patient was seen in the hospital his respiratory status remains stable mild shortness of breath is present over the last 2 or 3 years patient has been feeling very weak and exhausted and has been more short of breath than usual, patient noted to have a normal CBC with chronic anemia however sodium was 113, potassium 2.6, CO2 53, BUN/creatinine is 26 and 0.55, calcium is slightly low with normal lactic acid serum osmolality is 253, patient also went a computed tomography scan of the brain no acute changes identified also computed tomography scan of the chest with IV contrast , negative for pulmonary embolism consistent with COPD-like changes with bilateral subsegmental atelectasis, Objective - Vital Signs Vital signs: Vital Signs Temp 97.9 F 06/10/20 04:40 Pulse 72 06/10/20 11:16 Resp 18 06/10/20 04:40 BP 106/53 06/10/20 04:40 Pulse Ox 100 06/10/20 04:40 Intake & Output 06/09/20 06/10/20 06/10/20 18:59 06:59 18:59 Intake Total 687 Output Total 1000 Balance -313 Intake: Oral 687 Output: Urine 1000 Other: Voiding Method Indwelling Catheter Toilet Toilet # Voids 1 # Bowel Movements 1 - Exam - Constitutional General appearance: average body habitus, cooperative, disheveled - EENT Eyes: PERRLA, ecchymosis periorbital improving ENT: normal oropharynx Ears: bilateral: normal - Neck Neck: normal ROM Carotids: bilateral: upstroke normal - Respiratory Respiratory: bilateral: diminished - Cardiovascular Rhythm: regular Heart sounds: normal: S1, S2 - Gastrointestinal General gastrointestinal: normal bowel sounds - Neurologic Neurologic: CNII-XII intact - Musculoskeletal Musculoskeletal: gait normal, generalized weakness, strength equal bilaterally - Psychiatric Psychiatric: A&O x's 3, appropriate affect, intact judgment & insight - Labs CBC & Chem 7: 06/10/20 06:31 06/10/20 06:31 Labs: Abnormal Lab Results - Last 24 Hours (Table) 06/09/20 06/09/20 06/09/20 Range/Units 11: 16:59 20:43 RBC (3.80-5.40) m/uL Hgb (11.4-16.0) gm/dL Hct (34.0-46.0) % Lymphocytes # (1.0-4.8) k/uL Chloride (96-109) mmol/L Carbon Dioxide (21.6-31.8) mmol/L Creatinine (0.6-1.5) mg/dL POC Glucose (mg/dL) 109 H 115 H 115 H (75-99) mg/dL Calcium (8.7-10.3) mg/dL 06/10/20 06/10/20 06/10/20 Range/Units 06:31 06:31 07:04 RBC 2.99 L (3.80-5.40) m/uL Hgb 9.2 L (11.4-16.0) gm/dL Hct 28.8 L (34.0-46.0) % Lymphocytes # 0.8 L (1.0-4.8) k/uL Chloride 94 L (96-109) mmol/L Carbon Dioxide 38.3 H (21.6-31.8) mmol/L Creatinine 0.5 L (0.6-1.5) mg/dL POC Glucose (mg/dL) 116 H (75-99) mg/dL Calcium 8.4 L (8.7-10.3) mg/dL Microbiology - Last 24 Hours (Table) 06/04/20 13:38 Blood Culture - Preliminary Blood No Growth after 120 hours Assessment and Plan Assessment: Generalized weakness tiredness likely related to severe hyponatremia and hypokalemia Hypoosmolar state Severe hyponatremia, almost normalized Severe hypokalemia, improved significantly Chronic hypoxic and hypercapnic respiratory failure 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 COPD Bilateral carotid stenosis Hypertension hypertensive cardiovascular disease Dyslipidemia Mood disorder History of aneurysm Hypertension hypertensive cardiovascular disease Chronic diastolic heart failure Plan: Gentle rehydration, encouraged patient to take by mouth Continue bronchodilator along with nebulizer and positive pressure ventilation as needed each night and when necessary during the day Fall precautions Oral steroids, continue to taper slowly Noninvasive ventilation support each night and when necessary during the day Supplemental oxygen PT OT evaluation/rehab evaluation Time with Patient: Greater than 30
[2020-06-10] MEDS ORDERED: FUROSEMIDE 40 MG TAB PO SCH (11:45)
[2020-06-10 12:20] LABS: Glucose,Whole Blood 155 mg/dL (75-99)
[2020-06-10 12:46] VITALS: BMI 35.1
[2020-06-10 13:42] VITALS: BP 107/63; RESP 20
--- NOTE | 2020-06-10 15:19 | PN ---
PROGRESS NOTE Patient is seen for followup for hyponatremia. Patient is currently doing well. She did get a dose of Lasix over the weekend for hypervolemia. Sodium has improved to 136 and 137 mEq/L. Overall patient denies any significant complaints. She is eating fairly well. PHYSICAL EXAMINATION: On examination today, blood pressure is 106/53, heart rate 96 per minute. She is afebrile. EXAMINATION OF THE HEART: S1 and S2. EXAMINATION OF LUNGS: Bilateral breath sounds are heard. ABDOMEN: Soft, non-tender. Obese. Examination of lower extremities edema 2+ bilaterally. ISSUER exam is grossly intact. LABS: Labs show sodium 137, potassium 3.8, serum creatinine 0.5, hemoglobin 9.2 g/dL. ASSESSMENT: 1. Hyponatremia, currently hypervolemic, status post IV Lasix. The patient should continue with loop diuretics post discharge and continue to maintain salt restriction. 2. Hypokalemia secondary to diuretics. 3. Adrenal insufficiency, maintained on Cortef. 4. Hypertension, currently stable. PLAN: Maintain Lasix 40 mg daily post discharge. This will likely need to be changed, depending on her volume status and labs as outpatient. MMODL / IJN: [id number] /
[2020-06-10 16:26] VITALS: PULSE 76
== END 2020-06-10 16:31 | DRG 640 ==
LOC: EC 12:30 → 3SCARD 16:54 → 6NMEDSUR 06-07 23:29
PROVIDERS: ADMIT Family Medicine; ATTEND Family Medicine
PROC: 5A09557 Assistance with Respiratory Ventilation, Greater than 96 Consecutive Hours, Continuous Positive Airway Pressure (ICD-10-PCS; principal; 2020-06-04)
DX: E87.1 Hypo-osmolality and hyponatremia (principal); J96.21 Acute and chronic respiratory failure with hypoxia; J96.22 Acute and chronic respiratory failure with hypercapnia; I50.32 Chronic diastolic (congestive) heart failure; E27.40 Unspecified adrenocortical insufficiency; J43.9 Emphysema, unspecified; E87.3 Alkalosis; I11.0 Hypertensive heart disease with heart failure; E11.41 Type 2 diabetes mellitus with diabetic mononeuropathy; E11.42 Type 2 diabetes mellitus with diabetic polyneuropathy; E66.01 Morbid (severe) obesity due to excess calories; F39 Unspecified mood [affective] disorder; Z20.828 Contact with and (suspected) exposure to other viral communicable diseases; E86.1 Hypovolemia; J20.9 Acute bronchitis, unspecified; T50.2X5A Adverse effect of carbonic-anhydrase inhibitors, benzothiadiazides and other diuretics, initial encounter; I95.9 Hypotension, unspecified; E87.6 Hypokalemia; I65.23 Occlusion and stenosis of bilateral carotid arteries; F41.9 Anxiety disorder, unspecified; J32.9 Chronic sinusitis, unspecified; D63.8 Anemia in other chronic diseases classified elsewhere; E78.5 Hyperlipidemia, unspecified; K21.9 Gastro-esophageal reflux disease without esophagitis; G47.33 Obstructive sleep apnea (adult) (pediatric); G89.29 Other chronic pain; M54.9 Dorsalgia, unspecified; M19.90 Unspecified osteoarthritis, unspecified site; R26.9 Unspecified abnormalities of gait and mobility; F41.1 Generalized anxiety disorder; Z99.81 Dependence on supplemental oxygen; Z98.51 Tubal ligation status; Z79.899 Other long term (current) drug therapy; Z79.82 Long term (current) use of aspirin; Z79.02 Long term (current) use of antithrombotics/antiplatelets; Z79.84 Long term (current) use of oral hypoglycemic drugs; Z79.52 Long term (current) use of systemic steroids; Z87.01 Personal history of pneumonia (recurrent); Z87.891 Personal history of nicotine dependence; Z86.79 Personal history of other diseases of the circulatory system; Z87.81 Personal history of (healed) traumatic fracture; Z82.49 Family history of ischemic heart disease and other diseases of the circulatory system; Z98.891 History of uterine scar from previous surgery; Z90.89 Acquired absence of other organs; Z98.890 Other specified postprocedural states
CPT/HCPCS: 36415; 51702; 70450; 71046; 71250; 80048; 80053; 81001; 82533; 82550; 83036; 83605; 83735; 83880; 83930; 83935; 84145; 84295; 84300; 84439; 84443; 84484; 85025; 85610; 87040; 87635; 93005; 94640; 94660; 94760; 96361; 96374; 99291

== ENCOUNTER 2020-06-11 07:54 | Inpatient (IN) | payer MEDICARE ==
[2020-06-11] MEDS ORDERED: IPRATROPIUM-ALBUTEROL 3 ML NEB INHALATION STA (07:56)
[2020-06-11] MEDS ORDERED: methylPREDNISolone SOD SUCCI 125 MG/2 ML VIAL IV STA (07:56)
--- NOTE | 2020-06-11 08:00 | ED ---
General Adult HPI - General Stated complaint: HOLLIE Time Seen by Provider: 06/11/20 07:56 Source: patient, EMS, RN notes reviewed Mode of arrival: EMS Limitations: physical limitation - History of Present Illness Initial comments: Patient is a pleasant 64-year-old female presenting to the emergency department by EMS. Patient reportedly has difficulty in breathing. Patient is short of breath and has difficulty providing history however answers yes and no well. Onset of symptoms was again a couple of days ago. Patient was in the hospital not long ago with similar symptoms. Patient states symptoms are similar to previous COPD. Patient states no significant cough. No fever. No leg pain or leg swelling. EMS did provide one DuoNeb treatment to patient. - Related Data Home Medications Medication Instructions Recorded Confirmed Atenolol [Tenormin] 25 mg PO DAILY 07/25/14 06/04/20 Montelukast [Singulair] 10 mg PO DAILY 07/25/14 06/04/20 Phenytoin Sodium Extended 200 mg PO BID 07/25/14 06/04/20 [Dilantin] Sertraline [Zoloft] 200 mg PO DAILY 07/27/14 06/04/20 Aspirin EC [Ecotrin Low Dose] 81 mg PO DAILY 05/23/19 06/04/20 Atorvastatin [Lipitor] 80 mg PO HS 05/23/19 06/04/20 Budesonide [Pulmicort] 1 mg INHALATION RT-QID 05/23/19 06/04/20 Clopidogrel Bisulfate [Plavix] 75 mg PO DAILY 05/23/19 06/04/20 traZODone HCL 100 - 200 mg PO HS 05/23/19 06/04/20 Famotidine 40 mg PO DAILY 04/24/20 06/04/20 Ibandronate Sodium [Boniva] 150 mg PO Q30D 04/24/20 06/04/20 metFORMIN HCL [Glucophage] 500 mg PO BID 04/24/20 06/04/20 Albuterol Nebulized [Ventolin 2.5 mg INHALATION RT-QID PRN 06/04/20 06/04/20 Nebulized] Ergocalciferol (Vitamin D2) 50,000 unit PO THOMPSON 06/04/20 06/04/20 [Drisdol] Ferrous Sulfate [Iron] 325 mg PO DAILY 06/04/20 06/04/20 Ipratropium Nebulized [Atrovent 0.5 mg INHALATION RT-QID PRN 06/04/20 06/04/20 Nebulized 0.2 MG/ML] diphenhydrAMINE [Benadryl] 50 mg PO HS 06/04/20 06/04/20 Previous Rx's Medication Instructions Recorded Formoterol Fumarate [Perforomist] 20 mcg INHALATION RT-BID #60 nebu 04/30/20 Furosemide [Lasix] 20 mg PO DAILY #1 tab 06/10/20 Gabapentin [Neurontin] 400 mg PO HS #3 cap 06/10/20 Midodrine [ProAmatine] 5 mg PO AC-TID #30 tab 06/10/20 busPIRone HCl [Buspar] 10 mg PO BID tab 06/10/20 predniSONE 10 mg PO DIRECTED #30 tab 06/10/20 Allergies Allergy/AdvReac Type Severity Reaction Status Date / Time No Known Allergies Allergy Verified 06/11/20 07:59 Review of Systems ROS Statement: Those systems with pertinent positive or pertinent negative responses have been documented in the HPI. ROS Other: All systems not noted in ROS Statement are negative. Constitutional: Denies: fever Eyes: Denies: eye pain ENT: Denies: ear pain Respiratory: Reports: as per HPI, dyspnea Cardiovascular: Denies: chest pain Endocrine: Reports: fatigue Gastrointestinal: Denies: abdominal pain Genitourinary: Denies: dysuria Musculoskeletal: Denies: back pain Skin: Denies: rash Neurological: Denies: headache Past Medical History Past Medical History: Asthma, Heart Failure, COPD, Diabetes Mellitus, GERD/Reflux, Hyperlipidemia, Hypertension, Osteoarthritis (OA), Pneumonia, Respiratory Disorder, Sleep Apnea/CPAP/BIPAP, Vascular Disorder Additional Past Medical History / Comment(s): Severe COPD, chronic respiratory failure, home oxygen at 3L/NC ATC, tracheobronchitis, pt thinks she had heart failure once, NIDDM type II, neuropathy bilateral lower feet, lower extremity edema, denies seizure history-states on dilantin since brain aneurysm clipping as a precaution, ROQUE without device, sinusitis, seasonal allergies, falls, fall with lower back vertebral fracture. History of Any Multi-Drug Resistant Organisms: None Reported Past Surgical History: Section, Tonsillectomy, Tubal Ligation Additional Past Surgical History / Comment(s): Brain aneurysm with clipping, colonoscopy. Past Anesthesia/Blood Transfusion Reactions: No Reported Reaction Smoking Status: Former smoker - Past Family History Mother Family Medical History: Congestive Heart Failure (CHF) Father Family Medical History: Congestive Heart Failure (CHF) General Exam Limitations: physical limitation General appearance: alert, in distress Head exam: Present: normocephalic Eye exam: Present: normal appearance Neck exam: Present: normal inspection Respiratory exam: Present: respiratory distress, decreased breath sounds Cardiovascular Exam: Present: regular rate, normal rhythm GI/Abdominal exam: Present: soft. Absent: tenderness Extremities exam: Present: normal inspection. Absent: calf tenderness Neurological exam: Present: alert Psychiatric exam: Present: normal affect, normal mood Skin exam: Present: normal color Course Vital Signs 06/11/20 06/11/20 06/11/20 07:56 08:05 08:17 Temperature 97.9 F Pulse Rate 93 82 83 Respiratory 18 Rate Blood Pressure 102/55 O2 Sat by Pulse 98 Oximetry 06/11/20 09:18 Temperature Pulse Rate 78 Respiratory 21 Rate Blood Pressure 107/54 O2 Sat by Pulse 98 Oximetry Medical Decision Making - Medical Decision Making Patient was reevaluated and improved with BiPAP. Dr. Currie has been paged for admission of his patient. - Lab Data Result diagrams: 06/11/20 08:54 06/11/20 08:54 Lab Results 06/11/20 06/11/20 06/11/20 Range/Units 08:54 08:54 08:54 WBC 12.1 H (3.8-10.6) k/uL RBC 3.42 L (3.80-5.40) m/uL Hgb 10.4 L (11.4-16.0) gm/dL Hct 32.9 L (34.0-46.0) % MCV 96.3 (80.0-100.0) fL MCH 30.5 (25.0-35.0) pg MCHC 31.7 (31.0-37.0) g/dL RDW 15.2 (11.5-15.5) % Plt Count 290 (150-450) k/uL Neutrophils % 89 % Lymphocytes % 4 % Monocytes % 5 % Eosinophils % 1 % Basophils % 0 % Neutrophils # 10.8 H (1.3-7.7) k/uL Lymphocytes # 0.5 L (1.0-4.8) k/uL Monocytes # 0.6 (0-1.0) k/uL Eosinophils # 0.1 (0-0.7) k/uL Basophils # 0.1 (0-0.2) k/uL Hypochromasia Slight PT 9.9 (9.0-12.0) sec INR 0.9 (<1.2) APTT 21.1 L (22.0-30.0) sec Sodium 135 L (137-145) mmol/L Potassium 4.0 (3.5-5.1) mmol/L Chloride 92 L (98-107) mmol/L Carbon Dioxide 40 H (22-30) mmol/L Anion Gap 3 mmol/L BUN 10 (7-17) mg/dL Creatinine 0.49 L (0.52-1.04) mg/dL Est GFR (CKD-EPI)AfAm >90 (>60 ml/min/1.73 sqM) Est GFR (CKD-EPI)NonAf >90 (>60 ml/min/1.73 sqM) Glucose 123 H (74-99) mg/dL Plasma Lactic Acid Robbin (0.7-2.0) mmol/L Calcium 8.4 (8.4-10.2) mg/dL Total Bilirubin 0.5 (0.2-1.3) mg/dL AST 44 H (14-36) U/L ALT 43 H (4-34) U/L Alkaline Phosphatase 156 H (38-126) U/L Troponin I (0.000-0.034) ng/mL NT-Pro-B Natriuret Pep pg/mL Total Protein 6.8 (6.3-8.2) g/dL Albumin 3.5 (3.5-5.0) g/dL 06/11/20 06/11/20 06/11/20 Range/Units 08:54 08:54 08:54 WBC (3.8-10.6) k/uL RBC (3.80-5.40) m/uL Hgb (11.4-16.0) gm/dL Hct (34.0-46.0) % MCV (80.0-100.0) fL MCH (25.0-35.0) pg MCHC (31.0-37.0) g/dL RDW (11.5-15.5) % Plt Count (150-450) k/uL Neutrophils % % Lymphocytes % % Monocytes % % Eosinophils % % Basophils % % Neutrophils # (1.3-7.7) k/uL Lymphocytes # (1.0-4.8) k/uL Monocytes # (0-1.0) k/uL Eosinophils # (0-0.7) k/uL Basophils # (0-0.2) k/uL Hypochromasia PT (9.0-12.0) sec INR (<1.2) APTT (22.0-30.0) sec Sodium (137-145) mmol/L Potassium (3.5-5.1) mmol/L Chloride (98-107) mmol/L Carbon Dioxide (22-30) mmol/L Anion Gap mmol/L BUN (7-17) mg/dL Creatinine (0.52-1.04) mg/dL Est GFR (CKD-EPI)AfAm (>60 ml/min/1.73 sqM) Est GFR (CKD-EPI)NonAf (>60 ml/min/1.73 sqM) Glucose (74-99) mg/dL Plasma Lactic Acid Robbin 0.9 (0.7-2.0) mmol/L Calcium (8.4-10.2) mg/dL Total Bilirubin (0.2-1.3) mg/dL AST (14-36) U/L ALT (4-34) U/L Alkaline Phosphatase (38-126) U/L Troponin I 0.075 H* (0.000-0.034) ng/mL NT-Pro-B Natriuret Pep 2310 pg/mL Total Protein (6.3-8.2) g/dL Albumin (3.5-5.0) g/dL - Radiology Data Radiology results: image reviewed (Chest x-ray does have some coarse interstitial markings. Trace right effusion possible.) Critical Care Time Critical Care Time: Yes Total Critical Care Time: 32 Disposition Clinical Impression: Acute exacerbation of chronic obstructive pulmonary disease, Acute respiratory failure Disposition: ADMITTED IP TO THIS [facility] Condition: Serious Is patient prescribed a controlled substance at d/c from ED?: No Referrals: Gio Long MD [Primary Care Provider] - 1-2 days Decision Time: 10:07
[2020-06-11 09:06] LABS: Basophils # (A) 0.1 k/uL (0-0.2); Basophils % (A) 0 %; Eosinophils # (A) 0.1 k/uL (0-0.7); Eosinophils % (A) 1 %; HCT 32.9 % (34.0-46.0); HGB 10.4 gm/dL (11.4-16.0); Hypochromasia Slight; Lymphocytes # (A) 0.5 k/uL (1.0-4.8); Lymphocytes % (A) 4 %; MCH 30.5 pg (25.0-35.0); MCHC 31.7 g/dL (31.0-37.0); MCV 96.3 fL (80.0-100.0); Mean Platelet Volume 6.5; Monocytes # (A) 0.6 k/uL (0-1.0); Monocytes % (A) 5 %; Neutrophils # (A) 10.8 k/uL (1.3-7.7); Neutrophils % (A) 89 %; Platelet Count 290 k/uL (150-450); RBC 3.42 m/uL (3.80-5.40); RDW 15.2 % (11.5-15.5); WBC 12.1 k/uL (3.8-10.6)
[2020-06-11 09:14] LABS: ALT 43 U/L (4-34); AST 44 U/L (14-36); African American GFR (CKD) >90 (>60 ml/min/1.73 sqM); Albumin 3.5 g/dL (3.5-5.0); Alkaline Phosphatase 156 U/L (38-126); Anion Gap 3 mmol/L; Blood Urea Nitrogen 10 mg/dL (7-17); Calcium 8.4 mg/dL (8.4-10.2); Chloride 92 mmol/L (98-107); Glucose 123 mg/dL (74-99); Non-African American GFR(CKD) >90 (>60 ml/min/1.73 sqM); Sodium 135 mmol/L (137-145); Total Bilirubin 0.5 mg/dL (0.2-1.3); Total Protein 6.8 g/dL (6.3-8.2)
--- NOTE | 2020-06-11 09:26 | XR ---
EXAMINATION TYPE: XR chest 1V portable DATE OF EXAM: 06/11/2020 Comparison: 06/04/2020 Clinical History: 64 year-old female shortness of breath, Dyspnea Findings: Heart borderline in size. Hyperinflation. Moderate interstitial changes have increased. Possible trac e effusion on the right. Impression: Increasing moderate interstitial changes and possible trace right effusion. Correlate for early inter stitial edema superimposed on COPD.
[2020-06-11 09:32] LABS: Carbon Dioxide 40 mmol/L (22-30)
[2020-06-11 09:36] LABS: INR 0.9 (<1.2); Prothrombin Time 9.9 sec (9.0-12.0)
[2020-06-11 09:42] LABS: Partial Thromboplastin Time 21.1 sec (22.0-30.0)
[2020-06-11] MEDS: IPRATROPIUM-ALBUTEROL 3 ML NEB INHALATION SCH ×3 (11:44→19:29)
[2020-06-11] MEDS: methylPREDNISolone SOD SUCCI 125 MG/2 ML VIAL IV SCH ×2 (13:13→18:56)
--- NOTE | 2020-06-11 20:08 | P.CNPUL ---
History of Present Illness Consult date: 06/11/20 Reason for consult: dyspnea, cough, COPD, hypoxemia, pleural effusion Chief complaint: Shortness of breath History of present illness: This is a 64-year-old female with end-stage lung disease secondary due to severe COPD emphysema patient was in the hospital for severe hyponatremia and generalized weakness has been transferred to rehab in extended care facility where she developed increasing shortness of breath however denies any cough or sputum production came into the hospital, patient currently is on BiPAP oxygen saturation is 99% on 50% oxygen hemodynamic status stable, she is afebrile, chest x-ray however noted to have interstitial edema and small right pleural effusion appears to be congestive heart failure acute on chronic diastolic heart failure heart from's are also mildly elevated, BNP is over 2300, AST and ALT also mildly elevated, sodium is 135, CO2 is 40, patient is being treated with nebulizer treatment and IV steroids Review of Systems All systems: negative Past Medical History Past Medical History: Asthma, Heart Failure, COPD, Diabetes Mellitus, GERD/Reflux, Hyperlipidemia, Hypertension, Osteoarthritis (OA), Pneumonia, Respiratory Disorder, Sleep Apnea/CPAP/BIPAP, Vascular Disorder Additional Past Medical History / Comment(s): Severe COPD, chronic respiratory failure, home oxygen at 3L/NC ATC, tracheobronchitis, pt thinks she had heart failure once, NIDDM type II, neuropathy bilateral lower feet, lower extremity edema, denies seizure history-states on dilantin since brain aneurysm clipping as a precaution, ROQUE without device, sinusitis, seasonal allergies, falls, fall with lower back vertebral fracture. History of Any Multi-Drug Resistant Organisms: None Reported Past Surgical History: Section, Tonsillectomy, Tubal Ligation Additional Past Surgical History / Comment(s): Brain aneurysm with clipping, colonoscopy. Past Anesthesia/Blood Transfusion Reactions: No Reported Reaction Smoking Status: Former smoker - Past Family History Mother Family Medical History: Congestive Heart Failure (CHF) Father Family Medical History: Congestive Heart Failure (CHF) Medications and Allergies Home Medications Medication Instructions Recorded Confirmed Type Atenolol [Tenormin] 25 mg PO DAILY 07/25/14 06/11/20 History Montelukast [Singulair] 10 mg PO DAILY@1400 07/25/14 06/11/20 History Phenytoin Sodium Extended 200 mg PO BID 07/25/14 06/11/20 History [Dilantin] Sertraline [Zoloft] 200 mg PO DAILY 07/27/14 06/11/20 History Aspirin EC [Ecotrin Low Dose] 81 mg PO DAILY 05/23/19 06/11/20 History Atorvastatin [Lipitor] 80 mg PO HS 05/23/19 06/11/20 History Budesonide [Pulmicort] 1 mg INHALATION RT-QID 05/23/19 06/11/20 History Clopidogrel Bisulfate [Plavix] 75 mg PO DAILY 05/23/19 06/11/20 History metFORMIN HCL [Glucophage] 500 mg PO BID 04/24/20 06/11/20 History Ergocalciferol (Vitamin D2) 50,000 unit PO THOMPSON 06/04/20 06/11/20 History [Drisdol] Ferrous Sulfate [Iron] 325 mg PO DAILY@1400 06/04/20 06/11/20 History Gabapentin [Neurontin] 400 mg PO HS #3 cap 06/10/20 06/11/20 Rx busPIRone HCl [Buspar] 10 mg PO BID tab 06/10/20 06/11/20 Rx Arformoterol Tartrate [Brovana] 15 mcg INHALATION RT-BID 06/11/20 06/11/20 History Furosemide [Lasix] 20 mg PO DAILY 06/11/20 06/11/20 History Ipratropium-Albuterol Nebulize 3 ml INHALATION RT-Q6H PRN 06/11/20 06/11/20 History [Duoneb 0.5 mg-3 mg/3 ml Soln] Midodrine [ProAmatine] 5 mg PO TID@0700,1200,1700 06/11/20 06/11/20 History diphenhydrAMINE [Benadryl] 50 mg PO HS 06/11/20 06/11/20 History predniSONE See Taper PO DIRECTED 06/11/20 06/11/20 History Allergies Allergy/AdvReac Type Severity Reaction Status Date / Time No Known Allergies Allergy Verified 06/11/20 11:02 Physical Exam Vitals: Vital Signs Temp Pulse Resp BP Pulse Ox 06/11/20 19:38 84 06/11/20 19:30 82 06/11/20 17:00 97.7 F 78 18 118/64 99 06/11/20 15:26 85 06/11/20 15:11 83 06/11/20 13:00 97.2 F L 85 20 109/50 100 06/11/20 11:58 84 06/11/20 11:44 80 06/11/20 09:18 78 21 107/54 98 06/11/20 08:17 83 06/11/20 08:05 82 06/11/20 07:56 97.9 F 93 18 102/55 98 Intake and Output 06/11/20 06/11/20 06/11/20 06:59 14:59 22:59 Other: Weight 79.379 kg - Constitutional General appearance: average body habitus, cooperative, disheveled, mild distress - EENT Eyes: PERRLA Ears: bilateral: normal - Neck Neck: normal ROM Carotids: bilateral: upstroke normal Thyroid: bilateral: normal size - Respiratory Respiratory: bilateral: diminished, rales - Cardiovascular Rhythm: regular Heart sounds: normal: S1, S2 - Integumentary Integumentary: normal turgor - Neurologic Neurologic: CNII-XII intact - Musculoskeletal Musculoskeletal: gait normal, generalized weakness, strength equal bilaterally - Psychiatric Psychiatric: A&O x's 3, appropriate affect, intact judgment & insight Results - Laboratory Findings CBC and BMP: 06/11/20 08:54 06/11/20 08:54 PT/INR, D-dimer PT 9.9 sec (9.0-12.0) 06/11/20 08:54 INR 0.9 (<1.2) 06/11/20 08:54 Abnormal lab findings: Abnormal Labs 06/11/20 06/11/20 06/11/20 08:54 08:54 08:54 WBC 12.1 H RBC 3.42 L Hgb 10.4 L Hct 32.9 L Neutrophils # 10.8 H Lymphocytes # 0.5 L APTT 21.1 L Sodium 135 L Chloride 92 L Carbon Dioxide 40 H Creatinine 0.49 L Glucose 123 H AST 44 H ALT 43 H Alkaline Phosphatase 156 H Troponin I 06/11/20 08:54 WBC RBC Hgb Hct Neutrophils # Lymphocytes # APTT Sodium Chloride Carbon Dioxide Creatinine Glucose AST ALT Alkaline Phosphatase Troponin I 0.075 H* - Diagnostic Findings Chest x-ray: report reviewed, image reviewed (Finding as noted above) Assessment and Plan Assessment: End-stage severe COPD with acute exacerbation, vent-dependent oxygen dependent and steroid dependent Acute on chronic hypoxic and hypercapnic respiratory failure Suspect presence of acute on chronic congestive heart failure likely acute on chronic diastolic heart failure Small pleural effusion Recent hyponatremia Generalized weakness Recent fall with laceration of the scalp and forehead area Plan: Continue BiPAP support Continue bronchodilator IV steroids Recommend cardiovascular evaluation may need echocardiogram Time with Patient: Greater than 30
[2020-06-11] MEDS: PHENYTOIN SODIUM EXTENDED 100 MG CAP PO SCH (22:22)
[2020-06-11] MEDS: busPIRone HCl 10 MG TAB PO SCH (22:22)
[2020-06-11] MEDS: GABAPENTIN 100 MG CAP PO SCH (22:22)
[2020-06-11] MEDS: ATORVASTATIN 80 MG TAB PO SCH (22:22)
[2020-06-12] MEDS ORDERED: LORazepam 2 MG/ML INJ IV STA ×2 (01:36)
[2020-06-12] MEDS: methylPREDNISolone SOD SUCCI 125 MG/2 ML VIAL IV SCH ×5 (06:09→23:48)
[2020-06-12] MEDS: MIDODRINE 5 MG TAB PO SCH ×3 (06:09→17:32)
[2020-06-12] MEDS: LORazepam 1 MG TAB PO PRN (06:09)
[2020-06-12] MEDS: IPRATROPIUM-ALBUTEROL 3 ML NEB INHALATION SCH ×4 (07:33→21:26)
[2020-06-12] MEDS: BUDESONIDE 1 MG/2 ML NEBU INHALATION SCH ×4 (07:33→21:26)
[2020-06-12] MEDS: MONTELUKAST 10 MG TAB PO SCH (08:23)
[2020-06-12] MEDS: atenoloL 25 MG TAB PO SCH (08:23)
[2020-06-12] MEDS: SERTRALINE 100 MG TAB PO SCH (08:23)
[2020-06-12] MEDS: PHENYTOIN SODIUM EXTENDED 100 MG CAP PO SCH ×2 (08:23→22:04)
[2020-06-12] MEDS: busPIRone HCl 10 MG TAB PO SCH ×2 (08:23→22:06)
[2020-06-12] MEDS: ASPIRIN 81 MG PO SCH (08:23)
[2020-06-12] MEDS: CLOPIDOGREL 75 MG TAB PO SCH (08:24)
[2020-06-12] MEDS: FUROSEMIDE 10 MG/ML 4 ML VIAL IV SCH (08:24)
[2020-06-12 09:50] LABS: Basophils % (A) 0 %; Eosinophils % (A) 0 %; HCT 31.8 % (34.0-46.0); HGB 9.9 gm/dL (11.4-16.0); Hypochromasia Slight; Lymphocytes # (A) 0.6 k/uL (1.0-4.8); Lymphocytes % (A) 6 %; MCH 30.2 pg (25.0-35.0); MCHC 31.1 g/dL (31.0-37.0); Mean Platelet Volume 6.5; Monocytes # (A) 0.5 k/uL (0-1.0); Monocytes % (A) 5 %; Neutrophils # (A) 9.3 k/uL (1.3-7.7); Neutrophils % (A) 88 %; Platelet Count 269 k/uL (150-450); RBC 3.28 m/uL (3.80-5.40); RDW 15.1 % (11.5-15.5); WBC 10.6 k/uL (3.8-10.6)
[2020-06-12 10:10] LABS: ALT 37 U/L (4-34); AST 36 U/L (14-36); African American GFR (CKD) >90 (>60 ml/min/1.73 sqM); Albumin 3.4 g/dL (3.5-5.0); Alkaline Phosphatase 137 U/L (38-126); Blood Urea Nitrogen 16 mg/dL (7-17); Calcium 8.2 mg/dL (8.4-10.2); Chloride 91 mmol/L (98-107); Glucose 109 mg/dL (74-99); Non-African American GFR(CKD) >90 (>60 ml/min/1.73 sqM); Potassium 4.4 mmol/L (3.5-5.1); Sodium 136 mmol/L (137-145); Total Bilirubin 0.5 mg/dL (0.2-1.3); Total Protein 6.7 g/dL (6.3-8.2)
[2020-06-12 10:18] LABS: Anion Gap 4 mmol/L
[2020-06-12 10:32] LABS: Carbon Dioxide 41 mmol/L (22-30)
[2020-06-12 11:41] LABS: Glucose,Whole Blood 111 mg/dL (75-99)
--- NOTE | 2020-06-12 12:10 | P.CRDCN ---
History of Present Illness Consult date: 06/12/20 Reason for Consult (text): Elevated troponin Chief complaint: Shortness of breath History of present illness: This is a 64-year-old female with documented history of hypertension, diabetes, hyperlipidemia, end-stage lung disease secondary to severe COPD, asthma, GERD, obstructive sleep apnea, osteoarthritis, chronic respiratory failure with chronic bronchitis, history of brain aneurysm with clipping, who w as just recently discharged from the hospital to an extended care facility. She had been admitted to the hospital with severe hyponatremia and generalized weakness. While she was at the extended care facility she developed increasing shortness of breath, she denied any cough, she was placed on BiPAP on arrival here. Chest x-ray on presentation showed increasing moderate interstitial changes and possible trace right sided effusion. Correlate for any early interstitial edema superimposed on COPD. EKG on presentation here shows a sinus tachycardia. Blood pressure 140/60 heart rate in the 80s 96% on BiPAP. White blood cell count on arrival 12.1, 10.6 this morning, hemoglobin 9.9, platelet count 269. Sodium 136, potassium 4.4, chloride 91, CO2 41, BUN 16, creatinine 0.5. Rich virus testing was performed on June 10 which came back to be negative. Troponin 0.075, BNP 2310. Liver enzymes, AST 44, ALT 43, alk phos 156. Past Medical History Past Medical History: Asthma, Heart Failure, COPD, Diabetes Mellitus, GERD/Reflux, Hyperlipidemia, Hypertension, Osteoarthritis (OA), Pneumonia, Respiratory Disorder, Sleep Apnea/CPAP/BIPAP, Vascular Disorder Additional Past Medical History / Comment(s): Severe COPD, chronic respiratory failure, home oxygen at 3L/NC ATC, tracheobronchitis, pt thinks she had heart failure once, NIDDM type II, neuropathy bilateral lower feet, lower extremity edema, denies seizure history-states on dilantin since brain aneurysm clipping as a precaution, ROQUE without device, sinusitis, seasonal allergies, falls, fall with lower back vertebral fracture. History of Any Multi-Drug Resistant Organisms: None Reported Past Surgical History: Section, Tonsillectomy, Tubal Ligation Additional Past Surgical History / Comment(s): Brain aneurysm with clipping, colonoscopy. Past Anesthesia/Blood Transfusion Reactions: No Reported Reaction Smoking Status: Former smoker - Past Family History Mother Family Medical History: Congestive Heart Failure (CHF) Father Family Medical History: Congestive Heart Failure (CHF) Medications and Allergies Home Medications Medication Instructions Recorded Confirmed Type Atenolol [Tenormin] 25 mg PO DAILY 07/25/14 06/11/20 History Montelukast [Singulair] 10 mg PO DAILY@1400 07/25/14 06/11/20 History Phenytoin Sodium Extended 200 mg PO BID 07/25/14 06/11/20 History [Dilantin] Sertraline [Zoloft] 200 mg PO DAILY 07/27/14 06/11/20 History Aspirin EC [Ecotrin Low Dose] 81 mg PO DAILY 05/23/19 06/11/20 History Atorvastatin [Lipitor] 80 mg PO HS 05/23/19 06/11/20 History Budesonide [Pulmicort] 1 mg INHALATION RT-QID 05/23/19 06/11/20 History Clopidogrel Bisulfate [Plavix] 75 mg PO DAILY 05/23/19 06/11/20 History metFORMIN HCL [Glucophage] 500 mg PO BID 04/24/20 06/11/20 History Ergocalciferol (Vitamin D2) 50,000 unit PO THOMPSON 06/04/20 06/11/20 History [Drisdol] Ferrous Sulfate [Iron] 325 mg PO DAILY@1400 06/04/20 06/11/20 History Gabapentin [Neurontin] 400 mg PO HS #3 cap 06/10/20 06/11/20 Rx busPIRone HCl [Buspar] 10 mg PO BID tab 06/10/20 06/11/20 Rx Arformoterol Tartrate [Brovana] 15 mcg INHALATION RT-BID 06/11/20 06/11/20 History Furosemide [Lasix] 20 mg PO DAILY 06/11/20 06/11/20 History Ipratropium-Albuterol Nebulize 3 ml INHALATION RT-Q6H PRN 06/11/20 06/11/20 History [Duoneb 0.5 mg-3 mg/3 ml Soln] Midodrine [ProAmatine] 5 mg PO TID@0700,1200,1700 06/11/20 06/11/20 History diphenhydrAMINE [Benadryl] 50 mg PO HS 06/11/20 06/11/20 History predniSONE See Taper PO DIRECTED 06/11/20 06/11/20 History Allergies Allergy/AdvReac Type Severity Reaction Status Date / Time No Known Allergies Allergy Verified 06/11/20 11:02 Physical Exam Vitals: Vital Signs Temp Pulse Pulse Resp BP BP Pulse Ox 06/12/20 11:27 91 06/12/20 07:48 88 06/12/20 07:33 88 06/12/20 04:00 98.9 F 86 22 140/67 96 06/12/20 02:39 94 L 06/12/20 00:00 98.3 F 83 22 145/82 98 06/11/20 20:00 97.4 F L 80 18 134/64 97 06/11/20 19:38 84 06/11/20 19:30 82 06/11/20 17:00 97.7 F 78 18 118/64 99 06/11/20 15:26 85 06/11/20 15:11 83 06/11/20 13:00 97.2 F L 85 20 109/50 100 06/11/20 11:58 84 06/11/20 11:44 80 Intake and Output 06/11/20 06/12/20 06/12/20 22:59 06:59 14:59 Other: Weight 82.8 kg PHYSICAL EXAMINATION: GENERAL: 64-year-old female, in no acute distress at the time of my examination. HEENT: Head is atraumatic, normocephalic. Pupils equal, round. Sclera anicteric. Conjunctiva are clear. Mucous membranes of the mouth are moist. Neck is supple. There is no elevated jugular venous pressure. No carotid bruit is heard. HEART EXAMINATION: Heart S1, S2 normal. No murmur or gallop heard. CHEST EXAMINATION: Lungs reveal rales at the bases with diminished air entry bilaterally. Fine scattered wheezing throughout. ABDOMEN: Soft, nontender. Bowel sounds are heard. No organomegaly noted. EXTREMITIES: 2+ peripheral pulses with trace evidence of peripheral edema and no calf tenderness noted. NEUROLOGIC patient is awake, alert and oriented X3. . Results 06/12/20 09:08 06/12/20 09:08 Cardiac Enzymes 06/12/20 Range/Units 09:08 AST 36 (14-36) U/L CBC 06/12/20 Range/Units 09:08 WBC 10.6 (3.8-10.6) k/uL RBC 3.28 L (3.80-5.40) m/uL Hgb 9.9 L (11.4-16.0) gm/dL Hct 31.8 L (34.0-46.0) % Plt Count 269 (150-450) k/uL Comprehensive Metabolic Panel 06/12/20 Range/Units 09:08 Sodium 136 L (137-145) mmol/L Potassium 4.4 (3.5-5.1) mmol/L Chloride 91 L (98-107) mmol/L Carbon Dioxide 41 H* (22-30) mmol/L BUN 16 (7-17) mg/dL Creatinine 0.56 (0.52-1.04) mg/dL Glucose 109 H (74-99) mg/dL Calcium 8.2 L (8.4-10.2) mg/dL AST 36 (14-36) U/L ALT 37 H (4-34) U/L Alkaline Phosphatase 137 H (38-126) U/L Total Protein 6.7 (6.3-8.2) g/dL Albumin 3.4 L (3.5-5.0) g/dL Current Medications Generic Name Dose Route Start Last Admin Trade Name Freq PRN Reason Stop Dose Admin Albuterol/Ipratropium 3 ml 06/11/20 12:00 06/12/20 11:28 Ipratropium-Albuterol 3 Ml Neb INHALATION 3 ml RT-QID CB Administration Albuterol/Ipratropium 3 ml 06/11/20 10:07 Ipratropium-Albuterol 3 Ml Neb INHALATION RT-Q4H PRN Shortness Of Breath Or Wheezing Aspirin 81 mg 06/12/20 09:00 06/12/20 08:23 Aspirin 81 Mg PO 81 mg DAILY BC Administration Atenolol 25 mg 06/12/20 09:00 06/12/20 08:23 Atenolol 25 Mg Tab PO 25 mg DAILY CB Administration Atorvastatin Calcium 80 mg 06/11/20 21:00 06/11/20 22:22 Atorvastatin 80 Mg Tab PO 80 mg HS CB Administration Budesonide 1 mg 06/12/20 08:00 06/12/20 11:36 Budesonide 1 Mg/2 Ml Nebu INHALATION Not Given RT-QID [facility] Buspirone HCl 10 mg 06/11/20 21:00 06/12/20 08:23 Buspirone Hcl 10 Mg Tab PO 10 mg BID CB Administration Clopidogrel Bisulfate 75 mg 06/12/20 09:00 06/12/20 08:24 Clopidogrel 75 Mg Tab PO 75 mg DAILY CB Administration Furosemide 40 mg 06/12/20 09:00 06/12/20 08:24 Furosemide 10 Mg/Ml 4 Ml Vial IV 40 mg DAILY CB Administration Gabapentin 100 mg 06/11/20 21:00 06/11/20 22:22 Gabapentin 100 Mg Cap PO 100 mg HS CB Administration Lorazepam 0.5 mg 06/12/20 01:36 06/12/20 06:09 Lorazepam 1 Mg Tab PO 0.5 mg Q8HR PRN Administration Anxiety Methylprednisolone Sodium Succinate 60 mg 06/11/20 13:00 06/12/20 06:09 Methylprednisolone Sod Succi 125 Mg/2 Ml Vial IV 60 mg Q6HR CB Administration Midodrine 5 mg 06/12/20 07:00 06/12/20 06:09 Midodrine 5 Mg Tab PO 5 mg TID@0700,1200,1700 CB Administration Montelukast Sodium 10 mg 06/12/20 14:00 06/12/20 08:23 Montelukast 10 Mg Tab PO 10 mg DAILY@1400 CB Administration Phenytoin Sodium 200 mg 06/11/20 21:00 06/12/20 08:23 Phenytoin Sodium Extended 100 Mg Cap PO 200 mg BID CB Administration Sertraline HCl 200 mg 06/12/20 09:00 06/12/20 08:23 Sertraline 100 Mg Tab PO 200 mg DAILY CB Administration Sodium Chloride 10 ml 06/11/20 21:00 06/12/20 08:24 Sodium Chloride 0.9% Flush 10 Ml Syringe IV 10 ml BID CB Administration Intake and Output 06/11/20 06/12/20 06/12/20 22:59 06:59 14:59 Other: Weight 82.8 kg 06/12/20 09:08 06/12/20 09:08 EKG Interpretations (text) EKG shows a sinus tachycardia Assessment and Plan Plan: Assessment and plan #1 severe shortness of breath, COPD exacerbation, acute on chronic respiratory failure #2 diastolic congestive heart failure acute on chronic #3 recent admission with hyponatremia #4 recent fall with laceration of the scalp and forehead #5 abnormality in troponin, patient denies any chest discomfort, could be secondary to hypoxia. We will obtain 2 subsequent troponins. EKG shows a sinus tachycardia. #6 diabetes #7 hyperlipidemia #8 hypertension #9 sleep apnea #10 COPD with home O2 use #11 brain aneurysm with clipping procedure Plan We will obtain an echocardiogram with Doppler study, we will also check a d- dimer to rule out possibility of pulmonary embolism. Continue IV Lasix. Further recommendations to follow. DNP note has been reviewed, I agree with a documented findings and plan of care. Patient was seen and examined.
--- NOTE | 2020-06-12 14:25 | P.PN ---
Subjective Progress Note Date: 06/12/20 Principal diagnosis: End-stage severe COPD with acute exacerbation, vent-dependent oxygen dependent and steroid dependent Acute on chronic hypoxic and hypercapnic respiratory failure Suspect presence of acute on chronic congestive heart failure likely acute on chronic diastolic heart failure Small pleural effusion Recent hyponatremia Generalized weakness Recent fall with laceration of the scalp and forehead area 06/12/2020, patient seen eval examined during the rounds labs reviewed medications reviewed care plan discussed patient continued to feel weak but the overall remains stable, and denies any chest pain, is still short of breath on supplemental oxygen, patient is being evaluated by cardiovascular service echocardiogram is pending, patient has been intermittently supported with the 3 L nasal cannula and BiPAP, saturation is 97%, noted drops continue to go up, This is a 64-year-old female with end-stage lung disease secondary due to severe COPD emphysema patient was in the hospital for severe hyponatremia and generalized weakness has been transferred to rehab in extended care facility where she developed increasing shortness of breath however denies any cough or sputum production came into the hospital, patient currently is on BiPAP oxygen saturation is 99% on 50% oxygen hemodynamic status stable, she is afebrile, chest x-ray however noted to have interstitial edema and small right pleural effusion appears to be congestive heart failure acute on chronic diastolic heart failure heart from's are also mildly elevated, BNP is over 2300, AST and ALT also mildly elevated, sodium is 135, CO2 is 40, patient is being treated with nebulizer treatment and IV steroids Objective - Vital Signs Vital signs: Vital Signs Temp 97.3 F L 06/12/20 12:00 Pulse 86 06/12/20 12:00 Resp 22 06/12/20 12:00 BP 108/55 06/12/20 12:00 Pulse Ox 97 06/12/20 12:00 Intake & Output 06/11/20 06/12/20 06/12/20 18:59 06:59 18:59 Intake Total 220 Output Total 1200 Balance -980 Weight 79.379 kg 82.8 kg Intake: Oral 220 Output: Urine 1200 Other: # Voids 0 - Exam - Constitutional General appearance: average body habitus, cooperative, disheveled, mild distress - EENT Eyes: PERRLA Ears: bilateral: normal - Neck Neck: normal ROM Carotids: bilateral: upstroke normal Thyroid: bilateral: normal size - Respiratory Respiratory: bilateral: diminished, rales - Cardiovascular Rhythm: regular Heart sounds: normal: S1, S2 - Integumentary Integumentary: normal turgor - Neurologic Neurologic: CNII-XII intact - Musculoskeletal Musculoskeletal: gait normal, generalized weakness, strength equal bilaterally - Psychiatric Psychiatric: A&O x's 3, appropriate affect, intact judgment & insight - Labs CBC & Chem 7: 06/12/20 09:08 06/12/20 09:08 Labs: Abnormal Lab Results - Last 24 Hours (Table) 06/12/20 06/12/20 06/12/20 Range/Units 09:08 09:08 09:08 RBC 3.28 L (3.80-5.40) m/uL Hgb 9.9 L (11.4-16.0) gm/dL Hct 31.8 L (34.0-46.0) % Neutrophils # 9.3 H (1.3-7.7) k/uL Lymphocytes # 0.6 L (1.0-4.8) k/uL D-Dimer 1.73 H (<0.60) mg/L FEU Sodium 136 L (137-145) mmol/L Chloride 91 L (98-107) mmol/L Carbon Dioxide 41 H* (22-30) mmol/L Glucose 109 H (74-99) mg/dL POC Glucose (mg/dL) (75-99) mg/dL Calcium 8.2 L (8.4-10.2) mg/dL ALT 37 H (4-34) U/L Alkaline Phosphatase 137 H (38-126) U/L Troponin I (0.000-0.034) ng/mL Albumin 3.4 L (3.5-5.0) g/dL 06/12/20 06/12/20 Range/Units 11:34 12:02 RBC (3.80-5.40) m/uL Hgb (11.4-16.0) gm/dL Hct (34.0-46.0) % Neutrophils # (1.3-7.7) k/uL Lymphocytes # (1.0-4.8) k/uL D-Dimer (<0.60) mg/L FEU Sodium (137-145) mmol/L Chloride (98-107) mmol/L Carbon Dioxide (22-30) mmol/L Glucose (74-99) mg/dL POC Glucose (mg/dL) 111 H (75-99) mg/dL Calcium (8.4-10.2) mg/dL ALT (4-34) U/L Alkaline Phosphatase (38-126) U/L Troponin I 0.242 H* (0.000-0.034) ng/mL Albumin (3.5-5.0) g/dL Assessment and Plan Assessment: Non-Q wave non-ST segment elevated [place] versus demand ischemia End-stage severe COPD with acute exacerbation, vent-dependent oxygen dependent and steroid dependent Acute on chronic hypoxic and hypercapnic respiratory failure Suspect presence of acute on chronic congestive heart failure likely acute on chronic diastolic heart failure Small pleural effusion Recent hyponatremia Generalized weakness Recent fall with laceration of the scalp and forehead area Plan: Continue BiPAP support Continue bronchodilator IV steroids Follow up on echocardiogram and cardiology recommendation Time with Patient: Greater than 30
--- NOTE | 2020-06-12 16:26 | CT ---
EXAMINATION TYPE: CT angio chest DATE OF EXAM: 06/12/2020 COMPARISON: 03/16/2017 HISTORY: rule out PE CT DLP: 358.4 mGycm CONTRAST: CT chest with contrast and 3D reconstruction with MIP imaging is performed with IV Contrast, patient injected with 100 mL of Isovue 370. Contrast-enhanced CT of the chest was performed through the course of the pulmonary arteries with balbir g and mediastinal window settings submitted. 3D reconstruction with MIP imaging was also performed. PULMONARY ARTERIES: The pulmonary arteries and their major tributaries are patent. I do not see hemal dence for sizable filling defect to suggest pulmonary embolic process. LUNGS: Small to moderate pleural effusions noted bilaterally with basilar compressive atelectasis. Sc attered areas of more focal infiltrates seen within the mid lung zones and right upper lobe posterior ly may reflect underlying pneumonia. MEDIASTINUM: Thoracic aorta is of normal caliber,however, evaluation is limited given timing of the contrast bolus. If there is concern for thoracic aortic pathology consider TIEN. Correlate clinicall y . The heart is enlarged. No evidence for mediastinal mass. No mediastinal lymph nodes greater dann n 1cm. HILAR STRUCTURES: No evidence for mass. No hilar lymph nodes greater than 1 cm. UPPER ABDOMEN: No significant abnormality is seen. IMPRESSION: 1. No evidence for Pulmonary embolism at this time. 2. Scattered infiltrates noted throughout both lung gill as well as basilar atelectasis and pleural effusions.
[2020-06-12 16:45] LABS: Glucose,Whole Blood 143 mg/dL (75-99)
[2020-06-12 20:06] LABS: Glucose,Whole Blood 159 mg/dL (75-99)
[2020-06-12] MEDS: ATORVASTATIN 80 MG TAB PO SCH (22:05)
[2020-06-12] MEDS: GABAPENTIN 100 MG CAP PO SCH (22:07)
--- NOTE | 2020-06-12 22:46 | P.HPIM ---
History of Present Illness H&P Date: 06/12/20 Chief Complaint: shortness of breath Mitchell Jasso is a 64 yo F with PMH of severe end stage COPD on home oxygen, chronic diastolic CHF, HTN, GERD who was just recently admitted with hyponatremia and generalized weakness 06/04-06/10. Her hyponatremia was felt to be due to excessive diuresis and she was evaluated by her currency machine operator as well as nephrology at that time. Pt did receive IV fluids with improvement in her sodium as well as IV steroids. Her breathing had returned to her baseline and she was discharged on 06/10. Pt states when she got to the subacute rehab she received poor care and was not able to use her BIPAP at night, only nasal oxygen. She became increasingly short of breath and was brought back to the ED the following day 06/11. On presentation she was initially placed on NRB and then BIPAP. WBC 10.6k sodium 136, bicarbonate 41. CXR with increasing interstitial change. Review of Systems All systems: negative Constitutional: Reports malaise, Denies chills, Denies fever Eyes: denies blurred vision, denies pain Ears, nose, mouth and throat: Denies headache, Denies sore throat Cardiovascular: Denies chest pain, Denies shortness of breath Respiratory: Reports as per HPI, Reports cough, Reports dyspnea, Reports home oxygen Gastrointestinal: Denies abdominal pain, Denies diarrhea, Denies nausea, Denies vomiting Genitourinary: Denies dysuria, Denies hematuria Musculoskeletal: Denies myalgias Integumentary: Denies pruritus, Denies rash Neurological: Denies numbness, Denies weakness Psychiatric: Denies anxiety, Denies depression Endocrine: Denies fatigue, Denies weight change Past Medical History Past Medical History: Asthma, Heart Failure, COPD, Diabetes Mellitus, GERD/Reflux, Hyperlipidemia, Hypertension, Osteoarthritis (OA), Pneumonia, Respiratory Disorder, Sleep Apnea/CPAP/BIPAP, Vascular Disorder Additional Past Medical History / Comment(s): Severe COPD, chronic respiratory failure, home oxygen at 3L/NC ATC, tracheobronchitis, pt thinks she had heart failure once, NIDDM type II, neuropathy bilateral lower feet, lower extremity e kyaw, denies seizure history-states on dilantin since brain aneurysm clipping as a precaution, ROQUE without device, sinusitis, seasonal allergies, falls, fall with lower back vertebral fracture. History of Any Multi-Drug Resistant Organisms: None Reported Past Surgical History: Section, Tonsillectomy, Tubal Ligation Additional Past Surgical History / Comment(s): Brain aneurysm with clipping, colonoscopy. Past Anesthesia/Blood Transfusion Reactions: No Reported Reaction Smoking Status: Former smoker - Past Family History Mother Family Medical History: Congestive Heart Failure (CHF) Father Family Medical History: Congestive Heart Failure (CHF) Medications and Allergies Home Medications Medication Instructions Recorded Confirmed Type Atenolol [Tenormin] 25 mg PO DAILY 07/25/14 06/11/20 History Montelukast [Singulair] 10 mg PO DAILY@1400 07/25/14 06/11/20 History Phenytoin Sodium Extended 200 mg PO BID 07/25/14 06/11/20 History [Dilantin] Sertraline [Zoloft] 200 mg PO DAILY 07/27/14 06/11/20 History Aspirin EC [Ecotrin Low Dose] 81 mg PO DAILY 05/23/19 06/11/20 History Atorvastatin [Lipitor] 80 mg PO HS 05/23/19 06/11/20 History Budesonide [Pulmicort] 1 mg INHALATION RT-QID 05/23/19 06/11/20 History Clopidogrel Bisulfate [Plavix] 75 mg PO DAILY 05/23/19 06/11/20 History metFORMIN HCL [Glucophage] 500 mg PO BID 04/24/20 06/11/20 History Ergocalciferol (Vitamin D2) 50,000 unit PO THOMPSON 06/04/20 06/11/20 History [Drisdol] Ferrous Sulfate [Iron] 325 mg PO DAILY@1400 06/04/20 06/11/20 History Gabapentin [Neurontin] 400 mg PO HS #3 cap 06/10/20 06/11/20 Rx busPIRone HCl [Buspar] 10 mg PO BID tab 06/10/20 06/11/20 Rx Arformoterol Tartrate [Brovana] 15 mcg INHALATION RT-BID 06/11/20 06/11/20 History Furosemide [Lasix] 20 mg PO DAILY 06/11/20 06/11/20 History Ipratropium-Albuterol Nebulize 3 ml INHALATION RT-Q6H PRN 06/11/20 06/11/20 History [Duoneb 0.5 mg-3 mg/3 ml Soln] Midodrine [ProAmatine] 5 mg PO TID@0700,1200,1700 06/11/20 06/11/20 History diphenhydrAMINE [Benadryl] 50 mg PO HS 06/11/20 06/11/20 History predniSONE See Taper PO DIRECTED 06/11/20 06/11/20 History Allergies Allergy/AdvReac Type Severity Reaction Status Date / Time No Known Allergies Allergy Verified 06/11/20 11:02 Physical Exam Vitals: Vital Signs Temp Pulse Pulse Resp BP Pulse Ox 06/12/20 21:40 78 06/12/20 21:27 76 06/12/20 20:00 97.8 F 76 13 134/71 97 06/12/20 17:18 82 06/12/20 17:10 80 06/12/20 16:00 97.4 F L 80 22 143/94 99 06/12/20 12:00 97.3 F L 86 22 108/55 97 06/12/20 11:50 85 06/12/20 11:27 91 06/12/20 08:00 97.0 F L 96 24 135/68 100 06/12/20 07:48 88 06/12/20 07:33 88 06/12/20 04:00 98.9 F 86 22 140/67 96 06/12/20 02:39 94 L 06/12/20 00:00 98.3 F 83 22 145/82 98 Intake and Output 06/12/20 06/12/20 06/12/20 06:59 14:59 22:59 Intake Total 220 720 Output Total 1200 400 Balance -980 320 Intake: Oral 220 720 Output: Urine 1200 400 Other: # Voids 0 # Bowel Movements 0 Weight 82.8 kg General: well nourished, well developed, NAD. Vitals reviewed. Eyes: PERRL, EOMI, conjunctiva normal HENT: normocephalic, mucus membranes moist. On O2 via NC Neck: supple, no JVD Lungs: normal respiratory effort, rales at bases. No wheezes or rhonchi CV: Regular rate and rhythm, no murmur. Peripheral pulses 2+. Trace edema Abdomen: soft, nondistended, no organomegaly Lymph: no cervical or axillary LAD Skin: warm and dry. Neuro: A&Ox3, normal mood and affect Results CBC & Chem 7: 06/12/20 09:08 06/12/20 09:08 Labs: Abnormal Lab Results - Last 24 Hours (Table) 06/12/20 06/12/20 06/12/20 Range/Units 09:08 09:08 09:08 RBC 3.28 L (3.80-5.40) m/uL Hgb 9.9 L (11.4-16.0) gm/dL Hct 31.8 L (34.0-46.0) % Neutrophils # 9.3 H (1.3-7.7) k/uL Lymphocytes # 0.6 L (1.0-4.8) k/uL D-Dimer 1.73 H (<0.60) mg/L FEU Sodium 136 L (137-145) mmol/L Chloride 91 L (98-107) mmol/L Carbon Dioxide 41 H* (22-30) mmol/L Glucose 109 H (74-99) mg/dL POC Glucose (mg/dL) (75-99) mg/dL Calcium 8.2 L (8.4-10.2) mg/dL ALT 37 H (4-34) U/L Alkaline Phosphatase 137 H (38-126) U/L Troponin I (0.000-0.034) ng/mL Albumin 3.4 L (3.5-5.0) g/dL 06/12/20 06/12/20 06/12/20 Range/Units 11:34 12:02 14:48 RBC (3.80-5.40) m/uL Hgb (11.4-16.0) gm/dL Hct (34.0-46.0) % Neutrophils # (1.3-7.7) k/uL Lymphocytes # (1.0-4.8) k/uL D-Dimer (<0.60) mg/L FEU Sodium (137-145) mmol/L Chloride (98-107) mmol/L Carbon Dioxide (22-30) mmol/L Glucose (74-99) mg/dL POC Glucose (mg/dL) 111 H (75-99) mg/dL Calcium (8.4-10.2) mg/dL ALT (4-34) U/L Alkaline Phosphatase (38-126) U/L Troponin I 0.242 H* 0.163 H* (0.000-0.034) ng/mL Albumin (3.5-5.0) g/dL 06/12/20 06/12/20 Range/Units 16:37 20:04 RBC (3.80-5.40) m/uL Hgb (11.4-16.0) gm/dL Hct (34.0-46.0) % Neutrophils # (1.3-7.7) k/uL Lymphocytes # (1.0-4.8) k/uL D-Dimer (<0.60) mg/L FEU Sodium (137-145) mmol/L Chloride (98-107) mmol/L Carbon Dioxide (22-30) mmol/L Glucose (74-99) mg/dL POC Glucose (mg/dL) 143 H 159 H (75-99) mg/dL Calcium (8.4-10.2) mg/dL ALT (4-34) U/L Alkaline Phosphatase (38-126) U/L Troponin I (0.000-0.034) ng/mL Albumin (3.5-5.0) g/dL Thrombosis Risk Factor Assmnt - Choose All That Apply Any of the Below Risk Factors Present?: Yes Each Factor Represents 1 point: Abnormal pulmonary function (COPD), Obesity (BMI >25), Swollen legs (current) Other Risk Factors: Yes Each Risk Factor Represents 2 Points: Age 61-74 years Other congenital or acquired thrombophilia - If yes, enter type in comment: No Thrombosis Risk Factor Assessment Total Risk Factor Score: 5 Thrombosis Risk Factor Assessment Level: High Risk Assessment and Plan (1) Acute exacerbation of chronic obstructive pulmonary disease Current Visit: Yes Status: Acute Code(s): J44.1 - CHRONIC OBSTRUCTIVE PULMONARY DISEASE W (ACUTE) EXACERBATION SNOMED Code(s): 616100417 (2) Acute respiratory failure with hypoxia and hypercapnia Current Visit: No Status: Acute Code(s): J96.01 - ACUTE RESPIRATORY FAILURE WITH HYPOXIA; J96.02 - ACUTE RESPIRATORY FAILURE WITH HYPERCAPNIA SNOMED Code(s): 417615840 (3) Hyponatremia syndrome Current Visit: No Status: Acute Code(s): E87.1 - HYPO-OSMOLALITY AND HYPONATREMIA SNOMED Code(s): 1114470 (4) Emphysema lung Current Visit: Yes Status: Acute Code(s): J43.9 - EMPHYSEMA, UNSPECIFIED SNOMED Code(s): 75945741 Plan: 1. Acute hypoxic and hypercapneic respiratory failure. Likely secondary to fluid overload vs COPD exacerbation. Pulmonary and Cardiology consult. Obtain CTA chest. Start IV lasix 40 mg daily. Continue with fluid restriction 2. End stage COPD. Start IV steroids, continue claritin, singulair, duonebs, pulmicort 3. HTN. continue atenolol 4. HLD. continue lipitor DVT prophylaxis lovenox
[2020-06-13] MEDS: LORazepam 1 MG TAB PO PRN ×3 (00:01→17:48)
[2020-06-13] MEDS: IPRATROPIUM-ALBUTEROL 3 ML NEB INHALATION PRN ×3 (00:25→23:37)
[2020-06-13] MEDS: methylPREDNISolone SOD SUCCI 125 MG/2 ML VIAL IV SCH ×4 (06:00→23:28)
[2020-06-13 06:25] LABS: Glucose,Whole Blood 113 mg/dL (75-99)
[2020-06-13] MEDS: MIDODRINE 5 MG TAB PO SCH ×3 (06:35→17:49)
[2020-06-13] MEDS: IPRATROPIUM-ALBUTEROL 3 ML NEB INHALATION SCH ×4 (07:51→19:36)
[2020-06-13] MEDS: BUDESONIDE 1 MG/2 ML NEBU INHALATION SCH ×4 (07:51→19:35)
[2020-06-13 08:23] LABS: Basophils % (A) 0 %; Eosinophils % (A) 0 %; HCT 28.8 % (34.0-46.0); Hypochromasia Slight; Lymphocytes # (A) 0.4 k/uL (1.0-4.8); Lymphocytes % (A) 4 %; MCH 30.2 pg (25.0-35.0); MCHC 31.3 g/dL (31.0-37.0); MCV 96.6 fL (80.0-100.0); Mean Platelet Volume 6.5; Monocytes # (A) 0.3 k/uL (0-1.0); Monocytes % (A) 4 %; Neutrophils # (A) 7.3 k/uL (1.3-7.7); Neutrophils % (A) 90 %; Platelet Count 254 k/uL (150-450); RBC 2.98 m/uL (3.80-5.40); RDW 15.1 % (11.5-15.5); WBC 8.1 k/uL (3.8-10.6)
[2020-06-13] MEDS: ASPIRIN 81 MG PO SCH (08:40)
[2020-06-13] MEDS: PHENYTOIN SODIUM EXTENDED 100 MG CAP PO SCH ×2 (08:40→21:31)
[2020-06-13] MEDS: SERTRALINE 100 MG TAB PO SCH (08:40)
[2020-06-13] MEDS: busPIRone HCl 10 MG TAB PO SCH ×2 (08:41→21:31)
[2020-06-13] MEDS: ENOXAPARIN 40 MG/0.4 ML SYRINGE SQ SCH (08:41)
[2020-06-13] MEDS: CLOPIDOGREL 75 MG TAB PO SCH (08:41)
[2020-06-13] MEDS: atenoloL 25 MG TAB PO SCH (08:41)
[2020-06-13] MEDS: FUROSEMIDE 10 MG/ML 4 ML VIAL IV SCH (08:42)
[2020-06-13 08:43] LABS: ALT 31 U/L (4-34); AST 28 U/L (14-36); African American GFR (CKD) >90 (>60 ml/min/1.73 sqM); Albumin 3.2 g/dL (3.5-5.0); Alkaline Phosphatase 126 U/L (38-126); Blood Urea Nitrogen 12 mg/dL (7-17); Calcium 8.1 mg/dL (8.4-10.2); Chloride 90 mmol/L (98-107); Glucose 132 mg/dL (74-99); Non-African American GFR(CKD) >90 (>60 ml/min/1.73 sqM); Potassium 3.9 mmol/L (3.5-5.1); Sodium 134 mmol/L (137-145); Total Bilirubin 0.4 mg/dL (0.2-1.3); Total Protein 6.3 g/dL (6.3-8.2)
[2020-06-13 08:50] LABS: Anion Gap 2 mmol/L
[2020-06-13 09:00] LABS: Carbon Dioxide 42 mmol/L (22-30)
--- NOTE | 2020-06-13 10:35 | ECHOF ---
Referral Reason:abn trop MEASUREMENTS -------- HEIGHT: 152.4 cm WEIGHT: 82.6 kg BP: IVSd: 0.9 cm (0.6 - 1.1) LVIDd: 4.7 cm (3.9 - 5.3) LVPWd: 1.1 cm (0.6 - 1.1) IVSs: 1.9 cm LVIDs: 1.9 cm LVPWs: 1.6 cm Ao Diam: 2.5 cm (2.0 - 3.7) LA Diam: 3.3 cm (2.7 - 3.8) AV Cusp: 1.6 cm (1.5 - 2.6) EPSS: 0.6 cm MV E Michael: 0.95 m/s MV DecT: 226 ms MV A Michael: 0.70 m/s MV E/A Ratio: 1.36 RAP: 15.00 mmHg RVSP: 28.63 mmHg MV EF SLOPE: 189.46 mm/s (70 - 150) MV EXCURSION: 19.78 mm (> 18.000) FINDINGS -------- This was a technically adequate study. The left ventricular size is normal. Left ventricular wall thickness is normal. Overall left vent ricular systolic function is normal with, an EF between 55 - 60 %. The RV was not well visualized. The left atrial size is normal. The right atrium was not well visualized. The aortic valve is trileaflet and appears structurally normal. The mitral valve is normal. Mild mitral regurgitation is present. The tricuspid valve appears structurally normal. Mild tricuspid regurgitation present. Right vent ricular systolic pressure is normal at < 35 mmHg. There is no pulmonic regurgitation present. The aortic root size is normal. The inferior vena cava is mildly dilated. There is no pericardial effusion. CONCLUSIONS -------- 1. The left ventricular size is normal. 2. Left ventricular wall thickness is normal. 3. Overall left ventricular systolic function is normal with, an EF between 55 - 60 %. 4. Mild mitral regurgitation is present. 5. Mild tricuspid regurgitation present. 6. The inferior vena cava is mildly dilated. 7. There is no pericardial effusion. BLADDER CLEANER: Margret Syed [facility]
--- NOTE | 2020-06-13 11:32 | P.PN ---
Subjective Progress Note Date: 06/13/20 Mitchell Jasso is a 64 yo F with PMH of severe end stage COPD on home oxygen, chronic diastolic CHF, HTN, GERD who was just recently admitted with hyponatremia and generalized weakness 06/04-06/10. Her hyponatremia was felt to be due to excessive diuresis and she was evaluated by her senior mechanical project engineer as well as nephrology at that time. Pt did receive IV fluids with improvement in her sodium as well as IV steroids. Her breathing had returned to her baseline and she was discharged on 06/10. Pt states when she got to the subacute rehab she received poor care and was not able to use her BIPAP at night, only nasal oxygen. She became increasingly short of breath and was brought back to the ED the following day 06/11. On presentation she was initially placed on NRB and then BIPAP. WBC 10.6k sodium 136, bicarbonate 41. CXR with increasing interstitial change. 06/13/2020 and maintained on 35% BiPAP throughout the night. Earlier this morning, patient became more anxious,BiPAP increased to 50%, Xanax administered. Diuretics increased yesterday. CO2 42. Afebrile, normal WBC. CTA reported no evidence for PE. Diuresing well on Lasix IV push with 24-hour I&O reflecting a negative fluid balance. Denies chest pain, palpitations. Troponin 0.075, 0.242, 0.163. Echo reported normal LV function with EF between 55 and 60% Objective - Vital Signs Vital signs: Vital Signs Temp 97.6 F 06/13/20 04:00 Pulse 68 06/13/20 08:10 Resp 18 06/13/20 04:00 BP 146/74 06/13/20 06:35 Pulse Ox 93 L 06/13/20 04:00 Intake & Output 06/12/20 06/13/20 06/13/20 18:59 06:59 18:59 Intake Total 940 480 220 Output Total 1600 Balance -660 480 220 Weight 83.5 kg Intake: Oral 940 480 220 Output: Urine 1600 Other: # Voids 0 # Bowel Movements 0 - Labs CBC & Chem 7: 06/13/20 08:02 06/13/20 08:02 Labs: Abnormal Lab Results - Last 24 Hours (Table) 11/11/20 11/11/20 11/11/20 Range/Units 09:08 09:08 09:08 RBC 3.28 L (3.80-5.40) m/uL Hgb 9.9 L (11.4-16.0) gm/dL Hct 31.8 L (34.0-46.0) % Neutrophils # 9.3 H (1.3-7.7) k/uL Lymphocytes # 0.6 L (1.0-4.8) k/uL D-Dimer 1.73 H (<0.60) mg/L FEU Sodium 136 L (137-145) mmol/L Chloride 91 L (98-107) mmol/L Carbon Dioxide 41 H* (22-30) mmol/L Creatinine (0.52-1.04) mg/dL Glucose 109 H (74-99) mg/dL POC Glucose (mg/dL) (75-99) mg/dL Calcium 8.2 L (8.4-10.2) mg/dL ALT 37 H (4-34) U/L Alkaline Phosphatase 137 H (38-126) U/L Troponin I (0.000-0.034) ng/mL Albumin 3.4 L (3.5-5.0) g/dL 06/12/20 06/12/20 06/12/20 Range/Units 11:34 12:02 14:48 RBC (3.80-5.40) m/uL Hgb (11.4-16.0) gm/dL Hct (34.0-46.0) % Neutrophils # (1.3-7.7) k/uL Lymphocytes # (1.0-4.8) k/uL D-Dimer (<0.60) mg/L FEU Sodium (137-145) mmol/L Chloride (98-107) mmol/L Carbon Dioxide (22-30) mmol/L Creatinine (0.52-1.04) mg/dL Glucose (74-99) mg/dL POC Glucose (mg/dL) 111 H (75-99) mg/dL Calcium (8.4-10.2) mg/dL ALT (4-34) U/L Alkaline Phosphatase (38-126) U/L Troponin I 0.242 H* 0.163 H* (0.000-0.034) ng/mL Albumin (3.5-5.0) g/dL 06/12/20 06/12/20 06/13/20 Range/Units 16:37 20:04 06:16 RBC (3.80-5.40) m/uL Hgb (11.4-16.0) gm/dL Hct (34.0-46.0) % Neutrophils # (1.3-7.7) k/uL Lymphocytes # (1.0-4.8) k/uL D-Dimer (<0.60) mg/L FEU Sodium (137-145) mmol/L Chloride (98-107) mmol/L Carbon Dioxide (22-30) mmol/L Creatinine (0.52-1.04) mg/dL Glucose (74-99) mg/dL POC Glucose (mg/dL) 143 H 159 H 113 H (75-99) mg/dL Calcium (8.4-10.2) mg/dL ALT (4-34) U/L Alkaline Phosphatase (38-126) U/L Troponin I (0.000-0.034) ng/mL Albumin (3.5-5.0) g/dL 06/13/20 06/13/20 Range/Units 08:02 08:02 RBC 2.98 L (3.80-5.40) m/uL Hgb 9.0 L (11.4-16.0) gm/dL Hct 28.8 L (34.0-46.0) % Neutrophils # (1.3-7.7) k/uL Lymphocytes # 0.4 L (1.0-4.8) k/uL D-Dimer (<0.60) mg/L FEU Sodium 134 L (137-145) mmol/L Chloride 90 L (98-107) mmol/L Carbon Dioxide 42 H* (22-30) mmol/L Creatinine 0.45 L (0.52-1.04) mg/dL Glucose 132 H (74-99) mg/dL POC Glucose (mg/dL) (75-99) mg/dL Calcium 8.1 L (8.4-10.2) mg/dL ALT (4-34) U/L Alkaline Phosphatase (38-126) U/L Troponin I (0.000-0.034) ng/mL Albumin 3.2 L (3.5-5.0) g/dL Assessment and Plan Assessment: Acute COPD exacerbation with End-stage COPD, emphysema Acute on chronic hypoxic, hypercapnic respiratory failure currently BiPAP dep endent Acute on chronic CHF exacerbation, diastolic dysfunction Elevated troponins, possible non-Q-wave GA, possibly related to hypoxemia, cardiology following PE ruled out. Hyponatremia syndrome Hypertension Hyperlipidemia Plan: Continue on current medication regime ,monitoring and symptomatic treatment. Maintain fluid restrictions, diuresing, nebulized bronchodilators, IV steroids. Follow closely with both cardiology and pulmonary.[place] liaison to meet with patient regarding complaints. Prognosis guarded given multiple complex medical issues. The impression and plan of care has been dictated as directed. : I performed a history and examination of this patient, discussed the same with the dictator. I agree with the dictator's note ,documented as a scribe. Any additional findings or plans will be noted.
[2020-06-13 12:19] LABS: Glucose,Whole Blood 134 mg/dL (75-99)
--- NOTE | 2020-06-13 12:44 | P.PN ---
Subjective Progress Note Date: 06/13/20 This is a 64-year-old female with documented history of hypertension, diabetes, hyperlipidemia, end-stage lung disease secondary to severe COPD, asthma, GERD, obstructive sleep apnea, osteoarthritis, chronic respiratory failure with chronic bronchitis, history of brain aneurysm with clipping, who was just recently discharged from the hospital to an extended care facility. She had been admitted to the hospital with severe hyponatremia and generalized weakness. While she was at the extended care facility she developed increasing shortness of breath, she denied any cough, she was placed on BiPAP on arrival here. Chest x-ray on presentation showed increasing moderate interstitial changes and possible trace right sided effusion. Correlate for any early interstitial edema superimposed on COPD. EKG on presentation here shows a sinus tachycardia. Blood pressure 140/60 heart rate in the 80s 96% on BiPAP. White blood cell count on arrival 12.1, 10.6 this morning, hemoglobin 9.9, platelet count 269. Sodium 136, potassium 4.4, chloride 91, CO2 41, BUN 16, creatinine 0.5. Rich virus testing was performed on June 10 which came back to be negative. Troponin 0.075, BNP 2310. Liver enzymes, AST 44, ALT 43, alk phos 156. 06/13/2020 Patient was seen and examined this morning, continues to be on 35% BiPAP. CTA of the chest was negative for pulmonary embolism. Blood pressure 146/70 with a heart rate in the 80s, 94% on 50% bypass. White blood cell count 8.1, hemoglobin 9.0, platelet count 254. Sodium 134, potassium 3.9, CO2 42 BUN 12, creatinine 0.5. Patient continues to be on IV Lasix 40 mg daily. As well as IV steroids. Subsequent troponins, 0.075, 0.24, 0.16. Patient denies any chest discomfort. Echocardiogram with Doppler study reveals a normal left ventricular systolic function. Objective - Vital Signs Vital signs: Vital Signs Temp 97.6 F 06/13/20 04:00 Pulse 64 06/13/20 12:04 Resp 20 06/13/20 07:40 BP 146/72 06/13/20 07:40 Pulse Ox 94 L 06/13/20 07:40 Intake & Output 06/12/20 06/13/20 06/13/20 18:59 06:59 18:59 Intake Total 940 480 220 Output Total 1600 Balance -660 480 220 Weight 83.5 kg Intake: Oral 940 480 220 Output: Urine 1600 Other: # Voids 0 # Bowel Movements 0 - Exam PHYSICAL EXAMINATION: GENERAL: 64-year-old female, in no acute distress at the time of my examination. HEENT: Head is atraumatic, normocephalic. Pupils equal, round. Sclera a nicteric. Conjunctiva are clear. Mucous membranes of the mouth are moist. Neck is supple. There is no elevated jugular venous pressure. No carotid bruit is heard. HEART EXAMINATION: Heart S1, S2 normal. No murmur or gallop heard. CHEST EXAMINATION: Lungs reveal rales at the bases with diminished air entry bilaterally. Fine scattered wheezing throughout. ABDOMEN: Soft, nontender. Bowel sounds are heard. No organomegaly noted. EXTREMITIES: 2+ peripheral pulses with trace evidence of peripheral edema and no calf tenderness noted. NEUROLOGIC patient is awake, alert and oriented X3. - Labs CBC & Chem 7: 06/13/20 08:02 06/13/20 08:02 Labs: Abnormal Lab Results - Last 24 Hours (Table) 06/12/20 06/12/20 06/12/20 Range/Units 12:02 14:48 16:37 RBC (3.80-5.40) m/uL Hgb (11.4-16.0) gm/dL Hct (34.0-46.0) % Lymphocytes # (1.0-4.8) k/uL Sodium (137-145) mmol/L Chloride (98-107) mmol/L Carbon Dioxide (22-30) mmol/L Creatinine (0.52-1.04) mg/dL Glucose (74-99) mg/dL POC Glucose (mg/dL) 143 H (75-99) mg/dL Calcium (8.4-10.2) mg/dL Troponin I 0.242 H* 0.163 H* (0.000-0.034) ng/mL Albumin (3.5-5.0) g/dL 06/12/20 06/13/20 06/13/20 Range/Units 20:04 06:16 08:02 RBC 2.98 L (3.80-5.40) m/uL Hgb 9.0 L (11.4-16.0) gm/dL Hct 28.8 L (34.0-46.0) % Lymphocytes # 0.4 L (1.0-4.8) k/uL Sodium (137-145) mmol/L Chloride (98-107) mmol/L Carbon Dioxide (22-30) mmol/L Creatinine (0.52-1.04) mg/dL Glucose (74-99) mg/dL POC Glucose (mg/dL) 159 H 113 H (75-99) mg/dL Calcium (8.4-10.2) mg/dL Troponin I (0.000-0.034) ng/mL Albumin (3.5-5.0) g/dL 06/13/20 06/13/20 Range/Units 08:02 12:09 RBC (3.80-5.40) m/uL Hgb (11.4-16.0) gm/dL Hct (34.0-46.0) % Lymphocytes # (1.0-4.8) k/uL Sodium 134 L (137-145) mmol/L Chloride 90 L (98-107) mmol/L Carbon Dioxide 42 H* (22-30) mmol/L Creatinine 0.45 L (0.52-1.04) mg/dL Glucose 132 H (74-99) mg/dL POC Glucose (mg/dL) 134 H (75-99) mg/dL Calcium 8.1 L (8.4-10.2) mg/dL Troponin I (0.000-0.034) ng/mL Albumin 3.2 L (3.5-5.0) g/dL Assessment and Plan Plan: Assessment and plan #1 severe shortness of breath, COPD exacerbation, acute on chronic respiratory failure #2 diastolic congestive heart failure acute on chronic #3 recent admission with hyponatremia #4 recent fall with laceration of the scalp and forehead #5 abnormality in troponin, patient denies any chest discomfort, could be secondary to hypoxia. We will obtain 2 subsequent troponins. EKG shows a sinus tachycardia. #6 diabetes #7 hyperlipidemia #8 hypertension #9 sleep apnea #10 COPD with home O2 use #11 brain aneurysm with clipping procedure Plan Echocardiogram with Doppler study revealed a normal left ventricular systolic function, CTA of the chest negative for PE. We will continue current dose of IV Lasix for 24 hours. Check lytes BUN and creatinine in the morning. DNP note has been reviewed, I agree with a documented findings and plan of care. Patient was seen and examined.
--- NOTE | 2020-06-13 16:26 | P.PN ---
Subjective Progress Note Date: 06/13/20 Principal diagnosis: End-stage severe COPD with acute exacerbation, vent-dependent oxygen dependent and steroid dependent Acute on chronic hypoxic and hypercapnic respiratory failure Suspect presence of acute on chronic congestive heart failure likely acute on chronic diastolic heart failure Small pleural effusion Recent hyponatremia Generalized weakness Recent fall with laceration of the scalp and forehead area 06/13/2020, patient seen eval examined during the rounds labs reviewed medications reviewed care plan discussed, still generalized weakness present, respiration remains stable, on BiPAP oxygen saturation is 100% to 6 L, computed tomography scan of the chest reviewed no evidence of pulmonary embolism bilateral interstitial changes noted consistent with COPD 06/12/2020, patient seen eval examined during the rounds labs reviewed medications reviewed care plan discussed patient continued to feel weak but the overall remains stable, and denies any chest pain, is still short of breath on supplemental oxygen, patient is being evaluated by cardiovascular service echocardiogram is pending, patient has been intermittently supported with the 3 L nasal cannula and BiPAP, saturation is 97%, noted drops continue to go up, This is a 64-year-old female with end-stage lung disease secondary due to severe COPD emphysema patient was in the hospital for severe hyponatremia and generalized weakness has been transferred to rehab in extended care facility where she developed increasing shortness of breath however denies any cough or sputum production came into the hospital, patient currently is on BiPAP oxygen saturation is 99% on 50% oxygen hemodynamic status stable, she is afebrile, chest x-ray however noted to have interstitial edema and small right pleural effusion appears to be congestive heart failure acute on chronic diastolic heart failure heart from's are also mildly elevated, BNP is over 2300, AST and ALT also mildly elevated, sodium is 135, CO2 is 40, patient is being treated with nebulizer treatment and IV steroids Objective - Vital Signs Vital signs: Vital Signs Temp 97.8 F 06/13/20 11:55 Pulse 68 06/13/20 16:13 Resp 18 06/13/20 16:13 BP 126/68 06/13/20 11:55 Pulse Ox 100 06/13/20 11:55 Intake & Output 06/12/20 06/13/20 06/13/20 18:59 06:59 18:59 Intake Total 940 480 520 Output Total 1600 250 Balance -660 480 270 Weight 83.5 kg Intake: Oral 940 480 520 Output: Urine 1600 250 Other: # Voids 0 # Bowel Movements 0 - Exam - Constitutional General appearance: average body habitus, cooperative, disheveled, mild distress - EENT Eyes: PERRLA Ears: bilateral: normal - Neck Neck: normal ROM Carotids: bilateral: upstroke normal Thyroid: bilateral: normal size - Respiratory Respiratory: bilateral: diminished, rales - Cardiovascular Rhythm: regular Heart sounds: normal: S1, S2 - Integumentary Integumentary: normal turgor - Neurologic Neurologic: CNII-XII intact - Musculoskeletal Musculoskeletal: gait normal, generalized weakness, strength equal bilaterally - Psychiatric Psychiatric: A&O x's 3, appropriate affect, intact judgment & insight - Labs CBC & Chem 7: 06/13/20 08:02 06/13/20 08:02 Labs: Abnormal Lab Results - Last 24 Hours (Table) 06/12/20 06/12/20 06/13/20 Range/Units 16:37 20:04 06:16 RBC (3.80-5.40) m/uL Hgb (11.4-16.0) gm/dL Hct (34.0-46.0) % Lymphocytes # (1.0-4.8) k/uL Sodium (137-145) mmol/L Chloride (98-107) mmol/L Carbon Dioxide (22-30) mmol/L Creatinine (0.52-1.04) mg/dL Glucose (74-99) mg/dL POC Glucose (mg/dL) 143 H 159 H 113 H (75-99) mg/dL Calcium (8.4-10.2) mg/dL Albumin (3.5-5.0) g/dL 06/13/20 06/13/20 06/13/20 Range/Units 08:02 08:02 12:09 RBC 2.98 L (3.80-5.40) m/uL Hgb 9.0 L (11.4-16.0) gm/dL Hct 28.8 L (34.0-46.0) % Lymphocytes # 0.4 L (1.0-4.8) k/uL Sodium 134 L (137-145) mmol/L Chloride 90 L (98-107) mmol/L Carbon Dioxide 42 H* (22-30) mmol/L Creatinine 0.45 L (0.52-1.04) mg/dL Glucose 132 H (74-99) mg/dL POC Glucose (mg/dL) 134 H (75-99) mg/dL Calcium 8.1 L (8.4-10.2) mg/dL Albumin 3.2 L (3.5-5.0) g/dL Assessment and Plan Assessment: Non-Q wave non-ST segment elevated PR versus demand ischemia End-stage severe COPD with acute exacerbation, vent-dependent oxygen dependent and steroid dependent Acute on chronic hypoxic and hypercapnic respiratory failure Suspect presence of acute on chronic congestive heart failure likely acute on chronic diastolic heart failure Small pleural effusion Recent hyponatremia Generalized weakness Recent fall with laceration of the scalp and forehead area Plan: Continue BiPAP support Continue bronchodilator IV steroids Titrated oxygen down as tolerated Follow up on echocardiogram and cardiology recommendation Time with Patient: Greater than 30
[2020-06-13 17:03] LABS: Glucose,Whole Blood 129 mg/dL (75-99)
[2020-06-13] MEDS: MONTELUKAST 10 MG TAB PO SCH (17:49)
[2020-06-13 20:27] LABS: Glucose,Whole Blood 153 mg/dL (75-99)
[2020-06-13] MEDS: ATORVASTATIN 80 MG TAB PO SCH (21:32)
[2020-06-13] MEDS: GABAPENTIN 100 MG CAP PO SCH (21:32)
[2020-06-13] MEDS: LORazepam 0.5 MG TAB PO PRN (23:27)
[2020-06-14] MEDS: IPRATROPIUM-ALBUTEROL 3 ML NEB INHALATION PRN (03:33)
[2020-06-14] MEDS: methylPREDNISolone SOD SUCCI 125 MG/2 ML VIAL IV SCH ×4 (05:30→20:45)
[2020-06-14 06:15] LABS: Glucose,Whole Blood 137 mg/dL (75-99)
[2020-06-14] MEDS: MIDODRINE 5 MG TAB PO SCH ×3 (06:31→16:29)
[2020-06-14] MEDS: SERTRALINE 100 MG TAB PO SCH (08:05)
[2020-06-14] MEDS: PHENYTOIN SODIUM EXTENDED 100 MG CAP PO SCH ×2 (08:05→20:44)
[2020-06-14] MEDS: atenoloL 25 MG TAB PO SCH (08:05)
[2020-06-14] MEDS: ASPIRIN 81 MG PO SCH (08:05)
[2020-06-14] MEDS: busPIRone HCl 10 MG TAB PO SCH ×2 (08:05→20:45)
[2020-06-14] MEDS: FUROSEMIDE 10 MG/ML 4 ML VIAL IV SCH (08:05)
[2020-06-14] MEDS: CLOPIDOGREL 75 MG TAB PO SCH (08:05)
[2020-06-14] MEDS: ENOXAPARIN 40 MG/0.4 ML SYRINGE SQ SCH (08:06)
[2020-06-14] MEDS: LORazepam 0.5 MG TAB PO PRN ×3 (08:06→20:44)
[2020-06-14] MEDS: BUDESONIDE 1 MG/2 ML NEBU INHALATION SCH ×4 (08:14→19:40)
[2020-06-14] MEDS: IPRATROPIUM-ALBUTEROL 3 ML NEB INHALATION SCH ×4 (08:14→19:40)
[2020-06-14 10:47] LABS: Basophils % (A) 0 %; Eosinophils % (A) 0 %; HCT 30.9 % (34.0-46.0); HGB 9.7 gm/dL (11.4-16.0); Hypochromasia Moderate; Lymphocytes # (A) 0.3 k/uL (1.0-4.8); Lymphocytes % (A) 5 %; MCH 30.5 pg (25.0-35.0); MCHC 31.5 g/dL (31.0-37.0); MCV 96.8 fL (80.0-100.0); Mean Platelet Volume 6.6; Monocytes # (A) 0.3 k/uL (0-1.0); Monocytes % (A) 4 %; Neutrophils # (A) 6.3 k/uL (1.3-7.7); Neutrophils % (A) 91 %; Platelet Count 270 k/uL (150-450); RBC 3.19 m/uL (3.80-5.40); RDW 14.9 % (11.5-15.5)
[2020-06-14 11:06] LABS: ALT 31 U/L (4-34); AST 30 U/L (14-36); African American GFR (CKD) >90 (>60 ml/min/1.73 sqM); Albumin 3.4 g/dL (3.5-5.0); Alkaline Phosphatase 129 U/L (38-126); Blood Urea Nitrogen 10 mg/dL (7-17); Calcium 8.4 mg/dL (8.4-10.2); Chloride 86 mmol/L (98-107); Glucose 140 mg/dL (74-99); Non-African American GFR(CKD) >90 (>60 ml/min/1.73 sqM); Sodium 137 mmol/L (137-145); Total Bilirubin 0.5 mg/dL (0.2-1.3); Total Protein 6.8 g/dL (6.3-8.2)
[2020-06-14 11:13] LABS: Anion Gap 1 mmol/L
[2020-06-14 11:24] LABS: Carbon Dioxide 50 mmol/L (22-30)
[2020-06-14 11:37] LABS: Glucose,Whole Blood 137 mg/dL (75-99)
--- NOTE | 2020-06-14 12:13 | P.PN ---
Subjective Progress Note Date: 06/14/20 This is a 64-year-old female with documented history of hypertension, diabetes, hyperlipidemia, end-stage lung disease secondary to severe COPD, asthma, GERD, obstructive sleep apnea, osteoarthritis, chronic respiratory failure with chronic bronchitis, history of brain aneurysm with clipping, who was just recently discharged from the hospital to an extended care facility. She had been admitted to the hospital with severe hyponatremia and generalized weakness. While she was at the extended care facility she developed increasing shortness of breath, she denied any cough, she was placed on BiPAP on arrival here. Chest x-ray on presentation showed increasing moderate interstitial changes and possible trace right sided effusion. Correlate for any early interstitial edema superimposed on COPD. EKG on presentation here shows a sinus tachycardia. Blood pressure 140/60 heart rate in the 80s 96% on BiPAP. White blood cell count on arrival 12.1, 10.6 this morning, hemoglobin 9.9, platelet count 269. Sodium 136, potassium 4.4, chloride 91, CO2 41, BUN 16, creatinine 0.5. Rich virus testing was performed on June 10 which came back to be negative. Troponin 0.075, BNP 2310. Liver enzymes, AST 44, ALT 43, alk phos 156. 06/13/2020 Patient was seen and examined this morning, continues to be on 35% BiPAP. CTA of the chest was negative for pulmonary embolism. Blood pressure 146/70 with a heart rate in the 80s, 94% on 50% bypass. White blood cell count 8.1, hemoglobin 9.0, platelet count 254. Sodium 134, potassium 3.9, CO2 42 BUN 12, creatinine 0.5. Patient continues to be on IV Lasix 40 mg daily. As well as IV steroids. Subsequent troponins, 0.075, 0.24, 0.16. Patient denies any chest discomfort. Echocardiogram with Doppler study reveals a normal left ventricular systolic function. 06/14/2020 Patient was seen and examined this morning, she does feel better, the edema in her lower extremities is improving. Blood pressure 140/90 with a heart rate in the 90s. White blood cell count 7.0, hemoglobin 9.7, platelet count 270. Sodium 137, potassium 4.0, BUN 10, creatinine 0.4. Objective - Vital Signs Vital signs: Vital Signs Temp 96.8 F L 06/14/20 08:00 Pulse 92 06/14/20 11:49 Resp 22 06/14/20 08:00 BP 145/90 06/14/20 08:39 Pulse Ox 94 L 06/14/20 08:00 Intake & Output 06/13/20 06/14/20 06/14/20 18:59 06:59 18:59 Intake Total 760 480 Output Total 500 400 Balance 260 80 Weight 82.4 kg Intake: Oral 760 480 Output: Urine 500 400 Other: Voiding Method Incontinent - Exam PHYSICAL EXAMINATION: GENERAL: 64-year-old female, in no acute distress at the time of my examination. HEENT: Head is atraumatic, normocephalic. Pupils equal, round. Sclera anicteric. Conjunctiva are clear. Mucous membranes of the mouth are moist. Neck is supple. There is no elevated jugular venous pressure. No carotid bruit is heard. HEART EXAMINATION: Heart S1, S2 normal. No murmur or gallop heard. CHEST EXAMINATION: Lungs reveal rales at the bases with diminished air entry bi laterally. Fine scattered wheezing throughout. ABDOMEN: Soft, nontender. Bowel sounds are heard. No organomegaly noted. EXTREMITIES: 2+ peripheral pulses with trace evidence of peripheral edema and no calf tenderness noted. NEUROLOGIC patient is awake, alert and oriented X3. - Labs CBC & Chem 7: 06/14/20 09:46 06/14/20 09:46 Labs: Abnormal Lab Results - Last 24 Hours (Table) 06/13/20 06/13/20 06/13/20 Range/Units 12:09 16:56 20:26 RBC (3.80-5.40) m/uL Hgb (11.4-16.0) gm/dL Hct (34.0-46.0) % Lymphocytes # (1.0-4.8) k/uL Chloride (98-107) mmol/L Carbon Dioxide (22-30) mmol/L Creatinine (0.52-1.04) mg/dL Glucose (74-99) mg/dL POC Glucose (mg/dL) 134 H 129 H 153 H (75-99) mg/dL Alkaline Phosphatase (38-126) U/L Albumin (3.5-5.0) g/dL 06/14/20 06/14/20 06/14/20 Range/Units 06:13 09:46 09:46 RBC 3.19 L (3.80-5.40) m/uL Hgb 9.7 L (11.4-16.0) gm/dL Hct 30.9 L (34.0-46.0) % Lymphocytes # 0.3 L (1.0-4.8) k/uL Chloride 86 L (98-107) mmol/L Carbon Dioxide 50 H* (22-30) mmol/L Creatinine 0.45 L (0.52-1.04) mg/dL Glucose 140 H (74-99) mg/dL POC Glucose (mg/dL) 137 H (75-99) mg/dL Alkaline Phosphatase 129 H (38-126) U/L Albumin 3.4 L (3.5-5.0) g/dL 06/14/20 Range/Units 11:36 RBC (3.80-5.40) m/uL Hgb (11.4-16.0) gm/dL Hct (34.0-46.0) % Lymphocytes # (1.0-4.8) k/uL Chloride (98-107) mmol/L Carbon Dioxide (22-30) mmol/L Creatinine (0.52-1.04) mg/dL Glucose (74-99) mg/dL POC Glucose (mg/dL) 137 H (75-99) mg/dL Alkaline Phosphatase (38-126) U/L Albumin (3.5-5.0) g/dL Assessment and Plan Plan: Assessment and plan #1 severe shortness of breath, COPD exacerbation, acute on chronic respiratory failure #2 diastolic congestive heart failure acute on chronic #3 recent admission with hyponatremia #4 recent fall with laceration of the scalp and forehead #5 abnormality in troponin, patient denies any chest discomfort, could be secondary to hypoxia. We will obtain 2 subsequent troponins. EKG shows a sinus tachycardia. #6 diabetes #7 hyperlipidemia #8 hypertension #9 sleep apnea #10 COPD with home O2 use #11 brain aneurysm with clipping procedure Plan Echocardiogram with Doppler study revealed a normal left ventricular systolic fu nction, CTA of the chest negative for PE. We will continue current dose of IV Lasix for 24 hours. Check lytes BUN and creatinine in the morning. DNP note has been reviewed, I agree with a documented findings and plan of care. Patient was seen and examined.
--- NOTE | 2020-06-14 14:44 | P.PN ---
Subjective Progress Note Date: 06/14/20 Principal diagnosis: End-stage severe COPD with acute exacerbation, vent-dependent oxygen dependent and steroid dependent Acute on chronic hypoxic and hypercapnic respiratory failure Suspect presence of acute on chronic congestive heart failure likely acute on chronic diastolic heart failure Small pleural effusion Recent hyponatremia Generalized weakness Recent fall with laceration of the scalp and forehead area 06/14/2020, patient seen eval examined during the rounds labs reviewed medications reviewed, shortness of breath stable patient continued use BiPAP, alternating with supplemental oxygen, labs are reviewed hemodynamics stable, hemoglobin and white cell count stable as well, oxygen saturation is 94%, patient remains afebrile, echocardiogram revealed ejection fraction of 55%, no evidence of the severe pulmonary hypertension is noted RVSP less than 35 with some mild MR and TR 06/13/2020, patient seen eval examined during the rounds labs reviewed medicati ons reviewed care plan discussed, still generalized weakness present, respiration remains stable, on BiPAP oxygen saturation is 100% to 6 L, computed tomography scan of the chest reviewed no evidence of pulmonary embolism bilateral interstitial changes noted consistent with COPD 06/12/2020, patient seen eval examined during the rounds labs reviewed medications reviewed care plan discussed patient continued to feel weak but the overall remains stable, and denies any chest pain, is still short of breath on supplemental oxygen, patient is being evaluated by cardiovascular service echocardiogram is pending, patient has been intermittently supported with the 3 L nasal cannula and BiPAP, saturation is 97%, noted drops continue to go up, This is a 64-year-old female with end-stage lung disease secondary due to severe COPD emphysema patient was in the hospital for severe hyponatremia and gener alized weakness has been transferred to rehab in extended care facility where she developed increasing shortness of breath however denies any cough or sputum production came into the hospital, patient currently is on BiPAP oxygen saturation is 99% on 50% oxygen hemodynamic status stable, she is afebrile, chest x-ray however noted to have interstitial edema and small right pleural effusion appears to be congestive heart failure acute on chronic diastolic heart failure heart from's are also mildly elevated, BNP is over 2300, AST and ALT also mildly elevated, sodium is 135, CO2 is 40, patient is being treated with nebulizer treatment and IV steroids Objective - Vital Signs Vital signs: Vital Signs Temp 96.8 F L 06/14/20 08:00 Pulse 59 L 06/14/20 12:00 Resp 20 06/14/20 12:00 BP 112/65 06/14/20 12:00 Pulse Ox 100 06/14/20 12:00 Intake & Output 06/13/20 06/14/20 06/14/20 18:59 06:59 18:59 Intake Total 760 480 120 Output Total 500 400 300 Balance 260 80 -180 Weight 82.4 kg Intake: Oral 760 480 120 Output: Urine 500 400 300 Other: Voiding Method Incontinent # Voids 1 - Exam - Constitutional General appearance: average body habitus, cooperative, disheveled, mild distress - EENT Eyes: PERRLA Ears: bilateral: normal - Neck Neck: normal ROM Carotids: bilateral: upstroke normal Thyroid: bilateral: normal size - Respiratory Respiratory: bilateral: diminished, rales - Cardiovascular Rhythm: regular Heart sounds: normal: S1, S2 - Integumentary Integumentary: normal turgor - Neurologic Neurologic: CNII-XII intact - Musculoskeletal Musculoskeletal: gait normal, generalized weakness, strength equal bilaterally - Psychiatric Psychiatric: A&O x's 3, appropriate affect, intact judgment & insight - Labs CBC & Chem 7: 06/14/20 09:46 06/14/20 09:46 Labs: Abnormal Lab Results - Last 24 Hours (Table) 06/13/20 06/13/20 06/14/20 Range/Units 16:56 20:26 06:13 RBC (3.80-5.40) m/uL Hgb (11.4-16.0) gm/dL Hct (34.0-46.0) % Lymphocytes # (1.0-4.8) k/uL Chloride (98-107) mmol/L Carbon Dioxide (22-30) mmol/L Creatinine (0.52-1.04) mg/dL Glucose (74-99) mg/dL POC Glucose (mg/dL) 129 H 153 H 137 H (75-99) mg/dL Alkaline Phosphatase (38-126) U/L Albumin (3.5-5.0) g/dL 06/14/20 06/14/20 06/14/20 Range/Units 09:46 09:46 11:36 RBC 3.19 L (3.80-5.40) m/uL Hgb 9.7 L (11.4-16.0) gm/dL Hct 30.9 L (34.0-46.0) % Lymphocytes # 0.3 L (1.0-4.8) k/uL Chloride 86 L (98-107) mmol/L Carbon Dioxide 50 H* (22-30) mmol/L Creatinine 0.45 L (0.52-1.04) mg/dL Glucose 140 H (74-99) mg/dL POC Glucose (mg/dL) 137 H (75-99) mg/dL Alkaline Phosphatase 129 H (38-126) U/L Albumin 3.4 L (3.5-5.0) g/dL Assessment and Plan Assessment: Non-Q wave non-ST segment elevated MA versus demand ischemia, cardiovascular services evaluating End-stage severe COPD with acute exacerbation, vent-dependent oxygen dependent and steroid dependent Acute on chronic hypoxic and hypercapnic respiratory failure Suspect presence of acute on chronic congestive heart failure likely acute on chronic diastolic heart failure Small pleural effusion Recent hyponatremia Generalized weakness Recent fall with laceration of the scalp and forehead area Plan: Continue BiPAP support Continue bronchodilator IV steroids, continue to start tapering gradually Titrated oxygen down as tolerated Follow up on echocardiogram and cardiology recommendation Further recommendations pending plan of care as per clinical response of the patient Time with Patient: Greater than 30
--- NOTE | 2020-06-14 14:56 | P.PN ---
Subjective Progress Note Date: 06/14/20 Mitchell Jasso is a 64 yo F with PMH of severe end stage COPD on home oxygen, chronic diastolic CHF, HTN, GERD who was just recently admitted with hyponatremia and generalized weakness 06/04-06/10. Her hyponatremia was felt to be due to excessive diuresis and she was evaluated by her dispatcher [employer] as well as nephrology at that time. Pt did receive IV fluids with improvement in her sodium as well as IV steroids. Her breathing had returned to her baseline and she was discharged on 06/10. Pt states when she got to the subacute rehab she received poor care and was not able to use her BIPAP at night, only nasal oxygen. She became increasingly short of breath and was brought back to the ED the following day 06/11. On presentation she was initially placed on NRB and then BIPAP. WBC 10.6k sodium 136, bicarbonate 41. CXR with increasing interstitial change. 06/13/2020 and maintained on 35% BiPAP throughout the night. Earlier this morning, patient became more anxious,BiPAP increased to 50%, Xanax administered. Diuretics increased yesterday. CO2 42. Afebrile, normal WBC. CTA reported no evidence for PE. Diuresing well on Lasix IV push with 24-hour I&O reflecting a negative fluid balance. Denies chest pain, palpitations. Troponin 0.075, 0.242, 0.163. Echo reported normal LV function with EF between 55 and 60% 02/12/2020 BiPAP dependent, maintaining O2 sats in the 90s. Reports short of elton ath throughout the night, Xanax helping with her anxiety. CO2 worsening, 50. Diuresing well on Lasix IV push with 24-hour I&O reflecting a negative fluid balance. Creatinine 0.45. Afebrile. Objective - Vital Signs Vital signs: Vital Signs Temp 96.8 F L 06/14/20 08:00 Pulse 92 06/14/20 11:49 Resp 22 06/14/20 08:00 BP 145/90 06/14/20 08:39 Pulse Ox 94 L 06/14/20 08:00 Intake & Output 06/13/20 06/14/20 06/14/20 18:59 06:59 18:59 Intake Total 760 480 Output Total 500 400 Balance 260 80 Weight 82.4 kg Intake: Oral 760 480 Output: Urine 500 400 Other: Voiding Method Incontinent - Exam General: Sitting up in bed, wearing CPAP Eyes: PERRL, EOMI, conjunctiva normal HENT: normocephalic. Neck: supple, no JVD Lungs: Increased respiratory effort, rales at bases. No wheezes or rhonchi CV: Regular rate and rhythm, no murmur. Peripheral pulses 2+. Trace edema Abdomen: soft, nondistended, no organomegaly Skin: warm and dry. Neuro: A&Ox3, normal mood and affect. - Labs CBC & Chem 7: 06/14/20 09:46 06/14/20 09:46 Labs: Abnormal Lab Results - Last 24 Hours (Table) 06/13/20 06/13/20 06/14/20 Range/Units 16:56 20:26 06:13 RBC (3.80-5.40) m/uL Hgb (11.4-16.0) gm/dL Hct (34.0-46.0) % Lymphocytes # (1.0-4.8) k/uL Chloride (98-107) mmol/L Carbon Dioxide (22-30) mmol/L Creatinine (0.52-1.04) mg/dL Glucose (74-99) mg/dL POC Glucose (mg/dL) 129 H 153 H 137 H (75-99) mg/dL Alkaline Phosphatase (38-126) U/L Albumin (3.5-5.0) g/dL 06/14/20 06/14/20 06/14/20 Range/Units 09:46 09:46 11:36 RBC 3.19 L (3.80-5.40) m/uL Hgb 9.7 L (11.4-16.0) gm/dL Hct 30.9 L (34.0-46.0) % Lymphocytes # 0.3 L (1.0-4.8) k/uL Chloride 86 L (98-107) mmol/L Carbon Dioxide 50 H* (22-30) mmol/L Creatinine 0.45 L (0.52-1.04) mg/dL Glucose 140 H (74-99) mg/dL POC Glucose (mg/dL) 137 H (75-99) mg/dL Alkaline Phosphatase 129 H (38-126) U/L Albumin 3.4 L (3.5-5.0) g/dL Assessment and Plan Assessment: Acute COPD exacerbation with End-stage COPD, emphysema Acute on chronic hypoxic, hypercapnic respiratory failure currently BiPAP dependent Acute on chronic CHF exacerbation, diastolic dysfunction Elevated troponins, possible non-Q-wave PR, possibly related to hypoxemia, cardiology following PE ruled out. Hyponatremia syndrome Hypertension Hyperlipidemia Plan: Continue on current medication regime ,monitoring and symptomatic treatment. Maintain supportive care .Continue on fluid restrictions, diuresing, nebulized bronchodilators, IV steroids. Discussed end-stage COPD, options of palliative/hospice. Patient requesting that family members be allowed to come in so that she might be able to discuss these options with them. RN to notify family . Prognosis guarded given multiple complex medical issues. The impression and plan of care has been dictated as directed. : I performed a history and examination of this patient, discussed the same with the dictator. I agree with the dictator's note ,documented as a scribe. Any additional findings or plans will be noted.
[2020-06-14] MEDS: MONTELUKAST 10 MG TAB PO SCH (16:29)
[2020-06-14 16:52] LABS: Glucose,Whole Blood 131 mg/dL (75-99)
[2020-06-14 20:06] LABS: Glucose,Whole Blood 147 mg/dL (75-99)
[2020-06-14] MEDS: GABAPENTIN 100 MG CAP PO SCH (20:44)
[2020-06-14] MEDS: ATORVASTATIN 80 MG TAB PO SCH (20:44)
[2020-06-15] MEDS: LORazepam 0.5 MG TAB PO PRN ×2 (05:12→15:36)
[2020-06-15] MEDS: methylPREDNISolone SOD SUCCI 125 MG/2 ML VIAL IV SCH ×3 (05:13→17:53)
[2020-06-15 06:14] LABS: Glucose,Whole Blood 98 mg/dL (75-99)
[2020-06-15] MEDS: MIDODRINE 5 MG TAB PO SCH ×3 (06:24→17:21)
[2020-06-15] MEDS: BUDESONIDE 1 MG/2 ML NEBU INHALATION SCH (07:54)
[2020-06-15] MEDS: IPRATROPIUM-ALBUTEROL 3 ML NEB INHALATION SCH ×3 (07:54→15:41)
[2020-06-15 08:13] LABS: Basophils % (A) 0 %; Eosinophils # (A) 0.1 k/uL (0-0.7); Eosinophils % (A) 1 %; HCT 28.4 % (34.0-46.0); HGB 8.8 gm/dL (11.4-16.0); Hypochromasia Moderate; Lymphocytes # (A) 0.8 k/uL (1.0-4.8); Lymphocytes % (A) 8 %; MCH 30.1 pg (25.0-35.0); MCHC 30.9 g/dL (31.0-37.0); MCV 97.4 fL (80.0-100.0); Mean Platelet Volume 6.6; Monocytes # (A) 0.4 k/uL (0-1.0); Monocytes % (A) 4 %; Neutrophils # (A) 7.9 k/uL (1.3-7.7); Neutrophils % (A) 85 %; Platelet Count 246 k/uL (150-450); RBC 2.92 m/uL (3.80-5.40); RDW 14.9 % (11.5-15.5); WBC 9.3 k/uL (3.8-10.6)
[2020-06-15 08:29] LABS: African American GFR (CKD) >90 (>60 ml/min/1.73 sqM); Blood Urea Nitrogen 12 mg/dL (7-17); Calcium 8.1 mg/dL (8.4-10.2); Chloride 87 mmol/L (98-107); Glucose 90 mg/dL (74-99); Non-African American GFR(CKD) >90 (>60 ml/min/1.73 sqM); Potassium 3.9 mmol/L (3.5-5.1); Sodium 137 mmol/L (137-145)
[2020-06-15 08:37] LABS: Anion Gap 2 mmol/L
[2020-06-15 08:39] LABS: Carbon Dioxide 48 mmol/L (22-30)
[2020-06-15] MEDS ORDERED: LORazepam 0.5 MG TAB PO STA (08:57)
[2020-06-15] MEDS: ASPIRIN 81 MG PO SCH (10:09)
[2020-06-15] MEDS: PHENYTOIN SODIUM EXTENDED 100 MG CAP PO SCH (10:10)
[2020-06-15] MEDS: CLOPIDOGREL 75 MG TAB PO SCH (10:10)
[2020-06-15] MEDS: SERTRALINE 100 MG TAB PO SCH (10:10)
[2020-06-15] MEDS: busPIRone HCl 10 MG TAB PO SCH (10:10)
[2020-06-15] MEDS: ENOXAPARIN 40 MG/0.4 ML SYRINGE SQ SCH (10:11)
[2020-06-15] MEDS: atenoloL 25 MG TAB PO SCH (10:11)
[2020-06-15] MEDS: FUROSEMIDE 10 MG/ML 4 ML VIAL IV SCH (10:11)
--- NOTE | 2020-06-15 11:59 | P.PN ---
Subjective Progress Note Date: 06/15/20 This is a 64-year-old female with documented history of hypertension, diabetes, hyperlipidemia, end-stage lung disease secondary to severe COPD, asthma, GERD, obstructive sleep apnea, osteoarthritis, chronic respiratory failure with chronic bronchitis, history of brain aneurysm with clipping, who was just recently discharged from the hospital to an extended care facility. She had been admitted to the hospital with severe hyponatremia and generalized weakness. While she was at the extended care facility she developed increasing shortness of breath, she denied any cough, she was placed on BiPAP on arrival here. Chest x-ray on presentation showed increasing moderate interstitial changes and possible trace right sided effusion. Correlate for any early interstitial edema superimposed on COPD. EKG on presentation here shows a sinus tachycardia. Blood pressure 140/60 heart rate in the 80s 96% on BiPAP. White blood cell count on arrival 12.1, 10.6 this morning, hemoglobin 9.9, platelet count 269. Sodium 136, potassium 4.4, chloride 91, CO2 41, BUN 16, creatinine 0.5. Rich virus testing was performed on June 10 which came back to be negative. Troponin 0.075, BNP 2310. Liver enzymes, AST 44, ALT 43, alk phos 156. 06/13/2020 Patient was seen and examined this morning, continues to be on 35% BiPAP. CTA of the chest was negative for pulmonary embolism. Blood pressure 146/70 with a heart rate in the 80s, 94% on 50% bypass. White blood cell count 8.1, hemoglobin 9.0, platelet count 254. Sodium 134, potassium 3.9, CO2 42 BUN 12, creatinine 0.5. Patient continues to be on IV Lasix 40 mg daily. As well as IV steroids. Subsequent troponins, 0.075, 0.24, 0.16. Patient denies any chest discomfort. Echocardiogram with Doppler study reveals a normal left ventricular systolic function. 06/14/2020 Patient was seen and examined this morning, she does feel better, the edema in her lower extremities is improving. Blood pressure 140/90 with a heart rate in the 90s. White blood cell count 7.0, hemoglobin 9.7, platelet count 270. Sodium 137, potassium 4.0, BUN 10, creatinine 0.4. 06/15/2020 Patient seen and examined this morning, having significant worsening in her breathing overall. Blood pressure 140/80, with a heart rate in the 60s, continues to be on BiPAP, patients requesting to be made comfort measures. Family has been called in to sit at bedside. White blood cell count 9.3, hemoglobin 8.8, platelet count 246. Sodium 137, potassium 3.9, BUN 12, creatinine 0.5. Objective - Vital Signs Vital signs: Vital Signs Temp 98.1 F 06/15/20 03:06 Pulse 92 06/15/20 11:12 Resp 16 06/15/20 03:13 BP 142/86 06/15/20 03:06 Pulse Ox 96 06/14/20 19:43 Intake & Output 06/14/20 06/15/20 06/15/20 18:59 06:59 18:59 Intake Total 120 260 0 Output Total 300 300 Balance -180 -40 0 Weight 78.5 kg Intake: IV 20 Invasive Line 2 20 Oral 120 240 0 Output: Urine 300 300 Other: Voiding Method Incontinent Incontinent # Voids 1 1 - Exam PHYSICAL EXAMINATION: GENERAL: 64-year-old female, in mild respiratory distress at the time of my examination HEENT: Head is atraumatic, normocephalic. Pupils equal, round. Sclera anicteric. Conjunctiva are clear. Mucous membranes of the mouth are moist. Neck is supple. There is no elevated jugular venous pressure. No carotid bruit is heard. HEART EXAMINATION: Heart S1, S2 normal. No murmur or gallop heard. CHEST EXAMINATION: Lungs reveal rales at the bases with diminished air entry bilaterally. Fine scattered wheezing throughout. ABDOMEN: Soft, nontender. Bowel sounds are heard. No organomegaly noted. EXTREMITIES: 2+ peripheral pulses with trace evidence of peripheral edema and no calf tenderness noted. NEUROLOGIC patient is awake, alert and oriented X2. - Labs CBC & Chem 7: 06/15/20 07:17 06/15/20 07:17 Labs: Abnormal Lab Results - Last 24 Hours (Table) 06/14/20 06/14/20 06/15/20 Range/Units 16:51 20:04 07:17 RBC 2.92 L (3.80-5.40) m/uL Hgb 8.8 L (11.4-16.0) gm/dL Hct 28.4 L (34.0-46.0) % MCHC 30.9 L (31.0-37.0) g/dL Neutrophils # 7.9 H (1.3-7.7) k/uL Lymphocytes # 0.8 L (1.0-4.8) k/uL Chloride (98-107) mmol/L Carbon Dioxide (22-30) mmol/L Creatinine (0.52-1.04) mg/dL POC Glucose (mg/dL) 131 H 147 H (75-99) mg/dL Calcium (8.4-10.2) mg/dL 06/15/20 Range/Units 07:17 RBC (3.80-5.40) m/uL Hgb (11.4-16.0) gm/dL Hct (34.0-46.0) % MCHC (31.0-37.0) g/dL Neutrophils # (1.3-7.7) k/uL Lymphocytes # (1.0-4.8) k/uL Chloride 87 L (98-107) mmol/L Carbon Dioxide 48 H* (22-30) mmol/L Creatinine 0.50 L (0.52-1.04) mg/dL POC Glucose (mg/dL) (75-99) mg/dL Calcium 8.1 L (8.4-10.2) mg/dL Assessment and Plan Plan: Assessment and plan #1 severe shortness of breath, COPD exacerbation, acute on chronic respiratory failure #2 diastolic congestive heart failure acute on chronic #3 recent admission with hyponatremia #4 recent fall with laceration of the scalp and forehead #5 abnormality in troponin, patient denies any chest discomfort, could be secondary to hypoxia. We will obtain 2 subsequent troponins. EKG shows a sinus tachycardia. #6 diabetes #7 hyperlipidemia #8 hypertension #9 sleep apnea #10 COPD with home O2 use #11 brain aneurysm with clipping procedure Plan From cardiology's perspective, patient has been requested to be made comfort measures, family has been called in to be at bedside. We will follow her along with you now on an as needed basis only, please don't hesitate to call if you have any questions. DNP note has been reviewed, I agree with a documented findings and plan of care. Patient was seen and examined.
[2020-06-15 12:15] LABS: Glucose,Whole Blood 119 mg/dL (75-99)
[2020-06-15] MEDS: MONTELUKAST 10 MG TAB PO SCH (13:12)
--- NOTE | 2020-06-15 13:40 | P.PN ---
Subjective 64-year-old pleasant female with end-stage COPD uses seat usually 3-4 L of onset at home is admitted for acute hypoxic respiratory failure patient has been on BiPAP for last 4 days without any significant improvementmultiple family members at bedside they're requesting patient to be hospice which I believe is appropriate because of her end-stage COPD as per the patient and family's request [facility] was consulted.family wishes to take her home today on hospice if possible. Constitutional: Denied any fatigue denied any fever. Cardio vascular: denied any chest pain, palpitations Gastrointestinal denied any nausea vomiting Pulmonary: he'll significantly short of breath Neurologic denied any new focal deficits All inpatient medications were reviewed and appropriate changes in these medications as dictated in the interval history and assessment and plan. Objective - Vital Signs Vital signs: Vital Signs Temp 98.1 F 06/15/20 03:06 Pulse 92 06/15/20 11:12 Resp 16 06/15/20 03:13 BP 142/86 06/15/20 03:06 Pulse Ox 96 06/14/20 19:43 Intake & Output 06/14/20 06/15/20 06/15/20 18:59 06:59 18:59 Intake Total 120 260 0 Output Total 300 300 Balance -180 -40 0 Weight 78.5 kg Intake: IV 20 Invasive Line 2 20 Oral 120 240 0 Output: Urine 300 300 Other: Voiding Method Incontinent Incontinent # Voids 1 1 - Exam PHYSICAL EXAMINATION: GENERAL: The patient is alert and oriented x3, BiPAP still in respiratory distress. Well developed, well nourished. HEENT: Pupils are round and equally reacting to light. EOMI. No scleral icterus. No conjunctival pallor. Normocephalic, atraumatic. No pharyngeal erythema. No thyromegaly. CARDIOVASCULAR: S1 and S2 present. No murmurs, rubs, or gallops. PULMONARY:Mr. entry into bilateral lung gill which is significant and bi basilar crackles ABDOMEN: Soft, nontender, nondistended, normoactive bowel sounds. No palpable organomegaly. MUSCULOSKELETAL: No joint swelling or deformity. EXTREMITIES: No cyanosis, clubbing, or pedal edema. NEUROLOGICAL: Gross neurological examination did not reveal any focal deficits. SKIN: No rashes. - Labs CBC & Chem 7: 06/15/20 07:17 06/15/20 07:17 Labs: Abnormal Lab Results - Last 24 Hours (Table) 06/14/20 06/14/20 06/15/20 Range/Units 16:51 20:04 07:17 RBC 2.92 L (3.80-5.40) m/uL Hgb 8.8 L (11.4-16.0) gm/dL Hct 28.4 L (34.0-46.0) % MCHC 30.9 L (31.0-37.0) g/dL Neutrophils # 7.9 H (1.3-7.7) k/uL Lymphocytes # 0.8 L (1.0-4.8) k/uL Chloride (98-107) mmol/L Carbon Dioxide (22-30) mmol/L Creatinine (0.52-1.04) mg/dL POC Glucose (mg/dL) 131 H 147 H (75-99) mg/dL Calcium (8.4-10.2) mg/dL 06/15/20 06/15/20 Range/Units 07:17 12:01 RBC (3.80-5.40) m/uL Hgb (11.4-16.0) gm/dL Hct (34.0-46.0) % MCHC (31.0-37.0) g/dL Neutrophils # (1.3-7.7) k/uL Lymphocytes # (1.0-4.8) k/uL Chloride 87 L (98-107) mmol/L Carbon Dioxide 48 H* (22-30) mmol/L Creatinine 0.50 L (0.52-1.04) mg/dL POC Glucose (mg/dL) 119 H (75-99) mg/dL Calcium 8.1 L (8.4-10.2) mg/dL Assessment and Plan Plan: acute on chronic hypercapnic and hypoxic respiratory failure secondary to COPD exacerbation.remains on BiPAP unable to wean her off BiPAP -Troponin elevation: Secondary to hypoxemia -Congestive heart failure chronic diastolic dysfunction with possible acute exacerbation -Hypervolemic hyponatremia -Generalized weakness Fall plan: As mentioned above
[2020-06-15 14:52] VITALS: BP 156/76; RESP 22; TEMP 97.8
[2020-06-15 15:55] VITALS: PULSE 92
[2020-06-15 17:00] LABS: Glucose,Whole Blood 127 mg/dL (75-99)
--- NOTE | 2020-06-15 19:48 | P.PN ---
Subjective Progress Note Date: 06/15/20 Principal diagnosis: End-stage severe COPD with acute exacerbation, vent-dependent oxygen dependent and steroid dependent Acute on chronic hypoxic and hypercapnic respiratory failure Suspect presence of acute on chronic congestive heart failure likely acute on chronic diastolic heart failure Small pleural effusion Recent hyponatremia Generalized weakness Recent fall with laceration of the scalp and forehead area 06/15/2020, patient seen and evaluated examined, denies any chest pain breathing comfortably, remains on supplemental oxygen, noted that patient is requesting hospice [facility] has been consulted, 06/14/2020, patient seen eval examined during the rounds labs reviewed medications reviewed, shortness of breath stable patient continued use BiPAP, a lternating with supplemental oxygen, labs are reviewed hemodynamics stable, hemoglobin and white cell count stable as well, oxygen saturation is 94%, patient remains afebrile, echocardiogram revealed ejection fraction of 55%, no evidence of the severe pulmonary hypertension is noted RVSP less than 35 with some mild MR and TR 06/13/2020, patient seen eval examined during the rounds labs reviewed m edications reviewed care plan discussed, still generalized weakness present, respiration remains stable, on BiPAP oxygen saturation is 100% to 6 L, computed tomography scan of the chest reviewed no evidence of pulmonary embolism bilateral interstitial changes noted consistent with COPD 06/12/2020, patient seen eval examined during the rounds labs reviewed medications reviewed care plan discussed patient continued to feel weak but the overall remains stable, and denies any chest pain, is still short of breath on supplemental oxygen, patient is being evaluated by cardiovascular service echocardiogram is pending, patient has been intermittently supported with the 3 L nasal cannula and BiPAP, saturation is 97%, noted drops continue to go up, This is a 64-year-old female with end-stage lung disease secondary due to severe COPD emphysema patient was in the hospital for severe hyponatremia and generalized weakness has been transferred to rehab in extended care facility where she developed increasing shortness of breath however denies any cough or sputum production came into the hospital, patient currently is on BiPAP oxygen saturation is 99% on 50% oxygen hemodynamic status stable, she is afebrile, chest x-ray however noted to have interstitial edema and small right pleural effusion appears to be congestive heart failure acute on chronic diastolic heart failure heart from's are also mildly elevated, BNP is over 2300, AST and ALT also mildly elevated, sodium is 135, CO2 is 40, patient is being treated with nebulizer treatment and IV steroids Objective - Vital Signs Vital signs: Vital Signs Temp 97.8 F 06/15/20 12:20 Pulse 92 06/15/20 15:54 Resp 22 06/15/20 12:20 BP 156/76 06/15/20 12:20 Pulse Ox 96 06/15/20 12:20 Intake & Output 06/15/20 06/15/20 06/16/20 06:59 18:59 06:59 Intake Total 260 500 Output Total 300 Balance -40 500 Weight 78.5 kg Intake: IV 20 Invasive Line 2 20 Oral 240 500 Output: Urine 300 Other: Voiding Method Incontinent Incontinent # Voids 1 - Exam - Constitutional General appearance: average body habitus, cooperative, disheveled, mild distress - EENT Eyes: PERRLA Ears: bilateral: normal - Neck Neck: normal ROM Carotids: bilateral: upstroke normal Thyroid: bilateral: normal size - Respiratory Respiratory: bilateral: diminished, rales - Cardiovascular Rhythm: regular Heart sounds: normal: S1, S2 - Integumentary Integumentary: normal turgor - Neurologic Neurologic: CNII-XII intact - Musculoskeletal Musculoskeletal: gait normal, generalized weakness, strength equal bilaterally - Psychiatric Psychiatric: A&O x's 3, appropriate affect, intact judgment & insight - Labs CBC & Chem 7: 06/15/20 07:17 06/15/20 07:17 Labs: Abnormal Lab Results - Last 24 Hours (Table) 06/14/20 06/15/20 06/15/20 Range/Units 20:04 07:17 07:17 RBC 2.92 L (3.80-5.40) m/uL Hgb 8.8 L (11.4-16.0) gm/dL Hct 28.4 L (34.0-46.0) % MCHC 30.9 L (31.0-37.0) g/dL Neutrophils # 7.9 H (1.3-7.7) k/uL Lymphocytes # 0.8 L (1.0-4.8) k/uL Chloride 87 L (98-107) mmol/L Carbon Dioxide 48 H* (22-30) mmol/L Creatinine 0.50 L (0.52-1.04) mg/dL POC Glucose (mg/dL) 147 H (75-99) mg/dL Calcium 8.1 L (8.4-10.2) mg/dL 06/15/20 06/15/20 Range/Units 12:01 16:29 RBC (3.80-5.40) m/uL Hgb (11.4-16.0) gm/dL Hct (34.0-46.0) % MCHC (31.0-37.0) g/dL Neutrophils # (1.3-7.7) k/uL Lymphocytes # (1.0-4.8) k/uL Chloride (98-107) mmol/L Carbon Dioxide (22-30) mmol/L Creatinine (0.52-1.04) mg/dL POC Glucose (mg/dL) 119 H 127 H (75-99) mg/dL Calcium (8.4-10.2) mg/dL Assessment and Plan Assessment: Non-Q wave non-ST segment elevated NE versus demand ischemia, cardiovascular se rvices evaluating End-stage severe COPD with acute exacerbation, vent-dependent oxygen dependent and steroid dependent Acute on chronic hypoxic and hypercapnic respiratory failure Suspect presence of acute on chronic congestive heart failure likely acute on chronic diastolic heart failure Small pleural effusion Recent hyponatremia Generalized weakness Recent fall with laceration of the scalp and forehead area Plan: Continue BiPAP support Continue bronchodilator Supportive care Titrated oxygen down as tolerated Further recommendations pending plan of care as per clinical response of the patient We will be available as needed Time with Patient: Greater than 30
--- NOTE | 2020-06-18 15:55 | P.DS ---
Providers Date of admission: 06/11/20 10:08 Expected date of discharge: 06/15/20 Attending physician: Gio Long MD Consults: 06/11/20 10:09 Consult Physician Urgent Consulting Provider: Tani Chamberlain Consult Reason/Comments: Respiratory failure, COPD Do you want consulting provider notified?: Yes 06/12/20 10:12 Consult Physician Routine Consulting Provider: Scarlett Espinosa Consult Reason/Comments: resp failure, end stage COPD Do you want consulting provider notified?: Yes Primary care physician: Gio Long MD Hospital Course: Patient was discharged home with hospice. Please refer to the progress note from the same day for further details Patient Condition at Discharge: Serious Plan - Discharge Summary Discharge Rx Participant: No New Discharge Prescriptions: No Action Atenolol [Tenormin] 25 mg PO DAILY Phenytoin Sodium Extended [Dilantin] 200 mg PO BID Montelukast [Singulair] 10 mg PO DAILY@1400 Sertraline [Zoloft] 200 mg PO DAILY Atorvastatin [Lipitor] 80 mg PO HS Budesonide [Pulmicort] 1 mg INHALATION RT-QID Clopidogrel Bisulfate [Plavix] 75 mg PO DAILY Aspirin EC [Ecotrin Low Dose] 81 mg PO DAILY metFORMIN HCL [Glucophage] 500 mg PO BID Ferrous Sulfate [Iron] 325 mg PO DAILY@1400 Ergocalciferol (Vitamin D2) [Drisdol] 50,000 unit PO THOMPSON busPIRone HCl [Buspar] 10 mg PO BID tab Gabapentin [Neurontin] 400 mg PO HS #3 cap Midodrine [ProAmatine] 5 mg PO TID@0700,1200,1700 Arformoterol Tartrate [Brovana] 15 mcg INHALATION RT-BID predniSONE See Taper PO DIRECTED Furosemide [Lasix] 20 mg PO DAILY diphenhydrAMINE [Benadryl] 50 mg PO HS Ipratropium-Albuterol Nebulize [Duoneb 0.5 mg-3 mg/3 ml Soln] 3 ml INHALATION RT-Q6H PRN PRN Reason: Shortness Of Breath Discharge Medication List Atenolol [Tenormin] 25 mg PO DAILY 07/25/14 [History] Montelukast [Singulair] 10 mg PO DAILY@1400 07/25/14 [History] Phenytoin Sodium Extended [Dilantin] 200 mg PO BID 07/25/14 [History] Sertraline [Zoloft] 200 mg PO DAILY 07/27/14 [History] Aspirin EC [Ecotrin Low Dose] 81 mg PO DAILY 05/23/19 [History] Atorvastatin [Lipitor] 80 mg PO HS 05/23/19 [History] Budesonide [Pulmicort] 1 mg INHALATION RT-QID 05/23/19 [History] Clopidogrel Bisulfate [Plavix] 75 mg PO DAILY 05/23/19 [History] metFORMIN HCL [Glucophage] 500 mg PO BID 04/24/20 [History] Ergocalciferol (Vitamin D2) [Drisdol] 50,000 unit PO THOMPSON 06/04/20 [History] Ferrous Sulfate [Iron] 325 mg PO DAILY@1400 06/04/20 [History] Gabapentin [Neurontin] 400 mg PO HS #3 cap 06/10/20 [Rx] busPIRone HCl [Buspar] 10 mg PO BID tab 06/10/20 [Rx] Arformoterol Tartrate [Brovana] 15 mcg INHALATION RT-BID 06/11/20 [History] Furosemide [Lasix] 20 mg PO DAILY 06/11/20 [History] Ipratropium-Albuterol Nebulize [Duoneb 0.5 mg-3 mg/3 ml Soln] 3 ml INHALATION RT-Q6H PRN 06/11/20 [History] Midodrine [ProAmatine] 5 mg PO TID@0700,1200,1700 06/11/20 [History] diphenhydrAMINE [Benadryl] 50 mg PO HS 06/11/20 [History] predniSONE See Taper PO DIRECTED 06/11/20 [History] Follow up Appointment(s)/Referral(s): Gio Long MD [Primary Care Provider] - 1-2 days () [facility] Visiting Nurse, [NON-STAFF] - Patient Instructions/Handouts: COPD (Chronic Obstructive Pulmonary Disease) (DC) Activity/Diet/Wound Care/Special Instructions: COPD When to call your provider: Shortness of breath, wheezing, or trouble breathing that does not improve with rest and treatment Increase in the amount of mucus production Mucus that is yellow, green, bloody or smelly. Fever or chills Tightness in your chest that does not go away with your normal medication An irregular heartbeat or feeling that our heart is racing Trouble talking without shortness of breath Feeling increased lightheadedness or dizziness Feeling of doom Skin that is blue, truong, or purple in color. Weight loss, poor appetite, weakness, and fatigue What you can do to help manage your condition: Quit smoking Take your medications as directed. Prevent infection; wash your hands often, avoid crowds, get a flu shot Manage stress Do breathing and coughing exercises Stay active Eat a healthy diet Discharge Disposition: HOME WITH HOSPICE
== END 2020-06-15 19:19 | disposition hospice, home (50) | DRG 190 ==
LOC: EC 07:54 → 3SCARD 10:08
PROVIDERS: ADMIT Family Medicine; ATTEND Family Medicine
PROC: 5A09557 Assistance with Respiratory Ventilation, Greater than 96 Consecutive Hours, Continuous Positive Airway Pressure (ICD-10-PCS; principal; 2020-06-11)
DX: J43.9 Emphysema, unspecified (principal); I50.33 Acute on chronic diastolic (congestive) heart failure; J96.21 Acute and chronic respiratory failure with hypoxia; J96.22 Acute and chronic respiratory failure with hypercapnia; I11.0 Hypertensive heart disease with heart failure; E11.42 Type 2 diabetes mellitus with diabetic polyneuropathy; E78.5 Hyperlipidemia, unspecified; F41.9 Anxiety disorder, unspecified; G47.33 Obstructive sleep apnea (adult) (pediatric); Z51.5 Encounter for palliative care; K21.9 Gastro-esophageal reflux disease without esophagitis; M19.90 Unspecified osteoarthritis, unspecified site; R32 Unspecified urinary incontinence; R79.89 Other specified abnormal findings of blood chemistry; I08.1 Rheumatic disorders of both mitral and tricuspid valves; Z79.02 Long term (current) use of antithrombotics/antiplatelets; Z79.52 Long term (current) use of systemic steroids; Z79.82 Long term (current) use of aspirin; Z79.84 Long term (current) use of oral hypoglycemic drugs; Z79.899 Other long term (current) drug therapy; Z99.81 Dependence on supplemental oxygen; Z87.891 Personal history of nicotine dependence; Z86.79 Personal history of other diseases of the circulatory system; Z87.01 Personal history of pneumonia (recurrent); Z87.81 Personal history of (healed) traumatic fracture; Z91.81 History of falling; Z98.890 Other specified postprocedural states; Z98.51 Tubal ligation status; Z90.89 Acquired absence of other organs; Z82.49 Family history of ischemic heart disease and other diseases of the circulatory system
CPT/HCPCS: 36415; 71045; 71275; 80048; 80053; 83605; 83880; 84484; 85025; 85379; 85610; 85730; 93306; 94640; 94660; 94760; 96374; 96376; 99291